=== PATIENT | male | born 1950 | race Caucasian/White ===

== ENCOUNTER 2021-08-20 08:09 | Outpatient (CLI) | payer MEDICARE, OTHER, SELFPAY ==
[2021-08-20 09:20] LABS: Hemoglobin A1C 5.3 % (<5.7)
== END 2021-08-20 08:10 | disposition home or self-care (01) ==
LOC: ANHSURGERY 08:12
PROVIDERS: PCP Family Medicine; Visit Provider Urology
DX: N48.6 Induration penis plastica (principal); Z01.818 Encounter for other preprocedural examination
CPT/HCPCS: 36415; 83036; 87086

== ENCOUNTER 2021-08-27 00:05 | Day surgery (SDC) | payer MEDICARE, OTHER, SELFPAY ==
[2021-08-13 12:39] VITALS: BMI 28.2
--- NOTE | 2021-08-13 13:05 | PC.NURSE ---
Addendum entered by Harriet Salazar RN 08/13/21 13:52: PT CALLED BACK WITH NAME OF NEW BP MED- AMLODIPINE 2.5 MG. DAILY. INSTR TO TAKE THIS MED ON MORNING OF SURGERY TOO. HE RELAYS UNDERSTANDING. Original Note: Report to the Outpatient Waiting Room, entrance under the green pavilion located off [facility], at time _10:00AM on date __08/27/21 . OR Time: __12:00PM . - You and your visitor will be asked a series of questions to screen for COVID 19 for your protection. - A mask is required within the hospital. Preoperative COVID Testing Requirements: No COVID Test needed if: (proof is required; if not received patient will have Rapid Test prior to entry) - Patient has received COVID Vaccine at least 14 days prior to procedure date or - Patient has positive COVID test result within last 90 days of surgery date. COVID Test needed if above criteria is not met If not COVID vaccinated a COVID test must be conducted within 72 hours of surgery and patient is asked to isolate self from time of testing until procedure. You will go to the [facility] for your COVID testing. The [facility] site is located at the corner of [address] [facility]. You will only be called if COVID results are positive and your surgeon may reschedule your elective surgery date. Patients may have clear liquids (water, carbonated beverages, clear teas, apple juice) until 3 hours prior to surgery with a maximum of 20 ounces. - No food from midnight until time of surgery - Infants may have breast milk until 4 hours before surgery, formula 6 hours prior to surgery. - Children will be allowed to drink immediately following surgery. If applicable, please bring a bottle or sippy cup to assist with drinking. Juice, water, soda, and popsicles are readily available. For infants on formula, please bring formula the day of surgery. Pacifiers are allowed. Take the following medications with a SIP of water the morning of surgery: ___PROPAFENONE, LORAZEPAM NEEDED Medications to discontinue per physician HOLD ELIQUIS 3 DAYS PRE-OP PER PT'S INSTRUCTIONS LAST DOSE-08/24/21; HOLD ALL VITAMINS/SUPPLEMENTS 7 DAYS PRE-OP PER PATIENT Please no make-up, nail kyrgyz, hairspray, perfume, deodorant, or body powder the day of surgery. No jewelry (including any body piercings) or valuables the day of surgery, leave them at home. Please take a shower or bath the night before, or the morning of, surgery with an antibacterial soap. Wear comfortable, loose fitting clothing. Children are encouraged to wear pajamas. - Jewelry must be removed prior to entering the operating room. Rings and piercings that are not removed may be cut off. - The hospital will not accept responsibility for valuables. - Please leave all valuables, including medications, at home the day of surgery. If you are going home after surgery, a licensed hyster driver must drive you home. - NO public transportation without another adult. - We recommend that an adult stay with you for 24 hours following discharge. - We also recommend that you do not drive, make important decision, drink alcoholic beverages, or take any drugs that were not prescribed by your health care provider for at least 24 hours after your discharge time. For Pediatric surgeries, we recommend two adults accompany the child home (only one inside the building at this time). One visitor will be allowed to accompany the patient into the hospital. Patients visitor will be instructed to remain with patient at all times or leave the building. We will allow the visitor to come back to the postoperative area when patient is ready. Follow any additional instructions given to you from your surgeon. Telephone instructions given to ____PATIENT and asked if any additional questions and then verbalized understanding. Patient advised to call surgeon office or pre surg
[2021-08-27 10:03] VITALS: BP 152/78; PULSE 68; RESP 16; TEMP 36.4; O2SAT 98
--- NOTE | 2021-08-27 10:43 | WPDANESEPPF ---
Anes - Initial Pre Proc Eval Procedure: Operation Date: 08/27/21 12:00 Proposed Procedures p Penile Plication Repair - Lisa Jaffe MD Date/Time: 08/27/21 10:43 Surgeon: Lisa Jaffe MD Pre Op Diagnosis: Pejoanienimina Patient Data Age: 71 Gender: M Height: 1.85 m Weight: 97.5 kg Last Vital Signs Temp 36.4 C L 08/27/21 10:03 Pulse 68 08/27/21 10:03 Resp 16 08/27/21 10:03 BP 152/78 H 08/27/21 10:03 Pulse Ox 98 08/27/21 10:03 Allergies Allergy/AdvReac Type Severity Reaction Status Date / Time No Known Allergies Allergy Verified 08/27/21 09:51 Home Medications Medication Instructions Recorded Confirmed Type atorvastatin 10 mg PO DAILY 04/05/19 08/27/21 History budesonide 3 mg PO DAILY PRN 04/05/19 08/13/21 History lorazepam 0.5 mg PO DAILY PRN 04/05/19 08/13/21 History pantoprazole [Protonix] 40 mg PO PRN PRN 04/05/19 08/13/21 History amlodipine 2.5 mg PO QAM 08/13/21 08/27/21 History apixaban [Eliquis] 5 mg PO BID 08/13/21 08/27/21 History cholecalciferol (vitamin D3) 125 mcg PO DAILY 08/13/21 08/27/21 History hydrocodone-acetaminophen 1 tablet PO Q6-8H PRN 08/13/21 08/13/21 History magnesium 200 mg PO DAILY 08/13/21 08/27/21 History multivitamin [Daily Multiple] 1 tablet PO DAILY 08/13/21 08/27/21 History propafenone 225 mg PO TID 08/13/21 08/27/21 History Patient hx anesthesia problems: other (hx of difficult intubation at [facility]- letter from Dr. Carey 2014) Family hx anesthesia problems: none Results Review: All pre-operative results and documents have been reviewed as part of the pre-operative evaluation. [facility] Past Medical History Medical History Ocampo esophagus Collapsed lung History of Crohn's disease HTN (hypertension) Hyperlipidemia Surgical History Surgical History History of appendectomy History of cardiac catheterization History of cholecystectomy Social History Social History Smoking packs per day: 1 Smoking cigarettes per day: 20.0 Years smoked: 27 Smoking pack-years: 27.00 Smoking status: Former smoker Tobacco type: cigarettes Smoking end date: 11/14/94 Alcohol intake: current Drinks per week: 21 Substance use: never Living arrangements: with family Additional living arrangements comments: SPOUSE Gender identity (if verbalized by the patient): Male Spiritual care concerns: No Anes - Eval Final PreProcedure Day of Procedure 08/27/21 10:43 Patient weight: overweight Heart: regular rate and rhythm Lungs: clear to auscultation Airway: Mallampati scale class II and special considerations retrognathia (short TMD, hx of difficult intubation at [facility] 2014) Neurological: alert and oriented Last oral intake: >/= 8 hours ASA classification: III Emergent: no Anesthetic plan: proceed Anesthesia type and monitoring: general LMA and standard monitoring Results Review: All pre-operative results and documents have been reviewed as part of the pre-operative evaluation. Informed Consent: The patient's anesthetic plan and its attendant risks and benefits were discussed with the patient/family/POA. Questions were solicited and answers provided to the satisfaction of the patient/family/POA.
[2021-08-27] MEDS: LACTATED RINGERS 1,000 ML 30 ML IV CONT ×2 (11:06→14:29)
--- NOTE | 2021-08-27 12:10 | PM.IMHP ---
H&P: HPI History of Present Illness Date/Time: 08/27/21 12:10 Penile curvature Chief Complaint: penile curvature [facility] Past Medical History Medical History (Updated 08/27/21 @ 12:12 by Lisa Jaffe MD) Ocampo esophagus Collapsed lung History of Crohn's disease HTN (hypertension) Hyperlipidemia Peyronie disease Surgical History Surgical History History of appendectomy History of cardiac catheterization History of cholecystectomy Social History Social History Smoking packs per day: 1 Smoking cigarettes per day: 20.0 Years smoked: 27 Smoking pack-years: 27.00 Smoking status: Former smoker Tobacco type: cigarettes Smoking end date: 11/14/94 Alcohol intake: current Drinks per week: 21 Substance use: never Living arrangements: with family Additional living arrangements comments: SPOUSE Gender identity (if verbalized by the patient): Male Spiritual care concerns: No Meds Home Medications and Allergies Home Medications Medication Instructions Recorded Confirmed Type atorvastatin 10 mg PO DAILY 04/05/19 08/27/21 History budesonide 3 mg PO DAILY PRN 04/05/19 08/13/21 History lorazepam 0.5 mg PO DAILY PRN 04/05/19 08/13/21 History pantoprazole [Protonix] 40 mg PO PRN PRN 04/05/19 08/13/21 History amlodipine 2.5 mg PO QAM 08/13/21 08/27/21 History apixaban [Eliquis] 5 mg PO BID 08/13/21 08/27/21 History cholecalciferol (vitamin D3) 125 mcg PO DAILY 08/13/21 08/27/21 History hydrocodone-acetaminophen 1 tablet PO Q6-8H PRN 08/13/21 08/13/21 History magnesium 200 mg PO DAILY 08/13/21 08/27/21 History multivitamin [Daily Multiple] 1 tablet PO DAILY 08/13/21 08/27/21 History propafenone 225 mg PO TID 08/13/21 08/27/21 History Allergies Allergy/AdvReac Type Severity Reaction Status Date / Time No Known Allergies Allergy Verified 08/27/21 09:51 Vital Signs Vital Signs - 24 hr 08/27/21 10:03 Temperature 36.4 C L Pulse Rate 68 Respiratory Rate 16 Blood Pressure 152/78 H Pulse Oximetry 98 Exam Narrative: awake, alert breathing unlabored abdomen soft penile dorsal palpable plaque Assessment and Plan Assessment and plan (1) Peyronie disease: Code(s): N48.6 - Induration penis plastica Status: Acute Assessment and Plan: Plan penile plication risks, benefits and alternatives discussed Pt and at beside and agree to proceed
--- NOTE | 2021-08-27 12:13 | WPDHPUPDATE1 ---
History and Physical Update Update Date/Time: 08/27/21 12:13 History and Physical has been reviewed, including an updated exam of the patient. There are NO changes in the patient's condition. Risks, benefits, and alternatives have been discussed and questions answered. Patient agrees to proceed with procedure.
[2021-08-27] MEDS: BUPIVACAINE HCL 0.5% PF 30 ML VIAL INFILTRATE (12:28)
[2021-08-27] MEDS: NEOMYCIN/POLYMYXIN/BACITRACIN OINTMENT 15 GM TUBE 1 APPLIC TOPICAL (14:14)
[2021-08-27 14:29] VITALS: BP 150/79; PULSE 69; RESP 19; O2SAT 99
--- NOTE | 2021-08-27 14:37 | P.OP_ITS ---
Procedure Note - Detailed Date of Procedure 08/27/21 Pre-op Diagnosis Peyronies Post-op Diagnosis Same Procedure Performed Penile plication, artificial erection with pharmacologic agent Surgeon Lisa Jaffe MD Description of Procedure Informed consent was obtained. Patient was taken the operating room. He was given preoperative IV antibiotics. Anesthesia was induced. The patient was shaved and prepped in the normal sterile fashion. An artificial erection was performed with dilute lidocaine. Erection revealed 65? dorsal and 35? of left curvature. A Fournier catheter was placed for urethral identification. As patient is uncircumcised, we elected to make a ventral 3cm incision over the area of maximal curvature to reduce postoperative swelling. Dissection was performed down to the corporal bodies at the area of maximal curvature on either side, taking great care not to injure the urethra. Mason's fascia was opened over the corpora. We then again performed an artificial erection and marked the area of maximal curvature. Using a modified Lue technique, 3-0 Ethibond sutures were placed on either side of the urethra. We initially placed 2 sutures on each side with significant reduction in curvature. An additional suture was placed on the left and 3 additional sutures on the right in order to achieve significan t straightening. An artificial erection was performed after each additional suture to assess for straightening. At the conclusion of the procedure an artificial erection was performed and there was no more than 10? of curvature in any direction. A total of 8 sutures were placed, 3 on the left and 5 on the right. We then irrigated copiously. Mason's fascia and deep dermal layers were closed with 3-0 Vicryl suture. Skin was reapproximated with 3-0 Monocryl horizontal mattress followed by glue. The Fournier catheter was removed after emptying the bladder. A compressive dressing was placed. The patient was then taken to the recovery room in stable condition Estimated Blood Loss 20 Urine Output -200.0 Drains No Packing No Pathology None sent Complications No immediate complications Condition Stable Disposition PACU
[2021-08-27 14:45] VITALS: BP 139/77; PULSE 62; RESP 19; O2SAT 97
[2021-08-27] MEDS: fentaNYL CITRATE INJ (*CRX) 100 MCG/2 ML VIAL 25 MCG IV PUSH (14:59)
[2021-08-27 15:00] VITALS: BP 130/89; PULSE 68; RESP 15; O2SAT 97
[2021-08-27 15:10] VITALS: BP 118/62; PULSE 71; RESP 16
[2021-08-27 15:40] VITALS: BP 136/62; PULSE 69; RESP 16
== END 2021-08-27 15:55 | disposition home or self-care (01) ==
PROVIDERS: PCP Family Medicine; Visit Provider Urology
PROC: (CPT 54360; principal; 2021-08-27 12:00)
DX: N48.6 Induration penis plastica (principal); I10 Essential (primary) hypertension; E78.5 Hyperlipidemia, unspecified; K50.90 Crohn's disease, unspecified, without complications; Z87.891 Personal history of nicotine dependence; Z79.01 Long term (current) use of anticoagulants
CPT/HCPCS: 54360; 54235; A9270; J0690; J1100; J2250; J2405; J2704; J3010; J7030; J7120

== ENCOUNTER 2022-07-22 15:39 | Emergency (ER) | payer MEDICARE, OTHER, SELFPAY ==
[2022-07-22 15:48] VITALS: BP 104/68; PULSE 68; RESP 18; TEMP 36.3; O2SAT 97
[2022-07-22 15:51] VITALS: BP 104/68; PULSE 68; RESP 18; TEMP 36.3; O2SAT 97
--- NOTE | 2022-07-22 16:05 | ED.GENADULT ---
HPI - General Adult General Chief complaint: Extremity Injury, Upper Stated complaint: Swollen Middle Finger Lt Hand Time Seen by Provider: 07/22/22 16:05 Source: patient, RN notes reviewed and old records reviewed Mode of arrival: ambulatory Limitations: no limitations History of Present Illness HPI narrative: 72-year-old male who presents to [facility] with complaints of pain and swelling to the left middle finger along the nail bed for the past 4 days. He reports that he did have some purulent drainage noted today along the outer aspect of the nail bed. The area along outer and upper nailbed is red and swollen and is painful to palpation. MD complaint: paronychia left mddle finger Onset (ago): day(s) (4) Location: left and upper extremity (middle finger nailbed) Severity scale (1-10): 10 Quality: stabbing Pain Consistency: constant Exacerbating factors: other (palpation) Treatments prior to arrival: none Related Data Home Medications Medication Instructions Recorded Confirmed atorvastatin 10 mg tablet 10 mg PO DAILY 04/05/19 07/22/22 budesonide 3 mg 3 mg PO DAILY PRN Diarrhea 04/05/19 07/22/22 capsule,delayed,extended release lorazepam 0.5 mg tablet 0.5 mg PO DAILY PRN Anxiety 04/05/19 07/22/22 pantoprazole 40 mg granules 40 mg PO PRN PRN Indigestion 04/05/19 07/22/22 delayed-release for susp in packet (Protonix) amlodipine 2.5 mg tablet 2.5 mg PO QAM 08/13/21 07/22/22 apixaban 5 mg tablet (Eliquis) 5 mg PO BID 08/13/21 07/22/22 cholecalciferol (vitamin D3) 125 125 mcg PO DAILY 08/13/21 07/22/22 mcg (5,000 unit) capsule magnesium 200 mg tablet 200 mg PO DAILY 08/13/21 07/22/22 multivitamin 1 tablet PO DAILY 08/13/21 07/22/22 propafenone 225 mg tablet 225 mg PO TID 08/13/21 07/22/22 Allergies Allergy/AdvReac Type Severity Reaction Status Date / Time No Known Allergies Allergy Verified 07/22/22 15:50 Review of Systems Review of Systems: CONSTITUTIONAL: Denies fever, chills, or sweats. EYES: Denies visual changes, redness, or discharge. ENT: Denies rhinorrhea, congestion, sore throat, or otalgia. CARDIOVASCULAR: Denies chest pain, palpitations, or edema. RESPIRATORY: Denies cough or dyspnea. GASTROINTESTINAL: Denies abdominal pain, nausea, vomiting, or diarrhea. GENITOURINARY: Denies dysuria or hematuria. SKIN: Denies rash or itching. redness with swelling and pain to outer and upper left middle finger nail bed with some purulent drainage. MUSCULOSKELETAL: Denies back pain, joint pain, or myalgia. NEUROLOGIC: Denies headache, numbness, or weakness. PSYCHIATRIC: Reports history of anxiety or depression. All systems reviewed & are unremarkable except as noted in HPI and below PMFSH Past Medical History Medical History Ocampo esophagus Collapsed lung History of Crohn's disease HTN (hypertension) Hyperlipidemia Peyronie disease Surgical History Surgical History History of appendectomy History of cardiac catheterization History of cholecystectomy Social History Social History Smoking packs per day: 1 Smoking cigarettes per day: 20.0 Years smoked: 27 Smoking pack-years: 27.00 Smoking status: Current every day smoker Tobacco type: cigarettes Smoking end date: 11/14/94 Alcohol intake: current Drinks per week: 21 Substance use: never Living arrangements: with family Additional living arrangements comments: SPOUSE Gender identity (if verbalized by the patient): Male Spiritual care concerns: No Comments At time of signature, agree with nursing past medical, surgical, social and family history. There is no relevant family history pertinent to the presenting complaint Exam Narrative: GENERAL: Well-appearing, well-nourished, and in no acute distress. HEAD: Normocephalic, atraumatic. EYES: PERRLA and EOMI.
== END 2022-07-22 16:27 | disposition home or self-care (01) ==
PROVIDERS: Emergency Provider Registered Nurse; PCP Family Medicine
DX: L03.012 Cellulitis of left finger (principal); I10 Essential (primary) hypertension; E78.5 Hyperlipidemia, unspecified; F17.210 Nicotine dependence, cigarettes, uncomplicated; Z79.01 Long term (current) use of anticoagulants
CPT/HCPCS: 10060; 99213; G0463

== ENCOUNTER 2023-03-03 09:45 | Outpatient (RCR) | payer MEDICARE, OTHER, SELFPAY | END 2023-03-08 10:02 | disposition home or self-care (01) | LOC: ANHCPREHAB 09:45 | PROVIDERS: PCP Family Medicine | DX: J44.9 Chronic obstructive pulmonary disease, unspecified (principal) | CPT/HCPCS: 94625 ==

== ENCOUNTER 2024-07-09 09:38 | Emergency (ER) | payer MEDICARE, SELFPAY ==
--- NOTE | ~2024-07-09 | XR_ITS ---
EXAMINATION: XR chest 2V DATE: 07/09/2024 10:47 INDICATION: Cough and shortness of breath. TECHNIQUE: Frontal and lateral views of the chest were obtained on 3 radiographs. COMPARISON: Chest single view 04/05/2019, CT abdomen 07/23/2007 FINDINGS: The lung volumes are normal. There is a diffuse interstitial pattern in the lungs. No pleur al effusion or pneumothorax. The heart size is normal. IMPRESSION: 1. Diffuse lung disease, worsened from 04/05/2019, likely chronic lung disease. Reviewed, dictated and finalized at location A. [employer]
--- OUTSIDE RECORDS SUMMARY | 2024-07-09 09:51 | XMS_ITS | Encounter Summary ---
Author Organization [facility] Address [address] [place] [address] Phone Care Team Providers Care Power Transformer Repair Supervisor Name Role Phone Ck Chacon MD Primary Care Provider Peter Muller MD Unavailable [phone] Nick Lamas MD Unavailable Shagufta Sal RN Unavailable [phone] Reason for Visit * Reason Onset Date Comments symptoms 07/06/2024 Encounter Details Date Type Department Care Team (Late st Contact Info) Description 07/06/2024 Telephone [facility] Cardiology [address] [facility] [address] [facility] [address]th [place] [address] [place] [address] Jude Le NP [address] [facility] [address] [place] [address] symptoms Social History Tobacco Use Types Packs/Day Years Used Date Smoking Tobacco: Former Cigarettes 1.5 19 1 0 - 1988 Passive Smoke Exposure: Past Smokeless Tobacco: Never Comments:Chews Nicorette gum Alcohol Use Standard Drinks/Week Comments Yes 18 (1 standard drink = 0.6 oz pu re alcohol) a week [facility] Utilities Answer Date Recorded In the past 12 months has th e electric, gas, oil, or water company threatened to shut off services in your home? No 06/06/2024 Social Connection and Isolation Panel [NHANES] A nswer Date Recorded In a typical week, how many times do you talk on the phone with family, friends, or neighbors? Three times a week 06/06/2024 How often do you get togethe r with friends or relatives? Three times a week 06/06/2024 How often do you attend chur ch or cheondoism services? Never 06/06/2024 Do you belong to any clubs o r organizations such as jain groups, unions, fraternal or athletic groups, or school groups? No 06/06/2024 How often do you attend meet ings of the clubs or organizations you belong to? Never 06/06/2024 Are you , , di vorced, , never , or living with a partner? 06/06/2024 AUDIT-C Answer Date Recorded Q1: How often do you have a drink containing alc ohol? 2-4 times a month 07/05/2024 Q2: How many drinks containi ng alcohol do you have on a typical day when you are drinking? 1 or 2 07/05/2024 Q3: How often do you have si x or more drinks on one occasion? Never 07/05/2024 Overall Financial Resource Strain (CARDIA) Answe r Date Recorded How hard is it for you to pa y for the very basics like food, housing, medical care, and heating? Not hard at all 06/06/2024 PHQ-2 Answer Date Recorded PHQ-2 Total Score (If total score is 3 or more points, staff should administer the PHQ-9) 0 07/05/2024 Hunger Vital Sign Answer Date Recorded Within the past 12 months, y ou worried that your food would run out before you got the money to buy more. Never true 06/06/19 25 Within the past 12 months, t he food you bought just didn't last and you didn't have money to get more. Never true 06/06/2024 PRAPARE - Transportation Answer Date Re corded In the past 12 months, has l ack of transportation kept you from medical appointments or from getting medications? No 05/18 In the past 12 months, has l ack of transportation kept you from meetings, work, or from getting things needed for daily living? No 06/06/2024 Housing Stability Vital Sign Answer Phuc e Recorded In the last 12 months, was t here a time when you were not able to pay the mortgage or rent on time? No 06/14/2023 In the last 12 months, how many places have you lived? 1 06/14/2023 In the last 12 months, was t here a time when you did not have a steady place to sleep or slept in a custodial (including now)? No 06/14/2023 Housing Stability Vital Sign Answer Phuc e Recorded In the last 12 months, was t here a time when you were not able to pay the mortgage or rent on time? No 06/06/2024 In the past 12 months, how m any times have you moved where you were living? 0 06/06/2024 At any time in the past 12 m [facility], were you homeless or living in a custodial (including now)? No 06/06/2024 Personal Safety Answer Date Recorded Have you ever been in or are you currently in a harmful physical or emotional relationship or is someone making you feel afraid or unsafe? Denies 07/06/2024 Sex and Gender Information Value Date Recorded Sex Assigned at Not on file Legal Sex Male 3:45 AM PLUNGER MACHINE OPERATOR Gender Identity Not on file Sexual Orientation Not on file documented as of this encounter Ordered Prescriptions Prescription Sig Dispense Quantity Refills Last Filled Start Date End Date empagliflozin (Jardiance) 10 mg tabletIndications:H eart Failure,HFpEF indication Take 1 tablet (10 mg total) by mouth daily 90 tablet 3 07/07/2024 documented in this encounter Miscellaneous Notes * Telephone Encounter - Rehan, Kavya Ring, HARSHAL - 07/07/2024 10:42 AM PLUNGER MACHINE OPERATOR Advised pt to go back to lasix 20 mg daily. 2/4 105/69 2/5 128/75 2/6 127/73 2/7 153/88 2/8 116/79 2/9 140/67 2/10 114/71 2/11 135/70 2/12 110/77 2/13 112/60 2/14 110/65 BPs are stable from Spironolactone. He will start jardiance and get lab work once he has been on it for a week. Pt is undergoing pulmonary rehab and will return when he is feeling better. He will reach out to his pulmonary doctor for further recs regarding his COPD exacerbation. GER MACHINE OPERATOR * Telephone Encounter - Kavya Van RN - 07/07/2024 10:29 AM PLUNGER MACHINE OPERATOR Images from the original note were not included. Jude Le NP You10 minutes ago (10:18 AM) Lets drop the Lasix dose back down to 20 mg daily please. Follow up on how his blood pressure is tolerating the Spironolactone. Then add Jardiance 10 mg daily for HFpEF indication. Repeat Labs in 7-14 days after Jardiance because we may be able to transition Lasix back to as needed after the Jardiance. Jude Reynolds NP2 hours ago (8:17 AM) ET Looks like ED note states it was a COPD exacerbation. BNP 37. Do you want him to stay on 40 mg lasix? GER MACHINE OPERATOR * Telephone Encounter - Kavya Van RN - 07/06/2024 2:09 PM PLUNGER MACHINE OPERATOR Called pt to advise what Jude had said. Pt has had an increase in urination, more than what he was doing before with being on 20 mg daily. Pt did state that he is at the ER in [facility]. Told him to keep us posted when he was discharged. GER MACHINE OPERATOR * Telephone Encounter - Kavya Van RN - 07/06/2024 2:08 PM PLUNGER MACHINE OPERATOR Images from the original note were not included. Jude Le NP You11 minutes ago (1:56 PM) Given weight gain could be diastolic heart failure driving this vs his COPD as he has had recent admissions for COPD exacerbations. Did he urinate any more yesterday or today with higher dose of Lasix? Can further increase dose if not. I reviewed his labs and his kidney function is stable. You Jude Le, NP28 minutes ago (1:39 PM) ET Recs? GER MACHINE OPERATOR * Telephone Encounter - Kavya Van RN - 07/06/2024 1:32 PM PLUNGER MACHINE OPERATOR Called pt and he is complaining of SOB x3 day. Pt already on oxygen at home (2 L). When sitting 92 no oxygen. With activity and o2 on 85-86 %. With any exertion he is getting lightheaded. He is also spitting up yellow tinged sputum. Pt saw his PCP yesterday. (She said it could be heart or lungs) Pt currently takes 40 mg of lasix as of yesterday. No improvement in breathing yet. Pt states that he gained 5 lbs in a week this week and his legs are a little swollen. He says it pits for about 10 seconds. No fever. He says he feels like he did the last time he was in the hospital. GER MACHINE OPERATOR * Telephone Encounter - Belle Garcia - 07/06/2024 12:50 PM CST Rey Pt stating he has not feeling well. Pt having breathing issues and spitting up a lot of yellow mucus. No fever. Pt is feeling the same way he did while in the hospital. Pt ws seen in the office on DOS 06/19/24 Pt did see his PCP. Pls return call to discuss. GER MACHINE OPERATOR documented in this encounter Plan of Treatment Scheduled Orders Name Type Priority Associated Diagnoses Orde r Schedule Basic metabolic panel Lab Routine Chronic diastolic heart failure (HCC) New medication added Expected: 07/14/2024, Expires: 07/07/2025 documented as of this encounter Goals Goal Patient Goal Type Associated Problems Recent Progress Patient-Stated? Author LANA General Goal - Patient schedules and keeps appointments with all recommended providers ACO Care Management No Shagufta Sal RN Note: Problem: Potential for medical complications and readmission if follow-up appointments are not scheduled Interventions: - Ensure all follow-up appointments are scheduled, all prescribed medications have been received. - Address any barriers for keeping scheduled appointment. - Coordinate with patient/caregiver(s) to ensure patient is able to keep scheduled appointment. - Emphasize importance of keeping scheduled appointments. - Identify and discuss questions for next provider visit. - Follow up with patient after scheduled appointment(s) to review any new orders or changes made to medication regimen. HF Goal - Patient's CP status will be stable with increased knowledge of self-care management ACO Care Management No Shagufta Sal RN Note: Problem: Heart Failure Interventions: - Assess for HF exacerbation: dyspnea at rest, reports of increased dyspnea with exertion, sudden weight gain of 3+lbs in 1 day or 5+lbs in 1 week, increased edema in legs/ankles, frequent dry hacking cough, loss of appetite, increased fatigue. - Provide education surrounding fluid restrictions, daily weights, energy conservation techniques, sodium restricted diet, edema control. - Send heart failure educational materials. documented as of this encounter Visit Diagnoses Diagnosis Chronic diastolic heart failure (HCC)- Primary Chronic diastolic heart failure New medication added documented in this encounter Additional Health Concerns Infection Onset Date Last Indicated Resolved Time COVID: Suspected 07/06/2024 07/06/2024 07/06/2024 3:10 PM PLUNGER MACHINE OPERATOR documented as of this encounter Care Teams Power Transformer Repair Supervisor Relationship Specialty Start Date End Date Ck Chacon MD PCP - General 07/04/18 Peter Muller MD Referring Physician Cardiology 03/20/20 Nick Lamas MD [address] [address] Consulting Physician Cardiology 02/28/24 Shagufta Sal RN [address] [place] [address] [address] [place] [address] Email Marketing Assistant 05/22/24 documented as of this encounter
--- OUTSIDE RECORDS SUMMARY | 2024-07-09 09:52 | XMS_ITS | Referral Summary ---
Author Organization [facility] Address [address] [place] [address] Care Team Providers Care Director Of Food And Beverage Services Name Role Phone Ck Chacon MD Primary Care Provider [phone] Peter Muller MD Unavailable Nick Lamas MD Unavailable Shagufta Sal RN Unavailable Encounters Date Type Department Care Team Description 07/07/2024 Telephone [facility] Medical [facility] Family Medicine at [address] [place] [address] Ck Chacon MD Appointment Request (ER follow up) 07/07/2024 Orders Only [facility] Pulmonary [address] [facility] Advanced Medicine 8th [place] [address] [place] [phone] Palmira Moncada MD 07/07/2024 Telephone [facility] Cardiology [address] [facility] Medical Office Building [address] [place] [address] Jude Le NP Jardiance PA request 07/07/2024 Telephone [facility] Medical [facility] Family Medicine at [address] [place] [address] Ck Chacon MD Case Management- Primary Care 07/06/2024 Results Follow-Up [facility] Cardiology [facility] 8th [place] [address] [place] [address] Jude Le, PINKY 07/06/2024 2:28 PM TAG WRITER - 07/06/2024 5:[address] [facility] Emergency Department [address] [place] [id number] Peter Montes DO COPD exacerbation (HCC) (Primary Dx) Discharge Disposition: Discharge to home or self care 07/06/2024 Telephone [facility] Cardiology [address] [place] [address] 8th [place] [address] [place] [address] Jude Le, SURVEYING OR SPATIAL SCIENCE TECHNICIAN symptoms 07/06/2024 Telephone [facility] Medical [facility] Family Medicine at [address] [place] [address] Ck Chacon MD Medical Question/Miscellaneou s 07/05/2024 10:45 AM TAG WRITER Office Visit [facility] Family Medicine at [address] [place] [phone] Merary Oneal PA Acute cough (Primary Dx); SOB (shortness of breath) 07/05/2024 Nurse Triage [facility] Family [facility] at [address] [place] [address] Ck Chacon MD 06/21/2024 Orders Only [facility] Pulmonary [facility] 8th [place] [address] [place] [address] Palmira Moncada MD 06/20/2024 7:08 AM TAG WRITER - 06/20/2024 11:59 PM TAG WRITER Hospital Encounter [facility] Pulmonary [address] [facility] [address] [place] [address] Pulmonary fibrosis (CMS/HCC) (HCC) Discharge Disposition: Discharge to home or self care 06/20/2024 8:00 AM TAG WRITER Office Visit [facility] Pulmonary [address] [place] [address] [place] [address] [place] [address] Palmira Moncada MD Pulmonary fibrosis (CMS/HCC) (HCC) (Primary Dx); Hypoxemia; Pulmonary emphysema, unspecified emphysema type (HCC) 06/19/2024 8:00 AM TAG WRITER Office Visit [facility] Cardiology [address] [place] [address] [place] [address] Jude Le NP Chronic diastolic heart failure (HCC) (Primary Dx); Chronic diastolic congestive heart failure (CMS/HCC) (HCC); Essential hypertension; Mixed hyperlipidemia; Paroxysmal atrial fibrillation (CMS/HCC) (HCC); PFO (patent foramen ovale) 06/15/2024 2:44 PM TAG WRITER - 06/15/2024 11:59 PM TAG WRITER Hospital Encounter [address] [address] SOB (shortness of breath) Discharge Disposition: Discharge to home or self care 06/15/2024 1:35 PM TAG WRITER Ancillary Procedure [facility] Cardiology [address] [place] [address] [place] [address] SOB (shortness of breath) 06/15/2024 1:30 PM TAG WRITER Lab [facility] Endocrinology Metabolism and Lipid [address] [place] [address] [place] [address] Painful urging to urinate (Primary Dx) 06/15/2024 12:45 PM TAG WRITER Office Visit [facility] Cardiology [address] [place] [address] [place] [address] Shagufta Vasquez NP SOB (shortness of breath) (Primary Dx) 06/14/2024 Telephone [facility] Cardiology [address] [place] [address] [place] [address] Nick Lamas MD 06/13/2024 8:30 AM TAG WRITER Office Visit [facility] Medical Group Family Medicine at [address] [place] [address] Briana Giles NP Acute on chronic diastolic congestive heart failure (CMS/HCC) (HCC) (Primary Dx); Acute on chronic respiratory failure with hypoxia (CMS/HCC) (HCC) 06/09/2024 Telephone [facility] Pulmonary [place] [address] [facility] [address] [place] [phone] Bernardino Dillard MD Prior Auth (OFEV) 06/05/2024 7:27 PM TAG WRITER - 06/09/2024 3:51 PM TAG WRITER Hospital Encounter [facility] 4 Med Surg [address] [place] [address] Jimbo Jack MD [place], MD Nidia Arreola Ibrahim, MD Acute on chronic respiratory failure with hypoxia (CMS/HCC) (HCC) (Primary Dx); Interstitial lung disease (CMS/HCC) (HCC); COPD exacerbation (HCC); SOB (shortness of breath); ALANIZ (dyspnea on exertion); Acute on chronic diastolic congestive heart failure (CMS/HCC) (HCC) [I50.33]; MIKE on CPAP [G47.33]; Pulmonary hypertension (HCC) [I27.20]; Pulmonary fibrosis (CMS/HCC) (HCC) [J84.10]; Pulmonary fibrosis (CMS/HCC) (HCC) Discharge Disposition: Discharge to home or self care 06/05/2024 Telephone [facility] Family Medicine at [address] [address] Ck Chacon MD Case Management- Primary Care 05/31/2024 Telephone [facility] Cardiology [address] [facility] 8th [place] [address] [place] [address] Peter Muller MD Med Management 05/30/2024 Telephone [facility] [address] [facility] [address] [place] [phone] Bernardino Dillard MD 05/29/2024 11:00 AM TAG WRITER Office Visit [facility] Family Medicine at [address] [place] [phone] Briana Giles NP Acute on chronic hypoxic respiratory failure (HCC) (Primary Dx); Acute on chronic heart failure, unspecified heart failure type (HCC); Intractable migraine without aura and without status migrainosus; Essential hypertension 05/24/[address] [phone] Bernardino Dillard MD 05/24/2024 9:00 AM TAG WRITER Office Visit [facility] [address] [place] [phone] Bernardino Dillard MD Pulmonary fibrosis (CMS/HCC) (HCC) (Primary Dx); Simple chronic bronchitis (HCC); MIKE on CPAP; Multiple pulmonary nodules; Cigarette nicotine dependence in remission; Pulmonary hypertension (HCC); Paroxysmal atrial fibrillation (CMS/HCC) (HCC); NSIP (nonspecific interstitial pneumonia) (CMS/HCC) (HCC); Exercise hypoxemia; Bronchiectasis without acute exacerbation (HCC); Muscular deconditioning 05/11/2024 3:35 AM TAG WRITER - 05/20/2024 11:49 AM TAG WRITER Hospital Encounter [facility] 4 Med Surg [address] [place] [address] Amy Wei MD Sada, Kahmalia-Kalee Conceptia, MD [place], MD Dalton Alejo, MD Gume Chou, Rodney Doe MD Acute on chronic hypoxic respiratory failure (HCC) (Primary Dx); Fever in adult; NSIP (nonspecific interstitial pneumonia) (CMS/HCC) (HCC) [J84.89]; Pulmonary fibrosis (CMS/HCC) (HCC) [J84.10]; Simple chronic bronchitis (HCC) [J41.0]; CAP (community acquired pneumonia) [J18.9]; MIKE on CPAP; Multiple pulmonary nodules Discharge Disposition: Discharge to home or self care 05/05/2024 Orders Only [facility] Pulmonary [address] [facility] 8th [place] [address] [place] [address] Palmira Moncada MD 05/04/2024 Telephone [facility] at [address] [address] Ck Chacon MD Medical Question/Miscellaneou s 05/03/2024 9:00 AM TAG WRITER Telemedicine [facility] at [address] [address] Ck Chacon MD RSV bronchitis (Primary Dx) 05/02/2024 Telephone [facility] at [address] [address] Ck Chacon MD appoinment 05/01/2024 11:08 PM TAG WRITER - 05/01/2024 11:50 PM [facility] Emergency [facility] Emergency Department [address] [place] [phone] RSV (acute bronchiolitis due to respiratory syncytial virus) (Primary Dx) Discharge Disposition: Discharge to home or self care 05/01/2024 Nurse Triage [facility] at [address] [address] Ck Chacon MD 05/01/2024 Telephone [facility] at [address] [address] Ck Chacon MD Symptom Based Call 04/28/2024 11:00 AM TAG WRITER Office Visit [facility] at [address] [address] Merary Oneal PA Acute cough (Primary Dx) 04/28/2024 Nurse Triage [facility] at [address] [address] Ck Chacon MD from Last 3 Months Allergies No known active allergies Medications calcium carbonate (Calcium 600) 1,500 mg (600 mg elemental) tablet Take 1 tablet (1,500 mg total) by mouth daily 30 tablet 3 04/24/20 21 Active magnesium gluconate 200 mg tablet Take 1.25 tablets (250 mg total) by mouth early head start director before breakfast Active multivitamin capsule Take 1 capsule by mouth every morning MEN'S 50+ Active ascorbic acid (VITAMIN C ORAL) Take 1 tablet by mouth early head start director before breakfast Active oxygen Administer 2-3 L/min into each nostril as directed Sleeping and walkin Liters *Sleeping - 2L O2 goes through CPAP machine Exercisin Liters Sitting - NO oxygen Active atorvastatin (LIPITOR) 20 mg tablet TAKE 1 TABLET EVERY MORNING 90 tablet 3 04/17/[address] (PROTONIX) 40 mg EC tablet Take 1 tablet (40 mg total) by mouth daily Active metoprolol XL (TOPROL-XL) 50 mg extended release tablet TAKE 1 TABLET EVERY DAY 90 tablet 3 05/11/20 24 Active nintedanib (Ofev) 150 mg capsule Take 1 capsule (150 mg total) by mouth 2 (two) times a day with meals 180 capsule 05/19/19 25 Active LORazepam (ATIVAN) 1 mg tablet Take 1 tablet (1 mg total) by mouth every 6 (six) hours as needed for anxiety 15 tablet 05/20/19 25 Active fluticasone-um eclidin-vilant er (Trelegy Ellipta) 100-62.5-25 mcg inhaler Inhale 1 puff daily Rinse mouth with water after use, do not swallow 180 each 05/23/19 25 Active rimegepant (Nurtec ODT) tablet,disinte grating Take 1 tablet (75 mg total) by mouth daily as needed (migraine treatment) 8 tablet 1 05/25/19 25 Active apixaban (ELIQUIS) 5 mg tablet Take 1 tablet (5 mg total) by mouth 2 (two) times a day 180 tablet 3 05/25/19 25 Active NIFEdipine (PROCARDIA XL/ADALAT CC) 30 mg 24 hr tablet Take 1 tablet (30 mg total) by mouth daily 90 tablet 3 05/26/19 25 2025 Active ondansetron (ZOFRAN) 4 mg tabletIndicati ons:Acute on chronic heart failure, unspecified heart failure type (HCC) Take 1 tablet (4 mg total) by mouth every 8 (eight) hours as needed for nausea or vomiting 30 tablet 1 05/29/19 Active furosemide (LASIX) 20 mg tablet Take 1 tablet (20 mg total) by mouth daily 30 tablet 06/09/19 Active Additional Information Patient taking differently: 40 mgoral Daily, Reported on 07/06/2024 spironolactone (ALDACTONE) 25 mg tablet Take 1 tablet (25 mg total) by mouth daily 90 tablet 3 06/19/19 25 2025 Active albuterol 2.5 mg /3 mL (0.083 %) nebulizer solution Take 3 mL (2.5 mg total) by nebulization every 6 (six) hours as needed for wheezing 75 mL 11 06/21/19 25 2025 Active empagliflozin (Jardiance) 10 mg tabletIndicati ons:Heart Failure,HFpEF indication Take 1 tablet (10 mg total) by mouth daily 90 tablet 3 07/07/19 Active albuterol HFA (ProAir HFA) 90 mcg/actuation inhaler Inhale 2 puffs every 6 (six) hours as needed for wheezing or shortness of breath 25.5 g 3 07/07/19 Active ipratropium-al buteroL (DUO-NEB) 0.5-2.5 mg/3 mL nebulizer solution Take 3 mL by nebulization every 6 (six) hours as needed for wheezing or shortness of breath 2024 Discontinued doxycycline (VIBRAMYCIN) 100 mg capsule Take 1 tablet/capsule (100 mg total) by mouth 2 (two) times a day for 10 days 20 tablet/caps ule 06/09/19 25 2024 Discontinued predniSONE (DELTASONE) 10 mg tablet Take 4 tabs (40mg) daily for 3 days, then 3 tabs (30mg) daily for 3 days, 2 tabs (20mg) daily for 3 days, 1 tab (10 mg) daily for 3 days. 30 tablet 06/09/19 25 2024 Discontinued albuterol HFA (ProAir HFA) 90 mcg/actuation inhaler Inhale 2 puffs every 6 (six) hours as needed for wheezing or shortness of breath 25.5 g 3 07/07/19 25 2024 Discontinued(R eorder) Active Problems Problem Noted Date Diagnosed Date PFO (patent foramen ovale) 06/19/2024 Assessment & Plan (06/19/2024 9:01 AM TAG WRITER): PFO noted on echocardiogram. Not of any clinical significance at this time. We will continue to monitor. Acute on chronic respiratory failure with hypoxi a ([facility]) 06/05/2024 Assessment & Plan (06/13/2024 9:14 AM TAG WRITER): - Improving, currently still you using supplemental oxygen 2-3 L with activity - Continue prednisone taper - Continue DuoNeb 3 mL every 6 hours as needed, Trelegy 100-62.5-25 mcg inhaler 1 puff daily, Lasix 20 mg daily - Schedule follow-up with Dr. Dillard, recommendation was to follow-up in 2 weeks following hospital discharge - Report back to office with any worsening symptoms and follow-up in 4 weeks Chronic diastolic heart failure 06/05/2024 Assessment & Plan (06/19/2024 9:08 AM TAG WRITER): Two admissions for diastolic heart failure and COPD exacerbation in April of 2024 and May of 2024. Echocardiogram during hospitalization noted a preserved ejection fraction with grade 2 diastolic dysfunction. States a good baseline weight for him was around 110 lb prior to his hospitalizations and now running around 220 lbs. Recent NT proBNP on 06/15/2024 was in normal range of 117. Has some mild bilateral lower extremity edema but otherwise no overt volume overload appreciated upon examination. Will start spironolactone 25 mg daily for blood pressure optimization and HFpEF indication. Repeat labs in 7-10 days and plan to start Jardiance at that time. He can hold Lasix and take on as needed basis for weight gain of 2 lb in 24 hours or 5 lb in a week. Provided education regarding heart failure management and when to reach out to our team. Assessment & Plan (06/13/2024 9:15 AM TAG WRITER): - Symptoms improving, euvolemic on exam today - Continue Lasix 20 mg daily, nifedipine extended release 30 mg daily, metoprolol extended release 50 mg daily - Follow-up with cardiology as scheduled, next appointment currently for [facility] - Reports no refills needed at this time Exercise hypoxemia 02/10/2023 Pulmonary fibrosis (CMS/HCC) 02/10/2023 GUERA (generalized anxiety disorder) 06/19/2022 Assessment & Plan (06/19/2022 7:01 PM TAG WRITER): Managed by PCP, takes lorazepam 2mg, BID - symptoms currently well controlled Cigarette nicotine dependence in remission 04/29 Multiple pulmonary nodules 01/28/2022 AAA (abdominal aortic aneurysm) 04/29/2021 Assessment & Plan (06/19/2022 6:58 PM TAG WRITER): 3cm, monitored by PCP, next in 02/06 MIKE on CPAP 04/29/2021 Assessment & Plan (04/01/2023 7:09 PM TAG WRITER): Uses 2l oxygen at night with cpap , doesn't have cpap here. Primary osteoarthritis of right knee 03/18/2021 Overview (03/18/2021): Added automatically from request for surgery [id number] Pancreatic cyst 12/25/2020 Chronic diarrhea 11/20/2019 Collagenous colitis 11/20/2019 Assessment & Plan (06/19/2022 6:57 PM TAG WRITER): Symptoms controlled, cont home oral budesonide Benign prostatic hyperplasia with urinary freque ncy 11/20/2019 Assessment & Plan (05/23/2020 9:41 AM TAG WRITER): - Continue tamsulosin. 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 He underwent a PVI in 06/2022 and 03/2023. Noted to be in a regular rate and rhythm today. Has noted higher heart rates with exertional activities. Just finished wearing a 3 day monitor with EP to assess AFib burden. Continue metoprolol XL 50 mg daily. Continue Eliquis 5 mg b.i.d.. He denies any bleeding issues. Continue close follow-up with EP. Assessment & Plan (04/01/2023 7:07 PM TAG WRITER): S/p Pulm vein isolation and afib ablation Per EP note - resume eliquis tonight, start ppi daily for 30 days , resume toprol xl 50 . Distal neurovasc intact and access sites without bleeding. Monitor on tele Assessment & Plan (06/20/2022 9:12 AM TAG WRITER): Patient admitted for obs following ablation. Tolerated procedure well, no complaints other than slight headache. Orders placed as per EP instructions as below: - no acute events overnight - cont home meds including Eliquis and propafenone - started on metoprolol XL 12.5 mg daily per EP recs - PPI x30d, pt takes chronically at home - cleared for dc by EP, f/u scheduled 07/22/22 Mixed hyperlipidemia 04/11/2019 Assessment & Plan (06/19/2024 9:03 AM TAG WRITER): Continue atorvastatin 20 mg daily. Assessment & Plan (05/23/2020 9:41 AM TAG WRITER): - Continue atorvastatin. Essential hypertension 04/11/2019 Assessment & Plan (06/19/2024 9:04 AM TAG WRITER): Above goal today and reports it runs in the 140s over 80 to 90s at home. Continue metoprolol XL 50 mg daily and nifedipine 30 mg daily. Will start spironolactone 25 mg daily for both blood pressure management and HFpEF indication. Assessment & Plan (05/29/2024 12:15 PM TAG WRITER): - Chronic, slightly increased at today's visit to 140/72. Possibly from current prednisone taper. - Continue nifedipine extended release 30 mg daily, metoprolol extended release 50 mg daily - Pt has h/o HTN and will need to keep their BP at goal for their specific risk category, typically the BP should be below 140/90. HTN increases risks for heart attack and stroke as well as renal impairment. Uncontrolled HTN may cause vision changes and headache. They will need to work on daily exercise Minimum of 150 minutes per week over at least 3 days and dieting to lose weight if above a BMI of 25. Diet should be rich in vegetables, fruits and whole grains. Recommend DASH or Mediterranean diet low fat dairy, poultry, fish, legumes, nuts and non-tropical vegetable oils, limit sugar sweetened beverages and red meat. They will also need to reduce salt, increase dietary potassium and take any prescribed medications as ordered Assessment & Plan (04/01/2023 7:08 PM TAG WRITER): Continue home metop at lower dose per EP Assessment & Plan (05/23/2020 9:41 AM TAG WRITER): - Normotensive without anti-hypertensive agents. Starting low dose metoprolol for improved rate control as above. Pulmonary hypertension 08/23/2018 IBS (irritable bowel syndrome) 07/13/2018 COPD exacerbation 03/15/2018 Assessment & Plan (04/01/2023 7:08 PM TAG WRITER): Continue home inhalors Assessment & Plan (06/19/2022 6:57 PM TAG WRITER): Cont home inhalers, mostly uses albeterol PRN or duoneb if has his nebulizer History of nicotine dependence 03/15/2018 Anxiety 09/15/2016 Assessment & Plan (04/01/2023 7:08 PM TAG WRITER): Continue prn ativan Assessment & Plan (05/23/2020 9:41 AM TAG WRITER): - Continue ativan PRN. Resolved Problems Problem Noted Date Diagnosed Date Resolved Date Acute on chronic heart failure ([facility]) 05/29/2024 06/05/2024 Assessment & Plan (05/29/2024 12:12 PM TAG WRITER): - Acute on chronic exacerbation improving though does have slight increase in bilateral ankle edema today. Left greater than right. Currently on 20 mg Lasix daily x2 weeks. - Increase Lasix to 40 mg x 3 days then finish 20 mg 2 week dosing - Continue metoprolol extended release 50 mg daily and nifedipine extended release 30 mg daily - Patient instructed to report to emergency room with chest pain, increased shortness of breath, significant swelling, or weight gain of 3 lb or more in 1 day - Reports numerous medications can cause intermittent nausea, refill of Zofran 4 mg every 8 hours as needed sent to patient pharmacy - Follow-up in 1 month Intractable migraine without aura and without status migrainosus 05/29/2024 06/05/2024 Assessment & Plan (05/29/2024 12:13 PM TAG WRITER): - Chronic, improving with use of Nurtec - Additional sample packs provided to patient in office today - Encouraged avoidance of migraine triggers - Follow-up in 1 month Muscular deconditioning 05/24/202405/18 CAP (community acquired pneumonia) 05/18/2024 06/05/2024 Acute on chronic hypoxic respiratory failure 06/05/2024 Assessment & Plan (05/29/2024 12:10 PM TAG WRITER): - Acute on chronic exacerbation improving - Continue prednisone taper - Continue use of supplemental oxygen. 3-4 L with activity and 2 L with rest. - Continue Trelegy 100-62.5-25 mcg inhaler 1 puff daily. Sample inhaler provided to patient in office today. - Continue follow-up with pulmonology as scheduled - Using duo neb 3 mL about twice daily at this time - Patient instructed to report back to the emergency room with increased shortness of breath, fever, for more than 3 lb weight gain in 1 day Right shoulder pain 03/17/2024 06/05/19 25 Kidney stone 02/17/2024 06/05/2024 Right shoulder pain 12/14/2023 02/03/20 24 NSIP (nonspecific interstiti al pneumonia) ([facility]) 11/17/2023 06/05/2024 Simple chronic bronchitis 11/17/2023 Bronchiectasis without acute exacerbation 11/17/2023 06/05/2024 Syncope and collapse 06/11/2023 024 Atrial fibrillation with RVR (CMS/HCC) 04/07/2023 06/23/2023 Acute cystitis without hematuria 04/07/2023 06/23/2023 Elevated troponin 04/07/2023 06/23/2023 Right foot pain 03/01/2023 04/07/2023 Paroxysmal atrial fibrillation (CMS/HCC) 06/19/2022 04/07/2023 Acute gout involving toe 05/28/2022 BMI 30.0-30.9,adult 04/29/2022 09/08/19 Acute cough 03/16/2022 09/07/2022 Atrial fibrillation with rap id ventricular response (CMS/HCC) 02/13/2022 10/21/2022 Centrilobular emphysema 01/28/2022 06/11/2022 Abdominal pain, epigastric 11/26/2021 0 09/07/2022 Diastasis recti 11/26/2021 10/27/2023 Nail fungus 12/25/2020 09/07/2022 Paroxysmal SVT (supraventricular tachycardia) 05/28/19 21 05/28/2020 Atrial flutter with rapid ve ntricular response 05/22/2020 05/28/2020 Assessment & Plan (05/23/2020 9:40 AM TAG WRITER): - He presents with pre-syncopal symptoms found to have Atrial flutter with RVR. Given Propafenone in the ED (home med). Returned to normal rate and rhythm with improved symptoms before arrival to the floor. Unclear of potential trigger, he describes good compliance with meds and few missed doses. No other cause identified. - BMP is normal. Tele normal overnight. - Resumed propafenone 225mg TID. Given concern for recurrence in spite of this rate control agent, will start low dose metoprolol XL 25mg. - Message sent for Dr. Steiner's clinic to move up follow up if possible. - Continue apixaban BID. - Echo ordered but not required before discharge. Discharge today. Closed fracture of sacrum (CMS/HCC) 04/01/2020 09/07/2022 Fall injury while running 04/01/2020 Dehydration 11/20/2019 07/02/2021 Liver mass 11/20/2019 2024 Acute posthemorrhagic anemia 09/20/2019 09/20/2019 Chest pain with high risk fo r cardiac etiology 09/20/2019 09/20/2019 Confusion 09/20/2019 09/20/2019 Exercise-induced tachycardia 09/20/2019 06/23/2023 Hematochezia in 09/20/2019 05/0 10/2019 Intermittent lightheadedness 09/20/2019 04/07/2023 Sciatica of left side 09/20/20192022 Medicare annual wellness visit, subsequent 09/20/2019 04/07/2023 Palpitations 08/08/2019 09/20/2019 Dyslipidemia 06/02/2019 10/21/2022 Hypotension due to drugs 06/02/2019 Solitary pulmonary nodule 08/18/2018 SOB (shortness of breath) 03/15/2018 Pulmonary air trapping 03/15/201807/12 Immunizations Immunization Administration Dates Next Due Influenza, Quad, Adjuvantate d, Intramuscular 02/15/2023,04/01/2021 Influenza, Quadrivalent, Hig h Dose, Preservative Free, Intrr 02/15/2023,02/10/2022,03/16/2020 Influenza, Trivalent, Adjuva nted, Intramuscular 02/01/2018 Influenza, Trivalent, High D ose, Split, Preservative Free, Intramuscular 02/16/2024,02/26/2019,03/31/2017 Influenza, Unspecified 02/15/2023,03/18/2021 Pfizer SARS-CoV-2 Monovalent Vaccination (12+ Yrs) PURPLE 07/13/2020,06/21/2020 Pneumococcal Conjugate PCV 13 07/13/2018 Pneumococcal Conjugate Pcv20 04/21/2023 RSV Vaccine, Pref, Recombina nt, Subunit, Adjuvanted, PF, IM (Arexvy) 04/14/2023 ZOSTER Recombinant 07/06/2022,03/06/2022 Social History Tobacco Use Types Packs/Day Years Used Date Smoking Tobacco: Former Cigarettes 1.5 19 1 970 - 1988 Passive Smoke Exposure: Past Smokeless Tobacco: Never Tobacco Cessation:Counseling Given: Not Answered Comments:Chews Nicorette gum Alcohol Use Standard Drinks/Week Comments Yes 18 (1 standard drink = 0.6 oz pu re alcohol) a week [facility] Utilities Answer Date Recorded In the past 12 months has e electric, gas, oil, or water [employer] threatened to shut off services in your [...] often do you attend chur ch or evangelical services? Never 06/06/2024 Do you belong to any clubs o r organizations such as faith groups, unions, fraternal or athletic groups, or [...] place to sleep or slept in a prison (including now)? No 06/14/2023 Housing Stability Vital Sign Answer Phuc e Recorded In the last 12 months, was t here a time when you were not able to pay the mortgage or rent on time? No 06/06/2024 In the past 12 months, how m any times have you moved where you were living? 0 06/06/2024 At any time in the past 12 m [facility], were you homeless or living in a prison (including now)? No 06/06/2024 Personal Safety Answer Date Recorded Have you ever been in or are you currently in a harmful physical or emotional relationship or is someone making you feel afraid or unsafe? Denies 07/06/2024 Sex and Gender Information Value Date Recorded Sex Assigned at Not on file Legal Sex Male 3:45 AM TAG WRITER Gender Identity Not on file Sexual Orientation Not on file Last Filed Vital Signs Vital Sign Reading Time Taken Comments Blood Pressure 110/70 07/06/2024 4:30 PM TAG WRITER Pulse 83 07/06/2024 4:30 PM TAG WRITER Temperature 36.6 C (97.8 F) 07/06/2024 2:13 PM TAG WRITER Respiratory Rate 20 07/06/2024 4:30 PM TAG WRITER Oxygen Saturation 97% 07/06/2024 4:30 PM TAG WRITER Inhaled Oxygen Concentration - - Weight 99.7 kg (219 lb 12.8 oz) 07/06/2024 2:13 PM TAG WRITER Height 185.4 cm (6' 1 ) 07/06/2024 2:13 PM TAG WRITER Body Mass Index 29 07/06/2024 2:13 PM TAG WRITER Plan of Treatment Not on file Goals Goal Patient Goal Type Associated Problems Recent Progress Patient-Stated? Author LANA General Goal - Patient schedules and keeps appointments with all recommended providers [facility] Shagufta Thomas RN Note: Problem: Potential for medical complications [...] knowledge of self-care management [facility] Shagufta Thomas RN Note: Problem: Heart Failure Interventions: - [...] control. - Send heart failure educational materials. Medical Devices Implanted Type Area Consulting Analyst Device Identifier Shelf Expiration Date Model / Serial / Lot [employer] 5517-F-702 Triathlon Cruciate Retain Bead Knee Right 7 Component Femoral Pa - Sna - [id number] Implanted:Qty: 1 on 05/05/2021 by Jaret Patel MD at [facility] Other - see comments Right: Knee [employer] [id number] 12/30/2025 5517-F-7 02 / NA / [facility] Description:Implant pause pe rformed [employer] 5536-B-700 Triathlon Tritanium Knee 7 Baseplate Tibial - Sna - [id number] Implanted:Qty: 1 on 05/05/2021 by Jaret Patel MD at [facility] Other - see comments Right: Knee [employer] [id number] 12/31/2025 5536-B-7 00 / NA / [id number] Description:Implant pause pe rformed [employer] 4959-N-118-E Insert Tibial Triathlon 7 H9mm Knee Bearing Condylar Stabilize Sterile - Sna - [id number] Implanted:Qty: 1 on 05/05/2021 by Jaret Patel MD at [facility] Other - see comments Right: Knee [employer] [id number] 12/18/2025 5531-G-7 09-E / NA / [id number] Description:Implant pause pe rformed [employer] Vascade Mvp 6-12fr Venous Closure [id number] - [id number] Implanted:Qty: 1 on 06/19/2022 by Frandy Jackson MD at [facility] Other - see comments [employer] 03/23/2024 800-612C -10U / / [id number] Description:Vascade closure device [employer] Vascade Mvp 6-12fr Venous Closure [id number] - [id number] Implanted:Qty: 1 on 06/19/2022 by Frandy Jackson MD at [facility] Other - see comments [employer] 03/23/2024 800-612C -10U / / [id number] Description:Vascade closure device [employer] Vascade Mvp 6-12fr Venous Closure [id number] - [id number] Implanted:Qty: 1 on 06/19/2022 by Frandy Jackson MD at [facility] Other - see comments [employer] 01/16/2024 800-612C -10U / / [id number] Description:Vascade closure device [employer] Vascade Mvp 6-12fr Venous Closure [id number] - [id number] Implanted:Qty: 1 on 04/01/2023 by Nick Lamas MD at [facility] Other - see comments [employer] 12/16/2024 800-612C -10U / / [id number] Description:Vascade closure devce [employer] Vascade Mvp 6-12fr Venous Closure [id number] - [id number] Implanted:Qty: 1 on 04/01/2023 by Nick Lamas MD at [facility] Other - see comments [employer] 12/16/2024 800-612C -10U / / [id number] Description:Vascade closure device [employer] Vascade Mvp 6-12fr Venous Closure [id number] - [id number] Implanted:Qty: 1 on 04/01/2023 by Nick Lamas MD at [facility] Other - see comments [employer] 12/16/2024 800-612C -10U / / [id number] Description:Vascade closure device Procedures Procedure Name Priority Date/Time Associated Diagnosis Comments TROPONIN T HIGH-SENSITIVITY 2-HOUR Timed 07/06/2024 4:12 PM TAG WRITER XR CHEST 1 VIEW ED 07/06/2024 2:29 PM TAG WRITER EGFR STAT 07/06/2024 2:22 PM TAG WRITER DIFFERENTIAL AUTO STAT 07/06/2024 2:2 2 PM TAG WRITER PRO B-TYPE NATRIURETIC PEPTIDE STAT 07/06/2024 2:22 PM TAG WRITER TROPONIN T HIGH-SENSITIVITY SERIES (BASELINE, 2HR, 4HR, 6HR) STAT 07/06/2024 2:22 PM TAG WRITER CBC WITH AUTO DIFFERENTIAL STAT 07/06/2024 2:22 PM TAG WRITER COMPREHENSIVE METABOLIC PANEL STAT 07/06/2024 2:22 PM TAG WRITER INFLUENZA A/B, RSV, AND COVID-19 PCR STAT 07/06/2024 2:22 PM TAG WRITER ECG 12-LEAD STAT 07/06/2024 2:18 PM TAG WRITER POC INFLUENZA A/B, COVID-19 ANTIGEN Routine 07/05/2024 11:20 AM TAG WRITER Acute cough SOB (shortness of breath) PRO B-TYPE NATRIURETIC PEPTIDE Routine 07/05/2024 9:07 AM TAG WRITER BASIC METABOLIC PANEL Routine 07/05/2024 9:06 AM TAG WRITER Chronic diastolic heart failure (HCC) PULMONARY FUNCTION TEST (PFT) Routine 06/20/2024 7:47 AM TAG WRITER Pulmonary fibrosis (CMS/HCC) (HCC) EXTENDED/FPC HOLTER PATCH (>48 HOURS UP TO 7 DAYS) Routine 06/15/2024 2:25 PM TAG WRITER SOB (shortness of breath) PRO B-TYPE NATRIURETIC PEPTIDE Routine 06/15/2024 1:34 PM TAG WRITER SOB (shortness of breath) HOME O2 EVAL (DESATURATION SCREEN) Routine 06/09/2024 12:45 PM TAG WRITER XR CHEST 1 VIEW IP Routine 06/09/2024 8:31 AM TAG WRITER EGFR Routine 06/09/2024 3:29 AM TAG WRITER DIFFERENTIAL AUTO Routine 06/09/2024 3:2 9 AM TAG WRITER CBC WITH AUTO DIFFERENTIAL Routine 06/09/2024 3:29 AM TAG WRITER COMPREHENSIVE METABOLIC PANEL Routine 06/09/2024 3:29 AM TAG WRITER EGFR Routine 06/08/2024 4:18 AM TAG WRITER DIFFERENTIAL AUTO Routine 06/08/2024 4:1 8 AM TAG WRITER COMPREHENSIVE METABOLIC PANEL Routine 06/08/2024 4:18 AM TAG WRITER CBC WITH AUTO DIFFERENTIAL Routine 06/08/2024 4:18 AM TAG WRITER TRANSTHORACIC ECHO (TTE) COMPLETE W DOPPLER/CF W CONTRAST Routine 06/07/2024 11:10 AM TAG WRITER ERYTHROCYTE SEDIMENTATION RATE Routine 06/07/2024 4:44 AM TAG WRITER CRP (ACUTE PHASE) Routine 06/07/2024 4:4 4 AM TAG WRITER PRO B-TYPE NATRIURETIC PEPTIDE Routine 06/07/2024 4:44 AM TAG WRITER ECG 12-LEAD Routine 06/06/2024 8:21 AM TAG WRITER EGFR Routine 06/06/2024 3:47 AM TAG WRITER CBC WITHOUT DIFFERENTIAL Routine 06/06/2024 3:47 AM TAG WRITER BASIC METABOLIC PANEL Routine 06/06/2024 3:47 AM TAG WRITER MAGNESIUM Routine 06/06/2024 3:47 AM TAG WRITER INFLUENZA A/B, RSV, AND COVID-19 PCR Routine 06/05/2024 8:[address] CHEST PE W CONTRAST ED 06/05/2024 8:18 PM TAG WRITER TROPONIN T HIGH-SENSITIVITY 2-HOUR Timed 06/05/2024 7:11 PM TAG WRITER XR CHEST 1 VIEW ED 06/05/2024 5:39 PM TAG WRITER ECG 12-LEAD STAT 06/05/2024 5:36 PM TAG WRITER EGFR STAT 06/05/2024 5:29 PM TAG WRITER DIFFERENTIAL AUTO STAT 06/05/2024 5:2 9 PM TAG WRITER SEPSIS LACTATE WITH REFLEX STAT 06/05/2024 5:29 PM TAG WRITER APTT STAT 06/05/2024 5:29 PM TAG WRITER PROTIME-INR STAT 06/05/2024 5:29 PM TAG WRITER PRO B-TYPE NATRIURETIC PEPTIDE STAT 06/05/2024 5:29 PM TAG WRITER TROPONIN T HIGH-SENSITIVITY SERIES (BASELINE, 2HR, 4HR, 6HR) STAT 06/05/2024 5:29 PM TAG WRITER CBC WITH AUTO DIFFERENTIAL STAT 06/05/2024 5:29 PM TAG WRITER COMPREHENSIVE METABOLIC PANEL STAT 06/05/2024 5:29 PM TAG WRITER HOME O2 EVAL (DESATURATION SCREEN) Routine 05/19/2024 12:57 PM TAG WRITER XR CHEST 1 VIEW IP Routine 05/19/2024 8:20 AM TAG WRITER EGFR Routine 05/19/2024 5:34 AM TAG WRITER DIFFERENTIAL AUTO Routine 05/19/2024 5:3 4 AM TAG WRITER COMPREHENSIVE METABOLIC PANEL Routine 05/19/2024 5:34 AM TAG WRITER PRO B-TYPE NATRIURETIC PEPTIDE Routine 05/19/2024 5:34 AM TAG WRITER CBC WITH AUTO DIFFERENTIAL Routine 05/19/2024 5:34 AM TAG WRITER EGFR Routine 05/18/2024 5:14 AM TAG WRITER DIFFERENTIAL AUTO Routine 05/18/2024 5:1 4 AM TAG WRITER BASIC METABOLIC PANEL Routine 05/18/2024 5:14 AM TAG WRITER CBC WITH AUTO DIFFERENTIAL Routine 05/18/2024 5:14 AM TAG WRITER XR CHEST PA LATERAL 2 VIEWS IP Routine 05/17/2024 11:32 AM TAG WRITER EGFR Routine 05/17/2024 12:36 AM TAG WRITER DIFFERENTIAL AUTO Routine 05/17/2024 12: 36 AM TAG WRITER BASIC METABOLIC PANEL Routine 05/17/2024 12:36 AM TAG WRITER CBC WITH AUTO DIFFERENTIAL Routine 05/17/2024 12:36 AM TAG WRITER EGFR Routine 05/16/2024 5:11 AM TAG WRITER DIFFERENTIAL AUTO Routine 05/16/2024 5:1 1 AM TAG WRITER BASIC METABOLIC PANEL Routine 05/16/2024 5:11 AM TAG WRITER CBC WITH AUTO DIFFERENTIAL Routine 05/16/2024 5:11 AM TAG WRITER AEROBIC CULTURE AND GRAM STAIN Routine 05/15/2024 2:20 PM TAG WRITER EGFR Routine 05/15/2024 8:36 AM TAG WRITER DIFFERENTIAL AUTO Routine 05/15/2024 8:3 6 AM TAG WRITER BASIC METABOLIC PANEL Routine 05/15/2024 8:36 AM TAG WRITER CBC WITH AUTO DIFFERENTIAL Routine 05/15/2024 8:36 AM TAG WRITER EGFR Routine 05/14/2024 6:37 AM TAG WRITER DIFFERENTIAL AUTO Routine 05/14/2024 6:3 7 AM TAG WRITER BASIC METABOLIC PANEL Routine 05/14/2024 6:37 AM TAG WRITER CBC WITH AUTO DIFFERENTIAL Routine 05/14/2024 6:37 AM TAG WRITER EGFR Routine 05/13/2024 7:42 AM TAG WRITER DIFFERENTIAL AUTO Routine 05/13/2024 7:4 2 AM TAG WRITER BASIC METABOLIC PANEL Routine 05/13/2024 7:42 AM TAG WRITER CBC WITH AUTO DIFFERENTIAL Routine 05/13/2024 7:42 AM TAG WRITER AEROBIC CULTURE AND GRAM STAIN Routine 05/12/2024 5:36 AM TAG WRITER EGFR Routine 05/12/2024 3:30 AM TAG WRITER DIFFERENTIAL AUTO Routine 05/12/2024 3:3 0 AM TAG WRITER BASIC METABOLIC PANEL Routine 05/12/2024 3:30 AM TAG WRITER CBC WITH AUTO DIFFERENTIAL Routine 05/12/2024 3:30 AM TAG WRITER LEGIONELLA ANTIGEN, URINE Routine 05/11/2024 5:49 PM TAG WRITER STREP PNEUMONIAE AG, URINE Routine 05/11/2024 5:49 PM TAG WRITER MRSA ONLY (STAPHYLOCOCCUS AUREUS) PCR Routine 05/11/2024 4:10 PM TAG WRITER US VEIN DUPLEX LOWER EXTREMITY BILATERAL COMPLETE IP Routine 05/11/2024 3:58 PM TAG WRITER TROPONIN T HIGH-SENSITIVITY 6-HOUR Timed 05/11/2024 9:[address] CHEST PE W CONTRAST IP Routine 05/11/2024 8:30 AM TAG WRITER TROPONIN T HIGH-SENSITIVITY 4-HR Timed 05/11/2024 7:20 AM TAG WRITER URINALYSIS, MICROSCOPIC ONLY STAT 05/11/2024 5:30 AM TAG WRITER TROPONIN T HIGH-SENSITIVITY 2-HOUR Timed 05/11/2024 5:30 AM TAG WRITER URINALYSIS AND REFLEX TO MICROSCOPIC AND CULTURE STAT 05/11/2024 5:30 AM TAG WRITER BLOOD CULTURE STAT 05/11/2024 3:49 AM TAG WRITER INFLUENZA A/B, RSV, AND COVID-19 PCR Routine 05/11/2024 3:48 AM TAG WRITER POC BLOOD GAS AND CHEMISTRIES, VENOUS Routine 05/11/2024 3:47 AM TAG WRITER BLOOD CULTURE STAT 05/11/2024 3:45 AM TAG WRITER POC BLOOD GAS AND CHEMISTRIES, VENOUS Routine 05/11/2024 3:42 AM TAG WRITER XR CHEST 1 VIEW ED 05/11/2024 3:42 AM TAG WRITER EGFR STAT 05/11/2024 3:36 AM TAG WRITER DIFFERENTIAL AUTO STAT 05/11/2024 3:3 6 AM TAG WRITER APTT STAT 05/11/2024 3:36 AM TAG WRITER PROTIME-INR STAT 05/11/2024 3:36 AM TAG WRITER D-DIMER, QUANTITATIVE STAT 05/11/2024 3:36 AM TAG WRITER TROPONIN T HIGH-SENSITIVITY SERIES (BASELINE, 2HR, 4HR, 6HR) STAT 05/11/2024 3:36 AM TAG WRITER COMPREHENSIVE METABOLIC PANEL STAT 05/11/2024 3:36 AM TAG WRITER CBC WITH AUTO DIFFERENTIAL STAT 05/11/2024 3:36 AM TAG WRITER PRO B-TYPE NATRIURETIC PEPTIDE STAT 05/11/2024 3:36 AM TAG WRITER ECG 12-LEAD STAT 05/11/2024 3:[address] CRITICAL CARE ILL/INJURED PATIENT INIT 30-74 MIN Routine 05/11/2024 3:26 AM TAG WRITER TROPONIN T HIGH-SENSITIVITY 6-HOUR Timed 05/01/2024 8:[address] CHEST PE W CONTRAST ED 05/01/2024 6:40 PM TAG WRITER TROPONIN T HIGH-SENSITIVITY 4-HR Timed 05/01/2024 5:26 PM TAG WRITER XR CHEST 1 VIEW ED 05/01/2024 1:06 PM TAG WRITER EGFR STAT 05/01/2024 1:01 PM TAG WRITER DIFFERENTIAL AUTO STAT 05/01/2024 1:0 1 PM TAG WRITER TROPONIN T HIGH-SENSITIVITY SERIES (BASELINE, 2HR, 4HR, 6HR) STAT 05/01/2024 1:01 PM TAG WRITER CBC WITH AUTO DIFFERENTIAL STAT 05/01/2024 1:01 PM TAG WRITER COMPREHENSIVE METABOLIC PANEL STAT 05/01/2024 1:01 PM TAG WRITER INFLUENZA A/B, RSV, AND COVID-19 PCR Routine 05/01/2024 1:01 PM TAG WRITER ECG 12-LEAD STAT 05/01/2024 1:00 PM TAG WRITER POC INFLUENZA A/B, COVID-19 ANTIGEN Routine 04/28/2024 11:27 AM TAG WRITER Acute cough PSA SCREEN Routine 04/24/2024 9:32 AM TAG WRITER Prostate cancer screening LIPID PANEL Routine 04/24/2024 9:32 AM TAG WRITER Essential hypertension COMPREHENSIVE METABOLIC PANEL Routine 04/24/2024 9:32 AM TAG WRITER Essential hypertension CBC WITH AUTO DIFFERENTIAL Routine 04/24/2024 9:32 AM TAG WRITER Essential hypertension CT ABDOMEN PELVIS WO CONTRAST ED 02/02/2024 11:05 AM CDT COLONOSCOPY 09/14/2022 8:49 AM CDT from Last 3 Months or Most Recently Relevant to Health Maintenance Results * Troponin T high-sensitivity 2-hour (07/06/2024 4:12 PM TAG WRITER) Trop T hs 8 <=22 ng/L Comment: Interpretive Data For further hscTnT resources including the diagnostic algorithm and an aid in interpretation, copy and paste this link: [email or web address].testcatalog.org/show/[email or web address] Current Interpretive Data last revised 2020. Testing performed by: [facility], [address] [place] [address]., [id number] Trop T hs delta 1 ng/L ZION Comment:Testing performed by : [facility], [address] [place] [address]., [address] Trop T hs interp Insignificant ZION Comment:Testing performed by : [address] [address] Blood 07/06/2024 4:12 PM TAG WRITER 07/06/2024 4:20 PM TAG WRITER Peter Montes DO LAB BLOOD ORDERABLES Final Result [facility] [address] [facility] [facility] Department of Laboratories [place], [place] [id number] * XR Chest 1 Vw Portable (if patient condition/safety warrant portable) (07/06/2024 2:29 PM TAG WRITER) Anatomical Region Laterality Modality Body, Chest N/A Computed Radiogr aphy 07/06/2024 3:17 PM TAG WRITER Narrative 07/06/2024 3:17 PM TAG WRITER EXAM DESCRIPTION: XR CHEST 1 VIEW REASON FOR STUDY: Shortness of breath Sob for a few weeks. TECHNIQUE: Single radiographic view(s) of the chest. COMPARISON: Chest radiograph 06/09/2024 FINDINGS: The heart appears normal in size. There are chronic changes in the lungs. No new airspace consolidation or pleural effusion is seen. IMPRESSION: No acute findings. Chronic changes. THIS IS AN ELECTRONICALLY VERIFIED FINAL REPORT 07/06/2024 3:17 PM - Electronically signed by Sid Rollins M.D. JR: Report ID: [id number] Reading Location: [id number] Procedure Note Sid Rollins MD - 07/06/2024 EXAM DESCRIPTION: XR CHEST 1 VIEW REASON FOR STUDY: Shortness of breath Sob for a few weeks. TECHNIQUE: Single radiographic view(s) of the chest. COMPARISON: Chest radiograph 06/09/2024 FINDINGS: The heart appears normal in size. There are chronic changes inthe lungs. No new airspace consolidation or pleural effusion is seen. IMPRESSION: No acute findings. Chronic changes. THIS IS AN ELECTRONICALLY VERIFIED FINAL REPORT 07/06/2024 3:17 PM - Electronically signed by Sid Rollins M.D. JR: Report ID: [id number] Reading Location: [id number] Peter Montes DO IMG XR PROCEDURES Final Res ult * Troponin T high-sensitivity series (baseline, 2hr, 4hr, 6hr) (07/06/2024 2:22 PM TAG WRITER) Trop T hs 7 <=22 ng/L Comment: Interpretive Data For further hscTnT resources including the diagnostic algorithm and an aid in interpretation, copy and paste this link: [email or web address].testcatalog.org/show/[email or web address] Current Interpretive Data last revised 2020. Testing performed by: [facility], [address] [place] [address], [place]., [address] Blood 07/06/2024 2:22 PM TAG WRITER 07/06/2024 2:28 PM TAG WRITER Peter Montes DO LAB BLOOD ORDERABLES Final Result Performing Organization Address City/[facility] Co de Phone Number ZION [address] [place] [address] * Influenza A/B, RSV, and COVID-19 PCR Nasopharyngeal (07/06/2024 2:22 PM TAG WRITER) COVID-19 RNA Negative Negative Comment:Testing performed by : [address] [address] Influenza A RNA Negative Negative [facility] Comment:Testing performed by : [address] [address] Influenza B RNA Negative Negative [facility] Comment:Testing performed by : [address] [address] RSV RNA Negative Negative [facility] Comment: Interpretive data: Testing performed by [facility]. This test is performed using the [employer] Xpert Xpress CoV-2/Flu/RSV plus assay. This is a multiplex, real-time reverse transcriptase PCR assay intended for the qualitative detection of nucleic acid from SARS-CoV-2, influenza A, influenza B, and respiratory syncytial virus. This assay has been cleared by the [place] Food and Drug administration. The performance characteristics have been verified by the [facility]. Results must be considered in the clinical context, and a negative result does not rule out infection. Interpretive Data last revised 2023 Testing performed by: [address] [address] Nasopharyngeal 07/06/2024 2: 22 PM TAG WRITER 07/06/2024 2:29 PM TAG WRITER Narrative ZION - 07/06/2024 3:09 PM TAG WRITER Is the Patient experiencing symptoms consistent with COVID?->Yes Peter Montes DO LAB MICROBIOLOGY - GENERAL ORDERABLES Final Result Performing Organization Address [facility] Co de Phone Number ZION [address] [facility] [place] [address] * eGFR (07/06/2024 2:22 PM TAG WRITER) Pathologist [facility] eGFR >90 >=60 mL/min/1. 73 m2 Comment: Interpretive Data Reference Interval Normal >/= 90 mL/min/1.73m2 Mildly decreased* 60 - 89 mL/min/1.73m2 Mildly to moderately decreased 45 - 59 mL/min/1.73m2 Moderately to severely decreased 30 - 44 mL/min/1.73m2 Severely decreased 15 - 29 mL/min/1.73m2 Kidney Failure < 15 mL/min/1.73m2 *Relative to young adult level Estimated glomerular filtration rate is determined by the 2020 CKD-EPI equation recommended by the National Kidney Foundation (A Unifying Approach to GFR Estimation: Recommendations of the NKF-ASK Task Force on Reassessing the Inclusion of Race in Diagnosing Kidney Disease, JASN 2020). The CKD-EPI equation should not be used for patients with unstable renal function and has not been validated in children and those over 70. Current interpretive data was last reviewed 2021. Testing performed by: [address] [address] Blood 07/06/2024 2:22 PM TAG WRITER 07/06/2024 2:28 PM TAG WRITER us Peter Montes DO LAB BLOOD ORDERABLES Final Result [facility] [address] Department [place] [address] * (ABNORMAL) Differential, auto (07/06/2024 2:22 PM TAG WRITER) Pathologist [facility] Neutrophil abs 6.7(H) 1.5 - 6.5 K/cumm Comment:Testing performed by : [address] [address] Imm gran abs 0.0 0.0 - 0.1 K/cumm [facility] Comment:Testing performed by : [address] [address] Lymphocyte abs 1.2 0.8 - 3.3 K/cumm [facility] Comment:Testing performed by : [address] [address] Monocyte abs 0.7 0.2 - 0.8 K/cumm [facility] Comment:Testing performed by : [address], [place]., [address] Eosinophil abs 0.1 0.0 - 0.5 K/cumm [facility] Comment:Testing performed by : [address] [address] Basophil abs 0.0 0.0 - 0.1 K/cumm [facility] Comment:Testing performed by : [address] [address] Neutrophil pct 75.9 % [facility] Comment: Interpretive Data Percent cell count reference ranges are not reported, since discordance with absolute values may lead to misinterpretation of CBC data. Current Interpretive Data was last revised on 2017. Testing performed by: [address] [address] Imm gran pct 0.3 % [facility] Comment: Interpretive Data Percent cell count reference ranges are not reported, since discordance with absolute values may lead to misinterpretation of CBC data. Current Interpretive Data was last revised on 2017. Testing performed by: [address] [address] Lymphocyte pct 13.5 % [facility] Comment: Interpretive Data Percent cell count reference ranges are not reported, since discordance with absolute values may lead to misinterpretation of CBC data. Current Interpretive Data was last revised on 2017. Testing performed by: [address] [address] Monocyte pct 8.3 % [facility] Comment: Interpretive Data Percent cell count reference ranges are not reported, since discordance with absolute values may lead to misinterpretation of CBC data. Current Interpretive Data was last revised on 2017. Testing performed by: [address] [address] Eosinophil pct 1.6 % [facility] Comment: Interpretive Data Percent cell count reference ranges are not reported, since discordance with absolute values may lead to misinterpretation of CBC data. Current Interpretive Data was last revised on 2017. Testing performed by: [facility], [address] [place] [address]., [address] Basophil pct 0.4 % [facility] Comment: Interpretive Data Percent cell count reference ranges are not reported, since discordance with absolute values may lead to misinterpretation of CBC data. Current Interpretive Data was last revised on 2017. Testing performed by: [facility], [address] [place] [address]., [address] Blood 07/06/2024 2:22 PM TAG WRITER 07/06/2024 2:28 PM TAG WRITER us Peter Montes DO LAB BLOOD ORDERABLES Final Result [facility] [address] [facility] [facility] Department [place] [address] * Pro B-type natriuretic peptide (07/06/2024 2:22 PM TAG WRITER) NT-proBNP 37 <=300 pg/mL Comment: Interpretive Comments: A. Dyspnea in Acute Care Setting All Ages: < 300 pg/ml, acute heart failure unlikely. < 50 yrs: 300 - 450 pg/ml, further investigation warranted. > 450 pg/ml, acute heart failure likely. 50 - 74 yrs: 300 - 900 pg/ml, further investigation warranted. > 900 pg/ml, acute heart failure likely . > or = 75 yrs: 450 - 1800 pg/ml, further investigation warranted. > 1800 pg/ml, acute heart failure likely. B. Non-acute Setting < 75 yrs < 125 pg/ml, rules out heart failure. > or = 125 pg/ml, further investigation warranted. > or = 75 yrs < 450 pg/ml, rules out heart failure. > or = 450 pg/ml, further investigation warranted. - Knowledge of each individual patient's NT-proBNP range may be more useful than using similar cut-points for every patient. Please note that marked elevations in NT-proBNP levels may be observed in state other than Left Ventricular Congestive Failure, including: acute coronary syndromes, right heart strain/failure (including pulmonary embolism and cor pulmonale), critical illness, renal failure, as well as advanced age. - References: 1. Martha JACOBO et.al. Eur Heart J. 2006:27:330-337. 2. Freddy RW, Ami DE LEON. J. AM Billy Cardiol: Cardiovasc Imag. 2009;2: 216- 225. Interpretive Data Last Revised Date: 2018. Testing performed by: [address] [address] Blood 07/06/2024 2:22 PM TAG WRITER 07/06/2024 2:28 PM TAG WRITER us Peter Montes DO LAB BLOOD ORDERABLES Final Result [facility] [address] [facility] Department [place] [address] * (ABNORMAL) CBC with auto differential (07/06/2024 2:22 PM TAG WRITER) WBC 8.9 3.8 - 9.9 K/cumm Comment:Testing performed by : [address] [address] Hgb 14.0 13.0 - 17.5 g/dL [facility] Comment:Testing performed by : [address] [address] Hct 41.3 38.9 - 50.3 % [facility] Comment:Testing performed by : [address] [address] Plt 289 150 - 400 K/cumm [facility] Comment:Testing performed by : [address] [address] MPV 9.2 9.1 - 12.3 fL [facility] Comment:Testing performed by : [address] [address] RBC 4.24(L) 4.30 - 5.80 M/cumm [facility] Comment:Testing performed by : [address] [address] MCV 97.4(H) 81.3 - 96.4 fL [facility] Comment:Testing performed by : [address] [place] [address] MCH 33.0 27.1 - 33.3 pg [facility] Comment:Testing performed by : [address] [address] MCHC 33.9 32.3 - 35.7 g/dL [facility] Comment:Testing performed by : [address] [address] RDW CV 13.5 11.1 - 14.9 % [facility] Comment:Testing performed by : [address] [address] RDW SD 48.4(H) 35.7 - 48.1 fL [facility] Comment:Testing performed by : [address] [address] NRBC abs 0.00 0.00 - 0.01 K/cumm [facility] Comment:Testing performed by : [address] [address] Blood 07/06/2024 2:22 PM TAG WRITER 07/06/2024 2:28 PM TAG WRITER us Peter Montes DO LAB BLOOD ORDERABLES Final Result [facility] Department [place] [address] * (ABNORMAL) Comprehensive metabolic panel (07/06/2024 2:22 PM TAG WRITER) Sodium 134(L) 135 - 145 mmol/L Comment:Testing performed by : [address] [address] Potassium, pl 4.1 3.3 - 4.9 mmol/L [facility] Comment:Testing performed by : [address] [address] Chloride 95(L) 97 - 110 mmol/L [facility] Comment:Testing performed by : [address] [address] CO2 26 22 - 32 mmol/L [facility] Comment:Testing performed by : [address] [address] Anion gap 13 2 - 15 mmol/L [facility] Comment:Testing performed by : [address] [address] BUN 6 6 - 25 mg/dL [facility] Comment:Testing performed by : [address], [place]., [address] Creatinine 0.72(L) 0.80 - 1.30 mg/dL [facility] Comment:Testing performed by : [address] [address] Glucose 109 70 - 199 mg/dL [facility] Comment: Interpretive Data Fasting glucose >/= 126 mg/dl is diagnostic for diabetes. Fasting is defined as no caloric intake for at least 8 hours. Fasting glucose between 100 mg/dl to 125 mg/dl is diagnostic of prediabetes. In a patient with classic symptoms of hyperglycemia or hyperglycemic crisis, a random glucose >/= 200 mg/dl is diagnostic for diabetes. In the absence of unequivocal hyperglycemia, results should be confirmed by repeat testing. The classification and Diagnosis of Diabetes Diabetes Care 202; 46: S19-S40. Current interpretive data was last revised 2022. Testing performed by: [address] [address] Calcium 9.7 8.5 - 10.3 mg/dL [facility] Comment:Testing performed by : [address] [address] Bilirubin, total 1.0 0.1 - 1.2 mg/dL [facility] Comment:Testing performed by : [address] [address] Protein, pl 7.9 6.5 - 8.5 g/dL [facility] Comment:Testing performed by : [address] [address] Albumin 4.5 3.5 - 5.0 g/dL [facility] Comment:Testing performed by : [address] [address] Alk phos 97 40 - 130 Units/L [facility] Comment:Testing performed by : [address] [address] ALT 35 7 - 55 Units/L [facility] Comment:Testing performed by : [facility], [address] [place] [address]., [address] AST 29 10 - 50 Units/L [facility] Comment:Testing performed by : [facility], [address] [place] [address]., [address] Blood 07/06/2024 2:22 PM TAG WRITER 07/06/2024 2:28 PM TAG WRITER Peter Montes DO LAB BLOOD ORDERABLES Final Result [facility] [address] [facility] Department [place] [address] * ECG 12 lead (07/06/2024 2:18 PM TAG WRITER) Pathologist [facility] Ventricular Rate EKG/Min 72 BPM [facility] Atrial Rate 72 BPM [facility] CT-Interval (MSEC) 176 ms [facility] QRS-Interval (MSEC) 88 ms [facility] QT-Interval (MSEC) 406 ms [facility] QTc 444 ms [facility] P Clyde 31 degrees [facility] R Clyde 1 degrees [facility] T Clyde -8 degrees [facility] Diagnosis Normal sinus rhythm Normal ECG When compared with ECG of 06-JUN-2024 08:21, No significant change was found Confirmed by LELA SCHULER M.D. ([id number]) on 07/06/2024 2:35:28 PM [facility] 07/06/2024 2:18 PM TAG WRITER 07/06/2024 2:35 PM TAG WRITER Peter Montes DO ECG ORDERABLES Final Resul t [facility] * POC Influenza A/B, COVID-19 antigen (07/05/2024 11:20 AM TAG WRITER) Influenza A Ag, POC Negative Negative [facility] Influenza B Ag, POC Negative Negative [facility] COVID-19 Ag POC Presumptive Negative Presumptive Negative, Invalid [facility] Nasal 07/05/2024 11:2 0 AM TAG WRITER us Merary Zuleta POINT OF CARE TEST ORDER MICHEL Final Result [facility] [address] [facility] [address] [place] [address], [facility] * Pro B-type natriuretic peptide (07/05/2024 9:07 AM TAG WRITER) NT PROBNP 69 <125 pg/mL [facility] 07/05/2024 9:07 AM TAG WRITER 07/05/2024 9:08 AM TAG WRITER us Shagufta Vasquez NP LAB BLOOD ORDERABLES Fin al Result [facility] [address] [place] [address] * (ABNORMAL) Basic metabolic panel (07/05/2024 9:06 AM TAG WRITER) Glucose 113(H) 65 - 99 mg/dL [facility] Comment: Fasting reference interval For someone without known diabetes, a glucose value between 100 and 125 mg/dL is consistent with prediabetes and should be confirmed with a follow-up test. BUN 10 7 - 25 mg/dL [facility] Creatinine 0.80 0.70 - 1.28 mg/dL [facility] eGFR 93 > OR = 60 mL/min/1.7 3m2 [facility] BUN/creat ratio SEE NOTE: 6 - 22 (calc) [facility] Comment: Not Reported: BUN and Creatinine are within reference range. Sodium 138 135 - 146 mmol/L [facility] Potassium, pl 4.1 3.5 - 5.3 mmol/L [facility] Chloride 100 98 - 110 mmol/L [facility] CO2 29 20 - 32 mmol/L [facility] Calcium 9.7 8.6 - 10.3 mg/dL [facility] Blood 07/05/2024 9:06 AM TAG WRITER 07/05/2024 9:07 AM TAG WRITER Jude Le SURVEYING OR SPATIAL SCIENCE TECHNICIAN LAB BLOOD ORDERABLES Fin al Result [facility] [address] [address] * Pulmonary Function Test - (06/20/2024 7:47 AM TAG WRITER) FVC PRE 3.40 L [facility] FVC %PRE PRED 76 % [facility] FEV1 PRE 2.68 L [facility] FEV1 %PRE PRED 82 % [facility] FEV1/FVC PRE 79.0 % [facility] Anatomical Region Laterality Modality PFT 06/20/2024 7:19 AM TAG WRITER Narrative 06/20/2024 7:20 PM TAG WRITER Table formatting from the original result was not included. [facility] Division of Pulmonary & Critical Care Medicine [address] [place] [address]; [place] [facility]; [place] [address]; [phone] Pulmonary Function Laboratory Pulmonary Stress Test Simple/Oxygen Assessment Patient: Ashley Oliver Date: 06/20/2024 : 1950 Ht: 73 IN Wt: 219 LBS Time (min) Distance (ft)/ Hinojosa O2 L/M SpO2 HR Gregorio* BP FEV1 % Pred Rest: RA 93 79 0 113/66 2.68 82 % Walk/Bike: 1 RA/2/2 87/90/88 86/89/87 1 2 3 92 88 1 3 3/3/4 89/88/91 98/89/89 1 4 4 90 90 1 5 4 90 89 1 6 min 0 sec 4 89 89 1 Recovery: 1 3 90 87 1 104/60 2.65 81% 3 3 94 84 1 *Gregorio rate of perceived exertion (1-10 dyspnea scale) Sony, CHEST 2003; 123:1408 Walk Test Summary: Six Minute Walk Distance: 750 ft Six-minute Walk Work [distance (m) x body wt (kg)]: 34118 kg.m (normal >60,000kg.m) Oxygen required to maintain SpO2 greater than 90% during six minutes of walkin L/M Comments: O2A Interpretation: Breathing room air, SpO2 is adequate at rest and during exercise sufficient to increase pulse, SpO2 falls to hypoxemic levels. On this basis, SpO2 is adequate at rest breathing room air and while walking breathing supplemental O2 at 4 L/min. This level of exercise is associated with no significant change of FEV1. By signing this report, the attending pulmonary physician certifies that he/she has personally reviewed and interpreted the graphic and numerical data associated with this pulmonary function study and has reviewed and /or edited a preliminary draft report and agrees with the written final report. PFT performed at:->[facility] Adult PFT Lab- [facility] Procedure:->Oxygen Assessment Titration Procedure:->Spirometry Pulmonary Function Test Interpretation SPIROMETRY: The FEV1 and FVC are reduced in a pattern suggestive of a restrictive abnormality. The inspiratory loop is appropriate for the expiratory flow abnormality. PULSE OXIMETRY: See Oxygen Assessment/Cardiopulmonary Exercise Study-Simple Impression: There is no significant ventilatory defect. Compared with most recent study, there has been no significant interval change. The attending pulmonary physician certifies a physician presence in the [facility] during the administration of aerosolized bronchodilator. The attending pulmonary physician certifies that he/she has reviewed and interpreted the graphic and numerical data of this pulmonary function study and agrees with the written final report. The lower limit of normal for PaO2 and %HbO2 is age dependent. However, the [facility] Pulmonary Function Laboratory defines hypoxemia as a PaO2 <56 mm Hg or a %HbO2 <89%. Starting on May of 2024 the [facility] Pulmonary Function Laboratory utilizes race neutral GLI Global normative equations. us Palmira Moncada MD PFT ORDERABLES Final Res ult * Extended/Half-Way Holter Patch (>48 hours up to 7 days) (06/15/2024 2:25 PM TAG WRITER) Anatomical Region Laterality Modality Electrocardiogra phy 06/15/2024 1:58 PM TAG WRITER Narrative 06/29/2024 3:48 PM TAG WRITER [facility] [place] [address] HOLTER MONITOR Patient Name: ASHLEY OLIVER L : 1950 (74y 4m) Gender: M Study Date: 06/15/2024 01:58:12 PM Ht(Inch): Wt(Lb): BSA: Tech: Location: [facility] Order Provider: SHAGUFTA VASQUEZ BMI: Ref Provider: SHAGUFTA VASQUEZ PROCEDURES: Holter Report: EXTENDED/FPC HOLTER PATCH (>48 HOURS UP TO 7 DAYS) [CAR79]. Enrollment Period: 06/15/2024-06/18/2024. Monitor Number: [id number]. Location: [facility]. INDICATIONS: R06.02 Shortness of breath. FINDINGS: Holter Data: Min Rate: 57 BPM Min Rate Timestamp: 2024-06-17 16:45:16 Max Rate: 179 BPM Max Rate Timestamp: 2024-06-18 06:33:44 Mean Rate: 76 BPM Singlets (PACs): 395 events Couplets (PACs): 25 events Total (SVE): 507 events Singlets (PVCs): 350 events Couplets (PVCs): 2 events Total (VE): 354 events Total beats: 848785 Protocol: Recording Duration (Actual): 677384.22 Total QRS: 585170 SUMMARY: *The predominant rhythm was Sinus. *The Maximum Heart Rate recorded was 179 bpm, 06/18 06:33:44, the Minimum Heart Rate recorded was 57 bpm, 06/17 16:45:16, and the Average Heart Rate was 76 bpm. *There were 354 VE beats with a burden of <1 %. *There were 507 SVE beats with a burden of <1 %. There were 11 occurrences of Supraventricular Tachycardia with the Fastest episode 179 bpm, 06/18 06:33:42, and the Longest episode 13 beats, 06/16 17:30:39. *There was 1 Patient Trigger.unassociated with arrhythmias. - CONCLUSIONS: 1. *The predominant rhythm was Sinus. *The Maximum Heart Rate recorded was 179 bpm, 06/18 06:33:44, the Minimum Heart Rate recorded was 57 bpm, 06/17 16:45:16, and the Average Heart Rate was 76 bpm. *There were 354 VE beats with a burden of <1 %. *There were 507 SVE beats with a burden of <1 %. There were 11 occurrences of Supraventricular Tachycardia with the Fastest episode 179 bpm, 06/18 06:33:42, and the Longest episode 13 beats, 06/16 17:30:39. *There was 1 Patient Trigger.unassociated with arrhythmias. 2. Agree with findings from [employer] document. 3. The PDF report can be found in the [facility] patient chart. Electronically Signed By: Jerry To Jr., M.D. 06/29/2024 3:19:13 PM TAG WRITER Electronically Signed By: Jerry To Jr., M.D. 06/29/2024 3:19:13 PM TAG WRITER Procedure Note Jerry To MD PhD - 06/29/2024 [facility] [place] [address] HOLTER MONITOR Patient Name: ASHLEY OLIVER L : 1950 (74y 4m) Gender: M Study Date: 06/15/2024 01:58:12 PM Ht(Inch): Wt(Lb): BSA: Tech: Location: [facility] Order Provider: SHAGUFTA VASQUEZ BMI: Ref Provider: SHAGUFTA VASQUEZ PROCEDURES: Holter Report: EXTENDED/FPC HOLTER PATCH (>48 HOURS UP TO 7 DAYS)[CAR79]. Enrollment Period: 06/15/2024-06/18/2024. Monitor Number: [id number]. Location: [facility]. INDICATIONS: R06.02 Shortness of breath. FINDINGS: Holter Data: Min Rate: 57 BPM Min Rate Timestamp: 2024-06-17 16:45:16 Max Rate: 179 BPM Max Rate Timestamp: 2024-06-18 06:33:44 Mean Rate: 76 BPM Singlets (PACs): 395 events Couplets (PACs): 25 events Total (SVE): 507 events Singlets (PVCs): 350 events Couplets (PVCs): 2 events Total (VE): 354 events Total beats: 689048 Protocol: Recording Duration (Actual): 629401.22 Total QRS: 538787 SUMMARY: *The predominant rhythm was Sinus. *The Maximum Heart Rate recorded was 179 bpm, 06/18 06:33:44, the MinimumHeart Rate recorded was 57 bpm, 06/17 16:45:16, and the Average Heart Rate was 76 bpm. *There were 354 VE beats with a burden of <1 %. *There were 507 SVE beats with a burden of <1 %. There were 11 occurrencesof Supraventricular Tachycardia with the Fastest episode 179 bpm, 06/18 06:33:42, and theLongest episode 13 beats, 06/16 17:30:39. *There was 1 Patient Trigger.unassociated with arrhythmias. - CONCLUSIONS: 1. *The predominant rhythm was Sinus. *The Maximum Heart Rate recorded was 179 bpm, 06/18 06:33:44, the MinimumHeart Rate recorded was 57 bpm, 06/17 16:45:16, and the Average Heart Rate was 76 bpm. *There were 354 VE beats with a burden of <1 %. *There were 507 SVE beats with a burden of <1 %. There were 11 occurrencesof Supraventricular Tachycardia with the Fastest episode 179 bpm, 06/18 06:33:42, and theLongest episode 13 beats, 06/16 17:30:39. *There was 1 Patient Trigger.unassociated with arrhythmias. 2. Agree with findings from [employer] document. 3. The PDF report can be found in the [facility] patient chart. Electronically Signed By: Jerry To Jr., M.D. 06/29/2024 3:19:13 PM TAG WRITER Electronically Signed By: Jerry To Jr., M.D. 06/29/2024 3:19:13 PM TAG WRITER hSagufta Vasquez NP CV CARDIAC SERVICES PROC EDURES Final Result * Pro B-type natriuretic peptide (06/15/2024 1:34 PM TAG WRITER) NT-proBNP 117 <=300 pg/mL Comment: Interpretive Comments: A. Dyspnea in Acute Care Setting All Ages: < 300 pg/ml, acute heart failure unlikely. < 50 yrs: 300 - 450 pg/ml, further investigation warranted. > 450 pg/ml, acute heart failure likely. 50 - 74 yrs: 300 - 900 pg/ml, further investigation warranted. > 900 pg/ml, acute heart failure likely . > or = 75 yrs: 450 - 1800 pg/ml, further investigation warranted. > 1800 pg/ml, acute heart failure likely. B. Non-acute Setting < 75 yrs < 125 pg/ml, rules out heart failure. > or = 125 pg/ml, further investigation warranted. > or = 75 yrs < 450 pg/ml, rules out heart failure. > or = 450 pg/ml, further investigation warranted. - Knowledge of each individual patient's NT-proBNP range may be more useful than using similar cut-points for every patient. Please note that marked elevations in NT-proBNP levels may be observed in state other than Left Ventricular Congestive Failure, including: acute coronary syndromes, right heart strain/failure (including pulmonary embolism and cor pulmonale), critical illness, renal failure, as well as advanced age. - References: 1. Martha JACOBO et.al. Eur Heart J. 2006:27:330-337. 2. Freddy STORY, Ami DE LEON. J. AM Billy Cardiol: Cardiovasc Imag. 2009;2: 216- 225. Interpretive Data Last Revised Date: 2018. Blood 06/15/2024 1:34 PM TAG WRITER 06/15/2024 2:54 PM TAG WRITER us Shagufta Hannah Christina SURVEYING OR SPATIAL SCIENCE TECHNICIAN LAB BLOOD ORDERABLES Fin al Result [facility] Department [place] [address] * XR Chest 1 View (06/09/2024 8:31 AM TAG WRITER) Anatomical Region Laterality Modality Body, Chest N/A Computed Radiogr aphy 06/09/2024 8:39 AM TAG WRITER Narrative 06/09/2024 8:41 AM TAG WRITER EXAM DESCRIPTION: XR CHEST 1 VIEW REASON FOR STUDY: dyspnea Chronic sob. Hx of pulmonary fibrosis and COPD TECHNIQUE: Single frontal radiographic view(s) of the chest. COMPARISON: 06/05/2024 FINDINGS: There is cardiomegaly. There is mild prominence of the pulmonary vasculature. There is mild chronic coarsening of the interstitial lung markings. There are grossly stable mild patchy bilateral perihilar and bibasilar airspace opacities. There is no definite evidence of a pneumothorax. There is no definite evidence of pleural effusion. The osseous structures are acutely grossly stable. IMPRESSION: Grossly stable mild patchy bilateral airspace opacities. Cardiomegaly with mild prominence of pulmonary vasculature. THIS IS AN ELECTRONICALLY VERIFIED FINAL REPORT 06/09/2024 8:41 AM - Electronically signed by Pratik Maldonado D.O. PS: PS Report ID: [id number] Reading Location: [id number] Procedure Note Pratik Maldonado, DO - 06/09/2024 EXAM DESCRIPTION: XR CHEST 1 VIEW REASON FOR STUDY: dyspnea Chronic sob. Hx of pulmonary fibrosis and COPD TECHNIQUE: Single frontal radiographic view(s) of the chest. COMPARISON: 06/05/2024 FINDINGS: There is cardiomegaly. There is mild prominence of thepulmonary vasculature. There is mild chronic coarsening of the interstitial lung markings. There are grossly stable mild patchy bilateral perihilar and bibasilar airspace opacities. There is no definite evidence of a pneumothorax. There is no definite evidence of pleural effusion. The osseous structures are acutely grossly stable. IMPRESSION: Grossly stable mild patchy bilateral airspace opacities. Cardiomegaly with mild prominence of pulmonary vasculature. THIS IS AN ELECTRONICALLY VERIFIED FINAL REPORT 06/09/2024 8:41 AM - Electronically signed by Pratik Maldonado D.O. PS: PS Report ID: [id number] Reading Location: [place] [address] Elidia Resendez MD IMG XR PROCEDURES Neema l Result * eGFR (06/09/2024 3:29 AM TAG WRITER) eGFR >90 >=60 mL/min/1. 73 m2 Comment: Interpretive Data Reference Interval Normal >/= 90 mL/min/1.73m2 Mildly decreased* 60 - 89 mL/min/1.73m2 Mildly to moderately decreased 45 - 59 mL/min/1.73m2 Moderately to severely decreased 30 - 44 mL/min/1.73m2 Severely decreased 15 - 29 mL/min/1.73m2 Kidney Failure < 15 mL/min/1.73m2 *Relative to young adult level Estimated glomerular filtration rate is determined by the 2020 CKD-EPI equation recommended by the National Kidney [employer] (A Unifying Approach to GFR Estimation: Recommendations of the NKF-ASK Task Force on Reassessing the Inclusion of Race in Diagnosing Kidney Disease, JASN 2020). The CKD-EPI equation should not be used for patients with unstable renal function and has not been validated in children and those over 70. Current interpretive data was last reviewed 2021. Testing performed by: [facility], [address] [place] [address]., [address] Blood 06/09/2024 3:29 AM TAG WRITER 06/09/2024 3:51 AM TAG WRITER Elidia Resendez MD LAB BLOOD ORDERABLES F inal Result [facility] [address] [facility] Department [place] [address] [phone] * (ABNORMAL) Differential, auto (06/09/2024 3:29 AM TAG WRITER) Neutrophil abs 9.6(H) 1.5 - 6.5 K/cumm Comment:Testing performed by : [address] [address] Imm gran abs 0.1 0.0 - 0.1 K/cumm [facility] Comment:Testing performed by : [address] [address] Lymphocyte abs 0.8 0.8 - 3.3 K/cumm [facility] Comment:Testing performed by : [address] [address] Monocyte abs 0.5 0.2 - 0.8 K/cumm [facility] Comment:Testing performed by : [address] [address] Eosinophil abs 0.0 0.0 - 0.5 K/cumm [facility] Comment:Testing performed by : [address] [address] Basophil abs 0.0 0.0 - 0.1 K/cumm [facility] Comment:Testing performed by : [address] [address] Neutrophil pct 86.9 % [facility] Comment: Interpretive Data Percent cell count reference ranges are not reported, since discordance with absolute values may lead to misinterpretation of CBC data. Current Interpretive Data was last revised on 2017. Testing performed by: [address] [address] Imm gran pct 1.0 % [facility] Comment: Interpretive Data Percent cell count reference ranges are not reported, since discordance with absolute values may lead to misinterpretation of CBC data. Current Interpretive Data was last revised on 2017. Testing performed by: [address] [address] Lymphocyte pct 7.6 % [facility] Comment: Interpretive Data Percent cell count reference ranges are not reported, since discordance with absolute values may lead to misinterpretation of CBC data. Current Interpretive Data was last revised on 2017. Testing performed by: [address] [address] Monocyte pct 4.3 % [facility] Comment: Interpretive Data Percent cell count reference ranges are not reported, since discordance with absolute values may lead to misinterpretation of CBC data. Current Interpretive Data was last revised on 2017. Testing performed by: [address] [address] Eosinophil pct 0.0 % [facility] Comment: Interpretive Data Percent cell count reference ranges are not reported, since discordance with absolute values may lead to misinterpretation of CBC data. Current Interpretive Data was last revised on 2017. Testing performed by: [address] [address] Basophil pct 0.2 % [facility] Comment: Interpretive Data Percent cell count reference ranges are not reported, since discordance with absolute values may lead to misinterpretation of CBC data. Current Interpretive Data was last revised on 2017. Testing performed by: [address] [address] Blood 06/09/2024 3:29 AM TAG WRITER 06/09/2024 3:51 AM TAG WRITER Elidia Resendez MD LAB BLOOD ORDERABLES F inal Result [facility] [address] [facility] Department [place] [address] * (ABNORMAL) CBC with auto differential (06/09/2024 3:29 AM TAG WRITER) WBC 11.0(H) 3.8 - 9.9 K/cumm Comment:Testing performed by : [address] [address] Hgb 12.9(L) 13.0 - 17.5 g/dL ZION Comment:Testing performed by : [address] [address] Hct 37.9(L) 38.9 - 50.3 % ZION Comment:Testing performed by : [address] [address] Plt 267 150 - 400 K/cumm ZION Comment:Testing performed by : [address] [address] MPV 8.9(L) 9.1 - 12.3 fL ZION Comment:Testing performed by : [address] [address] RBC 3.94(L) 4.30 - 5.80 M/cumm ZION Comment:Testing performed by : [address] [address] MCV 96.2 81.3 - 96.4 fL ZION Comment:Testing performed by : [address] [address] MCH 32.7 27.1 - 33.3 pg ZION Comment:Testing performed by : [address] [address] MCHC 34.0 32.3 - 35.7 g/dL ZION Comment:Testing performed by : [address], [address] RDW CV 14.2 11.1 - 14.9 % ZION Comment:Testing performed by : [address] [address] RDW SD 49.9(H) 35.7 - 48.1 fL ZION Comment:Testing performed by : [address] [address] NRBC abs 0.00 0.00 - 0.01 K/cumm ZION Comment:Testing performed by : [address] [address] Blood 06/09/2024 3:29 AM TAG WRITER 06/09/2024 3:51 AM TAG WRITER us Elidia Resendez MD LAB BLOOD ORDERABLES F inal Result [facility] [address] [facility] [place] [address]46 * (ABNORMAL) Comprehensive metabolic panel (06/09/2024 3:29 AM TAG WRITER) [facility] Signature Sodium 136 135 - 145 mmol/L Comment:Testing performed by : [address] [address] Potassium, pl 3.9 3.3 - 4.9 mmol/L ZION Comment:Testing performed by : [address] [address] Chloride 100 97 - 110 mmol/L ZION Comment:Testing performed by : [address] [address] CO2 25 22 - 32 mmol/L ZION Comment:Testing performed by : [address] [address] Anion gap 11 2 - 15 mmol/L ZION Comment:Testing performed by : [address] [address] BUN 16 6 - 25 mg/dL ZION Comment:Testing performed by : [address] [address] Creatinine 0.63(L) 0.80 - 1.30 mg/dL ZION Comment:Testing performed by : [address] [address] Glucose 144 70 - 199 mg/dL ZION Comment: Interpretive Data Fasting glucose >/= 126 mg/dl is diagnostic for diabetes. Fasting is defined as no caloric intake for at least 8 hours. Fasting glucose between 100 mg/dl to 125 mg/dl is diagnostic of prediabetes. In a patient with classic symptoms of hyperglycemia or hyperglycemic crisis, a random glucose >/= 200 mg/dl is diagnostic for diabetes. In the absence of unequivocal hyperglycemia, results should be confirmed by repeat testing. The classification and Diagnosis of Diabetes Diabetes Care 202; 46: S19-S40. Current interpretive data was last revised 2022. Testing performed by: [address] [address] Calcium 9.9 8.5 - 10.3 mg/dL ZION Comment:Testing performed by : [address] [place]., [address] Bilirubin, total 0.5 0.1 - 1.2 mg/dL ZION Comment:Testing performed by : [address] [address] Protein, pl 6.7 6.5 - 8.5 g/dL ZION Comment:Testing performed by : [address], [address] Albumin 3.7 3.5 - 5.0 g/dL ZION Comment:Testing performed by : [address], [address] Alk phos 75 40 - 130 Units/L ZION Comment:Testing performed by : [address], [address] ALT 23 7 - 55 Units/L ZION Comment:Testing performed by : [address], [address] AST 17 10 - 50 Units/L ZION Comment:Testing performed by : [address] [address] Blood 06/09/2024 3:29 AM TAG WRITER 06/09/2024 3:51 AM TAG WRITER Elidia Resendez MD LAB BLOOD ORDERABLES F inal Result [facility] [address] [facility] Department [place] [address] * eGFR (06/08/2024 4:18 AM TAG WRITER) eGFR >90 >=60 mL/min/1. 73 m2 Comment: Interpretive Data Reference Interval Normal >/= 90 mL/min/1.73m2 Mildly decreased* 60 - 89 mL/min/1.73m2 Mildly to moderately decreased 45 - 59 mL/min/1.73m2 Moderately to severely decreased 30 - 44 mL/min/1.73m2 Severely decreased 15 - 29 mL/min/1.73m2 Kidney Failure < 15 mL/min/1.73m2 *Relative to young adult level Estimated glomerular filtration rate is determined by the 2020 CKD-EPI equation recommended by the National Kidney Foundation (A Unifying Approach to GFR Estimation: Recommendations of the NKF-ASK Task Force on Reassessing the Inclusion of Race in Diagnosing Kidney Disease, JASN 202). The CKD-EPI equation should not be used for patients with unstable renal function and has not been validated in children and those over 70. Current interpretive data was last reviewed 2021. Testing performed by: [address] [address] Blood 06/08/2024 4:18 AM TAG WRITER 06/08/2024 5:10 AM TAG WRITER us Elidia Resendez MD LAB BLOOD ORDERABLES F inal Result [facility] Department [place] [address] * (ABNORMAL) Differential, auto (06/08/2024 4:18 AM TAG WRITER) Neutrophil abs 10.7(H) 1.5 - 6.5 K/cumm Comment:Testing performed by : [address] [address] Imm gran abs 0.1 0.0 - 0.1 K/cumm ZION Comment:Testing performed by : [address] [address] Lymphocyte abs 0.6(L) 0.8 - 3.3 K/cumm ZION Comment:Testing performed by : [address] [address] Monocyte abs 0.4 0.2 - 0.8 K/cumm ZION Comment:Testing performed by : [address] [address] Eosinophil abs 0.0 0.0 - 0.5 K/cumm ZION Comment:Testing performed by : [address] [address] Basophil abs 0.0 0.0 - 0.1 K/cumm ZION Comment:Testing performed by : [address] [address] Neutrophil pct 90.3 % [facility] Comment: Interpretive Data Percent cell count reference ranges are not reported, since discordance with absolute values may lead to misinterpretation of CBC data. Current Interpretive Data was last revised on 2017. Testing performed by: [address] [address] Imm gran pct 0.9 % [facility] Comment: Interpretive Data Percent cell count reference ranges are not reported, since discordance with absolute values may lead to misinterpretation of CBC data. Current Interpretive Data was last revised on 2017. Testing performed by: [address] [address] Lymphocyte pct 5.2 % [facility] Comment: Interpretive Data Percent cell count reference ranges are not reported, since discordance with absolute values may lead to misinterpretation of CBC data. Current Interpretive Data was last revised on 2017. Testing performed by: [address] [address] Monocyte pct 3.5 % [facility] Comment: Interpretive Data Percent cell count reference ranges are not reported, since discordance with absolute values may lead to misinterpretation of CBC data. Current Interpretive Data was last revised on 2017. Testing performed by: [address] [address] Eosinophil pct 0.0 % [facility] Comment: Interpretive Data Percent cell count reference ranges are not reported, since discordance with absolute values may lead to misinterpretation of CBC data. Current Interpretive Data was last revised on 2017. Testing performed by: [address] [address] Basophil pct 0.1 % [facility] Comment: Interpretive Data Percent cell count reference ranges are not reported, since discordance with absolute values may lead to misinterpretation of CBC data. Current Interpretive Data was last revised on 2017. Testing performed by: [address] [address] Blood 06/08/2024 4:18 AM TAG WRITER 06/08/2024 5:11 AM TAG WRITER us Elidia Resendez MD LAB BLOOD ORDERABLES F inal Result [facility] [address] [facility] Department [place] [address] * (ABNORMAL) CBC with auto differential (06/08/2024 4:18 AM TAG WRITER) WBC 11.9(H) 3.8 - 9.9 K/cumm Comment:Testing performed by : [address] [address] Hgb 12.6(L) 13.0 - 17.5 g/dL ZION Comment:Testing performed by : [address] [address] Hct 36.8(L) 38.9 - 50.3 % ZION Comment:Testing performed by : [address] [address] Plt 266 150 - 400 K/cumm ZION Comment:Testing performed by : [address] [address] MPV 9.2 9.1 - 12.3 fL ZION Comment:Testing performed by : [address] [address] RBC 3.87(L) 4.30 - 5.80 M/cumm ZION Comment:Testing performed by : [address] [address] MCV 95.1 81.3 - 96.4 fL ZION Comment:Testing performed by : [address] [address] MCH 32.6 27.1 - 33.3 pg ZION Comment:Testing performed by : [address] [address] MCHC 34.2 32.3 - 35.7 g/dL ZION Comment:Testing performed by : [address], [address] RDW CV 14.5 11.1 - 14.9 % [facility] [place] Comment:Testing performed by : [address] [address] RDW SD 49.1(H) 35.7 - 48.1 fL [facility] [place] Comment:Testing performed by : [address] [address] NRBC abs 0.00 0.00 - 0.01 K/cumm [facility] [place] Comment:Testing performed by : [address] [address] Blood 06/08/2024 4:18 AM TAG WRITER 06/08/2024 5:11 AM TAG WRITER Elidia Resendez MD LAB BLOOD ORDERABLES F inal Result [facility]ION [facility] [facility] Department [place] [address] * (ABNORMAL) Comprehensive metabolic panel (06/08/2024 4:18 AM TAG WRITER) Sodium 138 135 - 145 mmol/L Comment:Testing performed by : [address] [address] Potassium, pl 3.9 3.3 - 4.9 mmol/L [facility] [place] Comment:Testing performed by : [address] [address] Chloride 100 97 - 110 mmol/L [facility] [place] Comment:Testing performed by : [address] [address] CO2 26 22 - 32 mmol/L [facility] [place] Comment:Testing performed by : [address] [address] Anion gap 12 2 - 15 mmol/L [facility] [place] Comment:Testing performed by : [address] [address] BUN 15 6 - 25 mg/dL [facility] [place] Comment:Testing performed by : [address] [address] Creatinine 0.63(L) 0.80 - 1.30 mg/dL [facility] [place] Comment:Testing performed by : [address] [address] Glucose 143 70 - 199 mg/dL ZION Comment: Interpretive Data Fasting glucose >/= 126 mg/dl is diagnostic for diabetes. Fasting is defined as no caloric intake for at least 8 hours. Fasting glucose between 100 mg/dl to 125 mg/dl is diagnostic of prediabetes. In a patient with classic symptoms of hyperglycemia or hyperglycemic crisis, a random glucose >/= 200 mg/dl is diagnostic for diabetes. In the absence of unequivocal hyperglycemia, results should be confirmed by repeat testing. The classification and Diagnosis of Diabetes Diabetes Care 2021; 46: S19-S40. Current interpretive data was last revised 2022. Testing performed by: [address] [address] Calcium 10.0 8.5 - 10.3 mg/dL ZION Comment:Testing performed by : [address] [address] Bilirubin, total 0.5 0.1 - 1.2 mg/dL ZION Comment:Testing performed by : [address] [address] Protein, pl 7.0 6.5 - 8.5 g/dL ZION Comment:Testing performed by : [address] [address] Albumin 4.0 3.5 - 5.0 g/dL ZION Comment:Testing performed by : [address] [address] Alk phos 76 40 - 130 Units/L ZION Comment:Testing performed by : [address] [address] ALT 27 7 - 55 Units/L [facility] Comment:Testing performed by : [address] [address] AST 19 10 - 50 Units/L ZION Comment:Testing performed by : [address] [address] Blood 06/08/2024 4:18 AM TAG WRITER 06/08/2024 5:10 AM TAG WRITER Elidia Resendez MD LAB BLOOD ORDERABLES F inal Result [facility]ION [address] [facility] Department [place] [address] * TRANSTHORACIC ECHO (TTE) COMPLETE W DOPPLER/CF W CONTRAST (06/07/2024 11:10 AM TAG WRITER) Anatomical Region Laterality Modality Ultrasound 06/07/2024 10:1 5 AM TAG WRITER Narrative 06/07/2024 1:36 PM TAG WRITER Adult Echocardiogram + ----- + :Name: ASHLEY OLIVER Study Date: 06/07/2024 Status: E : : Patient Location: [address]^[id number]^MHeight: 73 in : : Weight: 219 lbBP: 137/76 mmHg: :: 1950 Gender: Male BSA: 2.2 m2 : :Reason For Study: Dyspnea : :Ordering Physician: : :DISHA^ELIDIA^DAVID : : : :Performed By: Shahla : :DANDRE Fregoso : + ----- + Procedure A two-dimensional transthoracic echocardiogram with color flow and Doppler was performed. A contrast injection of Definity was performed to improve assessment of LV function. Definity lot # is ' [id number] '. Left Ventricle The left ventricle is normal in size. There is mild concentric left ventricular hypertrophy. Left ventricular systolic function is normal. Ejection Fraction = 65-70%. No regional wall motion abnormalities noted. Right Ventricle The right ventricle is normal in size and function. Mitral Valve There is no mitral valve stenosis. There is trace mitral regurgitation. Tricuspid Valve Cannot assess RVSP due to lack of sufficient TR jet. Aortic Valve The aortic valve is trileaflet. The aortic valve opens well. No aortic stenosis . No aortic regurgitation is present. Great Vessels Aortic root size =' 4 'cm. The aortic root is normal size. IVC appears 'dilated' in size. IVC has blunted respirophasic collapse. Elevated right heart pressures. Pericardium Trace pericardial effusion. Diastology Diastolic dysfunction, Grade II, consistent with elevated left atrial pressure. Interpretation Summary The left ventricle is normal in size. There is mild concentric left ventricular hypertrophy. Left ventricular systolic function is normal. Ejection Fraction = 65-70%. No regional wall motion abnormalities noted. Diastolic dysfunction, Grade II, consistent with elevated left atrial pressure. IVC appears 'dilated' in size. IVC has blunted respirophasic collapse. Elevated right heart pressures. + + :Measurements with Normals : : (0.6-1.2 LVIDd: (3.5-5.7 Ao root diam: (2.0-3.7 : :IVSd: 1.1 cmcm) 5.2 cm cm) 4.0 cm cm) : :LVPWd: (0.6-1.1 LVIDs: (3.1-4.6 LA dimension: (1.9-4.0 : :1.2 cm cm) 3.2 cm cm) 4.6 cm cm) : + + MMode/2D Measurements & Calculations RVDd: 3.2 cm FS: 38.6 % LVOT diam: 2.4 cm EDV(Teich): 130.1 ml Ao root area: 12.6 cm2 ESV(Teich): 41.0 ml LVOT area: 4.5 cm2 Doppler Measurements & Calculations MV E max tiny: MV dec time: Ao V2 max: LV V1 max P.8 cm/sec 0.17 sec 145.0 cm/sec 4.2 mmHg MV A max tiny: Ao max P.4 mmHg LV V1 mean P.6 cm/sec Ao V2 mean: 2.0 mmHg MV E/A: 1.1 101.0 cm/sec LV V1 max: Ao mean P.0 cm/sec 5.0 mmHg LV V1 mean: Ao V2 VTI: 29.0 cm 62.6 cm/sec LV V1 VTI: 17.3 cm RAKAN(I,D): 2.7 cm2 RAKAN(V,D): 3.2 cm2 SV(LVOT): 78.3 ml PA V2 max: RV V1 max: 126.0 cm/sec 113.0 cm/sec PA max P.4 mmHg Electronically signed by: Buck Eisenberg MD 06/07/2024 01:36 PM Procedure Note Buck Eisenberg MD - 06/07/2024 Adult Echocardiogram + ----- + :Name: ASHLEY OLIVER Study Date: 06/07/2024Status: [facility] : : Patient Location: [address]^[id number]^MHeight: 73 in : : : 219 lbBP: 137/76 mmHg: :: 1950 Gender: MaleBSA: 2.2 m2 : :Reason For Study: Dyspnea: :Ordering Physician:: :ERIK^DAVID: :: :Performed By: Shahla: :DANDRE Fregoso: + ----- + Procedure A two-dimensional transthoracic echocardiogram with color flow and Dopplerwas performed. A contrast injection of Definity was performed to improve assessment of LV function. Definity lot # is ' [id number] '. Left Ventricle The left ventricle is normal in size. There is mild concentric left ventricular hypertrophy. Left ventricular systolic function is normal. Ejection Fraction = 65-70%. No regional wall motion abnormalities noted. Right Ventricle The right ventricle is normal in size and function. Mitral Valve There is no mitral valve stenosis. There is trace mitral regurgitation. Tricuspid Valve Cannot assess RVSP due to lack of sufficient TR jet. Aortic Valve The aortic valve is trileaflet. The aortic valve opens well. No aortic stenosis . No aortic regurgitation is present. Great Vessels Aortic root size =' 4 'cm. The aortic root is normal size. IVC appears 'dilated' in size. IVC has blunted respirophasic collapse. Elevatedright heart pressures. Pericardium Trace pericardial effusion. Diastology Diastolic dysfunction, Grade II, consistent with elevated left atrial pressure. Interpretation Summary The left ventricle is normal in size. There is mild concentric left ventricular hypertrophy. Left ventricular systolic function is normal. Ejection Fraction = 65-70%. No regional wall motion abnormalities noted. Diastolic dysfunction, Grade II, consistent with elevated left atrial pressure. IVC appears 'dilated' in size. IVC has blunted respirophasic collapse. Elevated right heart pressures. + + :Measurements with Normals: : (0.6-1.2 LVIDd: (3.5-5.7 Ao root diam:(2.0-3.7 : :IVSd: 1.1 cmcm) 5.2 cm cm) 4.0 cm cm): :LVPWd: (0.6-1.1 LVIDs: (3.1-4.6 LA dimension:(1.9-4.0 : :1.2 cm cm) 3.2 cm cm) 4.6 cm cm): + + MMode/2D Measurements & Calculations RVDd: 3.2 cm FS: 38.6 % LVOT diam: 2.4cm EDV(Teich): 130.1 ml Ao root area: 12.6 cm2 ESV(Teich): 41.0 ml LVOT area: 4.5cm2 Doppler Measurements & Calculations MV E max tiny: MV dec time: Ao V2 max: LV V1 max P.8 cm/sec 0.17 sec 145.0 cm/sec 4.2 mmHg MV A max tiny: Ao max P.4 mmHg LV V1 meanP.6 cm/sec Ao V2 mean: 2.0 mmHg MV E/A: 1.1 101.0 cm/sec LV V1 max: Ao mean P.0 cm/sec 5.0 mmHg LV V1 mean: Ao V2 VTI: 29.0 cm 62.6 cm/sec LV V1 VTI: 17.3cm RAKAN(I,D): 2.7 cm2 RAKAN(V,D): 3.2 cm2 SV(LVOT): 78.3 ml PA V2 max: RV V1 max: 126.0 cm/sec 113.0 cm/sec PA max P.4 mmHg Electronically signed by: Buck Eisenberg MD 06/07/2024 01:36 PM Elidia Resendez MD CV ECHO PROCEDURES Fin al Result * Pro B-type natriuretic peptide (06/07/2024 4:44 AM TAG WRITER) NT-proBNP 294 <=300 pg/mL Comment: Interpretive Comments: A. Dyspnea in Acute Care Setting All Ages: < 300 pg/ml, acute heart failure unlikely. < 50 yrs: 300 - 450 pg/ml, further investigation warranted. > 450 pg/ml, acute heart failure likely. 50 - 74 yrs: 300 - 900 pg/ml, further investigation warranted. > 900 pg/ml, acute heart failure likely . > or = 75 yrs: 450 - 1800 pg/ml, further investigation warranted. > 1800 pg/ml, acute heart failure likely. B. Non-acute Setting < 75 yrs < 125 pg/ml, rules out heart failure. > or = 125 pg/ml, further investigation warranted. > or = 75 yrs < 450 pg/ml, rules out heart failure. > or = 450 pg/ml, further investigation warranted. - Knowledge of each individual patient's NT-proBNP range may be more useful than using similar cut-points for every patient. Please note that marked elevations in NT-proBNP levels may be observed in state other than Left Ventricular Congestive Failure, including: acute coronary syndromes, right heart strain/failure (including pulmonary embolism and cor pulmonale), critical illness, renal failure, as well as advanced age. - References: 1. Martha JACOBO et.al. Eur Heart J. 2006:27:330-337. 2. Freddy STORY, Ami DE LEON. J. AM Billy Cardiol: Cardiovasc Imag. 2009;2: 216- 225. Interpretive Data Last Revised Date: 2018. Testing performed by: [facility], [address] [place] [address]., [address] Blood 06/07/2024 4:44 AM TAG WRITER 06/07/2024 5:24 AM TAG WRITER Elidia Resendez MD LAB BLOOD ORDERABLES F inal Result Performing Organization Address [facility] Co dc Phone Number [facility] [address] [facility] Department of Laboratories [place], [place] [id number] * (ABNORMAL) Erythrocyte sedimentation rate (06/07/2024 4:44 AM TAG WRITER) Pathologist [facility] Erythrocyte sedimentation rate 30(H) 1 - 20 mm/hr Comment:Testing performed by : [address] [address] Blood 06/07/2024 4:44 AM TAG WRITER 06/07/2024 5:25 AM TAG WRITER Elidia Resendez MD LAB BLOOD ORDERABLES F inal Result Performing Organization Address City/[facility] Co de Phone Number [facility] [address] [facility] [place] [address] * (ABNORMAL) CRP (acute phase) (06/07/2024 4:44 AM TAG WRITER) [facility] CRP 12.6(H) <=10.0 mg/L Comment:Testing performed by : [facility], [address] [place] [address], [address] Blood 06/07/2024 4:44 AM TAG WRITER 06/07/2024 5:24 AM TAG WRITER us Elidia Resendez MD LAB BLOOD ORDERABLES F inal Result Performing Organization Address [facility] de Phone Number [facility] [address] [facility] [place] [address] * ECG 12 lead (06/06/2024 8:21 AM TAG WRITER) [facility] Ventricular Rate EKG/Min 88 BPM [facility] Atrial Rate 88 BPM [facility] CT-Interval (MSEC) 196 ms [facility] QRS-Interval (MSEC) 88 ms [facility] QT-Interval (MSEC) 382 ms [facility] QTc 462 ms [facility] P Clyde 57 degrees [facility] R Clyde 8 degrees [facility] T Clyde -14 degrees [facility] Diagnosis Normal sinus rhythm Normal ECG When compared with ECG of 05-JUN-2024 17:36, ST no longer depressed in Inferior leads Confirmed by YARELY COLINDRES M.D. ([id number]) on 06/07/2024 9:08:14 PM [facility] 06/06/2024 8:21 AM TAG WRITER 06/07/2024 9:08 PM TAG WRITER us Marco Pro MD ECG ORDERABLES Final Result Performing Organization Address [facility] Co de Phone Number [facility] * eGFR (06/06/2024 3:47 AM TAG WRITER) [facility] eGFR >90 >=60 mL/min/1. 73 m2 Comment: Interpretive Data Reference Interval Normal >/= 90 mL/min/1.73m2 Mildly decreased* 60 - 89 mL/min/1.73m2 Mildly to moderately decreased 45 - 59 mL/min/1.73m2 Moderately to severely decreased 30 - 44 mL/min/1.73m2 Severely decreased 15 - 29 mL/min/1.73m2 Kidney Failure < 15 mL/min/1.73m2 *Relative to young adult level Estimated glomerular filtration rate is determined by the 2020 CKD-EPI equation recommended by the National Kidney Foundation (A Unifying Approach to GFR Estimation: Recommendations of the NKF-ASK Task Force on Reassessing the Inclusion of Race in Diagnosing Kidney Disease, JASN 2020). The CKD-EPI equation should not be used for patients with unstable renal function and has not been validated in children and those over 70. Current interpretive data was last reviewed 2021. Testing performed by: [address] [address] Blood 06/06/2024 3:47 AM TAG WRITER 06/06/2024 3:58 AM TAG WRITER us Marco Pro MD LAB BLOOD ORDERABLES Final Result [facility] [address] [facility] Department [place] [address] * (ABNORMAL) CBC without differential (06/06/2024 3:47 AM TAG WRITER) WBC 7.0 3.8 - 9.9 K/cumm Comment:Testing performed by : [address] [address] Hgb 12.2(L) 13.0 - 17.5 g/dL [facility] [place] Comment:Testing performed by : [address] [address] Hct 36.6(L) 38.9 - 50.3 % [facility] [place] Comment:Testing performed by : [address] [address] Plt 209 150 - 400 K/cumm [facility] [place] Comment:Testing performed by : [address] [address] MPV 9.2 9.1 - 12.3 fL [facility] Comment:Testing performed by : [address] [address] RBC 3.86(L) 4.30 - 5.80 M/cumm [facility] [place] Comment:Testing performed by : [address] [address] MCV 94.8 81.3 - 96.4 fL [facility] Comment:Testing performed by : [address] [address] MCH 31.6 27.1 - 33.3 pg [facility] Comment:Testing performed by : [address] [address] MCHC 33.3 32.3 - 35.7 g/dL [facility] Comment:Testing performed by : [address], [address] RDW CV 14.0 11.1 - 14.9 % [facility] Comment:Testing performed by : [address], [address] RDW SD 47.7 35.7 - 48.1 fL [facility] Comment:Testing performed by : [address], [address] NRBC abs 0.00 0.00 - 0.01 K/cumm [facility]ION Comment:Testing performed by : [address], [address] Blood 06/06/2024 3:47 AM TAG WRITER 06/06/2024 3:58 AM TAG WRITER us Marco Pro MD LAB BLOOD ORDERABLES Final Result [facility] [address] [facility] Department [place] [address] * Magnesium (06/06/2024 3:47 AM TAG WRITER) [facility] Magnesium 2.3 1.4 - 2.5 mg/dL Comment:Testing performed by : [address] [address] Blood 06/06/2024 3:47 AM TAG WRITER 06/06/2024 3:58 AM TAG WRITER us Marco Pro MD LAB BLOOD ORDERABLES Final Result [facility] [address] [facility] Department [place] [address] * (ABNORMAL) Basic metabolic panel (06/06/2024 3:47 AM TAG WRITER) Sodium 136 135 - 145 mmol/L Comment:Testing performed by : [address] [address] Potassium, pl 3.8 3.3 - 4.9 mmol/L [facility] Comment:Testing performed by : [address] [address] Chloride 99 97 - 110 mmol/L [facility] Comment:Testing performed by : [address] [address] CO2 19(L) 22 - 32 mmol/L [facility] Comment:Testing performed by : [address] [id number] Anion gap 18(H) 2 - 15 mmol/L ZION Comment:Testing performed by : [address] [address] BUN 10 6 - 25 mg/dL ZION Comment:Testing performed by : [address] [address] Creatinine 0.60(L) 0.80 - 1.30 mg/dL ZION Comment:Testing performed by : [address] [address] Glucose 225(H) 70 - 199 mg/dL ZION Comment: Delta - Results Reviewed Interpretive Data Fasting glucose >/= 126 mg/dl is diagnostic for diabetes. Fasting is defined as no caloric intake for at least 8 hours. Fasting glucose between 100 mg/dl to 125 mg/dl is diagnostic of prediabetes. In a patient with classic symptoms of hyperglycemia or hyperglycemic crisis, a random glucose >/= 200 mg/dl is diagnostic for diabetes. In the absence of unequivocal hyperglycemia, results should be confirmed by repeat testing. The classification and Diagnosis of Diabetes Diabetes Care 202; 46: S19-S40. Current interpretive data was last revised 2022. Testing performed by: [address] [address] Calcium 9.3 8.5 - 10.3 mg/dL ZION Comment:Testing performed by : [address] [address] Blood 06/06/2024 3:47 AM TAG WRITER 06/06/2024 3:58 AM TAG WRITER us Marco Pro MD LAB BLOOD ORDERABLES Final Result [facility] [address] [facility] Department [place] [address] * Influenza A/B, RSV, and COVID-19 PCR Nasopharyngeal (06/05/2024 8:52 PM TAG WRITER) COVID-19 RNA Negative Negative Comment:Testing performed by : [address] [address] Influenza A RNA Negative Negative ZION Comment:Testing performed by : [address] [address] Influenza B RNA Negative Negative ZION Comment:Testing performed by : [address] [address] RSV RNA Negative Negative ZION Comment: Interpretive data: Testing performed by [facility]. This test is performed using the [employer] Xpert Xpress CoV-2/Flu/RSV plus assay. This is a multiplex, real-time reverse transcriptase PCR assay intended for the qualitative detection of nucleic acid from SARS-CoV-2, influenza A, influenza B, and respiratory syncytial virus. This assay has been cleared by the [place] Food and Drug administration. The performance characteristics have been verified by the [facility]. Results must be considered in the clinical context, and a negative result does not rule out infection. Interpretive Data last revised 2023 Testing performed by: [facility], [address] [place] [address], [place]., [address] Nasopharyngeal 06/05/2024 8: 52 PM TAG WRITER 06/05/2024 8:55 PM TAG WRITER Narrative ZION - 06/05/2024 9:43 PM TAG WRITER Is the Patient experiencing symptoms consistent with COVID?->Yes us Jimbo Jack MD LAB MICROBIOLOGY - GENE RAL ORDERABLES Final Result ZION [address] [facility] Department [place] [address] * CT Chest PE (CTA) W Contrast (06/05/2024 8:18 PM TAG WRITER) Anatomical Region Laterality Modality Body N/A Computed Tomogra phy 06/05/2024 9:35 PM TAG WRITER Narrative 06/05/2024 9:47 PM TAG WRITER EXAM DESCRIPTION: CT CHEST PE (CTA) W CONTRAST REASON FOR STUDY: Chest pain, PE suspected, high prob, hx of ild, worsening hypoxia, pe vs pna vs ild exac reports recent discharge from hospital d/t pneumonia and RSV infection. Pt reports increasing SOB x approx 2 days. Pt also reports gained approx 5lbs overnight, pitting edema to bilateral lower extremities. TECHNIQUE: CT angiogram of the chest performed with intravenous contrast using helical scanning technique with dynamic intravenous contrast injection. Reconstructed coronal and sagittal MPR images reviewed. All images stored on PACS. 3D MIP images rendered on scanning unit and reviewed at time of interpretation. Automated exposure control was used as a dose optimization technique for this examination. CONTRAST TYPE/DOSE: 100mL of IOVERSOL 350 MG IODINE/ML INTRAVENOUS SYRINGE injected via intravenous COMPARISON: 05/11/2024 FINDINGS: VASCULATURE: No identified pulmonary emboli. LUNGS: There is severe pulmonary emphysema with areas of pulmonary fibrosis. No focal infiltrates. PLEURA: No effusion. No pneumothorax. MEDIASTINUM/JOSE MANUEL: Prominent subcarinal and hilar lymph nodes are stable, likely reactive. HEART: Heart size is normal with no pericardial effusion. Coronary calcifications are present. AXILLA: No adenopathy. CHEST WALL: No masses. No subcutaneous air. There is mild bilateral gynecomastia. HARDWARE/LINES/TUBES: None. UPPER ABDOMEN: There is a stable 2.5 cm right renal cyst. There is also a stable 1 cm cyst in the left hepatic lobe. The gallbladder is absent. MUSCULOSKELETAL: No significant abnormality. OTHER: No significant abnormality. IMPRESSION: No CT evidence of pulmonary embolus. Severe pulmonary emphysema with areas of pulmonary fibrosis. Additional findings as above. THIS IS AN ELECTRONICALLY VERIFIED FINAL REPORT 06/05/2024 9:47 PM - Electronically signed by Noah Kumari M.D. LL: LL Report ID: [id number] Reading Location: [id number] Procedure Note Noah Kumari MD - 06/05/2024 EXAM DESCRIPTION: CT CHEST PE (CTA) W CONTRAST REASON FOR STUDY: Chest pain, PE suspected, high prob, hx of ild,worsening hypoxia, pe vs pna vs ild exac reports recent discharge from hospital d/t pneumonia and RSV infection. Pt reports increasing SOB x approx 2 days. Pt also reports gained approx 5lbs overnight, pitting edema to bilateral lower extremities. TECHNIQUE: CT angiogram of the chest performed with intravenous contrastusing helical scanning technique with dynamic intravenous contrast injection. Reconstructed coronal and sagittal MPR images reviewed. All images storedon PACS. 3D MIP images rendered on scanning unit and reviewed at time of interpretation. Automated exposure control was used as a doseoptimization technique for this examination. CONTRAST TYPE/DOSE: 100mL of IOVERSOL 350 MG IODINE/ML INTRAVENOUSSYRINGE injected via intravenous COMPARISON: 05/11/2024 FINDINGS: VASCULATURE: No identified pulmonary emboli. LUNGS: There is severe pulmonary emphysema with areas of pulmonaryfibrosis. No focal infiltrates. PLEURA: No effusion. No pneumothorax. MEDIASTINUM/JOSE MANUEL: Prominent subcarinal and hilar lymph nodes are stable, likely reactive. HEART: Heart size is normal with no pericardial effusion. Coronary calcifications are present. AXILLA: No adenopathy. CHEST WALL: No masses. No subcutaneous air. There is mild bilateral gynecomastia. HARDWARE/LINES/TUBES: None. UPPER ABDOMEN: There is a stable 2.5 cm right renal cyst. There is alsoa stable 1 cm cyst in the left hepatic lobe. The gallbladder is absent. MUSCULOSKELETAL: No significant abnormality. OTHER: No significant abnormality. IMPRESSION: No CT evidence of pulmonary embolus. Severe pulmonary emphysema with areas of pulmonary fibrosis. Additional findings as above. THIS IS AN ELECTRONICALLY VERIFIED FINAL REPORT 06/05/2024 9:47 PM - Electronically signed by Noah Kumari M.D. LL: LL Report ID: [id number] Reading Location: [id number] us Jimbo Jack MD IMG CT PROCEDURES Final Result * Troponin T high-sensitivity 2-hour (06/05/2024 7:11 PM TAG WRITER) Trop T hs 7 <=22 ng/L Comment: Interpretive Data For further hscTnT resources including the diagnostic algorithm and an aid in interpretation, copy and paste this link: https://nrl.testcatalog.org/show/hsTrop Current Interpretive Data last revised 2020. Testing performed by: [address] [address] Trop T hs delta 0 ng/L ZION HENDERSON Comment:Testing performed by : [address] [address] Trop T hs interp Insignificant ZION HENDERSON Comment:Testing performed by : [address] [address] Blood 06/05/2024 7:11 PM TAG WRITER 06/05/2024 7:14 PM TAG WRITER us Giovanny Fletcher NP LAB BLOOD ORDERABLES Final Resul t ZION HENDERSON [address] [facility] Department [place] [address] * XR Chest 1 Vw Portable (if patient condition/safety warrant portable) (06/05/2024 5:39 PM TAG WRITER) Anatomical Region Laterality Modality Body, Chest N/A Computed Radiogr aphy 06/05/2024 6:56 PM TAG WRITER Narrative 06/05/2024 6:57 PM TAG WRITER EXAM DESCRIPTION: XR CHEST 1 VIEW REASON FOR STUDY: Shortness of breath Pt reports recent discharge from hospital d/t pneumonia and RSV infection. Pt reports increasing SOB x approx 2 days. Pt also reports gained approx 5lbs overnight, pitting edema to bilateral lower extremities TECHNIQUE: Frontal radiographic view(s) of the chest. COMPARISON: Chest radiographs, most recent dated 05/19/2024. FINDINGS: LUNGS: Bilateral diffuse airspace and interstitial opacities compatible with chronic interstitial lung changes. No new focal airspace consolidation. No pleural effusion or pneumothorax identified. HEART/MEDIASTINUM: Stable mild cardiomegaly prominence of the central pulmonary vasculature. Atherosclerotic vascular calcifications of the thoracic aorta are noted. Mediastinal and hilar contours appear normal. LINES/TUBES: None. BONES: No acute osseous abnormality. IMPRESSION: Stable chest with chronic interstitial lung changes. Superimposed infection is not excluded. No focal airspace consolidation.. THIS IS AN ELECTRONICALLY VERIFIED FINAL REPORT 06/05/2024 6:57 PM - Electronically signed by Mack Mills M.D. MF: TADEO Report ID: [id number] Reading Location: [place] [address] Procedure Note Mack Mills, DO - 06/05/2024 EXAM DESCRIPTION: XR CHEST 1 VIEW REASON FOR STUDY: Shortness of breath Pt reports recent discharge from hospital d/t pneumonia and RSV infection.Pt reports increasing SOB x approx 2 days. Pt also reports gained approx 5lbs overnight, pitting edema to bilateral lower extremities TECHNIQUE: Frontal radiographic view(s) of the chest. COMPARISON: Chest radiographs, most recent dated 05/19/2024. FINDINGS: LUNGS: Bilateral diffuse airspace and interstitial opacities compatible with chronic interstitial lung changes. No new focal airspace consolidation. No pleural effusion or pneumothorax identified. HEART/MEDIASTINUM: Stable mild cardiomegaly prominence of the central pulmonary vasculature. Atherosclerotic vascular calcifications of the thoracic aorta are noted. Mediastinal and hilar contours appear normal. LINES/TUBES: None. BONES: No acute osseous abnormality. IMPRESSION: Stable chest with chronic interstitial lung changes.Superimposed infection is not excluded. No focal airspace consolidation.. THIS IS AN ELECTRONICALLY VERIFIED FINAL REPORT 06/05/2024 6:57 PM - Electronically signed by Mack Mills M.D. MF: TADEO Report ID: [id number] Reading Location: [place] [address] Giovanny Fletcher NP IMG XR PROCEDURES Final Result * ECG 12 lead (06/05/2024 5:36 PM TAG WRITER) Ventricular Rate EKG/Min 77 BPM [facility] Atrial Rate 77 BPM [facility] CT-Interval (MSEC) 184 ms [facility] QRS-Interval (MSEC) 86 ms [facility] QT-Interval (MSEC) 402 ms [facility] QTc 454 ms [facility] P Clyde 62 degrees [facility] R Clyde 0 degrees [facility] T Clyde -29 degrees [facility] Diagnosis Normal sinus rhythm Nonspecific ST abnormality Abnormal ECG When compared with ECG of 11-MAY-2024 03:34, No significant change Confirmed by YARELY COLINDRES M.D. ([id number]) on 06/06/2024 12:16:47 PM [facility] 06/05/2024 5:36 PM TAG WRITER 06/06/2024 12:16 PM TAG WRITER Giovanny Fletcher NP ECG ORDERABLES Final Result [facility] * Troponin T high-sensitivity series (baseline, 2hr, 4hr, 6hr) (06/05/2024 5:29 PM TAG WRITER) Trop T hs 7 <=22 ng/L Comment: Interpretive Data For further hscTnT resources including the diagnostic algorithm and an aid in interpretation, copy and paste this link: https://nrl.testcatalog.org/show/hsTrop Current Interpretive Data last revised 2020. Testing performed by: [address] [address] Blood 06/05/2024 5:29 PM TAG WRITER 06/05/2024 5:41 PM TAG WRITER Giovanny Fletcher SURVEYING OR SPATIAL SCIENCE TECHNICIAN LAB BLOOD ORDERABLES Final Resul t Performing Organization Address City/[facility] Co de Phone Number SALO[address] [place] [address] * Sepsis Lactate w/ Reflex (06/05/2024 5:29 PM TAG WRITER) Sepsis Lactate 1.5 0.7 - 2.0 mmol/L Comment:Testing performed by : [facility], [address] [place] [address]., [address] Blood 06/05/2024 5:29 PM TAG WRITER 06/05/2024 5:41 PM TAG WRITER Giovanny Fletcher LAB BLOOD ORDERABLES Final Resul t Performing Organization Address [facility] de Phone Number SALO[address] [address] * eGFR (06/05/2024 5:29 PM TAG WRITER) eGFR >90 >=60 mL/min/1. 73 m2 Comment: Interpretive Data Reference Interval Normal >/= 90 mL/min/1.73m2 Mildly decreased* 60 - 89 mL/min/1.73m2 Mildly to moderately decreased 45 - 59 mL/min/1.73m2 Moderately to severely decreased 30 - 44 mL/min/1.73m2 Severely decreased 15 - 29 mL/min/1.73m2 Kidney Failure < 15 mL/min/1.73m2 *Relative to young adult level Estimated glomerular filtration rate is determined by the 2020 CKD-EPI equation recommended by the National Kid[employer] (A Unifying Approach to GFR Estimation: Recommendations of the NKF-ASK Task Force on Reassessing the Inclusion of Race in Diagnosing Kidney Disease, JASN 2020). The CKD-EPI equation should not be used for patients with unstable renal function and has not been validated in children and those over 70. Current interpretive data was last reviewed 2021. Testing performed by: [address] [address] Blood 06/05/2024 5:29 PM TAG WRITER 06/05/2024 5:41 PM TAG WRITER us Giovanny Fletcher NP LAB BLOOD ORDERABLES Final Resul t [facility] [address] [facility] Department [place] [address] * Differential, auto (06/05/2024 5:29 PM TAG WRITER) Neutrophil abs 5.2 1.5 - 6.5 K/cumm Comment:Testing performed by : [address] [address] Imm gran abs 0.0 0.0 - 0.1 K/cumm ZION Comment:Testing performed by : [address] [address] Lymphocyte abs 1.1 0.8 - 3.3 K/cumm ZION Comment:Testing performed by : [address] [address] Monocyte abs 0.5 0.2 - 0.8 K/cumm ZION Comment:Testing performed by : [address] [address] Eosinophil abs 0.2 0.0 - 0.5 K/cumm ZION Comment:Testing performed by : [address] [address] Basophil abs 0.0 0.0 - 0.1 K/cumm ZION Comment:Testing performed by : [address] [address] Neutrophil pct 73.7 % ZION Comment: Interpretive Data Percent cell count reference ranges are not reported, since discordance with absolute values may lead to misinterpretation of CBC data. Current Interpretive Data was last revised on 2017. Testing performed by: [address] [address] Imm gran pct 0.4 % [facility] Comment: Interpretive Data Percent cell count reference ranges are not reported, since discordance with absolute values may lead to misinterpretation of CBC data. Current Interpretive Data was last revised on 2017. Testing performed by: [address] [address] Lymphocyte pct 15.2 % [facility] Comment: Interpretive Data Percent cell count reference ranges are not reported, since discordance with absolute values may lead to misinterpretation of CBC data. Current Interpretive Data was last revised on 2017. Testing performed by: [address] [address] Monocyte pct 7.6 % [facility] Comment: Interpretive Data Percent cell count reference ranges are not reported, since discordance with absolute values may lead to misinterpretation of CBC data. Current Interpretive Data was last revised on 2017. Testing performed by: [address] [address] Eosinophil pct 2.5 % [facility] Comment: Interpretive Data Percent cell count reference ranges are not reported, since discordance with absolute values may lead to misinterpretation of CBC data. Current Interpretive Data was last revised on 2017. Testing performed by: [address] [address] Basophil pct 0.6 % [facility] Comment: Interpretive Data Percent cell count reference ranges are not reported, since discordance with absolute values may lead to misinterpretation of CBC data. Current Interpretive Data was last revised on 2017. Testing performed by: [address] [address] Blood 06/05/2024 5:29 PM TAG WRITER 06/05/2024 5:41 PM TAG WRITER us Giovanny Fletcher NP LAB BLOOD ORDERABLES Final Resul t [facility]ION [address] [facility] [place] [address] * Pro B-type natriuretic peptide (06/05/2024 5:29 PM TAG WRITER) NT-proBNP 167 <=300 pg/mL Comment: Interpretive Comments: A. Dyspnea in Acute Care Setting All Ages: < 300 pg/ml, acute heart failure unlikely. < 50 yrs: 300 - 450 pg/ml, further investigation warranted. > 450 pg/ml, acute heart failure likely. 50 - 74 yrs: 300 - 900 pg/ml, further investigation warranted. > 900 pg/ml, acute heart failure likely . > or = 75 yrs: 450 - 1800 pg/ml, further investigation warranted. > 1800 pg/ml, acute heart failure likely. B. Non-acute Setting < 75 yrs < 125 pg/ml, rules out heart failure. > or = 125 pg/ml, further investigation warranted. > or = 75 yrs < 450 pg/ml, rules out heart failure. > or = 450 pg/ml, further investigation warranted. - Knowledge of each individual patient's NT-proBNP range may be more useful than using similar cut-points for every patient. Please note that marked elevations in NT-proBNP levels may be observed in state other than Left Ventricular Congestive Failure, including: acute coronary syndromes, right heart strain/failure (including pulmonary embolism and cor pulmonale), critical illness, renal failure, as well as advanced age. - References: 1. Martha JACOBO et.al. Eur Heart J. 2006:27:330-337. 2. Freddy RW, Ami DE LEON. J. AM Billy Cardiol: Cardiovasc Imag. 2009;2: 216- 225. Interpretive Data Last Revised Date: 2018. Testing performed by: [facility], [address] [place] [address]., [address] Blood 06/05/2024 5:29 PM TAG WRITER 06/05/2024 5:41 PM TAG WRITER us Giovanny Fletcher NP LAB BLOOD ORDERABLES Final Resul t [facility] [address] [facility] [place] [address] * (ABNORMAL) CBC with auto differential (06/05/2024 5:29 PM TAG WRITER) WBC 7.1 3.8 - 9.9 K/cumm Comment:Testing performed by : [address] [address] Hgb 13.6 13.0 - 17.5 g/dL ZION Comment:Testing performed by : [address] [address] Hct 40.1 38.9 - 50.3 % ZION Comment:Testing performed by : [address] [address] Plt 221 150 - 400 K/cumm ZION Comment:Testing performed by : [address] [address] MPV 8.8(L) 9.1 - 12.3 fL ZION Comment:Testing performed by : [address] [address] RBC 4.23(L) 4.30 - 5.80 M/cumm ZION Comment:Testing performed by : [address] [address] MCV 94.8 81.3 - 96.4 fL ZION Comment:Testing performed by : [address] [address] MCH 32.2 27.1 - 33.3 pg ZION Comment:Testing performed by : [address] [address] MCHC 33.9 32.3 - 35.7 g/dL ZION Comment:Testing performed by : [address], [address] RDW CV 13.9 11.1 - 14.9 % ZION Comment:Testing performed by : [address] [address] RDW SD 47.5 35.7 - 48.1 fL ZION Comment:Testing performed by : [address] [address] NRBC abs 0.00 0.00 - 0.01 K/cumm ZION Comment:Testing performed by : [address] [address] Blood 06/05/2024 5:29 PM TAG WRITER 06/05/2024 5:41 PM TAG WRITER Giovanny Fletcher LAB BLOOD ORDERABLES Final Resul t Performing Organization Address [facility] de Phone Number [place] [address] [place] [address] * aPTT (06/05/2024 5:29 PM TAG WRITER) aPTT 33 22 - 37 sec Comment: Interpretive data aPTT test has not been evaluated for monitoring heparin therapy. The anti-Xa is the preferred test. Current interpretive data was last revised on 2019. Testing performed by: [address] [address] Blood 06/05/2024 5:29 PM TAG WRITER 06/05/2024 5:41 PM TAG WRITER Giovanny Fletcher LAB BLOOD ORDERABLES Final Resul t Performing Organization Address [facility] de Phone Number [address] [address] * Protime-INR (06/05/2024 5:29 PM TAG WRITER) PT 13.7 12.0 - 14.6 sec Comment:Testing performed by : [address] [address] INR 1.1 0.9 - 1.2 ZION Comment: Ref Range High Interpretive data Oral anticoagulant therapeutic ranges: Venous thromboembolism prophylaxis or treatment: 2.0-3.0 CARDIOLOGY Standard range: 2.0-3.0 High-intensity range: 2.5-3.5 Refer to indication-specific guidelines for appropriate target ranges for prosthetic heart valve replacement. Current interpretive data was last revised on 2019. Testing performed by: [address] [address] Blood 06/05/2024 5:29 PM TAG WRITER 06/05/2024 5:41 PM TAG WRITER us Giovanny Fletcher NP LAB BLOOD ORDERABLES Final Resul t [facility] [address] [facility] [place] [address] * (ABNORMAL) Comprehensive metabolic panel (06/05/2024 5:29 PM TAG WRITER) Sodium 135 135 - 145 mmol/L Comment:Testing performed by : [address] [address] Potassium, pl 4.0 3.3 - 4.9 mmol/L ZION Comment:Testing performed by : [address] [address] Chloride 97 97 - 110 mmol/L ZION Comment:Testing performed by : [address] [address] CO2 26 22 - 32 mmol/L ZION Comment:Testing performed by : [address] [address] Anion gap 12 2 - 15 mmol/L ZION Comment:Testing performed by : [address] [address] BUN 7 6 - 25 mg/dL ZION Comment:Testing performed by : [address] [address] Creatinine 0.50(L) 0.80 - 1.30 mg/dL ZION Comment:Testing performed by : [address] [address] Glucose 98 70 - 199 mg/dL ZION Comment: Interpretive Data Fasting glucose >/= 126 mg/dl is diagnostic for diabetes. Fasting is defined as no caloric intake for at least 8 hours. Fasting glucose between 100 mg/dl to 125 mg/dl is diagnostic of prediabetes. In a patient with classic symptoms of hyperglycemia or hyperglycemic crisis, a random glucose >/= 200 mg/dl is diagnostic for diabetes. In the absence of unequivocal hyperglycemia, results should be confirmed by repeat testing. The classification and Diagnosis of Diabetes Diabetes Care 202; 46: S19-S40. Current interpretive data was last revised 2022. Testing performed by: [facility], [address] [place] [address]., [address] Calcium 9.4 8.5 - 10.3 mg/dL ZION Comment:Testing performed by : [address] [address] Bilirubin, total 1.2 0.1 - 1.2 mg/dL ZION Comment:Testing performed by : [address] [address] Protein, pl 7.9 6.5 - 8.5 g/dL ZION Comment:Testing performed by : [address] [address] Albumin 4.3 3.5 - 5.0 g/dL ZION Comment:Testing performed by : [address] [address] Alk phos 91 40 - 130 Units/L ZION Comment:Testing performed by : [address] [address] ALT 28 7 - 55 Units/L ZION Comment:Testing performed by : [address] [address] AST 23 10 - 50 Units/L ZION Comment:Testing performed by : [address] [address] Blood 06/05/2024 5:29 PM TAG WRITER 06/05/2024 5:41 PM TAG WRITER Giovanny Fletcher SURVEYING OR SPATIAL SCIENCE TECHNICIAN LAB BLOOD ORDERABLES Final Resul t [facility] [address] [facility] of [facility] [place], [place] [id number] * XR Chest 1 View (05/19/2024 8:20 AM TAG WRITER) Anatomical Region Laterality Modality Body, Chest N/A Computed Radiogr aphy 05/19/2024 10:3 1 AM TAG WRITER Narrative 05/19/2024 10:32 AM TAG WRITER EXAM DESCRIPTION: XR CHEST 1 VIEW REASON FOR STUDY: dyspnea Admitted 05/11 with sob follow up cxr. Positive RSV TECHNIQUE: Single frontal radiographic view(s) of the chest. COMPARISON: 05/17/2024 FINDINGS: There is mild cardiomegaly. There is mild prominence of the pulmonary vasculature. There is no definite evidence of a pneumothorax. There is redemonstration of patchy bilateral airspace opacities, which have mildly increased in the lung bases. There is no definite evidence of pleural effusion. The osseous structures are acutely grossly stable. IMPRESSION: Redemonstration of patchy bilateral airspace opacities, which have mildly increased in the lung bases. Mild cardiomegaly with mild prominence of pulmonary vasculature. THIS IS AN ELECTRONICALLY VERIFIED FINAL REPORT 05/19/2024 10:32 AM - Electronically signed by Pratik Maldonado D.O. PS: PS Report ID: [id number] Reading Location: [id number] Procedure Note Pratik Maldonado, - 05/19/2024 EXAM DESCRIPTION: XR CHEST 1 VIEW REASON FOR STUDY: dyspnea Admitted 05/11 with sob follow up cxr. Positive RSV TECHNIQUE: Single frontal radiographic view(s) of the chest. COMPARISON: 05/17/2024 FINDINGS: There is mild cardiomegaly. There is mild prominence of the pulmonary vasculature. There is no definite evidence of a pneumothorax. There is redemonstration of patchy bilateral airspace opacities, whichhave mildly increased in the lung bases. There is no definite evidence ofpleural effusion. The osseous structures are acutely grossly stable. IMPRESSION: Redemonstration of patchy bilateral airspace opacities, which have mildly increased in the lung bases. Mild cardiomegaly with mild prominence of pulmonary vasculature. THIS IS AN ELECTRONICALLY VERIFIED FINAL REPORT 05/19/2024 10:32 AM - Electronically signed by Pratik Maldonado D.O. PS: PS Report ID: [id number] Reading Location: [id number] Elidia Resendez MD IMG XR PROCEDURES Neema l Result * eGFR (05/19/2024 5:34 AM TAG WRITER) eGFR >90 >=60 mL/min/1. 73 m2 Comment: Interpretive Data Reference Interval Normal >/= 90 mL/min/1.73m2 Mildly decreased* 60 - 89 mL/min/1.73m2 Mildly to moderately decreased 45 - 59 mL/min/1.73m2 Moderately to severely decreased 30 - 44 mL/min/1.73m2 Severely decreased 15 - 29 mL/min/1.73m2 Kidney Failure < 15 mL/min/1.73m2 *Relative to young adult level Estimated glomerular filtration rate is determined by the 2020 CKD-EPI equation recommended by the National Kidney Foundation (A Unifying Approach to GFR Estimation: Recommendations of the NKF-ASK Task Force on Reassessing the Inclusion of Race in Diagnosing Kidney Disease, JASN 2020). The CKD-EPI equation should not be used for patients with unstable renal function and has not been validated in children and those over 70. Current interpretive data was last reviewed 2021. Testing performed by: [address] [address] Blood 05/19/2024 5:34 AM TAG WRITER 05/19/2024 6:04 AM TAG WRITER Elidia Resendez MD LAB BLOOD ORDERABLES F inal Result [facility] [address] [facility] Department [place] [address] * (ABNORMAL) Differential, auto (05/19/2024 5:34 AM TAG WRITER) Pathologist [facility] Neutrophil abs 8.4(H) 1.5 - 6.5 K/cumm Comment:Testing performed by : [address] [address] Imm gran abs 0.1 0.0 - 0.1 K/cumm [facility] Comment:Testing performed by : [address] [address] Lymphocyte abs 1.4 0.8 - 3.3 K/cumm [facility] Comment:Testing performed by : [address] [address] Monocyte abs 0.5 0.2 - 0.8 K/cumm [facility] Comment:Testing performed by : [address], [place]., [address] Eosinophil abs 0.0 0.0 - 0.5 K/cumm [facility] Comment:Testing performed by : [address], [place]., [address] Basophil abs 0.0 0.0 - 0.1 K/cumm [facility] Comment:Testing performed by : [address] [address] Neutrophil pct 80.1 % [facility] Comment: Interpretive Data Percent cell count reference ranges are not reported, since discordance with absolute values may lead to misinterpretation of CBC data. Current Interpretive Data was last revised on 2017. Testing performed by: [address] [address] Imm gran pct 1.2 % [facility] Comment: Interpretive Data Percent cell count reference ranges are not reported, since discordance with absolute values may lead to misinterpretation of CBC data. Current Interpretive Data was last revised on 2017. Testing performed by: [address] [address] Lymphocyte pct 13.2 % [facility] Comment: Interpretive Data Percent cell count reference ranges are not reported, since discordance with absolute values may lead to misinterpretation of CBC data. Current Interpretive Data was last revised on 2017. Testing performed by: [address] [address] Monocyte pct 5.0 % [facility] Comment: Interpretive Data Percent cell count reference ranges are not reported, since discordance with absolute values may lead to misinterpretation of CBC data. Current Interpretive Data was last revised on 2017. Testing performed by: [address] [address] Eosinophil pct 0.4 % [facility] Comment: Interpretive Data Percent cell count reference ranges are not reported, since discordance with absolute values may lead to misinterpretation of CBC data. Current Interpretive Data was last revised on 2017. Testing performed by: [facility], [address] [place] [address]., [address] Basophil pct 0.1 % [facility] Comment: Interpretive Data Percent cell count reference ranges are not reported, since discordance with absolute values may lead to misinterpretation of CBC data. Current Interpretive Data was last revised on 2017. Testing performed by: [facility], [address] [place] [address]., [address] Blood 05/19/2024 5:34 AM TAG WRITER 05/19/2024 6:04 AM TAG WRITER us Debbi Ramirez NP LAB BLOOD ORDERABLES Final Result [facility] [address] [facility] Department [place] [address] * Pro B-type natriuretic peptide (05/19/2024 5:34 AM TAG WRITER) NT-proBNP 77 <=300 pg/mL Comment: Interpretive Comments: A. Dyspnea in Acute Care Setting All Ages: < 300 pg/ml, acute heart failure unlikely. < 50 yrs: 300 - 450 pg/ml, further investigation warranted. > 450 pg/ml, acute heart failure likely. 50 - 74 yrs: 300 - 900 pg/ml, further investigation warranted. > 900 pg/ml, acute heart failure likely . > or = 75 yrs: 450 - 1800 pg/ml, further investigation warranted. > 1800 pg/ml, acute heart failure likely. B. Non-acute Setting < 75 yrs < 125 pg/ml, rules out heart failure. > or = 125 pg/ml, further investigation warranted. > or = 75 yrs < 450 pg/ml, rules out heart failure. > or = 450 pg/ml, further investigation warranted. - Knowledge of each individual patient's NT-proBNP range may be more useful than using similar cut-points for every patient. Please note that marked elevations in NT-proBNP levels may be observed in state other than Left Ventricular Congestive Failure, including: acute coronary syndromes, right heart strain/failure (including pulmonary embolism and cor pulmonale), critical illness, renal failure, as well as advanced age. - References: 1. Martha JACOBO et.al. Eur Heart J. 2006:27:330-337. 2. Fredyd RW, Ami DE LEON. J. AM Billy Cardiol: Cardiovasc Imag. 2009;2: 216- 225. Interpretive Data Last Revised Date: 2018. Testing performed by: [address] [address] Blood 05/19/2024 5:34 AM TAG WRITER 05/19/2024 6:04 AM TAG WRITER us Elidia Resendez MD LAB BLOOD ORDERABLES F inal Result [facility] [address] [facility] [facility] Department [place] [address] * (ABNORMAL) CBC with auto differential (05/19/2024 5:34 AM TAG WRITER) WBC 10.5(H) 3.8 - 9.9 K/cumm Comment:Testing performed by : [address] [address] Hgb 12.9(L) 13.0 - 17.5 g/dL [facility] Comment:Testing performed by : [address] [address] Hct 38.3(L) 38.9 - 50.3 % [facility] Comment:Testing performed by : [address] [address] Plt 311 150 - 400 K/cumm [facility] Comment:Testing performed by : [address] [address] MPV 9.2 9.1 - 12.3 fL [facility] Comment:Testing performed by : [address] [address] RBC 4.04(L) 4.30 - 5.80 M/cumm [facility] Comment:Testing performed by : [address] [address] MCV 94.8 81.3 - 96.4 fL [facility] Comment:Testing performed by : [address] [address] MCH 31.9 27.1 - 33.3 pg [facility] Comment:Testing performed by : [address] [address] MCHC 33.7 32.3 - 35.7 g/dL [facility] Comment:Testing performed by : [address] [address] RDW CV 13.1 11.1 - 14.9 % [facility] Comment:Testing performed by : [address] [address] RDW SD 45.3 35.7 - 48.1 fL [facility] Comment:Testing performed by : [address] [address] NRBC abs 0.00 0.00 - 0.01 K/cumm [facility] Comment:Testing performed by : [address] [address] Blood 05/19/2024 5:34 AM TAG WRITER 05/19/2024 6:04 AM TAG WRITER us Debbi Ramirez SURVEYING OR SPATIAL SCIENCE TECHNICIAN LAB BLOOD ORDERABLES Final Result [facility] [address] [facility] [facility] Department [place] [address] * (ABNORMAL) Comprehensive metabolic panel (05/19/2024 5:34 AM TAG WRITER) Sodium 137 135 - 145 mmol/L Comment:Testing performed by : [address] [address] Potassium, pl 3.8 3.3 - 4.9 mmol/L [facility] Comment:Testing performed by : [address] [address] Chloride 99 97 - 110 mmol/L [facility] Comment:Testing performed by : [address] [address] CO2 30 22 - 32 mmol/L [facility] Comment:Testing performed by : [address] [address] Anion gap 8 2 - 15 mmol/L [facility] Comment:Testing performed by : [address] [address] BUN 11 6 - 25 mg/dL [facility] Comment:Testing performed by : [address] [address] Creatinine 0.50(L) 0.80 - 1.30 mg/dL [facility] Comment:Testing performed by : [address] [address] Glucose 109 70 - 199 mg/dL [facility] Comment: Interpretive Data Fasting glucose >/= 126 mg/dl is diagnostic for diabetes. Fasting is defined as no caloric intake for at least 8 hours. Fasting glucose between 100 mg/dl to 125 mg/dl is diagnostic of prediabetes. In a patient with classic symptoms of hyperglycemia or hyperglycemic crisis, a random glucose >/= 200 mg/dl is diagnostic for diabetes. In the absence of unequivocal hyperglycemia, results should be confirmed by repeat testing. The classification and Diagnosis of Diabetes Diabetes Care 202; 46: S19-S40. Current interpretive data was last revised 2022. Testing performed by: [address] [address] Calcium 9.2 8.5 - 10.3 mg/dL [facility] Comment:Testing performed by : [address] [address] Bilirubin, total 0.8 0.1 - 1.2 mg/dL [facility] Comment:Testing performed by : [address] [address] Protein, pl 6.8 6.5 - 8.5 g/dL [facility] Comment:Testing performed by : [address] [address] Albumin 3.5 3.5 - 5.0 g/dL [facility] Comment:Testing performed by : [address] [address] Alk phos 68 40 - 130 Units/L [facility] Comment:Testing performed by : [address] [place] [address] ALT 33 7 - 55 Units/L [facility] Comment:Testing performed by : [facility], [address] [place] [address]., [address] AST 14 10 - 50 Units/L [facility] Comment:Testing performed by : [address] [address] Blood 05/19/2024 5:34 AM TAG WRITER 05/19/2024 6:04 AM TAG WRITER us Elidia Resendez MD LAB BLOOD ORDERABLES F inal Result [facility] [address] [facility] Department [place] [address] * eGFR (05/18/2024 5:14 AM TAG WRITER) eGFR >90 >=60 mL/min/1. 73 m2 Comment: Interpretive Data Reference Interval Normal >/= 90 mL/min/1.73m2 Mildly decreased* 60 - 89 mL/min/1.73m2 Mildly to moderately decreased 45 - 59 mL/min/1.73m2 Moderately to severely decreased 30 - 44 mL/min/1.73m2 Severely decreased 15 - 29 mL/min/1.73m2 Kidney Failure < 15 mL/min/1.73m2 *Relative to young adult level Estimated glomerular filtration rate is determined by the 2020 CKD-EPI equation recommended by the National Kidney Foundation (A Unifying Approach to GFR Estimation: Recommendations of the NKF-ASK Task Force on Reassessing the Inclusion of Race in Diagnosing Kidney Disease, JASN 2020). The CKD-EPI equation should not be used for patients with unstable renal function and has not been validated in children and those over 70. Current interpretive data was last reviewed 2021. Testing performed by: [address] [address] Blood 05/18/2024 5:14 AM TAG WRITER 05/18/2024 5:26 AM TAG WRITER us Debbi Ramirez NP LAB BLOOD ORDERABLES Final Result [facility] [address] [facility] Department [place] [address] * (ABNORMAL) Differential, auto (05/18/2024 5:14 AM TAG WRITER) Neutrophil abs 9.3(H) 1.5 - 6.5 K/cumm Comment:Testing performed by : [address] [address] Imm gran abs 0.2(H) 0.0 - 0.1 K/cumm [facility] Comment:Testing performed by : [address] [address] Lymphocyte abs 1.7 0.8 - 3.3 K/cumm [facility] Comment:Testing performed by : [address] [address] Monocyte abs 0.5 0.2 - 0.8 K/cumm [facility] Comment:Testing performed by : [address] [address] Eosinophil abs 0.1 0.0 - 0.5 K/cumm [facility] Comment:Testing performed by : [address] [address] Basophil abs 0.0 0.0 - 0.1 K/cumm [facility] Comment:Testing performed by : [address] [address] Neutrophil pct 78.5 % [facility] Comment: Interpretive Data Percent cell count reference ranges are not reported, since discordance with absolute values may lead to misinterpretation of CBC data. Current Interpretive Data was last revised on 2017. Testing performed by: [address] [address] Imm gran pct 1.4 % [facility] Comment: Interpretive Data Percent cell count reference ranges are not reported, since discordance with absolute values may lead to misinterpretation of CBC data. Current Interpretive Data was last revised on 2017. Testing performed by: [address] [address] Lymphocyte pct 14.7 % [facility] Comment: Interpretive Data Percent cell count reference ranges are not reported, since discordance with absolute values may lead to misinterpretation of CBC data. Current Interpretive Data was last revised on 2017. Testing performed by: [address] [address] Monocyte pct 4.6 % [facility] Comment: Interpretive Data Percent cell count reference ranges are not reported, since discordance with absolute values may lead to misinterpretation of CBC data. Current Interpretive Data was last revised on 2017. Testing performed by: [address] [address] Eosinophil pct 0.7 % [facility] Comment: Interpretive Data Percent cell count reference ranges are not reported, since discordance with absolute values may lead to misinterpretation of CBC data. Current Interpretive Data was last revised on 2017. Testing performed by: [address] [address] Basophil pct 0.1 % [facility] Comment: Interpretive Data Percent cell count reference ranges are not reported, since discordance with absolute values may lead to misinterpretation of CBC data. Current Interpretive Data was last revised on 2017. Testing performed by: [address] [address] Blood 05/18/2024 5:14 AM TAG WRITER 05/18/2024 5:26 AM TAG WRITER us Debbi Ramirez NP LAB BLOOD ORDERABLES Final Result [facility] [address] [facility] Department [place] [address] * (ABNORMAL) CBC with auto differential (05/18/2024 5:14 AM TAG WRITER) WBC 11.8(H) 3.8 - 9.9 K/cumm Comment:Testing performed by : [address] [address] Hgb 12.7(L) 13.0 - 17.5 g/dL [facility] Comment:Testing performed by : [address] [address] Hct 38.0(L) 38.9 - 50.3 % [facility] Comment:Testing performed by : [address], [address] Plt 298 150 - 400 K/cumm [facility] Comment:Testing performed by : [address] [address] MPV 8.9(L) 9.1 - 12.3 fL [facility] Comment:Testing performed by : [address], [address] RBC 4.01(L) 4.30 - 5.80 M/cumm [facility] Comment:Testing performed by : [address], [address] MCV 94.8 81.3 - 96.4 fL [facility] Comment:Testing performed by : [address], [address] MCH 31.7 27.1 - 33.3 pg [facility] Comment:Testing performed by : [address], [address] MCHC 33.4 32.3 - 35.7 g/dL [facility] Comment:Testing performed by : [address], [address] RDW CV 12.9 11.1 - 14.9 % [facility] Comment:Testing performed by : [address], [address] RDW SD 44.5 35.7 - 48.1 fL [facility] Comment:Testing performed by : [address], [address] NRBC abs 0.00 0.00 - 0.01 K/cumm [facility] Comment:Testing performed by : [address], [address] Blood 05/18/2024 5:14 AM TAG WRITER 05/18/2024 5:26 AM TAG WRITER us Debbi Ramirez SURVEYING OR SPATIAL SCIENCE TECHNICIAN LAB BLOOD ORDERABLES Final Result [facility] [address] [facility] Department [place] [address] * (ABNORMAL) Basic metabolic panel (05/18/2024 5:14 AM TAG WRITER) Sodium 136 135 - 145 mmol/L Comment:Testing performed by : [address] [address] Potassium, pl 4.2 3.3 - 4.9 mmol/L [facility] Comment:Testing performed by : [address], [place]., [address] Chloride 100 97 - 110 mmol/L [facility] Comment:Testing performed by : [address], [place]., [address] CO2 28 22 - 32 mmol/L [facility] Comment:Testing performed by : [address], [place]., [address] Anion gap 8 2 - 15 mmol/L [facility] Comment:Testing performed by : [address] [address] BUN 12 6 - 25 mg/dL [facility] Comment:Testing performed by : [address], [place]., [address] Creatinine 0.50(L) 0.80 - 1.30 mg/dL [facility] Comment:Testing performed by : [address] [address] Glucose 96 70 - 199 mg/dL [facility] Comment: Interpretive Data Fasting glucose >/= 126 mg/dl is diagnostic for diabetes. Fasting is defined as no caloric intake for at least 8 hours. Fasting glucose between 100 mg/dl to 125 mg/dl is diagnostic of prediabetes. In a patient with classic symptoms of hyperglycemia or hyperglycemic crisis, a random glucose >/= 200 mg/dl is diagnostic for diabetes. In the absence of unequivocal hyperglycemia, results should be confirmed by repeat testing. The classification and Diagnosis of Diabetes Diabetes Care 202; 46: S19-S40. Current interpretive data was last revised 2022. Testing performed by: [address], [place]., [address] Calcium 8.9 8.5 - 10.3 mg/dL [facility] Comment:Testing performed by : [facility], [address] [place] [address], [place]., [address] Blood 05/18/2024 5:14 AM TAG WRITER 05/18/2024 5:26 AM TAG WRITER us Debbi Ramirez SURVEYING OR SPATIAL SCIENCE TECHNICIAN LAB BLOOD ORDERABLES Final Result [facility] [address] [facility] Department [place] [address] * XR Chest Pa Lateral 2 Views (05/17/2024 11:32 AM TAG WRITER) Anatomical Region Laterality Modality Body, Chest N/A Computed Radiogr aphy 05/17/2024 1:54 PM TAG WRITER Narrative 05/17/2024 1:56 PM TAG WRITER EXAM DESCRIPTION: XR CHEST PA LATERAL 2 VIEWS REASON FOR STUDY: SOB, pulmonary edema suspected, assess pleural effusion Onset of cough, weakness, SOB 3 weeks ago. Patient states no improvement TECHNIQUE: Frontal and lateral views of the chest. COMPARISON: 05/11/2024 FINDINGS: LUNGS AND PLEURA: Coarse scattered interstitial opacities of uncertain acuity given advanced background emphysema. No visible effusion or pneumothorax. HEART/MEDIASTINUM: Trachea midline. Cardiac silhouette normal in size. Mediastinal contours appear normal. BONES: Unremarkable. CHEST WALL: Unremarkable. UPPER ABDOMEN: Unremarkable. IMPRESSION: Extensive interstitial coarsening is of uncertain acuity given advanced emphysema but suspicious for pneumonia. THIS IS AN ELECTRONICALLY VERIFIED FINAL REPORT 05/17/2024 1:56 PM - Electronically signed by Avel Carrington M.D. AR: M[place] Report ID: [id number] Reading Location: [id number] Procedure Note Avel Carrington MD - 05/17/2024 EXAM DESCRIPTION: XR CHEST PA LATERAL 2 VIEWS REASON FOR STUDY: SOB, pulmonary edema suspected, assess pleural effusion Onset of cough, weakness, SOB 3 weeks ago. Patient states no improvement TECHNIQUE: Frontal and lateral views of the chest. COMPARISON: 05/11/2024 FINDINGS: LUNGS AND PLEURA: Coarse scattered interstitial opacities of uncertain acuity given advanced background emphysema. No visible effusionor pneumothorax. HEART/MEDIASTINUM: Trachea midline. Cardiac silhouette normal in size. Mediastinal contours appear normal. BONES: Unremarkable. CHEST WALL: Unremarkable. UPPER ABDOMEN: Unremarkable. IMPRESSION: Extensive interstitial coarsening is of uncertain acuity given advanced emphysema but suspicious for pneumonia. THIS IS AN ELECTRONICALLY VERIFIED FINAL REPORT 05/17/2024 1:56 PM - Electronically signed by Avel Carrington M.D. AR: [place] Report ID: [id number] Reading Location: [place] [address] us Rodney Funk MD IMG XR CT OCEDURES Final Result * eGFR (05/17/2024 12:36 AM TAG WRITER) eGFR >90 >=60 mL/min/1. 73 m2 Comment: Interpretive Data Reference Interval Normal >/= 90 mL/min/1.73m2 Mildly decreased* 60 - 89 mL/min/1.73m2 Mildly to moderately decreased 45 - 59 mL/min/1.73m2 Moderately to severely decreased 30 - 44 mL/min/1.73m2 Severely decreased 15 - 29 mL/min/1.73m2 Kidney Failure < 15 mL/min/1.73m2 *Relative to young adult level Estimated glomerular filtration rate is determined by the 2020 CKD-EPI equation recommended by the National Kidney Foundation (A Unifying Approach to GFR Estimation: Recommendations of the NKF-ASK Task Force on Reassessing the Inclusion of Race in Diagnosing Kidney Disease, JASN 2020). The CKD-EPI equation should not be used for patients with unstable renal function and has not been validated in children and those over 70. Current interpretive data was last reviewed 2021. Testing performed by: [facility], [address] [place] [address], [place]., [address] Blood 05/17/2024 12:3 6 AM TAG WRITER 05/17/2024 1:11 AM TAG WRITER us Debbi Ramirez SURVEYING OR SPATIAL SCIENCE TECHNICIAN LAB BLOOD ORDERABLES Final Result [facility] [address] [facility] [place] [address] * (ABNORMAL) Differential, auto (05/17/2024 12:36 AM TAG WRITER) Neutrophil abs 10.6(H) 1.5 - 6.5 K/cumm Comment:Testing performed by : [address] [address] Imm gran abs 0.2(H) 0.0 - 0.1 K/cumm [facility] Comment:Testing performed by : [address] [address] Lymphocyte abs 0.8 0.8 - 3.3 K/cumm [facility] Comment:Testing performed by : [address] [address] Monocyte abs 0.5 0.2 - 0.8 K/cumm [facility] Comment:Testing performed by : [address] [address] Eosinophil abs 0.0 0.0 - 0.5 K/cumm [facility] Comment:Testing performed by : [address] [address] Basophil abs 0.0 0.0 - 0.1 K/cumm [facility] Comment:Testing performed by : [address] [address] Neutrophil pct 87.4 % [facility] Comment: Interpretive Data Percent cell count reference ranges are not reported, since discordance with absolute values may lead to misinterpretation of CBC data. Current Interpretive Data was last revised on 2017. Testing performed by: [address] [address] Imm gran pct 1.6 % [facility] Comment: Interpretive Data Percent cell count reference ranges are not reported, since discordance with absolute values may lead to misinterpretation of CBC data. Current Interpretive Data was last revised on 2017. Testing performed by: [address] [address] Lymphocyte pct 6.5 % [facility] Comment: Interpretive Data Percent cell count reference ranges are not reported, since discordance with absolute values may lead to misinterpretation of CBC data. Current Interpretive Data was last revised on 2017. Testing performed by: [address] [address] Monocyte pct 4.2 % [facility] Comment: Interpretive Data Percent cell count reference ranges are not reported, since discordance with absolute values may lead to misinterpretation of CBC data. Current Interpretive Data was last revised on 2017. Testing performed by: [address] [address] Eosinophil pct 0.2 % [facility] Comment: Interpretive Data Percent cell count reference ranges are not reported, since discordance with absolute values may lead to misinterpretation of CBC data. Current Interpretive Data was last revised on 2017. Testing performed by: [address] [address] Basophil pct 0.1 % [facility] Comment: Interpretive Data Percent cell count reference ranges are not reported, since discordance with absolute values may lead to misinterpretation of CBC data. Current Interpretive Data was last revised on 2017. Testing performed by: [address] [address] Blood 05/17/2024 12:3 6 AM TAG WRITER 05/17/2024 1:11 AM TAG WRITER us Debbi Ramirez NP LAB BLOOD ORDERABLES Final Result [facility] [address] [facility] of Laboratories [place], [place] [id number] * (ABNORMAL) CBC with auto differential (05/17/2024 12:36 AM TAG WRITER) WBC 12.2(H) 3.8 - 9.9 K/cumm Comment:Testing performed by : [address] [address] Hgb 12.0(L) 13.0 - 17.5 g/dL [facility] Comment:Testing performed by : [address] [address] Hct 35.6(L) 38.9 - 50.3 % [facility] Comment:Testing performed by : [address], [address] Plt 286 150 - 400 K/cumm [facility] Comment:Testing performed by : [address] [address] MPV 9.4 9.1 - 12.3 fL [facility] Comment:Testing performed by : [address], [address] RBC 3.76(L) 4.30 - 5.80 M/cumm ZION Comment:Testing performed by : [address], [address] MCV 94.7 81.3 - 96.4 fL ZION Comment:Testing performed by : [address], [address] MCH 31.9 27.1 - 33.3 pg ZION Comment:Testing performed by : [address], [address] MCHC 33.7 32.3 - 35.7 g/dL ZOIN Comment:Testing performed by : [address], [address] RDW CV 13.1 11.1 - 14.9 % ZION Comment:Testing performed by : [address], [address] RDW SD 44.7 35.7 - 48.1 fL ZION Comment:Testing performed by : [address], [address] NRBC abs 0.00 0.00 - 0.01 K/cumm ZION Comment:Testing performed by : [address], [address] Blood 05/17/2024 12:3 6 AM TAG WRITER 05/17/2024 1:11 AM TAG WRITER us Debbi Ramirez NP LAB BLOOD ORDERABLES Final Result ZION [address] [facility] Department [place] [address] * (ABNORMAL) Basic metabolic panel (05/17/2024 12:36 AM TAG WRITER) Sodium 133(L) 135 - 145 mmol/L Comment:Testing performed by : [address] [address] Potassium, pl 4.1 3.3 - 4.9 mmol/L ZION Comment:Testing performed by : [address] [address] Chloride 96(L) 97 - 110 mmol/L ZION Comment:Testing performed by : [address] [address] CO2 26 22 - 32 mmol/L ZION Comment:Testing performed by : [address] [address] Anion gap 11 2 - 15 mmol/L ZION Comment:Testing performed by : [address] [address] BUN 18 6 - 25 mg/dL ZION Comment:Testing performed by : [address] [address] Creatinine 0.60(L) 0.80 - 1.30 mg/dL ZION Comment:Testing performed by : [address] [address] Glucose 127 70 - 199 mg/dL IZON Comment: Interpretive Data Fasting glucose >/= 126 mg/dl is diagnostic for diabetes. Fasting is defined as no caloric intake for at least 8 hours. Fasting glucose between 100 mg/dl to 125 mg/dl is diagnostic of prediabetes. In a patient with classic symptoms of hyperglycemia or hyperglycemic crisis, a random glucose >/= 200 mg/dl is diagnostic for diabetes. In the absence of unequivocal hyperglycemia, results should be confirmed by repeat testing. The classification and Diagnosis of Diabetes Diabetes Care 2021; 46: S19-S40. Current interpretive data was last revised 2022. Testing performed by: [address] [address] Calcium 8.8 8.5 - 10.3 mg/dL CERNER Comment:Testing performed by : [facility], [address] [place] [address]., [address] Blood 05/17/2024 12:3 6 AM TAG WRITER 05/17/2024 1:11 AM TAG WRITER Debbi Ramirez SURVEYING OR SPATIAL SCIENCE TECHNICIAN LAB BLOOD ORDERABLES Final Result Performing Organization Address [facility] Co de Phone Number ZION [address] [place] [address] * eGFR (05/16/2024 5:11 AM TAG WRITER) eGFR >90 >=60 mL/min/1. 73 m2 Comment: Interpretive Data Reference Interval Normal >/= 90 mL/min/1.73m2 Mildly decreased* 60 - 89 mL/min/1.73m2 Mildly to moderately decreased 45 - 59 mL/min/1.73m2 Moderately to severely decreased 30 - 44 mL/min/1.73m2 Severely decreased 15 - 29 mL/min/1.73m2 Kidney Failure < 15 mL/min/1.73m2 *Relative to young adult level Estimated glomerular filtration rate is determined by the 2020 CKD-EPI equation recommended by the National Kidney Foundation (A Unifying Approach to GFR Estimation: Recommendations of the NKF-ASK Task Force on Reassessing the Inclusion of Race in Diagnosing Kidney Disease, JASN 2020). The CKD-EPI equation should not be used for patients with unstable renal function and has not been validated in children and those over 70. Current interpretive data was last reviewed 2021. Testing performed by: [facility], [address] [place] [address]., [address] Blood 05/16/2024 5:11 AM TAG WRITER 05/16/2024 5:21 AM TAG WRITER Debbi Ramirez SURVEYING OR SPATIAL SCIENCE TECHNICIAN LAB BLOOD ORDERABLES Final Result Performing Organization Address City/[facility]/ZIP Co de Phone Number ZION [address] [facility] [place] [address] * (ABNORMAL) Differential, auto (05/16/2024 5:11 AM TAG WRITER) Pathologist [facility] Neutrophil abs 9.5(H) 1.5 - 6.5 K/cumm Comment:Testing performed by : [address] [address] Imm gran abs 0.2(H) 0.0 - 0.1 K/cumm ZION Comment:Testing performed by : [address] [address] Lymphocyte abs 2.1 0.8 - 3.3 K/cumm [facility] Comment:Testing performed by : [address] [address] Monocyte abs 0.5 0.2 - 0.8 K/cumm [facility] Comment:Testing performed by : [address] [address] Eosinophil abs 0.1 0.0 - 0.5 K/cumm [facility] Comment:Testing performed by : [address] [address] Basophil abs 0.0 0.0 - 0.1 K/cumm [facility] Comment:Testing performed by : [address] [address] Neutrophil pct 76.1 % [facility] Comment: Interpretive Data Percent cell count reference ranges are not reported, since discordance with absolute values may lead to misinterpretation of CBC data. Current Interpretive Data was last revised on 2017. Testing performed by: [address] [address] Imm gran pct 1.8 % [facility] Comment: Interpretive Data Percent cell count reference ranges are not reported, since discordance with absolute values may lead to misinterpretation of CBC data. Current Interpretive Data was last revised on 2017. Testing performed by: [address] [address] Lymphocyte pct 16.6 % [facility] Comment: Interpretive Data Percent cell count reference ranges are not reported, since discordance with absolute values may lead to misinterpretation of CBC data. Current Interpretive Data was last revised on 2017. Testing performed by: [address] [address] Monocyte pct 4.3 % ZION Comment: Interpretive Data Percent cell count reference ranges are not reported, since discordance with absolute values may lead to misinterpretation of CBC data. Current Interpretive Data was last revised on 2017. Testing performed by: [address] [address] Eosinophil pct 1.0 % ZION Comment: Interpretive Data Percent cell count reference ranges are not reported, since discordance with absolute values may lead to misinterpretation of CBC data. Current Interpretive Data was last revised on 2017. Testing performed by: [address] [address] Basophil pct 0.2 % ZION Comment: Interpretive Data Percent cell count reference ranges are not reported, since discordance with absolute values may lead to misinterpretation of CBC data. Current Interpretive Data was last revised on 2017. Testing performed by: [address] [address] Blood 05/16/2024 5:11 AM TAG WRITER 05/16/2024 5:21 AM TAG WRITER us Debbi Ramirez NP LAB BLOOD ORDERABLES Final Result [facility] [address] [facility] Department [place] [address] * (ABNORMAL) CBC with auto differential (05/16/2024 5:11 AM TAG WRITER) Pathologist [facility] WBC 12.5(H) 3.8 - 9.9 K/cumm Comment:Testing performed by : [address] [address] Hgb 12.9(L) 13.0 - 17.5 g/dL ZION [place] Comment:Testing performed by : [address] [address] Hct 37.4(L) 38.9 - 50.3 % ZION Comment:Testing performed by : [address] [address] Plt 271 150 - 400 K/cumm ZION [place] Comment:Testing performed by : [address] [address] MPV 9.1 9.1 - 12.3 fL ZION [place] Comment:Testing performed by : [address] [address] RBC 3.99(L) 4.30 - 5.80 M/cumm ZION [place] Comment:Testing performed by : [address] [address] MCV 93.7 81.3 - 96.4 fL ZION Comment:Testing performed by : [address] [address] MCH 32.3 27.1 - 33.3 pg ZION [place] Comment:Testing performed by : [address] [address] MCHC 34.5 32.3 - 35.7 g/dL ZION Comment:Testing performed by : [address], [address] RDW CV 13.1 11.1 - 14.9 % ZION Comment:Testing performed by : [address], [address] RDW SD 44.9 35.7 - 48.1 fL ZION [place] Comment:Testing performed by : [address], [address] NRBC abs 0.00 0.00 - 0.01 K/cumm ZION [place] Comment:Testing performed by : [address] [address] Blood 05/16/2024 5:11 AM TAG WRITER 05/16/2024 5:21 AM TAG WRITER us Debbi Ramirez NP LAB BLOOD ORDERABLES Final Result ZION [address] [facility] Department of Laboratories [place], [place] [id number] * (ABNORMAL) Basic metabolic panel (05/16/2024 5:11 AM TAG WRITER) Sodium 136 135 - 145 mmol/L Comment:Testing performed by : [address], [place]., [address] Potassium, pl 3.9 3.3 - 4.9 mmol/L [facility] Comment:Testing performed by : [address], [place]., [address] Chloride 101 97 - 110 mmol/L ZION Comment:Testing performed by : [address], [place]., [address] CO2 26 22 - 32 mmol/L [facility] Comment:Testing performed by : [address], [place]., [address] Anion gap 9 2 - 15 mmol/L [facility] Comment:Testing performed by : [address] [address] BUN 13 6 - 25 mg/dL [facility] Comment:Testing performed by : [address], [place]., [address] Creatinine 0.40(L) 0.80 - 1.30 mg/dL [facility] Comment:Testing performed by : [address], [place]., [address] Glucose 95 70 - 199 mg/dL [facility] Comment: Interpretive Data Fasting glucose >/= 126 mg/dl is diagnostic for diabetes. Fasting is defined as no caloric intake for at least 8 hours. Fasting glucose between 100 mg/dl to 125 mg/dl is diagnostic of prediabetes. In a patient with classic symptoms of hyperglycemia or hyperglycemic crisis, a random glucose >/= 200 mg/dl is diagnostic for diabetes. In the absence of unequivocal hyperglycemia, results should be confirmed by repeat testing. The classification and Diagnosis of Diabetes Diabetes Care 202; 46: S19-S40. Current interpretive data was last revised 2022. Testing performed by: [address] [address] Calcium 9.2 8.5 - 10.3 mg/dL ZION Comment:Testing performed by : [address], [place]., [address] Blood 05/16/2024 5:11 AM TAG WRITER 05/16/2024 5:21 AM TAG WRITER Debbi Ramirez NP LAB BLOOD ORDERABLES Final Result Performing Organization Address City/[facility]/ZIP Co de Phone Number ZION [address] [facility] [place] [address] * Aerobic culture and gram stain Sputum Sputum (05/15/2024 2:20 PM TAG WRITER) Direct Specimen Exam Stain: Abundant squamous epithelial cells seen indicating excessive oropharyngeal contamination. Culture will not be processed further. Please submit another specimen. Smear results called to and read back by: Marly Monson MLT [phone] on 05/15/2024 22:08:43 by: Rajwinder Wiggins MT Comment:Testing performed by : [facility], [address] [facility], [address] Report Final Report: This is the final report. ZION Comment:Testing performed by : [facility], [address] [place] [address], [address] Sputum (Sputum) 05/15/2024 2 :20 PM TAG WRITER 05/15/2024 8:42 PM TAG WRITER Narrative ZION - 05/16/2024 7:29 AM TAG WRITER Testing performed by [facility] ([phone]) Specimens submitted from normally sterile body sites will have all bacterial morphotypes identified. Specimens that contain grossly mixed sb and/or are from body sites that are not normally sterile will be examined for Staphylococcus aureus, Pseudomonas aeruginosa, beta-hemolytic strep, vancomycin-resistant Enterococcus and fungus. If any of these are isolated, the organism will be reported. Current interpretive data was last revised on 2016. us William Hoffman MD LAB MICROBIOLOGY - GENE RAL ORDERABLES Final Result Performing Organization Address City/[facility]/ZIP Co de Phone Number ZION [address] [facility] Department [place] [address] * eGFR (05/15/2024 8:36 AM TAG WRITER) eGFR >90 >=60 mL/min/1. 73 m2 Comment: Interpretive Data Reference Interval Normal >/= 90 mL/min/1.73m2 Mildly decreased* 60 - 89 mL/min/1.73m2 Mildly to moderately decreased 45 - 59 mL/min/1.73m2 Moderately to severely decreased 30 - 44 mL/min/1.73m2 Severely decreased 15 - 29 mL/min/1.73m2 Kidney Failure < 15 mL/min/1.73m2 *Relative to young adult level Estimated glomerular filtration rate is determined by the 2020 CKD-EPI equation recommended by the National Kidney Foundation (A Unifying Approach to GFR Estimation: Recommendations of the NKF-ASK Task Force on Reassessing the Inclusion of Race in Diagnosing Kidney Disease, JASN 2020). The CKD-EPI equation should not be used for patients with unstable renal function and has not been validated in children and those over 70. Current interpretive data was last reviewed 2021. Testing performed by: [address] [address] Blood 05/15/2024 8:36 AM TAG WRITER 05/15/2024 9:11 AM TAG WRITER us Debbi Ramirez SURVEYING OR SPATIAL SCIENCE TECHNICIAN LAB BLOOD ORDERABLES Final Result ZION [address] [facility] Department [place] [address] * (ABNORMAL) Differential, auto (05/15/2024 8:36 AM TAG WRITER) Neutrophil abs 11.2(H) 1.5 - 6.5 K/cumm Comment:Testing performed by : [address] [address] Imm gran abs 0.1 0.0 - 0.1 K/cumm ZION [place] Comment:Testing performed by : [address] [address] Lymphocyte abs 1.8 0.8 - 3.3 K/cumm ZION [place] Comment:Testing performed by : [address] [address] Monocyte abs 0.5 0.2 - 0.8 K/cumm ZION [place] Comment:Testing performed by : [address] [address] Eosinophil abs 0.1 0.0 - 0.5 K/cumm ZION Comment:Testing performed by : [address] [address] Basophil abs 0.0 0.0 - 0.1 K/cumm ZION Comment:Testing performed by : [address] [address] Neutrophil pct 81.5 % [facility] Comment: Interpretive Data Percent cell count reference ranges are not reported, since discordance with absolute values may lead to misinterpretation of CBC data. Current Interpretive Data was last revised on 2017. Testing performed by: [address] [address] Imm gran pct 0.9 % [facility] Comment: Interpretive Data Percent cell count reference ranges are not reported, since discordance with absolute values may lead to misinterpretation of CBC data. Current Interpretive Data was last revised on 2017. Testing performed by: [address] [address] Lymphocyte pct 13.4 % [facility] Comment: Interpretive Data Percent cell count reference ranges are not reported, since discordance with absolute values may lead to misinterpretation of CBC data. Current Interpretive Data was last revised on 2017. Testing performed by: [address] [address] Monocyte pct 3.3 % [facility] Comment: Interpretive Data Percent cell count reference ranges are not reported, since discordance with absolute values may lead to misinterpretation of CBC data. Current Interpretive Data was last revised on 2017. Testing performed by: [address] [address] Eosinophil pct 0.8 % [facility] Comment: Interpretive Data Percent cell count reference ranges are not reported, since discordance with absolute values may lead to misinterpretation of CBC data. Current Interpretive Data was last revised on 2017. Testing performed by: [address] [address] Basophil pct 0.1 % ZION Comment: Interpretive Data Percent cell count reference ranges are not reported, since discordance with absolute values may lead to misinterpretation of CBC data. Current Interpretive Data was last revised on 2017. Testing performed by: [address] [address] Blood 05/15/2024 8:36 AM TAG WRITER 05/15/2024 9:11 AM TAG WRITER Debbi Ramirez NP LAB BLOOD ORDERABLES Final Result ZION [address] [facility] Department [place] [address] * (ABNORMAL) CBC with auto differential (05/15/2024 8:36 AM TAG WRITER) WBC 13.8(H) 3.8 - 9.9 K/cumm Comment:Testing performed by : [address] [address] Hgb 12.8(L) 13.0 - 17.5 g/dL ZION Comment:Testing performed by : [address] [address] Hct 38.4(L) 38.9 - 50.3 % ZION [place] Comment:Testing performed by : [address] [address] Plt 274 150 - 400 K/cumm ZION Comment:Testing performed by : [address] [address] MPV 9.1 9.1 - 12.3 fL ZION Comment:Testing performed by : [address] [address] RBC 4.02(L) 4.30 - 5.80 M/cumm ZION [place] Comment:Testing performed by : [address] [address] MCV 95.5 81.3 - 96.4 fL ZION [place] Comment:Testing performed by : [address] [address] MCH 31.8 27.1 - 33.3 pg ZION [place] Comment:Testing performed by : [address] [address] MCHC 33.3 32.3 - 35.7 g/dL ZION [place] Comment:Testing performed by : [address] [address] RDW CV 13.3 11.1 - 14.9 % ZION [place] Comment:Testing performed by : [address] [address] RDW SD 47.3 35.7 - 48.1 fL ZION [place] Comment:Testing performed by : [address], [place]., [address] NRBC abs 0.00 0.00 - 0.01 K/cumm ZION [place] Comment:Testing performed by : [address] [address] Blood 05/15/2024 8:36 AM TAG WRITER 05/15/2024 9:11 AM TAG WRITER us Debbi Ramirez SURVEYING OR SPATIAL SCIENCE TECHNICIAN LAB BLOOD ORDERABLES Final Result ZION [address] [facility] Department of Laboratories [place], [place] [id number] * (ABNORMAL) Basic metabolic panel (05/15/2024 8:36 AM TAG WRITER) Sodium 136 135 - 145 mmol/L Comment:Testing performed by : [address] [address] Potassium, pl 4.0 3.3 - 4.9 mmol/L ZION [place] Comment:Testing performed by : [address] [address] Chloride 99 97 - 110 mmol/L ZION [place] Comment:Testing performed by : [address] [address] CO2 29 22 - 32 mmol/L ZION [place] Comment:Testing performed by : [address] [address] Anion gap 8 2 - 15 mmol/L ZION [place] Comment:Testing performed by : [address] [address] BUN 14 6 - 25 mg/dL ZION Comment:Testing performed by : [address] [address] Creatinine 0.50(L) 0.80 - 1.30 mg/dL ZION Comment:Testing performed by : [address] [address] Glucose 151 70 - 199 mg/dL ZION Comment: Interpretive Data Fasting glucose >/= 126 mg/dl is diagnostic for diabetes. Fasting is defined as no caloric intake for at least 8 hours. Fasting glucose between 100 mg/dl to 125 mg/dl is diagnostic of prediabetes. In a patient with classic symptoms of hyperglycemia or hyperglycemic crisis, a random glucose >/= 200 mg/dl is diagnostic for diabetes. In the absence of unequivocal hyperglycemia, results should be confirmed by repeat testing. The classification and Diagnosis of Diabetes Diabetes Care 2021; 46: S19-S40. Current interpretive data was last revised 2022. Testing performed by: [address] [address] Calcium 9.4 8.5 - 10.3 mg/dL ZION Comment:Testing performed by : [address] [address] Blood 05/15/2024 8:36 AM TAG WRITER 05/15/2024 9:11 AM TAG WRITER us Debbi Ramirez NP LAB BLOOD ORDERABLES Final Result ZION [address] [facility] Department [place] [address] * eGFR (05/14/2024 6:37 AM TAG WRITER) eGFR >90 >=60 mL/min/1. 73 m2 Comment: Interpretive Data Reference Interval Normal >/= 90 mL/min/1.73m2 Mildly decreased* 60 - 89 mL/min/1.73m2 Mildly to moderately decreased 45 - 59 mL/min/1.73m2 Moderately to severely decreased 30 - 44 mL/min/1.73m2 Severely decreased 15 - 29 mL/min/1.73m2 Kidney Failure < 15 mL/min/1.73m2 *Relative to young adult level Estimated glomerular filtration rate is determined by the 2020 CKD-EPI equation recommended by the National Kidney Foundation (A Unifying Approach to GFR Estimation: Recommendations of the NKF-ASK Task Force on Reassessing the Inclusion of Race in Diagnosing Kidney Disease, JASN 2020). The CKD-EPI equation should not be used for patients with unstable renal function and has not been validated in children and those over 70. Current interpretive data was last reviewed 2021. Testing performed by: [address] [address] Blood 05/14/2024 6:37 AM TAG WRITER 05/14/2024 6:59 AM TAG WRITER us Debbi Ramirez SURVEYING OR SPATIAL SCIENCE TECHNICIAN LAB BLOOD ORDERABLES Final Result [facility]ION [facility] Department [place] [address] * (ABNORMAL) Differential, auto (05/14/2024 6:37 AM TAG WRITER) Neutrophil abs 13.2(H) 1.5 - 6.5 K/cumm Comment:Testing performed by : [address] [address] Imm gran abs 0.1 0.0 - 0.1 K/cumm ZION Comment:Testing performed by : [address] [address] Lymphocyte abs 1.4 0.8 - 3.3 K/cumm ZION Comment:Testing performed by : [address] [address] Monocyte abs 0.7 0.2 - 0.8 K/cumm ZION Comment:Testing performed by : [address] [address] Eosinophil abs 0.0 0.0 - 0.5 K/cumm ZION Comment:Testing performed by : [address] [address] Basophil abs 0.0 0.0 - 0.1 K/cumm ZION Comment:Testing performed by : [address] [address] Neutrophil pct 85.5 % ZION Comment: Interpretive Data Percent cell count reference ranges are not reported, since discordance with absolute values may lead to misinterpretation of CBC data. Current Interpretive Data was last revised on 2017. Testing performed by: [address] [address] Imm gran pct 0.7 % [facility] Comment: Interpretive Data Percent cell count reference ranges are not reported, since discordance with absolute values may lead to misinterpretation of CBC data. Current Interpretive Data was last revised on 2017. Testing performed by: [address] [address] Lymphocyte pct 9.1 % [facility] Comment: Interpretive Data Percent cell count reference ranges are not reported, since discordance with absolute values may lead to misinterpretation of CBC data. Current Interpretive Data was last revised on 2017. Testing performed by: [address] [address] Monocyte pct 4.5 % [facility] Comment: Interpretive Data Percent cell count reference ranges are not reported, since discordance with absolute values may lead to misinterpretation of CBC data. Current Interpretive Data was last revised on 2017. Testing performed by: [address] [address] Eosinophil pct 0.1 % [facility] Comment: Interpretive Data Percent cell count reference ranges are not reported, since discordance with absolute values may lead to misinterpretation of CBC data. Current Interpretive Data was last revised on 2017. Testing performed by: [address] [address] Basophil pct 0.1 % [facility] Comment: Interpretive Data Percent cell count reference ranges are not reported, since discordance with absolute values may lead to misinterpretation of CBC data. Current Interpretive Data was last revised on 2017. Testing performed by: [address] [address] Blood 05/14/2024 6:37 AM TAG WRITER 05/14/2024 6:59 AM TAG WRITER us Debbi Ramirez SURVEYING OR SPATIAL SCIENCE TECHNICIAN LAB BLOOD ORDERABLES Final Result ZION [address] [facility] [place] [address] * (ABNORMAL) CBC with auto differential (05/14/2024 6:37 AM TAG WRITER) WBC 15.5(H) 3.8 - 9.9 K/cumm Comment:Testing performed by : [address] [address] Hgb 12.7(L) 13.0 - 17.5 g/dL ZION Comment:Testing performed by : [address] [address] Hct 37.1(L) 38.9 - 50.3 % ZION Comment:Testing performed by : [address] [address] Plt 276 150 - 400 K/cumm ZION Comment:Testing performed by : [address] [address] MPV 9.0(L) 9.1 - 12.3 fL ZION Comment:Testing performed by : [address] [address] RBC 3.92(L) 4.30 - 5.80 M/cumm ZION Comment:Testing performed by : [address] [address] MCV 94.6 81.3 - 96.4 fL ZION Comment:Testing performed by : [address] [address] MCH 32.4 27.1 - 33.3 pg ZION [place] Comment:Testing performed by : [address] [address] MCHC 34.2 32.3 - 35.7 g/dL ZION [place] Comment:Testing performed by : [address] [address] RDW CV 13.5 11.1 - 14.9 % ZION [place] Comment:Testing performed by : [address] [address] RDW SD 46.5 35.7 - 48.1 fL ZION [place] Comment:Testing performed by : [address] [address] NRBC abs 0.00 0.00 - 0.01 K/cumm ZION [place] Comment:Testing performed by : [address] [address] Blood 05/14/2024 6:37 AM TAG WRITER 05/14/2024 6:59 AM TAG WRITER us Debbi Ramirez SURVEYING OR SPATIAL SCIENCE TECHNICIAN LAB BLOOD ORDERABLES Final Result [facility]ION [facility] [place] [address] * (ABNORMAL) Basic metabolic panel (05/14/2024 6:37 AM TAG WRITER) Sodium 137 135 - 145 mmol/L Comment:Testing performed by : [address] [address] Potassium, pl 3.8 3.3 - 4.9 mmol/L ZION [place] Comment:Testing performed by : [address] [address] Chloride 99 97 - 110 mmol/L ZION Comment:Testing performed by : [address] [address] CO2 29 22 - 32 mmol/L ZION Comment:Testing performed by : [address] [address] Anion gap 9 2 - 15 mmol/L ZION Comment:Testing performed by : [address] [address] BUN 15 6 - 25 mg/dL ZION HENDERSON Comment:Testing performed by : [address] [address] Creatinine 0.60(L) 0.80 - 1.30 mg/dL ZION HENDERSON Comment:Testing performed by : [address] [address] Glucose 87 70 - 199 mg/dL ZION HENDERSON Comment: Interpretive Data Fasting glucose >/= 126 mg/dl is diagnostic for diabetes. Fasting is defined as no caloric intake for at least 8 hours. Fasting glucose between 100 mg/dl to 125 mg/dl is diagnostic of prediabetes. In a patient with classic symptoms of hyperglycemia or hyperglycemic crisis, a random glucose >/= 200 mg/dl is diagnostic for diabetes. In the absence of unequivocal hyperglycemia, results should be confirmed by repeat testing. The classification and Diagnosis of Diabetes Diabetes Care 202; 46: S19-S40. Current interpretive data was last revised 2022. Testing performed by: [address] [address] Calcium 9.3 8.5 - 10.3 mg/dL ZION HENDERSON Comment:Testing performed by : [address] [address] Blood 05/14/2024 6:37 AM TAG WRITER 05/14/2024 6:59 AM TAG WRITER us Debbi Ramirez SURVEYING OR SPATIAL SCIENCE TECHNICIAN LAB BLOOD ORDERABLES Final Result ZION HENDERSON [address] [facility] Department [place] [address] * eGFR (05/13/2024 7:42 AM TAG WRITER) eGFR >90 >=60 mL/min/1. 73 m2 Comment: Interpretive Data Reference Interval Normal >/= 90 mL/min/1.73m2 Mildly decreased* 60 - 89 mL/min/1.73m2 Mildly to moderately decreased 45 - 59 mL/min/1.73m2 Moderately to severely decreased 30 - 44 mL/min/1.73m2 Severely decreased 15 - 29 mL/min/1.73m2 Kidney Failure < 15 mL/min/1.73m2 *Relative to young adult level Estimated glomerular filtration rate is determined by the 2020 CKD-EPI equation recommended by the National Kidney Foundation (A Unifying Approach to GFR Estimation: Recommendations of the NKF-ASK Task Force on Reassessing the Inclusion of Race in Diagnosing Kidney Disease, JASN 2020). The CKD-EPI equation should not be used for patients with unstable renal function and has not been validated in children and those over 70. Current interpretive data was last reviewed 2021. Testing performed by: [address] [address] Blood 05/13/2024 7:42 AM TAG WRITER 05/13/2024 8:44 AM TAG WRITER us Debbi Ramirez NP LAB BLOOD ORDERABLES Final Result ZION [address] [facility] Department [place] [address] * (ABNORMAL) Differential, auto (05/13/2024 7:42 AM TAG WRITER) Neutrophil abs 18.5(H) 1.5 - 6.5 K/cumm Comment:Testing performed by : [address] [address] Imm gran abs 0.2(H) 0.0 - 0.1 K/cumm ZION Comment:Testing performed by : [address] [address] Lymphocyte abs 0.7(L) 0.8 - 3.3 K/cumm ZION Comment:Testing performed by : [address] [address] Monocyte abs 0.6 0.2 - 0.8 K/cumm ZION Comment:Testing performed by : [address] [address] Eosinophil abs 0.0 0.0 - 0.5 K/cumm ZION Comment:Testing performed by : [address] [address] Basophil abs 0.0 0.0 - 0.1 K/cumm ZION Comment:Testing performed by : [address] [address] Neutrophil pct 92.7 % ZION Comment: Interpretive Data Percent cell count reference ranges are not reported, since discordance with absolute values may lead to misinterpretation of CBC data. Current Interpretive Data was last revised on 2017. Testing performed by: [address] [address] Imm gran pct 0.8 % [facility] Comment: Interpretive Data Percent cell count reference ranges are not reported, since discordance with absolute values may lead to misinterpretation of CBC data. Current Interpretive Data was last revised on 2017. Testing performed by: [address] [address] Lymphocyte pct 3.3 % [facility] Comment: Interpretive Data Percent cell count reference ranges are not reported, since discordance with absolute values may lead to misinterpretation of CBC data. Current Interpretive Data was last revised on 2017. Testing performed by: [address] [address] Monocyte pct 3.1 % [facility] Comment: Interpretive Data Percent cell count reference ranges are not reported, since discordance with absolute values may lead to misinterpretation of CBC data. Current Interpretive Data was last revised on 2017. Testing performed by: [address] [address] Eosinophil pct 0.0 % [facility] Comment: Interpretive Data Percent cell count reference ranges are not reported, since discordance with absolute values may lead to misinterpretation of CBC data. Current Interpretive Data was last revised on 2017. Testing performed by: [address] [address] Basophil pct 0.1 % [facility] Comment: Interpretive Data Percent cell count reference ranges are not reported, since discordance with absolute values may lead to misinterpretation of CBC data. Current Interpretive Data was last revised on 2017. Testing performed by: [address] [address] Blood 05/13/2024 7:42 AM TAG WRITER 05/13/2024 8:43 AM TAG WRITER us Debbi Ramirez NP LAB BLOOD ORDERABLES Final Result ZION [address] [facility] Department [place] [address] * (ABNORMAL) CBC with auto differential (05/13/2024 7:42 AM TAG WRITER) [facility] Signature WBC 20.0(H) 3.8 - 9.9 K/cumm Comment:Testing performed by : [address] [address] Hgb 12.6(L) 13.0 - 17.5 g/dL ZION Comment:Testing performed by : [address] [address] Hct 38.3(L) 38.9 - 50.3 % ZION Comment:Testing performed by : [address] [address] Plt 285 150 - 400 K/cumm ZION Comment:Testing performed by : [address] [address] MPV 9.5 9.1 - 12.3 fL ZOIN Comment:Testing performed by : [address] [address] RBC 4.03(L) 4.30 - 5.80 M/cumm ZION Comment:Testing performed by : [address] [address] MCV 95.0 81.3 - 96.4 fL ZION Comment:Testing performed by : [address] [address] MCH 31.3 27.1 - 33.3 pg ZION Comment:Testing performed by : [address] [address] MCHC 32.9 32.3 - 35.7 g/dL ZION Comment:Testing performed by : [address], [address] RDW CV 13.4 11.1 - 14.9 % ZION Comment:Testing performed by : [address], [address] RDW SD 47.1 35.7 - 48.1 fL ZION Comment:Testing performed by : [address] [address] NRBC abs 0.00 0.00 - 0.01 K/cumm ZION Comment:Testing performed by : [address] [address] Blood 05/13/2024 7:42 AM TAG WRITER 05/13/2024 8:43 AM TAG WRITER Debbi Ramirez SURVEYING OR SPATIAL SCIENCE TECHNICIAN LAB BLOOD ORDERABLES Final Result ZION [address] [facility] Department [place] [address] * (ABNORMAL) Basic metabolic panel (05/13/2024 7:42 AM TAG WRITER) Sodium 137 135 - 145 mmol/L Comment:Testing performed by : [address] [address] Potassium, pl 4.1 3.3 - 4.9 mmol/L ZION Comment:Testing performed by : [address] [address] Chloride 99 97 - 110 mmol/L ZION Comment:Testing performed by : [address] [address] CO2 27 22 - 32 mmol/L ZION Comment:Testing performed by : [address] [address] Anion gap 11 2 - 15 mmol/L ZION Comment:Testing performed by : [address] [address] BUN 14 6 - 25 mg/dL ZION Comment:Testing performed by : [address] [address] Creatinine 0.50(L) 0.80 - 1.30 mg/dL ZION Comment:Testing performed by : [address] [address] Glucose 119 70 - 199 mg/dL ZION Comment: Interpretive Data Fasting glucose >/= 126 mg/dl is diagnostic for diabetes. Fasting is defined as no caloric intake for at least 8 hours. Fasting glucose between 100 mg/dl to 125 mg/dl is diagnostic of prediabetes. In a patient with classic symptoms of hyperglycemia or hyperglycemic crisis, a random glucose >/= 200 mg/dl is diagnostic for diabetes. In the absence of unequivocal hyperglycemia, results should be confirmed by repeat testing. The classification and Diagnosis of Diabetes Diabetes Care 2021; 46: S19-S40. Current interpretive data was last revised 2022. Testing performed by: [facility], [address] [place] [address]., [address] Calcium 9.5 8.5 - 10.3 mg/dL ZION HENDERSON Comment:Testing performed by : [address] [address] Blood 05/13/2024 7:42 AM TAG WRITER 05/13/2024 8:44 AM TAG WRITER us Debbi Ramirez SURVEYING OR SPATIAL SCIENCE TECHNICIAN LAB BLOOD ORDERABLES Final Result ZION HENDERSON [address] [facility] Department [place] [address] * Aerobic culture and gram stain Sputum Expectorated (05/12/2024 5:36 AM TAG WRITER) Direct Specimen Exam Stain: Abundant squamous epithelial cells seen indicating excessive oropharyngeal contamination. Culture will not be processed further. Please submit another specimen. Smear results called to and read back by: Yolanda Melendez MLS at on 05/12/2024 09:00:13 by: Chadd Deluna MLT Notification of rejected sputum specimen called to HARSHAL Mendoza / 4MS at 05/12/2024 09:46:23 by Yolanda Melendez MLS [id number]. Comment:Testing performed by : [facility], [address] [facility]., [address] Report Final Report: This is the final report. ZION HENDERSON Comment:Testing performed by : [facility], [address] [facility]., [address] Sputum (Expectorated) 05/12/2024 5:36 AM TAG WRITER 05/12/2024 7:45 AM TAG WRITER Narrative ZION HENDERSON - 05/13/2024 10:21 AM TAG WRITER Testing performed by [facility] ([phone]) Specimens submitted from normally sterile body sites will have all bacterial morphotypes identified. Specimens that contain grossly mixed sb and/or are from body sites that are not normally sterile will be examined for Staphylococcus aureus, Pseudomonas aeruginosa, beta-hemolytic strep, vancomycin-resistant Enterococcus and fungus. If any of these are isolated, the organism will be reported. Current interpretive data was last revised on 2016. us Debbi Ramirez NP LAB MICROBIOLOGY - GENERAL ORDERABLES Final Result ZION HENDERSON [address] [facility] Department [place] [address] * eGFR (05/12/2024 3:30 AM TAG WRITER) eGFR >90 >=60 mL/min/1. 73 m2 Comment: Interpretive Data Reference Interval Normal >/= 90 mL/min/1.73m2 Mildly decreased* 60 - 89 mL/min/1.73m2 Mildly to moderately decreased 45 - 59 mL/min/1.73m2 Moderately to severely decreased 30 - 44 mL/min/1.73m2 Severely decreased 15 - 29 mL/min/1.73m2 Kidney Failure < 15 mL/min/1.73m2 *Relative to young adult level Estimated glomerular filtration rate is determined by the 2020 CKD-EPI equation recommended by the National Kidney Foundation (A Unifying Approach to GFR Estimation: Recommendations of the NKF-ASK Task Force on Reassessing the Inclusion of Race in Diagnosing Kidney Disease, JASN 202). The CKD-EPI equation should not be used for patients with unstable renal function and has not been validated in children and those over 70. Current interpretive data was last reviewed 2021. Testing performed by: [facility], [address] [place] [address]., [address] Blood 05/12/2024 3:30 AM TAG WRITER 05/12/2024 4:49 AM TAG WRITER us Debbi Ramirez SURVEYING OR SPATIAL SCIENCE TECHNICIAN LAB BLOOD ORDERABLES Final Result ZION [address] [facility] Department [place] [address] * (ABNORMAL) Differential, auto (05/12/2024 3:30 AM TAG WRITER) Neutrophil abs 17.5(H) 1.5 - 6.5 K/cumm Comment:Testing performed by : [address] [address] Imm gran abs 0.1 0.0 - 0.1 K/cumm ZION Comment:Testing performed by : [address] [address] Lymphocyte abs 0.5(L) 0.8 - 3.3 K/cumm ZION Comment:Testing performed by : [address] [address] Monocyte abs 0.3 0.2 - 0.8 K/cumm ZION Comment:Testing performed by : [address] [address] Eosinophil abs 0.0 0.0 - 0.5 K/cumm ZION Comment:Testing performed by : [address] [address] Basophil abs 0.0 0.0 - 0.1 K/cumm ZION Comment:Testing performed by : [address] [address] Neutrophil pct 94.9 % ZION Comment: Interpretive Data Percent cell count reference ranges are not reported, since discordance with absolute values may lead to misinterpretation of CBC data. Current Interpretive Data was last revised on 2017. Testing performed by: [address] [address] Imm gran pct 0.5 % ZION Comment: Interpretive Data Percent cell count reference ranges are not reported, since discordance with absolute values may lead to misinterpretation of CBC data. Current Interpretive Data was last revised on 2017. Testing performed by: [address] [address] Lymphocyte pct 2.9 % ZION Comment: Interpretive Data Percent cell count reference ranges are not reported, since discordance with absolute values may lead to misinterpretation of CBC data. Current Interpretive Data was last revised on 2017. Testing performed by: [address] [address] Monocyte pct 1.6 % ZION Comment: Interpretive Data Percent cell count reference ranges are not reported, since discordance with absolute values may lead to misinterpretation of CBC data. Current Interpretive Data was last revised on 2017. Testing performed by: [address] [address] Eosinophil pct 0.0 % ZION Comment: Interpretive Data Percent cell count reference ranges are not reported, since discordance with absolute values may lead to misinterpretation of CBC data. Current Interpretive Data was last revised on 2017. Testing performed by: [address] [address] Basophil pct 0.1 % ZION Comment: Interpretive Data Percent cell count reference ranges are not reported, since discordance with absolute values may lead to misinterpretation of CBC data. Current Interpretive Data was last revised on 2017. Testing performed by: [address] [address] Blood 05/12/2024 3:30 AM TAG WRITER 05/12/2024 4:49 AM TAG WRITER Debbi Ramirez SURVEYING OR SPATIAL SCIENCE TECHNICIAN LAB BLOOD ORDERABLES Final Result ZION [address] [facility] of Laboratories [place], [place] [id number] * (ABNORMAL) CBC with auto differential (05/12/2024 3:30 AM TAG WRITER) WBC 18.4(H) 3.8 - 9.9 K/cumm Comment:Testing performed by : [address] [address] Hgb 11.9(L) 13.0 - 17.5 g/dL ZION HENDERSON Comment:Testing performed by : [address] [address] Hct 34.7(L) 38.9 - 50.3 % ZION Comment:Testing performed by : [address] [address] Plt 236 150 - 400 K/cumm ZION Comment:Testing performed by : [address] [address] MPV 9.7 9.1 - 12.3 fL ZION Comment:Testing performed by : [address] [address] RBC 3.68(L) 4.30 - 5.80 M/cumm ZION Comment:Testing performed by : [address] [address] MCV 94.3 81.3 - 96.4 fL ZION Comment:Testing performed by : [address] [address] MCH 32.3 27.1 - 33.3 pg ZION Comment:Testing performed by : [address] [address] MCHC 34.3 32.3 - 35.7 g/dL ZION Comment:Testing performed by : [address] [address] RDW CV 13.3 11.1 - 14.9 % ZION Comment:Testing performed by : [address] [address] RDW SD 46.2 35.7 - 48.1 fL ZION Comment:Testing performed by : [address] [address] NRBC abs 0.00 0.00 - 0.01 K/cumm ZION Comment:Testing performed by : [address] [address] Blood 05/12/2024 3:30 AM TAG WRITER 05/12/2024 4:49 AM TAG WRITER Debbi Ramirez NP LAB BLOOD ORDERABLES Final Result ZION [address] [facility] Department [place] [address] * (ABNORMAL) Basic metabolic panel (05/12/2024 3:30 AM TAG WRITER) Sodium 139 135 - 145 mmol/L Comment:Testing performed by : [address], [place]., [address] Potassium, pl 4.2 3.3 - 4.9 mmol/L ZION Comment:Testing performed by : [address], [place]., [address] Chloride 102 97 - 110 mmol/L ZION Comment:Testing performed by : [address], [place]., [address] CO2 24 22 - 32 mmol/L ZION Comment:Testing performed by : [address], [place]., [address] Anion gap 13 2 - 15 mmol/L ZINO Comment:Testing performed by : [address] [address] BUN 14 6 - 25 mg/dL ZION Comment:Testing performed by : [address], [place]., [address] Creatinine 0.40(L) 0.80 - 1.30 mg/dL ZION Comment:Testing performed by : [address], [place]., [address] Glucose 158 70 - 199 mg/dL [facility] Comment: Interpretive Data Fasting glucose >/= 126 mg/dl is diagnostic for diabetes. Fasting is defined as no caloric intake for at least 8 hours. Fasting glucose between 100 mg/dl to 125 mg/dl is diagnostic of prediabetes. In a patient with classic symptoms of hyperglycemia or hyperglycemic crisis, a random glucose >/= 200 mg/dl is diagnostic for diabetes. In the absence of unequivocal hyperglycemia, results should be confirmed by repeat testing. The classification and Diagnosis of Diabetes Diabetes Care 202; 46: S19-S40. Current interpretive data was last revised 2022. Testing performed by: [address] [address] Calcium 9.3 8.5 - 10.3 mg/dL [facility] Comment:Testing performed by : [facility], [address] [place] [address]., [address] Blood 05/12/2024 3:30 AM TAG WRITER 05/12/2024 4:49 AM TAG WRITER Result [facility] Debbi Whitesideamparo Ramirez LAB BLOOD ORDERABLES Final Result Performing Organization Address [facility] Phone Number [place] [phone] [place] [address] * Strep pneumoniae antigen, urine Urine (05/11/2024 5:49 PM TAG WRITER) S. pneumoniae Ag Negative Negative Comment: Interpretive Data A positive result is indicative of pneumococcal pneumonia in patients with severe CAP. Cross-reactivity with closely related Streptococcus bacteria may occur. A negative result suggests no current or recent pneumococcal infection but cannot rule out infection with S. pneumoniae. The results of this testing should be used in conjunction with clinical findings and other diagnostic testing, including microbiologic culture. Current Interpretive Data was last revised on 2022 Urine 05/11/2024 5:49 PM TAG WRITER 05/11/2024 8:20 PM TAG WRITER Debbi Ramirez LAB MICROBIOLOGY - GENERAL ORDERABLES Final Result Performing Organization Address [facility] de Phone Number [address] [address] * Legionella antigen Urine (05/11/2024 5:49 PM TAG WRITER) Legionella Ag Negative Negative Comment: Interpretive Data This test detects only Legionella pneumophila serogroup 1 antigen. Testing performed by [facility] ([phone]). Current interpretive data was last revised on 2019. Testing performed by: [facility], [address] [facility]., [address] Urine 05/11/2024 5:49 PM TAG WRITER 05/11/2024 9:12 PM TAG WRITER Debbi Kiersten Ramirez SURVEYING OR SPATIAL SCIENCE TECHNICIAN LAB MICROBIOLOGY - GENERAL ORDERABLES Final Result Performing Organization Address [facility] de Phone Number ZION [address] [place] [address] * MRSA Only (Staphylococcus aureus) PCR Nasal (05/11/2024 4:10 PM TAG WRITER) PCR Scrn, Methicillin resistant Staphylococcus aureus (MRSA) Not Detected Not Detected Comment: Interpretive Data Testing performed using Nucleic Acid Amplification with the [employer] Xpert MRSA NxG Assay. This assay detects target DNA from mecA, mecC and the SCCmec insertion site of Staphylococcus aureus using Real-Time PCR and has been cleared by the FDA. Performance characteristics have been verified by the [facility]. Current Interpretive Data was last revised on 2023 Testing performed by: [facility], [address] [place] [address]., [address] Nasal 05/11/2024 4:10 PM TAG WRITER 05/11/2024 4:23 PM TAG WRITER Debbi Ramirez SURVEYING OR SPATIAL SCIENCE TECHNICIAN LAB MICROBIOLOGY - GENERAL ORDERABLES Final Result Performing Organization Address [facility] Phone Number [address] [place] [address] * US Vein Duplex Lower Extremity Bilateral Complete (05/11/2024 3:58 PM TAG WRITER) Anatomical Region Laterality Modality Vascular Bilateral Ultrasound 05/11/2024 Narrative 05/16/2024 7:25 AM TAG WRITER [employer] Job ID: [id number] [employer] Document ID: [id number] Dictated date/time: [id number] BILATERAL LOWER EXTREMITY VENOUS DUPLEX REASON FOR EXAM Rule out deep vein thrombosis. FINDINGS ON THE RIGHT The right common femoral, femoral, popliteal, posterior tibial, peroneal and greater saphenous demonstrate spontaneous phasic flow that augment and are compressible. FINDINGS ON THE LEFT The left common femoral, femoral, popliteal, posterior tibial, peroneal and greater saphenous demonstrate spontaneous phasic flow that augment and are compressible. INTERPRETATION No evidence of deep or superficial venous thrombosis in bilateral lower extremities. Job ID/Internal Job ID: [id number] us Debbi Ramirez SURVEYING OR SPATIAL SCIENCE TECHNICIAN IMG US PROCEDURES Final Res ult * Troponin T high-sensitivity 6-hour (05/11/2024 9:29 AM TAG WRITER) Trop T hs 9 <=22 ng/L Comment: Interpretive Data For further hscTnT resources including the diagnostic algorithm and an aid in interpretation, copy and paste this link: [email or web address].testcatalog.org/show/[email or web address] Current Interpretive Data last revised 2020. Testing performed by: [address] [address] Trop T hs delta -3 ng/L ZION Comment:Testing performed by : [address] [address] Trop T hs interp Insignificant ZION Comment:Testing performed by : [address] [address] Blood 05/11/2024 9:29 AM TAG WRITER 05/11/2024 9:37 AM TAG WRITER us Amy Wei MD LAB BLOOD ORDERABLES Fin al Result [facility] [address] [facility] [place] [address] * CT Chest PE (CTA) W Contrast (05/11/2024 8:30 AM TAG WRITER) Anatomical Region Laterality Modality Body N/A Computed Tomogra phy 05/11/2024 9:07 AM TAG WRITER Narrative 05/11/2024 9:17 AM TAG WRITER EXAM DESCRIPTION: CT CHEST PE (CTA) W CONTRAST REASON FOR STUDY: Chest pain, PE suspected, low/intermediate prob, positive D-dimer, Rule out PE, evaluate for pna and alternative cause of hypoxia Patient presented in ED via EMS complaining of sudden shortness of breath upon waking up, EMS reports that pt usually on Oxygen 2 Lpm at home, SPO2 went down to 70%, EMS hooked pt on CPAP with SPO2 of 92%. Known case of COPD and pulmonary fibrosis. Diagnosed with RSV+ 10 days ago treated with antibiotic as per pt. He also reports dry cough and fever. TECHNIQUE: CT angiogram of the chest performed with intravenous contrast using helical scanning technique with dynamic intravenous contrast injection. Reconstructed coronal and sagittal MPR images reviewed. All images stored on PACS. 3D MIP images rendered on scanning unit and reviewed at time of interpretation. Automated exposure control was used as a dose optimization technique for this examination. CONTRAST TYPE/DOSE: 100mL of IOVERSOL 350 MG IODINE/ML INTRAVENOUS SYRINGE injected via intravenous COMPARISON: Comparison 05/01/2024. FINDINGS: VASCULATURE: No identified pulmonary emboli. LUNGS: There is severe pulmonary emphysema. There are superimposed areas of pneumonia throughout the bilateral lower lobes, inferior aspect of right upper lobe and throughout the lingula, new from prior. PLEURA: No effusion. No pneumothorax. MEDIASTINUM/JOSE MANUEL: Stable mildly prominent hilar and mediastinal lymph nodes with fatty jose manuel, likely reactive. No identified masses or abnormal nodes. HEART: Severe coronary artery calcification. Heart size is normal. AXILLA: No adenopathy. CHEST WALL: No masses. No subcutaneous air. HARDWARE/LINES/TUBES: None. UPPER ABDOMEN: No significant abnormality. MUSCULOSKELETAL: No significant abnormality. OTHER: No significant abnormality. IMPRESSION: No evidence of pulmonary embolism. Extensive acute bilateral airspace opacities in keeping with bilateral pneumonias, new from prior. Findings are superimposed on previously noted severe pulmonary emphysema. No pleural effusion or other abnormality of the chest. THIS IS AN ELECTRONICALLY VERIFIED FINAL REPORT 05/11/2024 9:17 AM - Electronically signed by Duyen Hendrickson M.D. LC: DONNA Report ID: [id number] Reading Location: [id number] Procedure Note Talita Hendrickson MD - 05/11/2024 EXAM DESCRIPTION: CT CHEST PE (CTA) W CONTRAST REASON FOR STUDY: Chest pain, PE suspected, low/intermediate prob,positive D-dimer, Rule out PE, evaluate for pna and alternative cause of hypoxia Patient presented in ED via EMS complaining of sudden shortness of breathupon waking up, EMS reports that pt usually on Oxygen 2 Lpm at home, SPO2 wentdown to 70%, EMS hooked pt on CPAP with SPO2 of 92%. Known case of COPD and pulmonary fibrosis. Diagnosed with RSV+ 10 days ago treated withantibiotic as per pt. He also reports dry cough and fever. TECHNIQUE: CT angiogram of the chest performed with intravenous contrastusing helical scanning technique with dynamic intravenous contrast injection. Reconstructed coronal and sagittal MPR images reviewed. All images storedon PACS. 3D MIP images rendered on scanning unit and reviewed at time of interpretation. Automated exposure control was used as a doseoptimization technique for this examination. CONTRAST TYPE/DOSE: 100mL of IOVERSOL 350 MG IODINE/ML INTRAVENOUSSYRINGE injected via intravenous COMPARISON: Comparison 05/01/2024. FINDINGS: VASCULATURE: No identified pulmonary emboli. LUNGS: There is severe pulmonary emphysema. There are superimposedareas of pneumonia throughout the bilateral lower lobes, inferior aspect of rightupper lobe and throughout the lingula, new from prior. PLEURA: No effusion. No pneumothorax. MEDIASTINUM/JOSE MANUEL: Stable mildly prominent hilar and mediastinal lymphnodes with fatty jose manuel, likely reactive. No identified masses or abnormal nodes. HEART: Severe coronary artery calcification. Heart size is normal. AXILLA: No adenopathy. CHEST WALL: No masses. No subcutaneous air. HARDWARE/LINES/TUBES: None. UPPER ABDOMEN: No significant abnormality. MUSCULOSKELETAL: No significant abnormality. OTHER: No significant abnormality. IMPRESSION: No evidence of pulmonary embolism. Extensive acute bilateral airspace opacities in keeping with bilateral pneumonias, new from prior. Findings are superimposed on previously noted severe pulmonary emphysema. No pleural effusion or other abnormality of the chest. THIS IS AN ELECTRONICALLY VERIFIED FINAL REPORT 05/11/2024 9:17 AM - Electronically signed by Duyen Hendrickson M.D. LC: DONNA Report ID: [id number] Reading Location: [id number] us Debbi Ramirez SURVEYING OR SPATIAL SCIENCE TECHNICIAN IMG CT PROCEDURES Final Res ult * Troponin T high-sensitivity 4-hour (05/11/2024 7:20 AM TAG WRITER) Trop T hs 12 <=22 ng/L Comment: Interpretive Data For further hscTnT resources including the diagnostic algorithm and an aid in interpretation, copy and paste this link: [email or web address]://[email or web address]/show/[email or web address] Current Interpretive Data last revised 2020. Testing performed by: [facility], [address] [place] [address]., [address] Trop T hs delta 0 ng/L [facility] Comment:Testing performed by : [address] [address] Trop T hs interp Insignificant ZION Comment:Testing performed by : [address] [address] Blood 05/11/2024 7:20 AM TAG WRITER 05/11/2024 7:27 AM TAG WRITER Amy Wei MD LAB BLOOD ORDERABLES Fin al Result [facility] [address] Department [place] [address] * Troponin T high-sensitivity 2-hour (05/11/2024 5:30 AM TAG WRITER) Pathologist [facility] Trop T hs 12 <=22 ng/L Comment: Interpretive Data For further hscTnT resources including the diagnostic algorithm and an aid in interpretation, copy and paste this link: [email or web address]://[email or web address]/show/hsTrop Current Interpretive Data last revised 2020. Testing performed by: [address] [address] Trop T hs delta 0 ng/L [facility] Comment:Testing performed by : [address] [address] Trop T hs interp Insignificant ZION Comment:Testing performed by : [address] [address] Blood 05/11/2024 5:30 AM TAG WRITER 05/11/2024 5:33 AM TAG WRITER us Amy Wei MD LAB BLOOD ORDERABLES Fin al Result [facility] [address] [facility] [place] [address] * (ABNORMAL) Urinalysis reflex to microscopic and culture Urine (05/11/2024 5:30 AM TAG WRITER) Color, ur Yellow Yellow Comment:Testing performed by : [address] [address] Clarity, ur Clear Clear ZION Comment:Testing performed by : [address] [address] Specific gravity, ur 1.026 1.003 - 1.030 ZION Comment:Testing performed by : [address] [address] pH, urine 5.5 ZION Comment: Interpretive Data U rine pH is affected by diet, medications, systemic acid-base disturbances, and renal tubular function. pH may affect urinary stone formation. For example, urine pH below 6.0 may help reduce the tendency for calcium phosphate stones and pH greater than 6.0 may reduce the tendency for uric acid stone formation. Source: [facility] [employer] Current Interpretive Data was last revised on 2017 Testing performed by: [address] [address] Protein, ur ql 1+(A) Negative ZION Comment:Testing performed by : [address] [address] Glucose, ur ql Negative Negative [facility] Comment:Testing performed by : [address] [address] Ketones, ur Negative Negative ZION Comment:Testing performed by : [address] [address] Bilirubin, ur Negative Negative [facility]ION Comment:Testing performed by : [address] [address] Blood, ur Negative Negative [facility]ION Comment:Testing performed by : [address] [address] Urobilinogen, ur 2.0(A) <2.0 mg/dL [facility] Comment:Testing performed by : [address] [address] Nitrite, ur Negative Negative ZION Comment:Testing performed by : [address], [place]., [address] Leukocyte esterase, ur Negative Negative ZION Comment:Testing performed by : [address], [place]., [address] UA reflex comment Reflex to microscopic UA will be performed. [facility] Comment:Testing performed by : [address], [place]., [address] Urine 05/11/2024 5:30 AM TAG WRITER 05/11/2024 5:33 AM TAG WRITER us Amy Wei MD LAB MICROBIOLOGY - GENER AL ORDERABLES Final Result [facility] [address] Department of Laboratories [place], [place] [id number] * (ABNORMAL) Urinalysis, microscopic only (05/11/2024 5:30 AM TAG WRITER) WBC, ur 6-10(A) 0 - 5 /HPF Comment:Testing performed by : [address] [address] RBC, ur 3-5(A) 0 - 2 /HPF [facility]ION Comment:Testing performed by : [address] [address] Epithelial cells, squamous, ur 6-10(A) 0 - 5 /HPF [facility] Comment:Testing performed by : [address], [place]., [address] Mucous, ur Present(A) ZION Comment:Testing performed by : [address] [address] Culture Reflex Comment Reflex conditions for urine culture (WBC >10) not met. [facility]ERSON Comment:Testing performed by : [address], [place]., [address] Urine 05/11/2024 5:30 AM TAG WRITER 05/11/2024 5:33 AM TAG WRITER Amy Wei MD LAB URINE ORDERABLES Fin al Result Performing Organization Address [facility] Co de Phone Number Z[facility] HENDERSON [address] Department [place] [address] * Blood culture Blood Peripheral (05/11/2024 3:49 AM TAG WRITER) Report Final Report: No growth Comment:Testing performed by : [facility], [address] [facility], [place]., [address] Blood (Peripheral) 05/11/2024 3:49 AM TAG WRITER 05/11/2024 8:06 AM TAG WRITER Narrative Z[facility] HENDERSON - 05/15/2024 12:00 PM TAG WRITER From a different site than #1. Draw Blood cultures before administration of Antibiotics Collection->Peripheral 1. Blood cultures are incubated for 4 days on a continuously monitored blood culture system. The first report of a negative culture is issued within 24 hours of receipt of the specimen in the laboratory. 2. Positive culture results are reported as soon as they are detected. 3. The most important factor for detection of microbes in the setting of bloodstream infection is the volume of blood submitted for culture. Failure to collect an optimal blood volume can result in false negative blood cultures. 4. For pediatric patients, the recommended blood volume to collect follows a weight based strategy. See the electronic test catalog for collection instructions. 5. For positive blood cultures, a rapid molecular test may be performed for organism identification using the mariann ePlex blood culture identification panel for gram positive (BCID-GP) and gram negative (BCID-GN) organisms. This nucleic acid amplification test detects microbial DNA in positive blood culture broth. This assay has been cleared by the [place] Food and Drug Administration and its performance characteristics have been verified by the [facility]. For questions about this culture, contact the Microbiology Laboratory at [phone]. Interpretive data was last revised on 24. Amy Wei MD LAB MICROBIOLOGY - GENER AL ORDERABLES Final Result Performing Organization Address [facility]/ZIP Co de Phone Number [facility] [address] Department [place] [address] * (ABNORMAL) Influenza A/B, RSV, and COVID-19 PCR Nasopharyngeal (05/11/2024 3:48 AM TAG WRITER) [facility] COVID-19 RNA Negative Negative Comment:Testing performed by : [address] [address] Influenza A RNA Negative Negative [facility] Comment:Testing performed by : [address] [address] Influenza B RNA Negative Negative [facility] Comment:Testing performed by : [address] [address] RSV RNA Positive(A) Negative [facility] Comment: Interpretive data: Testing performed by [facility]. This test is performed using the [employer] Xpert Xpress CoV-2/Flu/RSV plus assay. This is a multiplex, real-time reverse transcriptase PCR assay intended for the qualitative detection of nucleic acid from SARS-CoV-2, influenza A, influenza B, and respiratory syncytial virus. This assay has been cleared by the [place] Food and Drug administration. The performance characteristics have been verified by the [facility]. Results must be considered in the clinical context, and a negative result does not rule out infection. Interpretive Data last revised 2023 Testing performed by: [address] [address] Nasopharyngeal 05/11/2024 3: 48 AM TAG WRITER 05/11/2024 3:54 AM TAG WRITER Narrative [facility] - 05/11/2024 4:33 AM TAG WRITER Is the Patient experiencing symptoms consistent with COVID?->Unknown us Amy Wei MD LAB MICROBIOLOGY - GENER AL ORDERABLES Final Result Performing Organization Address City/[facility]/ZIP Co de Phone Number [facility] [address] Department [place] [address] * POC Blood Gas and Chemistries, Venous - (05/11/2024 3:47 AM TAG WRITER) pH,pawan POC 7.41 7.32 - 7.43 Comment:Testing performed by : [address] [address] pCO2, pawan POC 44 40 - 50 mmHg ZION Comment:Testing performed by : [address] [address] pO2,pawan POC 39 mmHg ZION Comment: Interpretive Data No reference range established. Current interpretive data was last revised 2019. Testing performed by: [address] [address] HCO3, pawan (Calc) POC 28 20 - 30 mmol/L [facility] Comment:Testing performed by : [address] [address] Base excess, pawan POC 3 mmol/L [facility]ION Comment: Interpretive Data No reference range established. Current interpretive data was last revised 2019. Testing performed by: [address] [address] Glucose, pawan POC 106 70 - 199 mg/dL [facility] Comment:Testing performed by : [address] [address] Lactate, pawan POC 1.3 0.7 - 2.0 mmol/L [facility] Comment:Testing performed by : [address] [address] Blood 05/11/2024 3:47 AM TAG WRITER 05/11/2024 3:47 AM TAG WRITER us Amy Wei MD LAB POCT ORDERABLES - DE VICE Final Result [facility] [address] Department [place] [address] * Blood culture Blood Peripheral (05/11/2024 3:45 AM TAG WRITER) Report Final Report: No growth Comment:Testing performed by : [facility], [address] [facility], [place]., [address] Blood (Peripheral) 05/11/2024 3:45 AM TAG WRITER 05/11/2024 8:06 AM TAG WRITER Narrative [facility] HENDERSON - 05/15/2024 12:00 PM TAG WRITER Draw Blood cultures before administration of Antibiotics Collection->Peripheral 1. Blood cultures are incubated for 4 days on a continuously monitored blood culture system. The first report of a negative culture is issued within 24 hours of receipt of the specimen in the laboratory. 2. Positive culture results are reported as soon as they are detected. 3. The most important factor for detection of microbes in the setting of bloodstream infection is the volume of blood submitted for culture. Failure to collect an optimal blood volume can result in false negative blood cultures. 4. For pediatric patients, the recommended blood volume to collect follows a weight based strategy. See the electronic test catalog for collection instructions. 5. For positive blood cultures, a rapid molecular test may be performed for organism identification using the mariann ePlex blood culture identification panel for gram positive (BCID-GP) and gram negative (BCID-GN) organisms. This nucleic acid amplification test detects microbial DNA in positive blood culture broth. This assay has been cleared by the [place] Food and Drug Administration and its performance characteristics have been verified by the [facility]biology [facility]. For questions about this culture, contact the Microbiology Laboratory at [phone]. Interpretive data was last revised on 24. us Amy Wei MD LAB MICROBIOLOGY - GENER AL ORDERABLES Final Result [facility] [address] Department [place] [address] * POC Blood Gas and Chemistries, Venous - (05/11/2024 3:42 AM TAG WRITER) [facility] pH,pawan POC 7.42 7.32 - 7.43 Comment:Testing performed by : [address] [address] pCO2, pawan POC 44 40 - 50 mmHg [facility]ERSON Comment:Testing performed by : [address] [address] pO2,pawan POC 36 mmHg [facility] HENDERSON Comment: Interpretive Data No reference range established. Current interpretive data was last revised 2019. Testing performed by: [facility], [address] [place] [address]., [address] HCO3, pawan (Calc) POC 28 20 - 30 mmol/L [facility] Comment:Testing performed by : [address] [address] Base excess, pawan POC 3 mmol/L [facility] Comment: Interpretive Data No reference range established. Current interpretive data was last revised 2019. Testing performed by: [address] [address] Blood 05/11/2024 3:42 AM TAG WRITER 05/11/2024 3:42 AM TAG WRITER us Amy Wei MD LAB POCT ORDERABLES - DE VICE Final Result [facility] [address] [facility] [place] [address] * XR Chest 1 Vw Portable (05/11/2024 3:42 AM TAG WRITER) Anatomical Region Laterality Modality Body, Chest N/A Computed Radiogr aphy 05/11/2024 4:13 AM TAG WRITER Narrative 05/11/2024 4:15 AM TAG WRITER EXAM DESCRIPTION: XR CHEST 1 VIEW REASON FOR STUDY: SOB Sob tonight TECHNIQUE: Single radiographic view of the chest. COMPARISON: Chest x-ray of May 01, 2024. FINDINGS: LUNGS/PLEURA: Lungs are hypoventilatory with crowding of the vascular markings and diffusely increased interstitial prominence, unchanged as compared to multiple previous studies. HEART/MEDIASTINUM: Cardiac silhouette is within normal limits. Remaining mediastinal silhouettes are unremarkable. HARDWARE/LINES/TUBES: EKG leads overlie the film. BONES: No acute findings. IMPRESSION: Hypoventilatory chest. Chronic interstitial disease. THIS IS AN ELECTRONICALLY VERIFIED FINAL REPORT 05/11/2024 4:15 AM - Electronically signed by Karlie Ingram M.D. SN: SN Report ID: [id number] Reading Location: [id number] Procedure Note Karlie Ingram MD - 05/11/2024 EXAM DESCRIPTION: XR CHEST 1 VIEW REASON FOR STUDY: SOB Sob tonight TECHNIQUE: Single radiographic view of the chest. COMPARISON: Chest x-ray of May 01, 2024. FINDINGS: LUNGS/PLEURA: Lungs are hypoventilatory with crowding of the vascular markings and diffusely increased interstitial prominence,unchanged as compared to multiple previous studies. HEART/MEDIASTINUM: Cardiac silhouette is within normal limits.Remaining mediastinal silhouettes are unremarkable. HARDWARE/LINES/TUBES: EKG leads overlie the film. BONES: No acute findings. IMPRESSION: Hypoventilatory chest. Chronic interstitial disease. THIS IS AN ELECTRONICALLY VERIFIED FINAL REPORT 05/11/2024 4:15 AM - Electronically signed by Karlie Ingram M.D. SN: SN Report ID: [id number] Reading Location: [id number] us Amy Wei MD IMG XR PROCEDURES Final Result * Troponin T high-sensitivity series (baseline, 2hr, 4hr, 6hr) (05/11/2024 3:36 AM TAG WRITER) Trop T hs 12 <=22 ng/L Comment: Interpretive Data For further hscTnT resources including the diagnostic algorithm and an aid in interpretation, copy and paste this link: https://nrl.testcatalog.org/show/hsTrop Current Interpretive Data last revised 2020. Testing performed by: [facility], [address] [place] [address]., [address] Blood 05/11/2024 3:36 AM TAG WRITER 05/11/2024 3:39 AM TAG WRITER us Amy Wei MD LAB BLOOD ORDERABLES Fin al Result [facility] [address] [facility] [place] [address] * eGFR (05/11/2024 3:36 AM TAG WRITER) Pathologist [facility] eGFR >90 >=60 mL/min/1. 73 m2 Comment: Interpretive Data Reference Interval Normal >/= 90 mL/min/1.73m2 Mildly decreased* 60 - 89 mL/min/1.73m2 Mildly to moderately decreased 45 - 59 mL/min/1.73m2 Moderately to severely decreased 30 - 44 mL/min/1.73m2 Severely decreased 15 - 29 mL/min/1.73m2 Kidney Failure < 15 mL/min/1.73m2 *Relative to young adult level Estimated glomerular filtration rate is determined by the 2020 CKD-EPI equation recommended by the National Kidney Foundation (A Unifying Approach to GFR Estimation: Recommendations of the NKF-ASK Task Force on Reassessing the Inclusion of Race in Diagnosing Kidney Disease, JASN 2020). The CKD-EPI equation should not be used for patients with unstable renal function and has not been validated in children and those over 70. Current interpretive data was last reviewed 2021. Testing performed by: [address] [address] Blood 05/11/2024 3:36 AM TAG WRITER 05/11/2024 3:39 AM TAG WRITER us Amy Wei MD LAB BLOOD ORDERABLES Fin al Result [facility] [address] [place] [address] * (ABNORMAL) Differential, auto (05/11/2024 3:36 AM TAG WRITER) Pathologist [facility] Neutrophil abs 10.4(H) 1.5 - 6.5 K/cumm Comment:Testing performed by : [address] [address] Imm gran abs 0.1 0.0 - 0.1 K/cumm [facility] Comment:Testing performed by : [address] [address] Lymphocyte abs 1.0 0.8 - 3.3 K/cumm [facility] Comment:Testing performed by : [address] [address] Monocyte abs 0.5 0.2 - 0.8 K/cumm [facility] Comment:Testing performed by : [address] [address] Eosinophil abs 0.1 0.0 - 0.5 K/cumm [facility] Comment:Testing performed by : [address] [address] Basophil abs 0.0 0.0 - 0.1 K/cumm [facility] Comment:Testing performed by : [address] [address] Neutrophil pct 85.9 % [facility] Comment: Interpretive Data Percent cell count reference ranges are not reported, since discordance with absolute values may lead to misinterpretation of CBC data. Current Interpretive Data was last revised on 2017. Testing performed by: [address] [address] Imm gran pct 1.2 % [facility] Comment: Interpretive Data Percent cell count reference ranges are not reported, since discordance with absolute values may lead to misinterpretation of CBC data. Current Interpretive Data was last revised on 2017. Testing performed by: [address] [address] Lymphocyte pct 8.0 % [facility] Comment: Interpretive Data Percent cell count reference ranges are not reported, since discordance with absolute values may lead to misinterpretation of CBC data. Current Interpretive Data was last revised on 2017. Testing performed by: [address] [address] Monocyte pct 3.8 % [facility] Comment: Interpretive Data Percent cell count reference ranges are not reported, since discordance with absolute values may lead to misinterpretation of CBC data. Current Interpretive Data was last revised on 2017. Testing performed by: [address] [address] Eosinophil pct 0.9 % [facility] Comment: Interpretive Data Percent cell count reference ranges are not reported, since discordance with absolute values may lead to misinterpretation of CBC data. Current Interpretive Data was last revised on 2017. Testing performed by: [facility], [address] [place] [address]., [address] Basophil pct 0.2 % [facility] Comment: Interpretive Data Percent cell count reference ranges are not reported, since discordance with absolute values may lead to misinterpretation of CBC data. Current Interpretive Data was last revised on 2017. Testing performed by: [facility], [address] [place] [address]., [address] Blood 05/11/2024 3:36 AM TAG WRITER 05/11/2024 3:39 AM TAG WRITER us Amy Wei MD LAB BLOOD ORDERABLES Fin al Result [facility] [address] [place] [address] * Pro B-type natriuretic peptide (05/11/2024 3:36 AM TAG WRITER) NT-proBNP 287 <=300 pg/mL Comment: Interpretive Comments: A. Dyspnea in Acute Care Setting All Ages: < 300 pg/ml, acute heart failure unlikely. < 50 yrs: 300 - 450 pg/ml, further investigation warranted. > 450 pg/ml, acute heart failure likely. 50 - 74 yrs: 300 - 900 pg/ml, further investigation warranted. > 900 pg/ml, acute heart failure likely . > or = 75 yrs: 450 - 1800 pg/ml, further investigation warranted. > 1800 pg/ml, acute heart failure likely. B. Non-acute Setting < 75 yrs < 125 pg/ml, rules out heart failure. > or = 125 pg/ml, further investigation warranted. > or = 75 yrs < 450 pg/ml, rules out heart failure. > or = 450 pg/ml, further investigation warranted. - Knowledge of each individual patient's NT-proBNP range may be more useful than using similar cut-points for every patient. Please note that marked elevations in NT-proBNP levels may be observed in state other than Left Ventricular Congestive Failure, including: acute coronary syndromes, right heart strain/failure (including pulmonary embolism and cor pulmonale), critical illness, renal failure, as well as advanced age. - References: 1. Martha JACOBO et.al. Eur Heart J. 2006:27:330-337. 2. Freddy RW, Ami DE LEON. J. AM Billy Cardiol: Cardiovasc Imag. 2009;2: 216- 225. Interpretive Data Last Revised Date: 2018. Testing performed by: [address] [address] Blood 05/11/2024 3:36 AM TAG WRITER 05/11/2024 3:39 AM TAG WRITER us Amy Wei MD LAB BLOOD ORDERABLES Fin al Result [facility] [address] [facility] [place] [address] * (ABNORMAL) CBC with auto differential (05/11/2024 3:36 AM TAG WRITER) WBC 12.1(H) 3.8 - 9.9 K/cumm Comment:Testing performed by : [address] [address] Hgb 13.7 13.0 - 17.5 g/dL [facility] Comment:Testing performed by : [address] [address] Hct 40.6 38.9 - 50.3 % [facility] Comment:Testing performed by : [address] [address] Plt 257 150 - 400 K/cumm [facility] Comment:Testing performed by : [address] [address] MPV 9.1 9.1 - 12.3 fL [facility] Comment:Testing performed by : [address] [address] RBC 4.32 4.30 - 5.80 M/cumm [facility] Comment:Testing performed by : [address] [address] MCV 94.0 81.3 - 96.4 fL [facility] Comment:Testing performed by : [address] [address] MCH 31.7 27.1 - 33.3 pg [facility] Comment:Testing performed by : [address] [address] MCHC 33.7 32.3 - 35.7 g/dL [facility] Comment:Testing performed by : [address] [address] RDW CV 13.1 11.1 - 14.9 % ZION HENDERSON Comment:Testing performed by : [address] [address] RDW SD 44.9 35.7 - 48.1 fL ZION HENDERSON Comment:Testing performed by : [address] [address] NRBC abs 0.00 0.00 - 0.01 K/cumm ZION HENDERSON Comment:Testing performed by : [address] [address] Blood 05/11/2024 3:36 AM TAG WRITER 05/11/2024 3:39 AM TAG WRITER Amy Wei MD LAB BLOOD ORDERABLES Fin al Result Performing Organization Address City/[facility] de Phone Number [place] [address] [facility] [place] [address] * aPTT (05/11/2024 3:36 AM TAG WRITER) aPTT 28 22 - 37 sec Comment: Interpretive data aPTT test has not been evaluated for monitoring heparin therapy. The anti-Xa is the preferred test. Current interpretive data was last revised on 2019. Testing performed by: [address] [address] Blood 05/11/2024 3:36 AM TAG WRITER 05/11/2024 3:39 AM TAG WRITER Amy Wei MD LAB BLOOD ORDERABLES Fin al Result Performing Organization Address City/[facility] de Phone Number ZION [address] [place] [address] [place] [address] * Protime-INR (05/11/2024 3:36 AM TAG WRITER) PT 13.4 12.0 - 14.6 sec Comment:Testing performed by : [address] [address] INR 1.0 0.9 - 1.2 ZION Comment: Ref Range High Interpretive data Oral anticoagulant therapeutic ranges: Venous thromboembolism prophylaxis or treatment: 2.0-3.0 CARDIOLOGY Standard range: 2.0-3.0 High-intensity range: 2.5-3.5 Refer to indication-specific guidelines for appropriate target ranges for prosthetic heart valve replacement. Current interpretive data was last revised on 2019. Testing performed by: [address] [address] Blood 05/11/2024 3:36 AM TAG WRITER 05/11/2024 3:39 AM TAG WRITER us Amy Wei MD LAB BLOOD ORDERABLES Fin al Result [address] [address] * (ABNORMAL) D-dimer, quantitative (05/11/2024 3:36 AM TAG WRITER) D-Dimer 600(H) <=499 ng/mL FEU Comment: Interpretive data FDA approved the D-dimer, in conjunction with a low or moderate pretest probability score, to exclude venous thromboembolic events (VTE) (PE and DVT) in outpatients when the D-dimer result is < 500 ng/ml FEU. Evidence supports using an age-adjusted D-dimer cut-off for outpatients older than 50 (age x 10) to improve specificity without sacrificing sensitivity. Example: age 68, VTE cut-off 680 ng/ml FEU. References; Milan HT et al. Brit Med J. 2013;346:f2492. Katy et al. Annals Int Med. 2015;163:701-11. Current interpretive data was last revised on 2019. Testing performed by: [address] [address] Blood 05/11/2024 3:36 AM TAG WRITER 05/11/2024 3:39 AM TAG WRITER us Amy Wei MD LAB BLOOD ORDERABLES Fin al Result [facility] [address] [facility] Department [place] [address] * (ABNORMAL) Comprehensive metabolic panel (05/11/2024 3:36 AM TAG WRITER) Sodium 140 135 - 145 mmol/L Comment:Testing performed by : [address] [address] Potassium, pl 3.7 3.3 - 4.9 mmol/L ZION Comment:Testing performed by : [address] [address] Chloride 102 97 - 110 mmol/L ZION Comment:Testing performed by : [address] [address] CO2 27 22 - 32 mmol/L ZION Comment:Testing performed by : [address] [address] Anion gap 11 2 - 15 mmol/L ZION Comment:Testing performed by : [address] [address] BUN 8 6 - 25 mg/dL ZION Comment:Testing performed by : [address] [address] Creatinine 0.60(L) 0.80 - 1.30 mg/dL ZION Comment:Testing performed by : [address] [address] Glucose 124 70 - 199 mg/dL ZION Comment: Interpretive Data Fasting glucose >/= 126 mg/dl is diagnostic for diabetes. Fasting is defined as no caloric intake for at least 8 hours. Fasting glucose between 100 mg/dl to 125 mg/dl is diagnostic of prediabetes. In a patient with classic symptoms of hyperglycemia or hyperglycemic crisis, a random glucose >/= 200 mg/dl is diagnostic for diabetes. In the absence of unequivocal hyperglycemia, results should be confirmed by repeat testing. The classification and Diagnosis of Diabetes Diabetes Care 202; 46: S19-S40. Current interpretive data was last revised 2022. Testing performed by: [address] [address] Calcium 8.9 8.5 - 10.3 mg/dL ZION Comment:Testing performed by : [address] [address] Bilirubin, total 0.8 0.1 - 1.2 mg/dL ZION Comment:Testing performed by : [address] [address] Protein, pl 6.7 6.5 - 8.5 g/dL ZION Comment:Testing performed by : [address] [address] Albumin 3.7 3.5 - 5.0 g/dL ZION Comment:Testing performed by : [address] [address] Alk phos 81 40 - 130 Units/L ZION Comment:Testing performed by : [address] [address] ALT 81(H) 7 - 55 Units/L ZION Comment:Testing performed by : [address] [address] AST 65(H) 10 - 50 Units/L ZION Comment:Testing performed by : [address] [address] Blood 05/11/2024 3:36 AM TAG WRITER 05/11/2024 3:39 AM TAG WRITER us Amy Wei MD LAB BLOOD ORDERABLES Fin al Result [facility]ION [address] [facility] Department [place] [address] * ECG 12 lead (05/11/2024 3:34 AM TAG WRITER) Ventricular Rate EKG/Min 99 BPM [facility] Atrial Rate 99 BPM [facility] CT-Interval (MSEC) 166 ms [facility] QRS-Interval (MSEC) 74 ms [facility] QT-Interval (MSEC) 316 ms [facility] QTc 405 ms [facility] P Clyde 16 degrees [facility] R Clyde 9 degrees [facility] T Clyde 1 degrees [facility] Diagnosis Normal sinus rhythm Normal ECG When compared with ECG of 01-MAY-2024 13:00, Nonspecific T wave abnormality, worse in Lateral leads Confirmed by KWADWO NELSON M.D. ([id number]) on 05/11/2024 10:41:23 AM [facility] 05/11/2024 3:34 AM TAG WRITER 05/11/2024 10:41 AM TAG WRITER us Amy Wei MD ECG ORDERABLES Final Re sult [facility] * CT CRITICAL CARE ILL/INJURED PATIENT INIT 30-74 MIN (05/11/2024 3:26 AM TAG WRITER) Narrative Amy Wei MD - 05/11/2024 3:26 AM TAG WRITER Amy Wei MD 05/11/2024 4:56 AM Critical Care Performed by: Amy Wei MD Authorized by: Amy Wei MD Critical care provider statement: As reflected in the history, physical exam, orders, notes, and/or MDM, I was personally present while the patient was critically ill and provided critical care services for 31 minutes, excluding time involved in separately billable procedures. Critical care was necessary to treat or prevent imminent or life-threatening deterioration of the following condition(s): acute respiratory insufficiency and COPD with acute exacerbation sepsis us Amy Wei MD IN CLINIC/BEDSIDE ORDERA BLES Final Result * Troponin T high-sensitivity 6-hour (05/01/2024 8:00 PM TAG WRITER) Trop T hs 7 <=22 ng/L Comment: Interpretive Data For further hscTnT resources including the diagnostic algorithm and an aid in interpretation, copy and paste this link: [email or web address].[email or web address]/show/[email or web address] Current Interpretive Data last revised 2020. Testing performed by: [address] [address] Trop T hs delta 1 ng/L ZION HENDERSON Comment:Testing performed by : [facility], [address] [place] [address]., [address] Trop T hs interp Insignificant ZION HENDERSON Comment:Testing performed by : [address] [address] Blood 05/01/2024 8:00 PM TAG WRITER 05/01/2024 8:04 PM TAG WRITER us Cheyenne Gutierrez SURVEYING OR SPATIAL SCIENCE TECHNICIAN LAB BLOOD ORDERABLES Fin al Result ZOIN HENDERSON [address] [facility] [place] [address] * CT Chest PE (CTA) W Contrast (05/01/2024 6:40 PM TAG WRITER) Anatomical Region Laterality Modality Body N/A Computed Tomogra phy 05/01/2024 6:51 PM TAG WRITER Narrative 05/01/2024 6:57 PM TAG WRITER EXAM DESCRIPTION: CT CHEST PE (CTA) W CONTRAST REASON FOR STUDY: PE suspected, low pretest prob c/o cough, weakness, and SOB since Wed. States he had temp of 101 today and took ASA [employer]. Pt was seen at his PCP on Wednesday and put on ABX. Pt states feeling worse. Pt sent to r/o PNA. Hx of pulmonary fibrosis. Pt wears O2 with any activity. TECHNIQUE: CT angiogram of the chest performed with intravenous contrast using helical scanning technique with dynamic intravenous contrast injection. Reconstructed coronal and sagittal MPR images reviewed. All images stored on PACS. 3D MIP images rendered on scanning unit and reviewed at time of interpretation. Automated exposure control was used as a dose optimization technique for this examination. CONTRAST TYPE/DOSE: 100mL of IOVERSOL 350 MG IODINE/ML INTRAVENOUS SYRINGE injected via intravenous COMPARISON: 05/01/2024 FINDINGS: VASCULATURE: The exam is significantly suboptimal secondary to timing of contrast bolus, technique, and mild motion artifact. There is no definite evidence of a large central pulmonary embolus. The exam is essentially nondiagnostic for the evaluation of segmental and subsegmental pulmonary emboli. There are atherosclerotic changes of the aorta without definite evidence of acute aortic injury or dissection. There are atherosclerotic changes of the coronary vessels. There is dilatation of main pulmonary artery measuring up to 4.6 cm, which is concerning for pulmonary arterial hypertension. LUNGS: There is mild biapical pleural thickening and scarring. There is no definite evidence of a pneumothorax. The central airways are grossly patent. There are moderate emphysematous changes of lungs with scattered subsegmental atelectasis and scarring. There is scattered interlobular septal thickening with reticulations, mild traction bronchiectasis, and subtle honeycombing, which is most significant in the periphery of the mid to lower bilateral lungs, which is concerning for chronic interstitial changes such as UIP. There is no definite evidence of a pleural effusion. There are subtle patchy ground-glass airspace opacities in the bilateral lower lobes, which may be related to subsegmental atelectasis/scarring, however developing superimposed airspace disease can not be entirely excluded.. MEDIASTINUM/JOSE MANUEL: The heart size is upper limits of normal. There is no definite evidence of pericardial effusion. There are borderline enlarged and prominent subcentimeter mediastinal and bilateral hilar lymph nodes, which are overall grossly similar to prior chest CT dated 2023, and therefore likely benign, and possibly reactive to the chronic interstitial changes. For example, there is a precarinal lymph node measuring 1.1 cm, which previously measured 1.1 cm (axial image 63). There is a subcarinal lymph node measuring 1.1 cm, which previously measured 1.1 cm (axial image 77). There is a right hilar lymph node measuring 1.0 cm (axial image 74). There is a left hilar lymph node measuring 1.0 cm (axial image 79). CHEST WALL: No masses. No subcutaneous air. HARDWARE/LINES/TUBES: None. UPPER ABDOMEN: There is a mild nonspecific patulous appearance of the esophagus. There is a small amount of ingested debris noted in the upper mid esophagus, which is compatible with gastroesophageal reflux. There is small hiatal hernia. The bilateral adrenal glands are grossly stable and unremarkable. There is a stable cyst in the left hepatic lobe measuring 1.0 cm, which does not require follow-up imaging. There is a stable cyst in the upper pole of the right kidney measuring 2.5 cm, which does not require follow-up imaging. MUSCULOSKELETAL: There is mild osteopenia. There is minimal dextroscoliotic curvature of the spine with degenerative changes. OTHER: No significant abnormality. IMPRESSION: Significantly suboptimal exam secondary to timing of contrast bolus, technique, and mild motion artifact. No definite evidence of a large central pulmonary embolus. The exam is essentially nondiagnostic for the evaluation of segmental and subsegmental pulmonary emboli. Subtle patchy ground-glass airspace opacities in the bilateral lower lobes, which may be related to subsegmental atelectasis/scarring, however developing superimposed airspace disease can not be entirely excluded. Moderate emphysematous changes of lungs with scattered subsegmental atelectasis and scarring. Recommend evaluation for annual lung cancer screening enrollment if the patient qualifies based on clinical factors and smoking history. Scattered interlobular septal thickening with reticulations, mild traction bronchiectasis, and subtle honeycombing, which is most significant in the periphery of the mid to lower bilateral lungs, which is concerning for chronic interstitial changes such as UIP. Borderline enlarged and prominent subcentimeter mediastinal and bilateral hilar lymph nodes, which are overall grossly similar to prior chest CT dated 2023, and therefore likely benign, and possibly reactive to the chronic interstitial changes. Small hiatal hernia with a small amount of ingested debris noted in the upper mid esophagus, which is compatible with gastroesophageal reflux. THIS IS AN ELECTRONICALLY VERIFIED FINAL REPORT 05/01/2024 6:57 PM - Electronically signed by Pratik Maldonado D.O. PS: PS Report ID: [id number] Reading Location: [id number] Procedure Note Pratik Maldonado, DO - 05/01/2024 EXAM DESCRIPTION: CT CHEST PE (CTA) W CONTRAST REASON FOR STUDY: PE suspected, low pretest prob c/o cough, weakness, and SOB since Wed. 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 Pt was seen at his PCP on Wednesday and put on ABX. Pt states feeling worse. Pt sent to r/o PNA. Hx of pulmonary fibrosis. Pt wears O2with any activity. TECHNIQUE: CT angiogram of the chest performed with intravenous contrastusing helical scanning technique with dynamic intravenous contrast injection. Reconstructed coronal and sagittal MPR images reviewed. All images storedon PACS. 3D MIP images rendered on scanning unit and reviewed at time of interpretation. Automated exposure control was used as a doseoptimization technique for this examination. CONTRAST TYPE/DOSE: 100mL of IOVERSOL 350 MG IODINE/ML INTRAVENOUSSYRINGE injected via intravenous COMPARISON: 05/01/2024 FINDINGS: VASCULATURE: The exam is significantly suboptimal secondary to timing of contrast bolus, technique, and mild motion artifact. There isno definite evidence of a large central pulmonary embolus. The exam is essentially nondiagnostic for the evaluation of segmental and subsegmental pulmonary emboli. There are atherosclerotic changes of the aorta without definite evidence of acute aortic injury or dissection. There are atherosclerotic changes of the coronary vessels. There is dilatation ofmain pulmonary artery measuring up to 4.6 cm, which is concerning for pulmonary arterial hypertension. LUNGS: There is mild biapical pleural thickening and scarring. There isno definite evidence of a pneumothorax. The central airways are grosslypatent. There are moderate emphysematous changes of lungs with scatteredsubsegmental atelectasis and scarring. There is scattered interlobular septalthickening with reticulations, mild traction bronchiectasis, and subtle honeycombing, which is most significant in the periphery of the mid to lower bilateral lungs, which is concerning for chronic interstitial changes such as UIP. There is no definite evidence of a pleural effusion. There are subtlepatchy ground-glass airspace opacities in the bilateral lower lobes, which may be related to subsegmental atelectasis/scarring, however developingsuperimposed airspace disease can not be entirely excluded.. MEDIASTINUM/JOSE MANUEL: The heart size is upper limits of normal. There is no definite evidence of pericardial effusion. There are borderline enlarged and prominent subcentimeter mediastinal and bilateral hilar lymph nodes, which are overall grossly similar to [place] 20[facility], and therefore likely benign, and possibly reactive tothe chronic interstitial changes. For example, there is a precarinal lymphnode measuring 1.1 cm, which previously measured 1.1 cm (axial image 63).There is a subcarinal lymph node measuring 1.1 cm, which previously measured 1.1 cm (axial image 77). There is a right hilar lymph node measuring 1.0 cm(axial image 74). There is a left hilar lymph node measuring 1.0 cm (axial image 79). CHEST WALL: No masses. No subcutaneous air. HARDWARE/LINES/TUBES: None. UPPER ABDOMEN: There is a mild nonspecific patulous appearance of the esophagus. There is a small amount of ingested debris noted in the uppermid esophagus, which is compatible with gastroesophageal reflux. There issmall hiatal hernia. The bilateral adrenal glands are grossly stable and unremarkable. There is a stable cyst in the left hepatic lobe measuring1.0 cm, which does not require follow-up imaging. There is a stable cyst inthe upper pole of the right kidney measuring 2.5 cm, which does not require follow-up imaging. MUSCULOSKELETAL: There is mild osteopenia. There is minimaldextroscoliotic curvature of the spine with degenerative changes. OTHER: No significant abnormality. IMPRESSION: Significantly suboptimal exam secondary to timing of contrast bolus, technique, and mild motion artifact. No definite evidence of a large central pulmonary embolus. The exam is essentially nondiagnostic for the evaluation of segmental and subsegmental pulmonary emboli. Subtle patchy ground-glass airspace opacities in the bilateral lowerlobes, which may be related to subsegmental atelectasis/scarring, howeverdeveloping superimposed airspace disease can not be entirely excluded. Moderate emphysematous changes of lungs with scattered subsegmental atelectasis and scarring. Recommend evaluation for annual lung cancer screening enrollment if the patient qualifies based on clinical factorsand smoking history. Scattered interlobular septal thickening with reticulations, mildtraction bronchiectasis, and subtle honeycombing, which is most significant in the periphery of the mid to lower bilateral lungs, which is concerning forchronic interstitial changes such as UIP. Borderline enlarged and prominent subcentimeter mediastinal and bilateral hilar lymph nodes, which are overall grossly similar to prior chest CTdated 2023, and therefore likely benign, and possibly reactive to thechronic interstitial changes. Small hiatal hernia with a small amount of ingested debris noted in theupper mid esophagus, which is compatible with gastroesophageal reflux. THIS IS AN ELECTRONICALLY VERIFIED FINAL REPORT 05/01/2024 6:57 PM - Electronically signed by Pratik Maldonado D.O. PS: PS Report ID: [id number] Reading Location: [id number] Cheyenne Gutierrez SURVEYING OR SPATIAL SCIENCE TECHNICIAN IMG CT PROCEDURES Final Result * Troponin T high-sensitivity 4-hour (05/01/2024 5:26 PM TAG WRITER) Trop T hs 6 <=22 ng/L Comment: Interpretive Data For further hscTnT resources including the diagnostic algorithm and an aid in interpretation, copy and paste this link: [email or web address].[email or web address]/show/[email or web address] Current Interpretive Data last revised 2020. Testing performed by: [address] [address] Trop T hs delta 0 ng/L ZION Comment:Testing performed by : [address] [address] Trop T hs interp Insignificant ZION Comment:Testing performed by : [address] [address] Blood 05/01/2024 5:26 PM TAG WRITER 05/01/2024 5:29 PM TAG WRITER Cheyenne Gutierrez SURVEYING OR SPATIAL SCIENCE TECHNICIAN LAB BLOOD ORDERABLES Fin al Result [facility] [address] [facility] Department [place] [address] * XR Chest 1 Vw Portable (if patient condition/safety warrant portable) (05/01/2024 1:06 PM TAG WRITER) Anatomical Region Laterality Modality Body, Chest N/A Computed Radiogr aphy 05/01/2024 1:49 PM TAG WRITER Narrative 05/01/2024 1:57 PM TAG WRITER EXAM DESCRIPTION: XR CHEST 1 VIEW REASON FOR STUDY: Shortness of breath Pt c/o cough, weakness, and SOB since Wed. States he had temp of 101 today; Hx pulmonary fibrosis TECHNIQUE: Single radiographic view(s) of the chest. COMPARISON: 10/30/2023 FINDINGS: LUNGS: Redemonstrated course interstitial opacities in keeping with the patient's known pulmonary fibrosis. Few right lower lobe opacities could reflect superimposed infiltrate or minimal edema. No new focal consolidate or definite pleural effusion. No pneumothorax HEART/MEDIASTINUM: Cardiac silhouette normal in size. Mediastinal and hilar contours appear normal. LINES/TUBES: None. BONES: No acute osseous abnormality. IMPRESSION: Changes of pulmonary fibrosis with few right lower lobe opacities possibly representing superimposed edema or infiltrate. THIS IS AN ELECTRONICALLY VERIFIED FINAL REPORT 05/01/2024 1:57 PM - Electronically signed by Peter Marquis M.D. AG: IRENE Report ID: [id number] Reading Location: [place] [address] Procedure Note Peter Marquis MD - 05/01/2024 EXAM DESCRIPTION: XR CHEST 1 VIEW REASON FOR STUDY: Shortness of breath Pt c/o cough, weakness, and SOB since Wed. States he had temp of 101today; Hx pulmonary fibrosis TECHNIQUE: Single radiographic view(s) of the chest. COMPARISON: 10/30/2023 FINDINGS: LUNGS: Redemonstrated course interstitial opacities in keepingwith the patient's known pulmonary fibrosis. Few right lower lobe opacitiescould reflect superimposed infiltrate or minimal edema. No new focalconsolidate or definite pleural effusion. No pneumothorax HEART/MEDIASTINUM: Cardiac silhouette normal in size. Mediastinal andhilar contours appear normal. LINES/TUBES: None. BONES: No acute osseous abnormality. IMPRESSION: Changes of pulmonary fibrosis with few right lower lobe opacitiespossibly representing superimposed edema or infiltrate. THIS IS AN ELECTRONICALLY VERIFIED FINAL REPORT 05/01/2024 1:57 PM - Electronically signed by Peter Marquis M.D. AG: IRENE Report ID: [id number] Reading Location: [place] [address] Cheyenne Gutierrez SURVEYING OR SPATIAL SCIENCE TECHNICIAN IMG XR PROCEDURES Final Result * Troponin T high-sensitivity series (baseline, 2hr, 4hr, 6hr) (05/01/2024 1:01 PM TAG WRITER) Pathologist [facility] Trop T hs <6 <=22 ng/L Comment: Interpretive Data For further hscTnT resources including the diagnostic algorithm and an aid in interpretation, copy and paste this link: [email or web address].[email or web address]/show/[email or web address] Current Interpretive Data last revised 2020. Testing performed by: [address] [address] Blood 05/01/2024 1:01 PM TAG WRITER 05/01/2024 1:11 PM TAG WRITER Cheyenne Gutierrez SURVEYING OR SPATIAL SCIENCE TECHNICIAN LAB BLOOD ORDERABLES Fin al Result [facility] [address] [facility] Department [place] [address] * (ABNORMAL) Influenza A/B, RSV, and COVID-19 PCR Nasopharyngeal (05/01/2024 1:01 PM TAG WRITER) Pathologist [facility] COVID-19 RNA Negative Negative Comment:Testing performed by : [address] [address] Influenza A RNA Negative Negative ZION Comment:Testing performed by : [address] [address] Influenza B RNA Negative Negative ZION Comment:Testing performed by : [address] [address] RSV RNA Positive(A) Negative ZION Comment: Interpretive data: Testing performed by [facility]. This test is performed using the [employer] Xpert Xpress CoV-2/Flu/RSV plus assay. This is a multiplex, real-time reverse transcriptase PCR assay intended for the qualitative detection of nucleic acid from SARS-CoV-2, influenza A, influenza B, and respiratory syncytial virus. This assay has been cleared by the [place] Food and Drug administration. The performance characteristics have been verified by the [facility]. Results must be considered in the clinical context, and a negative result does not rule out infection. Interpretive Data last revised 2023 Testing performed by: [facility], [address] [place] [address]., [id number] Nasopharyngeal 05/01/2024 1: 01 PM TAG WRITER 05/01/2024 1:11 PM TAG WRITER Narrative ZION - 05/01/2024 1:57 PM TAG WRITER Is the Patient experiencing symptoms consistent with COVID?->Yes us Cheyenne Gutierrez NP LAB MICROBIOLOGY - GENER AL ORDERABLES Final Result Performing Organization Address [facility] [facility] Co de Phone Number [facility] [address] Department [place] [address] * eGFR (05/01/2024 1:01 PM TAG WRITER) eGFR >90 >=60 mL/min/1. 73 m2 Comment: Interpretive Data Reference Interval Normal >/= 90 mL/min/1.73m2 Mildly decreased* 60 - 89 mL/min/1.73m2 Mildly to moderately decreased 45 - 59 mL/min/1.73m2 Moderately to severely decreased 30 - 44 mL/min/1.73m2 Severely decreased 15 - 29 mL/min/1.73m2 Kidney Failure < 15 mL/min/1.73m2 *Relative to young adult level Estimated glomerular filtration rate is determined by the 2020 CKD-EPI equation recommended by the National Kidney Foundation (A Unifying Approach to GFR Estimation: Recommendations of the NKF-ASK Task Force on Reassessing the Inclusion of Race in Diagnosing Kidney Disease, JASN 2020). The CKD-EPI equation should not be used for patients with unstable renal function and has not been validated in children and those over 70. Current interpretive data was last reviewed 2021. Testing performed by: [facility], [address] [place] [address]., [address] Blood 05/01/2024 1:01 PM TAG WRITER 05/01/2024 1:11 PM TAG WRITER Cheyenne Gutierrez NP LAB BLOOD ORDERABLES Fin al Result Performing Organization Address City/[facility] Co de Phone Number [facility] [address] Department [place] [address] * (ABNORMAL) Differential, auto (05/01/2024 1:01 PM TAG WRITER) Neutrophil abs 9.3(H) 1.5 - 6.5 K/cumm Comment:Testing performed by : [address] [address] Imm gran abs 0.0 0.0 - 0.1 K/cumm ZION Comment:Testing performed by : [address] [address] Lymphocyte abs 0.7(L) 0.8 - 3.3 K/cumm ZION Comment:Testing performed by : [address] [address] Monocyte abs 0.7 0.2 - 0.8 K/cumm ZION Comment:Testing performed by : [address] [address] Eosinophil abs 0.1 0.0 - 0.5 K/cumm ZION Comment:Testing performed by : [address] [address] Basophil abs 0.0 0.0 - 0.1 K/cumm ZION Comment:Testing performed by : [address] [address] Neutrophil pct 85.6 % ZION Comment: Interpretive Data Percent cell count reference ranges are not reported, since discordance with absolute values may lead to misinterpretation of CBC data. Current Interpretive Data was last revised on 2017. Testing performed by: [address] [address] Imm gran pct 0.3 % ZION Comment: Interpretive Data Percent cell count reference ranges are not reported, since discordance with absolute values may lead to misinterpretation of CBC data. Current Interpretive Data was last revised on 2017. Testing performed by: [address] [address] Lymphocyte pct 6.9 % ZION Comment: Interpretive Data Percent cell count reference ranges are not reported, since discordance with absolute values may lead to misinterpretation of CBC data. Current Interpretive Data was last revised on 2017. Testing performed by: [address] [address] Monocyte pct 6.2 % ZION Comment: Interpretive Data Percent cell count reference ranges are not reported, since discordance with absolute values may lead to misinterpretation of CBC data. Current Interpretive Data was last revised on 2017. Testing performed by: [address] [address] Eosinophil pct 0.6 % ZION Comment: Interpretive Data Percent cell count reference ranges are not reported, since discordance with absolute values may lead to misinterpretation of CBC data. Current Interpretive Data was last revised on 2017. Testing performed by: [address] [address] Basophil pct 0.4 % ZION Comment: Interpretive Data Percent cell count reference ranges are not reported, since discordance with absolute values may lead to misinterpretation of CBC data. Current Interpretive Data was last revised on 2017. Testing performed by: [address] [address] Blood 05/01/2024 1:01 PM TAG WRITER 05/01/2024 1:11 PM TAG WRITER Cheyenne Gutierrez SURVEYING OR SPATIAL SCIENCE TECHNICIAN LAB BLOOD ORDERABLES Fin al Result [facility] [address] Department of Laboratories [place], [place] [id number] * (ABNORMAL) CBC with auto differential (05/01/2024 1:01 PM TAG WRITER) WBC 10.8(H) 3.8 - 9.9 K/cumm Comment:Testing performed by : [address] [address] Hgb 15.4 13.0 - 17.5 g/dL ZION Comment:Testing performed by : [address] [address] Hct 44.3 38.9 - 50.3 % ZION HENDERSON Comment:Testing performed by : [address] [address] Plt 223 150 - 400 K/cumm ZION Comment:Testing performed by : [address] [address] MPV 9.1 9.1 - 12.3 fL ZION Comment:Testing performed by : [address] [address] RBC 4.77 4.30 - 5.80 M/cumm ZION Comment:Testing performed by : [address] [address] MCV 92.9 81.3 - 96.4 fL ZION Comment:Testing performed by : [address] [address] MCH 32.3 27.1 - 33.3 pg ZION Comment:Testing performed by : [address] [address] MCHC 34.8 32.3 - 35.7 g/dL ZION Comment:Testing performed by : [address] [address] RDW CV 12.6 11.1 - 14.9 % ZION Comment:Testing performed by : [address] [address] RDW SD 42.9 35.7 - 48.1 fL ZION Comment:Testing performed by : [address] [address] NRBC abs 0.00 0.00 - 0.01 K/cumm ZION Comment:Testing performed by : [address] [address] Blood 05/01/2024 1:01 PM TAG WRITER 05/01/2024 1:11 PM TAG WRITER us Cheyenne Gutierrez SURVEYING OR SPATIAL SCIENCE TECHNICIAN LAB BLOOD ORDERABLES Fin al Result [facility] [address] Department [place] [address] * (ABNORMAL) Comprehensive metabolic panel (05/01/2024 1:01 PM TAG WRITER) Sodium 137 135 - 145 mmol/L Comment:Testing performed by : [address] [address] Potassium, pl 3.9 3.3 - 4.9 mmol/L ZION Comment:Testing performed by : [address] [address] Chloride 99 97 - 110 mmol/L ZION Comment:Testing performed by : [address] [address] CO2 25 22 - 32 mmol/L ZION Comment:Testing performed by : [address] [address] Anion gap 13 2 - 15 mmol/L ZION Comment:Testing performed by : [address] [address] BUN 7 6 - 25 mg/dL ZION Comment:Testing performed by : [address] [address] Creatinine 0.50(L) 0.80 - 1.30 mg/dL ZION Comment:Testing performed by : [address] [address] Glucose 103 70 - 199 mg/dL ZION Comment: Interpretive Data Fasting glucose >/= 126 mg/dl is diagnostic for diabetes. Fasting is defined as no caloric intake for at least 8 hours. Fasting glucose between 100 mg/dl to 125 mg/dl is diagnostic of prediabetes. In a patient with classic symptoms of hyperglycemia or hyperglycemic crisis, a random glucose >/= 200 mg/dl is diagnostic for diabetes. In the absence of unequivocal hyperglycemia, results should be confirmed by repeat testing. The classification and Diagnosis of Diabetes Diabetes Care 202; 46: S19-S40. Current interpretive data was last revised 2022. Testing performed by: [address] [address] Calcium 9.7 8.5 - 10.3 mg/dL ZION Comment:Testing performed by : [address] [address] Bilirubin, total 1.7(H) 0.1 - 1.2 mg/dL ZION Comment:Testing performed by : [address], [address] Protein, pl 7.8 6.5 - 8.5 g/dL ZION Comment:Testing performed by : [address], [address] Albumin 4.4 3.5 - 5.0 g/dL ZION Comment:Testing performed by : [address], [address] Alk phos 85 40 - 130 Units/L ZION Comment:Testing performed by : [address], [address] ALT 31 7 - 55 Units/L ZION Comment:Testing performed by : [address], [address] AST 27 10 - 50 Units/L ZION Comment:Testing performed by : [address], [address] Blood 05/01/2024 1:01 PM TAG WRITER 05/01/2024 1:11 PM TAG WRITER Cheyenne Gutierrez SURVEYING OR SPATIAL SCIENCE TECHNICIAN LAB BLOOD ORDERABLES Fin al Result [facility] [address] Department [place] [address] * ECG 12 lead (05/01/2024 1:00 PM TAG WRITER) Ventricular Rate EKG/Min 83 BPM [facility] Atrial Rate 83 BPM [facility] CT-Interval (MSEC) 186 ms [facility] QRS-Interval (MSEC) 86 ms [facility] QT-Interval (MSEC) 388 ms [facility] QTc 455 ms [facility] P Clyde 57 degrees [facility] R Clyde -1 degrees [facility] T Clyde -27 degrees [facility] Diagnosis Normal sinus rhythm Normal ECG When compared with ECG of 30-OCT-2023 12:02, No significant change was found Confirmed by CHELE DERAS M.D. ([id number]) on 05/02/2024 9:27:42 AM [facility] 05/01/2024 1:00 PM TAG WRITER 05/02/2024 9:27 AM TAG WRITER Cheyenne Gutierrez SURVEYING OR SPATIAL SCIENCE TECHNICIAN ECG ORDERABLES Final Re sult [facility] * POC Influenza A/B, COVID-19 antigen (04/28/2024 11:27 AM TAG WRITER) Influenza A Ag, POC Negative Negative [facility] Influenza B Ag, POC Negative Negative [facility] COVID-19 Ag POC Presumptive Negative Presumptive Negative, Invalid [facility] Nasal 04/28/2024 11:2 7 AM TAG WRITER us Merary Zuleta POINT OF CARE TEST ORDER MICHEL Final Result Performing Organization Address [facility] Co de Phone Number [facility] [address] * PSA screen (04/24/2024 9:32 AM TAG WRITER) PSA 2.47 < OR = 4.00 ng/mL [facility] Comment: The total PSA value from this assay system is standardized against the WHO standard. The test result will be approximately 20% lower when compared to the equimolar-standardized total PSA (Jamie Melly). Comparison of serial PSA results should be interpreted with this fact in mind. This test was performed using the Siemens chemiluminescent method. Values obtained from different assay methods cannot be used interchangeably. PSA levels, regardless of value, should not be interpreted as absolute evidence of the presence or absence of disease. Blood 04/24/2024 9:32 AM TAG WRITER 04/24/2024 9:33 AM TAG WRITER us Ck Chacon MD LAB BLOOD ORDERABLES Final Re sult [facility] [address] [address] [address] * CBC with auto differential (04/24/2024 9:32 AM TAG WRITER) WBC 7.0 3.8 - 10.8 Thousand/u L [facility] RBC, POC 4.81 4.20 - 5.80 Million/uL [facility] Hgb 15.4 13.2 - 17.1 g/dL [facility] Hct 47.4 38.5 - 50.0 % [facility] MCV 98.5 80.0 - 100.0 fL [facility] MCH 32.0 27.0 - 33.0 pg [facility] MCHC 32.5 32.0 - 36.0 g/dL [facility] Comment: For adults, a slight decrease in the calculated MCHC value (in the range of 30 to 32 g/dL) is most likely not clinically significant; however, it should be interpreted with caution in correlation with other red cell parameters and the patient's clinical condition. Rdw 12.4 11.0 - 15.0 % [facility] Platelets 252 140 - 400 Thousand/u L [facility] MPV 9.8 7.5 - 12.5 fL [facility] Neutrophils, abs 4,795 1,500 - 7,800 cells/uL [facility] Lymphocytes, abs 1,330 850 - 3,900 cells/uL [facility] Monocyte abs 616 200 - 950 cells/uL [facility] Eosinophils, abs 231 15 - 500 cells/uL [facility] Basophils, abs 28 0 - 200 cells/uL [facility] Neutrophils 68.5 % [facility] Lymphocyte pct 19.0 % [facility] Monocytes 8.8 % [facility] Eosinophils 3.3 % [facility] Basophils 0.4 % [facility] Blood 04/24/2024 9:32 AM TAG WRITER 04/24/2024 9:33 AM TAG WRITER us Ck Chacon MD LAB BLOOD ORDERABLES Final Re sult Performing Organization Address [facility]/ZIP Co de Phone Number [facility] [address] [address] [phone] * Lipid panel (04/24/2024 9:32 AM TAG WRITER) Cholesterol 164 <200 mg/dL [facility] HDL 65 > OR = 40 mg/dL [facility] Triglycerides 90 <150 mg/dL [facility] LDL 82 mg/dL (calc) [facility] Comment: Reference range: <100 Desirable range <100 mg/dL for primary prevention; <70 mg/dL for patients with CHD or diabetic patients with > or = 2 CHD risk factors. LDL-C is now calculated using the Lissy calculation, which is a validated novel method providing better accuracy than the Friedewald equation in the estimation of LDL-C. Benigno SS et al. NANETTE. 2013;310(19): 8501-9579 (http://education.BOND/faq/MMP948) Chol/HDL ratio 2.5 <5.0 (calc) [facility] Non-HDL, (LDL+VLDL) 99 <130 mg/dL (calc) [facility] Comment: For patients with diabetes plus 1 major ASCVD risk factor, treating to a non-HDL-C goal of <100 mg/dL (LDL-C of <70 mg/dL) is considered a therapeutic option. Blood 04/24/2024 9:32 AM TAG WRITER 04/24/2024 9:33 AM TAG WRITER Ck Chacon MD LAB BLOOD ORDERABLES Final Re sult Performing Organization Address [facility]/ZIP Co de Phone Number [facility] [address] [address] [phone] * (ABNORMAL) Comprehensive metabolic panel (04/24/2024 9:32 AM TAG WRITER) Glucose 105(H) 65 - 99 mg/dL [facility] Comment: Fasting reference interval For someone without known diabetes, a glucose value between 100 and 125 mg/dL is consistent with prediabetes and should be confirmed with a follow-up test. BUN 7 7 - 25 mg/dL [facility] Creatinine 0.81 0.70 - 1.28 mg/dL [facility] eGFR 93 > OR = 60 mL/min/1.7 3m2 [facility] BUN/creat ratio SEE NOTE: 6 - 22 (calc) [facility] Comment: Not Reported: BUN and Creatinine are within reference range. Sodium 139 135 - 146 mmol/L [facility] Potassium, pl 3.9 3.5 - 5.3 mmol/L [facility] Chloride 100 98 - 110 mmol/L [facility] CO2 29 20 - 32 mmol/L [facility] Calcium 9.5 8.6 - 10.3 mg/dL [facility] Protein, sr 7.5 6.1 - 8.1 g/dL [facility] Albumin 4.7 3.6 - 5.1 g/dL [facility] GLOBULIN 2.8 1.9 - 3.7 g/dL (calc) [facility] Alb/glob ratio 1.7 1.0 - 2.5 (calc) [facility] Bilirubin, total 1.8(H) 0.2 - 1.2 mg/dL [facility] Alk phos 64 35 - 144 U/L [facility] AST 21 10 - 35 U/L [facility] ALT (SGPT) 27 9 - 46 U/L [facility] Blood 04/24/2024 9:32 AM TAG WRITER 04/24/2024 9:33 AM TAG WRITER us Ck Chacon MD LAB BLOOD ORDERABLES Final Re sult [facility] [address] [address] [place] [address] * CT Abdomen Pelvis WO Contrast (02/02/2024 11:05 AM CDT) Anatomical Region Laterality Modality Body N/A Computed Tomogra phy 02/02/2024 11:3 0 AM CDT Narrative 02/02/2024 11:44 AM CDT EXAM DESCRIPTION: CT ABDOMEN PELVIS WO CONTRAST REASON FOR STUDY: Flank pain, kidney stone suspected c/o flank pain. Pt complains of L sided flank pain that radiates around to his back. Pt rates the pain an 8-9/10 . Pt notes the pain onset at 0830. Pt has no alleviating or aggravating factors concerning this flank pain. Pt describes this pain as sharp/stabby. Pt endorses associated nausea/vomiting. Pt reports the last episode of emesis occurred at home prior to EMS arrival. Pt is on eliquis, Hx of A-fib. Pt denies urinary symptoms, hematemesis, or any other symptoms. Pt has no other acute complaints. TECHNIQUE: CT scan of the abdomen and pelvis performed without intravenous and without oral contrast using helical scanning technique. Reconstructed coronal and sagittal MPR images reviewed. All images stored on PACS. Automated exposure control was used as a dose optimization technique for this examination. COMPARISON: Abdomen pelvis CT 04/06/2023 and abdominal ultrasound 06/10/2023 FINDINGS: The sensitivity for detection of visceral lesions is diminished without the use of intravenous contrast. LOWER CHEST: Emphysema with coarse interstitial and patchy ground-glass opacities in the lung bases compatible with chronic lung disease that has increased compared to 04/06/2023. No consolidative airspace disease identified. No pleural effusion. LIVER: Normal size. Unchanged 1 cm left hepatic hypodensity favoring a cyst. GALLBLADDER: Surgically absent. BILE DUCTS: No intrahepatic or extrahepatic ductal dilatation. SPLEEN: Normal size. No focal lesions. PANCREAS: No identified cystic or solid masses. No significant calcifications. No adjacent inflammation or peripancreatic fluid collections. Pancreatic duct not dilated. ADRENALS: Normal. KIDNEYS/URINARY TRACT: Mild bilateral nonspecific perinephric stranding. Unchanged area of thinning in the left renal cortex. Several right renal cysts are similar to the prior given differences in technique. No right renal calculus or hydronephrosis. There is a 6 mm obstructing calculus in the distal left ureter at the ureterovesicular junction causing mild hydroureter and hydronephrosis. Additional 2 mm nonobstructing left renal calculus. Urinary bladder is thick-walled with surrounding inflammatory stranding. GI: Tiny hiatal hernia. No dilated bowel loops. No obvious wall thickening. Appendix is not readily identified. No significant diverticular disease. PERITONEUM: No ascites or free air. RETROPERITONEUM: No mass or adenopathy. REPRODUCTIVE: No significant abnormality. VASCULATURE: Moderate atherosclerotic calcification of the aorta without aneurysm. MUSCULOSKELETAL: No acute fracture or aggressive osseous lesion. OTHER: No other abnormality. IMPRESSION: 6 mm obstructing calculus in the distal left ureter at the ureterovesicular junction causing mild hydronephrosis. 2 mm nonobstructing left renal calculus. Thick-walled urinary bladder with surrounding inflammatory stranding suggesting reactive or infectious cystitis. THIS IS AN ELECTRONICALLY VERIFIED FINAL REPORT 02/02/2024 11:44 AM - Electronically signed by Peter Marquis M.D. AG: IRENE Report ID: [id number] Reading Location: [id number] Procedure Note Peter Marquis MD - 02/02/2024 EXAM DESCRIPTION: CT ABDOMEN PELVIS WO CONTRAST REASON FOR STUDY: Flank pain, kidney stone suspected c/o flank pain. Pt complains of L sided flank pain that radiates around tohis back. Pt rates the pain an 8-9/10 . Pt notes the pain onset at 0830. Pthas no alleviating or aggravating factors concerning this flank pain. Ptdescribes this pain as sharp/stabby. Pt endorses associated nausea/vomiting. Pt reports the last episode of emesis occurred at home prior to EMS arrival.Pt is on eliquis, Hx of A-fib. Pt denies urinary symptoms, hematemesis, orany other symptoms. Pt has no other acute complaints. TECHNIQUE: CT scan of the abdomen and pelvis performed without intravenousand without oral contrast using helical scanning technique. Reconstructed coronal and sagittal MPR images reviewed. All images stored on PACS.Automated exposure control was used as a dose optimization technique for this examination. COMPARISON: Abdomen pelvis CT 04/06/2023 and abdominal [id number]/25/2024 FINDINGS: The sensitivity for detection of visceral lesions is diminished without the use of intravenous contrast. LOWER CHEST: Emphysema with coarse interstitial and patchy ground-glass opacities in the lung bases compatible with chronic lung disease that has increased compared to 04/06/2023. No consolidative airspace disease identified. No pleural effusion. LIVER: Normal size. Unchanged 1 cm left hepatic hypodensity favoring a cyst. GALLBLADDER: Surgically absent. BILE DUCTS: No intrahepatic or extrahepatic ductal dilatation. SPLEEN: Normal size. No focal lesions. PANCREAS: No identified cystic or solid masses. No significant calcifications. No adjacent inflammation or peripancreatic fluidcollections. Pancreatic duct not dilated. ADRENALS: Normal. KIDNEYS/URINARY TRACT: Mild bilateral nonspecific perinephric stranding. Unchanged area of thinning in the left renal cortex. Several right renal cysts are similar to the prior given differences in technique. No rightrenal calculus or hydronephrosis. There is a 6 mm obstructing calculus in the distal left ureter at the ureterovesicular junction causing mildhydroureter and hydronephrosis. Additional 2 mm nonobstructing left renal calculus. Urinary bladder is thick-walled with surrounding inflammatory stranding. GI: Tiny hiatal hernia. No dilated bowel loops. No obvious wallthickening. Appendix is not readily identified. No significant diverticular disease. PERITONEUM: No ascites or free air. RETROPERITONEUM: No mass or adenopathy. REPRODUCTIVE: No significant abnormality. VASCULATURE: Moderate atherosclerotic calcification of the aorta without aneurysm. MUSCULOSKELETAL: No acute fracture or aggressive osseous lesion. OTHER: No other abnormality. IMPRESSION: 6 mm obstructing calculus in the distal left ureter at theureterovesicular junction causing mild hydronephrosis. 2 mm nonobstructing left renal calculus. Thick-walled urinary bladder with surrounding inflammatory stranding suggesting reactive or infectious cystitis. THIS IS AN ELECTRONICALLY VERIFIED FINAL REPORT 02/02/2024 11:44 AM - Electronically signed by Peter Marquis M.D. AG: IRENE Report ID: [id number] Reading Location: [id number] us Dov Austin MD IMG CT PROCEDURES Final Result * COLONOSCOPY (09/14/2022 8:49 AM CDT) Anatomical Region Laterality Modality Other Narrative Procedure Note Jackelin Barba MD - 09/14/2022 8:49 AM CDT [facility] Patient Name: Ashley Oliver Procedure Date: 09/14/2022 8:49 AM Date of : 1950 Admit Type: Outpatient Age: 72 Gender: Male Attending MD: Jackelin Barba M.D. Room: [facility] ENDOSCOPY ROOM 8 Note Status: Finalized Procedure: Colonoscopy Indications: Abdominal pain, previous colonoscopy 2020 showed colitis with rectal sparing , has F/H/O Coloncancer Referring MD: Alice Patel PA-C Providers: Jackelin Barba M.D., Gume Eller M.D. Medicines: Monitored Anesthesia Care Complications: No immediate complications. Estimated Blood Loss: Estimated blood loss was minimal. Procedure: Pre-Anesthesia Assessment: - Immediately prior to administration ofmedications, the patient was re-assessed for adequacy to receive sedatives. - The risks and benefits of the procedure and the sedation options and risks were discussed with the patient. All questions were answered and informed consent was obtained. The benefits, risks and alternatives of theprocedure and sedation were discussed and informed consentwas obtained. All questions were answered. Please referto the signed informed consent document in the medical record. The scope was passed under direct vision.The PCF [id number] endoscope was introduced through the anus and advanced to the terminal ileum. The colonoscopy was performed without difficulty. The patient tolerated the procedure well. The qualityof the bowel preparation was inadequate. The bowel preparation used was GoLYTELY via split dose instruction. Bowel prep was administered using asplit dose. Findings: The perianal and digital rectal examinations were normal. Diffusely granular mucosa was found in the cecum. Biopsies were taken with a cold forceps for histology. Small area of granularity seen inthe ascending colon s/p biopsies. Rest of the colon mucosa appearednormal, random biopsies were done from transverse colon, descending colon, sigmoid and rectum The terminal ileum appeared normal. Biopsies were taken with a cold forceps for histology. Internal hemorrhoids were found during retroflexion. A single small-mouthed diverticulum was found in the sigmoid colon. Impression: - Preparation of the colon was inadequate. - Granular mucosa in the cecum. Biopsied. - The examined portion of the ileum was normal. Biopsied. - Internal hemorrhoids. - Diverticulosis in the sigmoid colon. Recommendation: - Await pathology results. - Return to referring physician. -Recommend repeat colonoscopy for screeningpurposes as prep was inadequate - please call [phone], 8 am -5 pm if any post procedural concerns/issues, after hours/weekends please call [phone] and ask for GI fellow oncall Attending Participation: I was present and participated during the entire procedure, including non-alberto portions. Electronically signed by Jackelin Barba MD Jackelin Barba M.D. 09/14/2022 9:25:30 AM . 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 04/01/2023 5:56 AM ADVANCE DIRECTIVE 05/28/2020 * Full Code (Latest Code Status on File) Date Activated Date Inactivated Comments 06/05/2024 11:29 PM 06/09/2024 7:51 PM * Full Code Date Activated Date Inactivated Comments 05/11/2024 8:57 AM 05/20/2024 3:54 PM * Full Code Date Activated Date Inactivated Comments 04/07/2023 1:50 AM 04/09/2023 5:01 AM * Full Code Date Activated Date Inactivated Comments 04/01/2023 5:47 PM 04/02/2023 3:13 PM * Full Code Date Activated Date Inactivated Comments 09/14/2022 8:08 AM 09/14/2022 2:37 PM Care Teams Director Of Food And Beverage Services Relationship Specialty Start Date End Date Ck Chacon MD PCP - General 07/04/18 Peter Muller MD Referring Physician Cardiology 03/20/20 [place] [id number] [place] [address] [address] [place] [address] Consulting Physician Cardiology 02/28/24 Shagufta Sal RN [address] [place] [address] [address] [place] [address] Supervisor 05/22/24
--- OUTSIDE RECORDS SUMMARY | 2024-07-09 09:52 | XMS_ITS | Clinical Summary ---
Author Organization [facility] (formerly [facility]) at the [facility] Office Center Address [address] [place] [address] Care Team Providers Care Survey Compiler Name Role Phone Ck Chacon MD Primary Care Provider [phone] Peter Muller MD Unavailable Nick Lamas MD Unavailable Shagufta Sal RN Unavailable [phone] Allergies No known active allergies Medications calcium carbonate (Calcium 600) 1,500 mg (600 mg elemental) tablet Take 1 tablet (1,500 mg total) by mouth daily 30 tablet 3 04/24/20 21 Active magnesium gluconate 200 mg tablet Take 1.25 tablets (250 mg total) by mouth auto radiator specialist before breakfast Active multivitamin capsule Take 1 capsule by mouth every morning MEN'S 50+ Active ascorbic acid (VITAMIN C ORAL) Take 1 tablet by mouth auto radiator specialist before breakfast Active oxygen Administer 2-3 L/min [...] nausea or vomiting 30 tablet 1 05/29/19 25 Active furosemide (LASIX) 20 mg tablet Take 1 tablet (20 mg total) by mouth daily 30 tablet 06/09/19 25 Active Additional Information Patient taking differently: 40 [...] by mouth daily 90 tablet 3 07/07/19 25 Active albuterol HFA (ProAir HFA) 90 mcg/actuation inhaler Inhale 2 puffs every 6 (six) hours as needed for wheezing or shortness of breath 25.5 g 3 07/07/19 25 Active ipratropium-al buteroL (DUO-NEB) 0.5-2.5 mg/3 mL [...] 06/19/2024 Assessment & Plan (06/19/2024 9:01 AM TANK CREWMEMBER): PFO noted on echocardiogram. Not of any clinical significance at this time. We will continue to monitor. Acute on chronic respiratory failure with hypoxi a ([facility]) 06/05/2024 Assessment & Plan (06/13/2024 9:14 AM TANK CREWMEMBER): - Improving, currently still you using supplemental [...] 06/05/2024 Assessment & Plan (06/19/2024 9:08 AM TANK CREWMEMBER): Two admissions for diastolic heart failure and [...] team. Assessment & Plan (06/13/2024 9:15 AM TANK CREWMEMBER): - Symptoms improving, euvolemic on exam today - Continue Lasix 20 mg daily, nifedipine extended release 30 mg daily, metoprolol extended release 50 mg daily - Follow-up with cardiology as scheduled, next appointment currently for June 15 - Reports no refills needed at this time Exercise hypoxemia 02/10/2023 Pulmonary fibrosis (CMS/HCC) 02/10/2023 GUERA (generalized anxiety disorder) 06/19/2022 Assessment & Plan (06/19/2022 7:01 PM TANK CREWMEMBER): Managed by PCP, takes lorazepam 2mg, BID - symptoms currently well controlled Cigarette nicotine dependence in remission 04/29 Multiple pulmonary nodules 01/28/2022 AAA (abdominal aortic aneurysm) 04/29/2021 Assessment & Plan (06/19/2022 6:58 PM TANK CREWMEMBER): 3cm, monitored by PCP, next in 02/06 MIKE on CPAP 04/29/2021 Assessment & Plan (04/01/2023 7:09 PM TANK CREWMEMBER): Uses 2l oxygen at night with cpap , doesn't have cpap here. Primary osteoarthritis of right knee 03/18/2021 Overview (03/18/2021): Added automatically from request for surgery [id number] Pancreatic cyst 12/25/2020 Chronic diarrhea 11/20/2019 Collagenous colitis 11/20/2019 Assessment & Plan (06/19/2022 6:57 PM TANK CREWMEMBER): Symptoms controlled, cont home oral budesonide Benign prostatic hyperplasia with urinary freque ncy 11/20/2019 Assessment & Plan (05/23/2020 9:41 AM TANK CREWMEMBER): - Continue tamsulosin. 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 Assessment & Plan (04/01/2023 7:07 PM TANK CREWMEMBER): S/p Pulm vein isolation and afib ablation Per EP note - resume eliquis tonight, start ppi daily for 30 days , resume toprol xl 50 . Distal neurovasc intact and access sites without bleeding. Monitor on tele Assessment & Plan (06/20/2022 9:12 AM TANK CREWMEMBER): Patient admitted for obs following ablation. Tolerated [...] 04/11/2019 Assessment & Plan (06/19/2024 9:03 AM TANK CREWMEMBER): Continue atorvastatin 20 mg daily. Assessment & Plan (05/23/2020 9:41 AM TANK CREWMEMBER): - Continue atorvastatin. Essential hypertension 04/11/2019 Assessment & Plan (06/19/2024 9:04 AM TANK CREWMEMBER): Above goal today and reports it runs in the 140s over 80 to 90s at home. Continue metoprolol XL 50 mg daily and nifedipine 30 mg daily. Will start spironolactone 25 mg daily for both blood pressure management and HFpEF indication. Assessment & Plan (05/29/2024 12:15 PM TANK CREWMEMBER): - Chronic, slightly increased at today's visit [...] ordered Assessment & Plan (04/01/2023 7:08 PM TANK CREWMEMBER): Continue home metop at lower dose per EP Assessment & Plan (05/23/2020 9:41 AM TANK CREWMEMBER): - Normotensive without anti-hypertensive agents. Starting low dose metoprolol for improved rate control as above. Pulmonary hypertension 08/23/2018 IBS (irritable bowel syndrome) 07/13/2018 COPD exacerbation 03/15/2018 Assessment & Plan (04/01/2023 7:08 PM TANK CREWMEMBER): Continue home inhalors Assessment & Plan (06/19/2022 6:57 PM TANK CREWMEMBER): Cont home inhalers, mostly uses albeterol PRN or duoneb if has his nebulizer History of nicotine dependence 03/15/2018 Anxiety 09/15/2016 Assessment & Plan (04/01/2023 7:08 PM TANK CREWMEMBER): Continue prn ativan Assessment & Plan (05/23/2020 9:41 AM TANK CREWMEMBER): - Continue ativan PRN. Resolved Problems Problem Noted Date Diagnosed Date Resolved Date Acute on chronic heart failure (CMS/[facility]) 05/29/2024 06/05/2024 Assessment & Plan (05/29/2024 12:12 PM TANK CREWMEMBER): - Acute on chronic exacerbation improving though [...] 06/05/2024 Assessment & Plan (05/29/2024 12:13 PM TANK CREWMEMBER): - Chronic, improving with use of Nurtec - Additional sample packs provided to patient in office today - Encouraged avoidance of migraine triggers - Follow-up in 1 month Muscular deconditioning 05/24/202405/18 CAP (community acquired pneumonia) 05/18/2024 06/05/2024 Acute on chronic hypoxic respiratory failure 06/05/2024 Assessment & Plan (05/29/2024 12:10 PM TANK CREWMEMBER): - Acute on chronic exacerbation improving - [...] 02/03/20 24 NSIP (nonspecific interstiti al pneumonia) (CMS/HCC) 11/17/2023 06/05/2024 Simple chronic bronchitis 11/17/2023 Bronchiectasis without acute exacerbation 11/17/2023 06/05/2024 Syncope and collapse 06/11/2023 024 Atrial fibrillation with RVR (CMS/HCC) 04/07/2023 06/23/2023 Acute cystitis without hematuria 04/07/2023 06/23/2023 Elevated troponin 04/07/2023 06/23/2023 Right foot pain 03/01/2023 04/07/2023 Paroxysmal atrial fibrillation (CMS/HCC) 06/19/2022 04/07/2023 Acute gout involving toe 05/28/2022 BMI 30.0-30.9,adult 04/29/2022 09/08/19 23 Acute cough 03/16/2022 09/07/2022 Atrial fibrillation with rap id ventricular response (CMS/HCC) 02/13/2022 10/21/2022 Centrilobular emphysema 01/28/2022 06/0 11/2022 Abdominal pain, epigastric 11/26/2021 0 09/07/2022 Diastasis recti 11/26/2021 10/27/2023 Nail fungus 12/25/2020 09/07/2022 Paroxysmal SVT (supraventricular tachycardia) 05/28/19 21 05/28/2020 Atrial flutter with rapid ve ntricular response 05/22/2020 05/28/2020 Assessment & Plan (05/23/2020 9:40 AM TANK CREWMEMBER): - He presents with pre-syncopal symptoms found [...] Exercise-induced tachycardia 09/20/2019 06/23/2023 Hematochezia in 09/20/2019 0510/2019 Intermittent lightheadedness 09/20/2019 04/07/2023 Sciatica of left side 09/20/20192022 Medicare annual wellness visit, subsequent 09/20/2019 04/07/2023 Palpitations 08/08/2019 09/20/2019 Dyslipidemia 06/02/2019 10/21/2022 Hypotension due to drugs 06/02/2019 Solitary pulmonary nodule 08/18/2018 SOB (shortness of breath) 03/15/2018 Pulmonary air trapping 03/15/201807/12 Encounters Date Type Department Care Team Description 07/07/2024 Telephone [facility] Family Medicine at [address] [place] [phone] Ck Chacon MD Appointment Request (ER follow up) 07/07/[address] [facility] Pulmonary [facility] 8th [place] [address] [place] [address] Palmira Mnocada MD 07/07/[address] [facility] Cardiology [facility] Medical Office Building [address] [place] [phone] Jude Le NP Jardiance PA request 07/07/2024 Telephone [facility] Medicine at [address] [place] [address] Ck Chacon MD Case Management- Primary Care 07/06/2024 2:28 PM TANK CREWMEMBER - 07/06/2024 5:22 PM [facility] Emergency [facility] Emergency Department [address] [place] [address] Peter Montes DO COPD exacerbation (HCC) (Primary Dx) Discharge Disposition: Discharge to home or self care 07/06/2024 Results Follow-Up [facility] Cardiology [address] [place] [address] 8th [place] [address] [place] [phone] Jude Le, PINKY 07/06/[address] 8th [place] [address] [place] [phone] Jude Le, HAIR SPINNER symptoms 07/06/2024 Telephone [facility] Family Medicine at [address] [place] [address] Ck Chacon MD Medical Question/Miscellaneou s 07/05/2024 10:45 AM TANK CREWMEMBER Office Visit [facility] Medicine at [address] [place] [address] Merary Oneal PA Acute cough (Primary Dx); SOB (shortness of breath) 07/05/2024 Nurse Triage [facility] at [address] [place] [address] Ck Chacon MD 06/21/[address] [facility] Pulmonary [address] [place] [address] [place] [address] [place] [address] Palimra Moncada MD 06/20/2024 8:00 AM TANK CREWMEMBER Office Visit [facility] Pulmonary [address] [place] [address] [place] [address] [place] [address] Palmira Moncada MD Pulmonary fibrosis (CMS/HCC) (HCC) (Primary Dx); Hypoxemia; Pulmonary emphysema, unspecified emphysema type (HCC) 06/20/2024 7:08 AM TANK CREWMEMBER - 06/20/2024 11:59 PM TANK CREWMEMBER Hospital Encounter [facility] Pulmonary [facility] [address] [place] [address] Pulmonary fibrosis (CMS/HCC) (HCC) Discharge Disposition: Discharge to home or self care 06/19/2024 8:00 AM TANK CREWMEMBER Office Visit [facility] Cardiology [address] [place] [address] [place] [address] [place] [address] Jude Le NP Chronic diastolic heart failure (HCC) (Primary Dx); Chronic diastolic congestive heart failure (CMS/HCC) (HCC); Essential hypertension; Mixed hyperlipidemia; Paroxysmal atrial fibrillation (CMS/HCC) (HCC); PFO (patent foramen ovale) 06/15/2024 2:44 PM TANK CREWMEMBER - 06/15/2024 11:59 PM TANK CREWMEMBER Hospital Encounter [address] [address] SOB (shortness of breath) Discharge Disposition: Discharge to home or self care 06/15/2024 1:35 PM TANK CREWMEMBER Ancillary Procedure [facility] Cardiology [address] [facility] 8th [place] [address] [place] [address] SOB (shortness of breath) 06/15/2024 1:30 PM TANK CREWMEMBER Lab [facility] Endocrinology Metabolism and Lipid [address] [facility] 8th [place] [address] [place] [address] Painful urging to urinate (Primary Dx) 06/15/2024 12:45 PM TANK CREWMEMBER Office Visit [facility] Cardiology [address] [place] [address] 8th [place] [address] [place] [address] Shagufta Vasquez NP SOB (shortness of breath) (Primary Dx) 06/14/[address] [facility] Cardiology [address] [place] [address] 8th [place] [address] [place] [address] Nick Lamas MD 06/13/2024 8:30 AM TANK CREWMEMBER Office Visit [facility] Family Medicine at [address] [place] [address] Briana Giles NP Acute on chronic diastolic congestive heart failure (CMS/HCC) (HCC) (Primary Dx); Acute on chronic respiratory failure with hypoxia (CMS/HCC) (HCC) 06/09/2024 Telephone [facility] Medical Group Pulmonary [place] [address] [facility] [address] [place] [phone] Bernardino Dillard MD Prior Auth (OFEV) 06/05/2024 7:27 PM TANK CREWMEMBER - 06/09/2024 3:51 PM TANK CREWMEMBER Hospital Encounter [facility] 4 Med Surg [address] [place] [address] Jimbo Jack MD Volkerding, Andrea Marie, MD Mourad, Ibrahim, MD Acute on chronic respiratory failure [...] to home or self care 06/05/2024 Telephone [facility] Family Medicine at [address] [place] [address] Ck Chacon MD Case Management- Primary Care 05/31/[address] [facility] Cardiology [address] [facility] 8th [place] [address] [place] [phone] Peter Muller MD Med Management 05/30/[address] [address] Bernardino Dillard MD 05/29/2024 11:00 AM TANK CREWMEMBER Office Visit [facility] Family Medicine at [address] [place] [address] Briana Giles NP Acute on chronic hypoxic respiratory failure (HCC) (Primary Dx); Acute on chronic heart failure, unspecified heart failure type (HCC); Intractable migraine without aura and without status migrainosus; Essential hypertension 05/24/2024 9:00 AM TANK CREWMEMBER Office Visit [address] [address] Bernardino Dillard MD Pulmonary fibrosis (CMS/HCC) (HCC) (Primary Dx); Simple chronic bronchitis (HCC); MIKE on CPAP; Multiple pulmonary nodules; Cigarette nicotine dependence in remission; Pulmonary hypertension (HCC); Paroxysmal atrial fibrillation (CMS/HCC) (HCC); NSIP (nonspecific interstitial pneumonia) (CMS/HCC) (HCC); Exercise hypoxemia; Bronchiectasis without acute exacerbation (HCC); Muscular deconditioning 05/24/[address] [address] Bernardino Dillard MD 05/11/2024 3:35 AM TANK CREWMEMBER - 05/20/2024 11:49 AM TANK CREWMEMBER Hospital Encounter [facility] [address] [place] [address] Amy Wei MD Sada, Bogdan Tanner MD [facility], MD Dalton Alejo, MD Gume Chou, Rodney Doe MD Acute on chronic hypoxic respiratory failure (HCC) (Primary Dx); Fever in adult; NSIP (nonspecific interstitial pneumonia) (CMS/HCC) (HCC) [J84.89]; Pulmonary fibrosis (CMS/HCC) (HCC) [J84.10]; Simple chronic bronchitis (HCC) [J41.0]; CAP (community acquired pneumonia) [J18.9]; MIKE on CPAP; Multiple pulmonary nodules Discharge Disposition: Discharge to home or self care 05/05/[address] [facility] Pulmonary [address] [facility] 8th [place] [address] [place] [address] Palmira Moncada MD 05/04/2024 Telephone [facility] Medical [facility] Family Medicine at [address] [place] [phone] Ck Chacon MD Medical Question/Miscellaneou s 05/03/2024 9:00 AM TANK CREWMEMBER Telemedicine [facility] Medical [facility] Family Medicine at [address] [place] [address] Ck Chacon MD RSV bronchitis (Primary Dx) 05/02/2024 Telephone [facility] Family Medicine at [address] [place] [address] Ck Chacon MD appoinment 05/01/2024 11:08 PM TANK CREWMEMBER - 05/01/2024 11:50 PM TANK CREWMEMBER Emergency [facility] Emergency Department [address] [place] [address] RSV (acute bronchiolitis due to respiratory syncytial virus) (Primary Dx) Discharge Disposition: Discharge to home or self care 05/01/2024 Nurse Triage [facility] Family Medicine at [address] [place] [address] Ck Chacon MD 05/01/2024 Telephone [facility] at [address] [place] [phone] Ck Chacon MD Symptom Based Call 04/28/2024 11:00 AM TANK CREWMEMBER Office Visit [facility] at [address] [place] [phone] Merary Oneal PA Acute cough (Primary Dx) 04/28/2024 Nurse Triage [facility] at [address] [place] [address] Ck Chacon MD from Last 3 Months Immunizations Immunization Administration Dates Next Due Influenza, [...] PF, IM (Arexvy) 04/14/2023 ZOSTER Recombinant 07/06/2022,03/06/2022 Surgical History Surgery Date Site/Laterality Comments APPENDECTOMY ~ 2000 GALLBLADDER SURGERY 05/17/2006 - 05/16/2007 TONSILECTOMY, ADENOIDECTOMY, BILATERAL MYRINGOTOMY AND TUBES 05/17/1954 - 05/16/1955 KNEE SURGERY JOINT REPLACEMENT 05/17/2020 - 05/16/2021 Right knee ABLATION 06/17/2022 - 07/14/2022 PVI COLONOSCOPY UPPER GASTROINTESTINAL ENDOSCOPY ESOPHAGOSCOPY / EGD 09/14/2022 - 10/14/2022 COLONOSCOPY ABLATION 04/01/2023 heart Medical History Medical History Date Comments Lung nodule 08/18/2018 Inflammatory bowel disease Male hypogonadism Anxiety Hypertension 2020 Atrial fibrillation (CMS/HCC) (HCC) a fib 2019 TIA (transient ischemic attack) 2018 Hard to intubate sts difficulty with intubation and hard to wake up Sleep apnea with cpap Abdominal aneurysm (HCC) 2019 Pneumonia 2016 GERD (gastroesophageal reflu x disease) better for past 3 years, onl y takes meds as needed rarely Full dentures implants that sn ap in place Ocampo's esophagus Obesity HL (hearing loss) Anxiety Covid 2020 has had twice, n o hospitalizations Hyperlipidemia Emphysema of lung (HCC) Ocampo esophagus Anesthesia Sleepy, slow to emerge following GA; denies need for reintubation Pulmonary hypertension (HCC) Pulmonary fibrosis (CMS/HCC) (HCC) COPD (chronic obstructive pu lmonary disease) (HCC) Family History Medical History Relation Name Comments Cancer Brother No Known Problems Daughter 1 1 Crohn's disease Daughter 2 1 Sudden Cardiac Father No Known Problems Maternal Grandfather No Known Problems Maternal Grandmother Cancer Mother Coronary artery disease Mother Diabetes Mother Sudden Cardiac Mother No Known Problems Paternal Grandfather No Known Problems Paternal Grandmother Cancer Sister Heart block Son 1 Anesthesia problems Neg Hx Malig Hypertension Neg Hx Malig Hyperthermia Neg Hx Pseudochol deficiency Neg Hx Relation Name Status Comments Brother agent orange Daughter 1 1 Alive Daughter 2 1 Alive Father Maternal Grandfather Maternal Grandmother Mother breast cancer Paternal Grandfather Paternal Grandmother Sister Alive Son 1 Alive Social History Tobacco Use Types Packs/Day Years Used Date Smoking Tobacco: Former Cigarettes 1.5 19 1 0 - 1988 Passive Smoke Exposure: Past Smokeless Tobacco: Never Tobacco Cessation:Counseling Given: Not Answered Comments:Chews Nicorette gum Alcohol Use Standard Drinks/Week Comments Yes 18 (1 standard drink = 0.6 oz pu re alcohol) a week [facility] Utilities Answer Date Recorded In the past 12 months has e [employer], oil, or water [employer] threatened to shut off services in your [...] often do you attend chur ch or sikh services? Never 06/06/2024 Do you belong to any clubs o r organizations such as confucianism groups, unions, fraternal or athletic groups, or [...] place to sleep or slept in a chcf (including now)? No 06/14/2023 Housing Stability Vital Sign Answer Phuc e Recorded In the last 12 months, was t here a time when you were not able to pay the mortgage or rent on time? No 06/06/2024 In the past 12 months, how m any times have you moved where you were living? 0 06/06/2024 At any time in the past 12 m [facility], were you homeless or living in a chcf (including now)? No 06/06/2024 Personal Safety Answer Date Recorded Have you ever been in or are you currently in a harmful physical or emotional relationship or is someone making you feel afraid or unsafe? Denies 07/06/2024 Sex and Gender Information Value Date Recorded Sex Assigned at Not on file Legal Sex Male 3:45 AM TANK CREWMEMBER Gender Identity Not on file Sexual Orientation Not on file Obstetrics History Last Filed Vital Signs Vital Sign Reading Time Taken Comments Blood Pressure 110/70 07/06/2024 4:30 PM TANK CREWMEMBER Pulse 83 07/06/2024 4:30 PM TANK CREWMEMBER Temperature 36.6 C (97.8 F) 07/06/2024 2:13 PM TANK CREWMEMBER Respiratory Rate 20 07/06/2024 4:30 PM TANK CREWMEMBER Oxygen Saturation 97% 07/06/2024 4:30 PM TANK CREWMEMBER Inhaled Oxygen Concentration - - Weight 99.7 kg (219 lb 12.8 oz) 07/06/2024 2:13 PM TANK CREWMEMBER Height 185.4 cm (6' 1 ) 07/06/2024 2:13 PM TANK CREWMEMBER Body Mass Index 29 07/06/2024 2:13 PM TANK CREWMEMBER Plan of Treatment Health Maintenance Due Date Last Done Comments Hepatitis C Screening 1950 DTaP/Tdap/Td Vaccine (1 - Tdap) 1961 Hepatitis B Screening 02/04/1968 Covid-19 Vaccine (4 - 2023-2 5 season) 2024 12/24/2021, 07/13/2020, 06/21/2020 Well Visit 65+ 04/21/2024 04/21/2023, 06/17, 05/28/2020 Fall Risk Assessment 06/09/2025 06/09/2024, 06/11/2023, 04/21/2023, Additional history exists Depression Screening 07/05/2025 07/05/2024, 04/28/2024, 06/11/2023, Additional history exists Colon Cancer Screening-Colonoscopy 09/15/2027 09/14/2022, 11/01/2019, 09/23/2017 Zoster Vaccine Completed 07/06/2022, 03/06/2022 Colon Cancer Screening-CT Colonography Discontinued 09/14/2022, 11/01/2019, 09/23/2017 Colon Cancer Screening-DNA Stool Discontinued 09/14/2022, 11/01/2019, 09/23/2017 Colon Cancer Screening-FIT Discontinued 09/14, 11/01/2019, 09/23/2017, Additional history exists Colon Cancer Screening-Sigmoidoscopy Discontinued 09/14/2022, 11/01/2019, 09/23/2017 Pneumococcal vaccine 65+ Completed 04/21/2023, 06/18 Abdominal Aortic Aneurysm (A AA) Screen Completed 02/02/2024, 04/06/2023, 04/29/2022, Additional history exists Influenza Vaccine Completed 02/16/2024, , 02/15/2023, Additional history exists Prostate Cancer Screening-PSA Discontinued , 04/08/2023, 10/28/2022, Additional history exists Goals Goal Patient Goal Type Associated Problems Recent Progress Patient-Stated? Author [facility] General Goal - Patient schedules and keeps appointments with all recommended providers [facility] Care Management Shagufta Thomas, RN Note: Problem: Potential for medical complications [...] of self-care management ACO Care Management Shagufta Thomas, RN Note: Problem: Heart Failure Interventions: - [...] educational materials. Medical Devices Implanted Type Area Faculty Dean Device Identifier Shelf Expiration Date Model / Serial / Lot [employer] 5517-F-702 Triathlon Cruciate Retain Bead Knee Right 7 Component Femoral Pa - Sna - [id number] Implanted:Qty: 1 on 05/05/2021 by Jaret Patel MD at [facility] Other - see comments Right: Knee [employer] [id number] 12/30/2025 5517-F-7 02 / NA / [id number] Description:Implant pause pe rformed [employer] 5536-B-700 Triathlon Tritanium Knee 7 Baseplate Tibial - Sna - [id number] Implanted:Qty: 1 on 05/05/2021 by Jaret Patel MD at [facility] Other - see comments Right: Knee [employer] [id number] 12/31/2025 5536-B-7 00 / NA / [id number] Description:Implant pause pe rformed [employer] [id number] Insert Tibial Triathlon 7 H9mm Knee Bearing Condylar Stabilize Sterile - Sna - [id number] Implanted:Qty: 1 on 05/05/2021 by Jaret Patel MD at [facility] Other - see comments Right: Knee [employer] [id number] 12/18/2025 5531-G-7 09-E / NA / [id number] Description:Implant pause pe rformed [employer] Vascade Mvp 6-12fr Venous Closure [id number] - [id number] Implanted:Qty: 1 on 06/19/2022 by Frandy Jackson MD at [facility] Other - see comments [employer] 03/23/2024 [id number] / / [id number] Description:Vascade closure device [employer] Vascade Mvp 6-12fr Venous Closure [id number] - [id number] Implanted:Qty: 1 on 06/19/2022 by Frandy Jackson MD at [facility] Other - see comments [employer] 03/23/2024 800-612C -10U / / [id number] Description:Vascade closure device [employer] Vascade Mvp 6-12fr Venous Closure [id number] - [id number] Implanted:Qty: 1 on 06/19/2022 by Frandy Jackson MD at [facility] Other - see comments [employer] 01/16/2024 800-612C -10U / / [id number] Description:Vascade closure device [employer] Vascade Mvp 6-12fr Venous Closure [id number] - [id number] Implanted:Qty: 1 on 04/01/2023 by Nick Lamas MD at [facility] Other - see comments [employer] 12/16/2024 800-612C -10U / / [id number] Description:Vascade closure devce [employer] Vascade Mvp 6-12fr Venous Closure [id number] - [id number] Implanted:Qty: 1 on 04/01/2023 by Nick Lamas MD at [facility] Other - see comments [employer] 12/16/2024 800-612C -10U / / [id number] Description:Vascade closure device [employer] Vascade Mvp 6-12fr Venous Closure [id number] - [id number] Implanted:Qty: 1 on 04/01/2023 by Nick Lamas MD at [facility] Other - see comments [employer] 12/16/2024 800-612C -10U / / [id number] Description:Vascade closure device Procedures Procedure Name Priority Date/Time Associated Diagnosis Comments TROPONIN T HIGH-SENSITIVITY 2-HOUR Timed 07/06/2024 4:12 PM [employer] XR CHEST 1 VIEW ED 07/06/2024 2:29 PM [employer] EGFR STAT 07/06/2024 2:22 PM [employer] DIFFERENTIAL AUTO STAT 07/06/2024 2:2 2 PM [employer] PRO B-TYPE NATRIURETIC PEPTIDE STAT 07/06/2024 2:22 PM [employer] TROPONIN T HIGH-SENSITIVITY SERIES (BASELINE, 2HR, 4HR, 6HR) STAT 07/06/2024 2:22 PM [employer] CBC WITH AUTO DIFFERENTIAL STAT 07/06/2024 2:22 PM [employer] COMPREHENSIVE METABOLIC PANEL STAT 07/06/2024 2:22 PM [employer] INFLUENZA A/B, RSV, AND COVID-19 PCR STAT 07/06/2024 2:22 PM [employer] ECG 12-LEAD STAT 07/06/2024 2:18 PM [employer] POC INFLUENZA A/B, COVID-19 ANTIGEN Routine 07/05/2024 11:20 AM [employer] Acute cough SOB (shortness of breath) PRO B-TYPE NATRIURETIC PEPTIDE Routine 07/05/2024 9:07 AM [employer] BASIC METABOLIC PANEL Routine 07/05/2024 9:06 AM [employer] Chronic diastolic heart failure (HCC) PULMONARY FUNCTION TEST (PFT) Routine 06/20/2024 7:47 AM [employer] Pulmonary fibrosis (CMS/HCC) (HCC) EXTENDED/[facility] HOLTER PATCH (>48 HOURS UP TO 7 DAYS) Routine 06/15/2024 2:25 PM [employer] SOB (shortness of breath) PRO B-TYPE NATRIURETIC PEPTIDE Routine 06/15/2024 1:34 PM [employer]BER SOB (shortness of breath) HOME O2 EVAL (DESATURATION SCREEN) Routine 06/09/2024 12:45 PM [employer] XR CHEST 1 VIEW IP Routine 06/09/2024 8:31 AM [employer] EGFR Routine 06/09/2024 3:29 AM [employer] DIFFERENTIAL AUTO Routine 06/09/2024 3:2 9 AM [employer] CBC WITH AUTO DIFFERENTIAL Routine 06/09/2024 3:29 AM [employer] COMPREHENSIVE METABOLIC PANEL Routine 06/09/2024 3:29 AM [employer] EGFR Routine 06/08/2024 4:18 AM [employer] DIFFERENTIAL AUTO Routine 06/08/2024 4:1 8 AM [employer] COMPREHENSIVE METABOLIC PANEL Routine 06/08/2024 4:18 AM [employer] CBC WITH AUTO DIFFERENTIAL Routine 06/08/2024 4:18 AM [employer]BER TRANSTHORACIC ECHO (TTE) COMPLETE W DOPPLER/CF W CONTRAST Routine 06/07/2024 11:10 AM [employer] ERYTHROCYTE SEDIMENTATION RATE Routine 06/07/2024 4:44 AM [employer] CRP (ACUTE PHASE) Routine 06/07/2024 4:4 4 AM [employer] PRO B-TYPE NATRIURETIC PEPTIDE Routine 06/07/2024 4:44 AM [employer] ECG 12-LEAD Routine 06/06/2024 8:21 AM [employer] EGFR Routine 06/06/2024 3:47 AM [employer]BER CBC WITHOUT DIFFERENTIAL Routine 06/06/2024 3:47 AM [employer] BASIC METABOLIC PANEL Routine 06/06/2024 3:47 AM [employer] MAGNESIUM Routine 06/06/2024 3:47 AM [employer]BER INFLUENZA A/B, RSV, AND COVID-19 PCR Routine 06/05/2024 8:[address] CHEST PE W CONTRAST ED 06/05/2024 8:18 PM [employer] TROPONIN T HIGH-SENSITIVITY 2-HOUR Timed 06/05/2024 7:11 PM [employer] XR CHEST 1 VIEW ED 06/05/2024 5:39 PM [employer] ECG 12-LEAD STAT 06/05/2024 5:36 PM [employer] EGFR STAT 06/05/2024 5:29 PM [employer] DIFFERENTIAL AUTO STAT 06/05/2024 5:2 9 PM [employer] SEPSIS LACTATE WITH REFLEX STAT 06/05/2024 5:29 PM [employer] APTT STAT 06/05/2024 5:29 PM [employer] PROTIME-INR STAT 06/05/2024 5:29 PM [employer]BER PRO B-TYPE NATRIURETIC PEPTIDE STAT 06/05/2024 5:29 PM [employer]BER TROPONIN T HIGH-SENSITIVITY SERIES (BASELINE, 2HR, 4HR, 6HR) STAT 06/05/2024 5:29 PM [employer] CBC WITH AUTO DIFFERENTIAL STAT 06/05/2024 5:29 PM [employer]BER COMPREHENSIVE METABOLIC PANEL STAT 06/05/2024 5:29 PM [employer]BER HOME O2 EVAL (DESATURATION SCREEN) Routine 05/19/2024 12:57 PM [employer] XR CHEST 1 VIEW IP Routine 05/19/2024 8:20 AM [employer] EGFR Routine 05/19/2024 5:34 AM [employer] DIFFERENTIAL AUTO Routine 05/19/2024 5:3 4 AM [employer] COMPREHENSIVE METABOLIC PANEL Routine 05/19/2024 5:34 AM [employer]BER PRO B-TYPE NATRIURETIC PEPTIDE Routine 05/19/2024 5:34 AM [employer]BER CBC WITH AUTO DIFFERENTIAL Routine 05/19/2024 5:34 AM [employer] EGFR Routine 05/18/2024 5:14 AM [employer] DIFFERENTIAL AUTO Routine 05/18/2024 5:1 4 AM [employer] BASIC METABOLIC PANEL Routine 05/18/2024 5:14 AM [employer] CBC WITH AUTO DIFFERENTIAL Routine 05/18/2024 5:14 AM [employer] XR CHEST PA LATERAL 2 VIEWS IP Routine 05/17/2024 11:32 AM [employer] EGFR Routine 05/17/2024 12:36 AM [employer] DIFFERENTIAL AUTO Routine 05/17/2024 12: 36 AM [employer]BER BASIC METABOLIC PANEL Routine 05/17/2024 12:36 AM [employer] CBC WITH AUTO DIFFERENTIAL Routine 05/17/2024 12:36 AM [employer] EGFR Routine 05/16/2024 5:11 AM [employer]BER DIFFERENTIAL AUTO Routine 05/16/2024 5:1 1 AM [employer] BASIC METABOLIC PANEL Routine 05/16/2024 5:11 AM [employer] CBC WITH AUTO DIFFERENTIAL Routine 05/16/2024 5:11 AM [employer]BER AEROBIC CULTURE AND GRAM STAIN Routine 05/15/2024 2:20 PM [employer] EGFR Routine 05/15/2024 8:36 AM [employer] DIFFERENTIAL AUTO Routine 05/15/2024 8:3 6 AM [employer]BER BASIC METABOLIC PANEL Routine 05/15/2024 8:36 AM [employer]BER CBC WITH AUTO DIFFERENTIAL Routine 05/15/2024 8:36 AM [employer] EGFR Routine 05/14/2024 6:37 AM [employer]BER DIFFERENTIAL AUTO Routine 05/14/2024 6:3 7 AM [employer]BER BASIC METABOLIC PANEL Routine 05/14/2024 6:37 AM [employer]BER CBC WITH AUTO DIFFERENTIAL Routine 05/14/2024 6:37 AM [employer] EGFR Routine 05/13/2024 7:42 AM [employer]BER DIFFERENTIAL AUTO Routine 05/13/2024 7:4 2 AM [employer]BER BASIC METABOLIC PANEL Routine 05/13/2024 7:42 AM [employer]BER CBC WITH AUTO DIFFERENTIAL Routine 05/13/2024 7:42 AM [employer]BER AEROBIC CULTURE AND GRAM STAIN Routine 05/12/2024 5:36 AM [employer]BER EGFR Routine 05/12/2024 3:30 AM [employer]BER DIFFERENTIAL AUTO Routine 05/12/2024 3:3 0 AM [employer]BER BASIC METABOLIC PANEL Routine 05/12/2024 3:30 AM [employer] CBC WITH AUTO DIFFERENTIAL Routine 05/12/2024 3:30 AM [employer]BER LEGIONELLA ANTIGEN, URINE Routine 05/11/2024 5:49 PM [employer] STREP PNEUMONIAE AG, URINE Routine 05/11/2024 5:49 PM [employer]BER MRSA ONLY (STAPHYLOCOCCUS AUREUS) PCR Routine 05/11/2024 4:10 PM [employer]BER US VEIN DUPLEX LOWER EXTREMITY BILATERAL COMPLETE IP Routine 05/11/2024 3:58 PM [employer]BER TROPONIN T HIGH-SENSITIVITY 6-HOUR Timed 05/11/2024 9:[address] CHEST PE W CONTRAST IP Routine 05/11/2024 8:30 AM [employer]BER TROPONIN T HIGH-SENSITIVITY 4-HR Timed 05/11/2024 7:20 AM [employer]BER URINALYSIS, MICROSCOPIC ONLY STAT 05/11/2024 5:30 AM [employer]BER TROPONIN T HIGH-SENSITIVITY 2-HOUR Timed 05/11/2024 5:30 AM [employer]BER URINALYSIS AND REFLEX TO MICROSCOPIC AND CULTURE STAT 05/11/2024 5:30 AM [employer]BER BLOOD CULTURE STAT 05/11/2024 3:49 AM [employer]BER INFLUENZA A/B, RSV, AND COVID-19 PCR Routine 05/11/2024 3:48 AM [employer]BER POC BLOOD GAS AND CHEMISTRIES, VENOUS Routine 05/11/2024 3:47 AM [employer]BER BLOOD CULTURE STAT 05/11/2024 3:45 AM [employer]BER POC BLOOD GAS AND CHEMISTRIES, VENOUS Routine 05/11/2024 3:42 AM [employer]BER XR CHEST 1 VIEW ED 05/11/2024 3:42 AM [employer] EGFR STAT 05/11/2024 3:36 AM [employer]BER DIFFERENTIAL AUTO STAT 05/11/2024 3:3 6 AM [employer]BER APTT STAT 05/11/2024 3:36 AM [employer]BER PROTIME-INR STAT 05/11/2024 3:36 AM [employer]BER D-DIMER, QUANTITATIVE STAT 05/11/2024 3:36 AM [employer]BER TROPONIN T HIGH-SENSITIVITY SERIES (BASELINE, 2HR, 4HR, 6HR) STAT 05/11/2024 3:36 AM [employer]BER COMPREHENSIVE METABOLIC PANEL STAT 05/11/2024 3:36 AM [employer]BER CBC WITH AUTO DIFFERENTIAL STAT 05/11/2024 3:36 AM [employer]BER PRO B-TYPE NATRIURETIC PEPTIDE STAT 05/11/2024 3:36 AM [employer]BER ECG 12-LEAD STAT 05/11/2024 3:34 AM [employer]BER [place] [facility] ILL/INJURED PATIENT INIT 30-74 MIN Routine 05/11/2024 3:26 AM [employer]BER TROPONIN T HIGH-SENSITIVITY 6-HOUR Timed 05/01/2024 8:[address] CHEST PE W CONTRAST ED 05/01/2024 6:40 PM [employer]BER TROPONIN T HIGH-SENSITIVITY 4-HR Timed 05/01/2024 5:26 PM [employer] XR CHEST 1 VIEW ED 05/01/2024 1:06 PM [employer] EGFR STAT 05/01/2024 1:01 PM [employer]BER DIFFERENTIAL AUTO STAT 05/01/2024 1:0 1 PM [employer]BER TROPONIN T HIGH-SENSITIVITY SERIES (BASELINE, 2HR, 4HR, 6HR) STAT 05/01/2024 1:01 PM [employer]BER CBC WITH AUTO DIFFERENTIAL STAT 05/01/2024 1:01 PM [employer]BER COMPREHENSIVE METABOLIC PANEL STAT 05/01/2024 1:01 PM [employer]BER INFLUENZA A/B, RSV, AND COVID-19 PCR Routine 05/01/2024 1:01 PM [employer]BER ECG 12-LEAD STAT 05/01/2024 1:00 PM [employer]BER POC INFLUENZA A/B, COVID-19 ANTIGEN Routine 04/28/2024 11:27 AM [employer]BER Acute cough PSA SCREEN Routine 04/24/2024 9:32 AM [employer]BER Prostate cancer screening LIPID PANEL Routine 04/24/2024 9:32 AM [employer] Essential hypertension COMPREHENSIVE METABOLIC PANEL Routine 04/24/2024 9:32 AM [employer] Essential hypertension CBC WITH AUTO DIFFERENTIAL Routine 04/24/2024 9:32 AM [employer] Essential hypertension CT ABDOMEN PELVIS WO CONTRAST ED 02/02/2024 11:05 AM CDT COLONOSCOPY 09/14/2022 8:49 AM CDT from Last 3 Months or Most Recently Relevant to Health Maintenance Results * Troponin T high-sensitivity 2-hour (07/06/2024 4:12 PM [employer]BER) Trop T hs 8 <=22 ng/L Comment: Interpretive Data For further hscTnT resources including the diagnostic algorithm and an aid in interpretation, copy and paste this link: https://nrl.testcatalog.org/show/hsTrop Current Interpretive Data last revised 2020. Testing performed by: [facility], [address] [place] [address]., [id number] Trop T hs delta 1 ng/L ZION HENDERSON Comment:Testing performed by : [facility], [address] [place] [address]., [id number] Trop T hs interp Insignificant ZION HENDERSON Comment:Testing performed by : [facility], [address] [place] [address]., [address] Blood 07/06/2024 4:12 PM [employer]BER 07/06/2024 4:20 PM [employer]BER Peter Montes DO LAB BLOOD ORDERABLES Final Result Performing Organization Address City/State/[facility] Co de Phone Number ZION [address] [facility] Department [place] [address] * XR Chest 1 Vw Portable (if patient condition/safety warrant portable) (07/06/2024 2:29 PM T[employer] CRE[employer]MEMBER) Anatomical Region Laterality Modality Body, Chest N/A Computed Radiogr aphy 07/06/2024 3:17 PM [employer]BER Narrative 07/06/2024 3:17 PM [employer]BER EXAM DESCRIPTION: XR CHEST 1 VIEW REASON [...] by Sid Rollins M.D. JR: Report ID: [id number] Reading Location: [id number] Procedure Note Sid Rollins MD - 07/06/2024 [...] by Sid Rollins M.D. JR: Report ID: [id number] Reading Location: [id number] us Peter Montes DO IMG XR PROCEDURES Final Res ult * Troponin T high-sensitivity series (baseline, 2hr, 4hr, 6hr) (07/06/2024 2:22 PM T[employer] CRE[employer]MEMBER) Pathologist [facility] Trop T hs 7 <=22 ng/L Comment: Interpretive Data For further hscTnT resources including the diagnostic algorithm and an aid in interpretation, copy and paste this link: https://nrl.testcatalog.org/show/hsTrop Current Interpretive Data last revised 2020. Testing performed by: [facility], [address] [place] [address]., [address] Blood 07/06/2024 2:22 PM [employer]BER 07/06/2024 2:28 PM [employer]BER us Peter Montes DO LAB BLOOD ORDERABLES Final Result ZION [address] [facility] Department [place] [address] * Influenza A/B, RSV, and COVID-19 PCR Nasopharyngeal (07/06/2024 2:22 PM T[employer] CRE[employer]MEMBER) Pathologist [facility] COVID-19 RNA Negative Negative Comment:Testing performed by : [address] [address] Influenza A RNA Negative Negative ZION Comment:Testing performed by : [address] [address] Influenza B RNA Negative Negative ZION Comment:Testing performed by : [address] [address] RSV RNA Negative Negative ZION Comment: Interpretive data: Testing performed by [facility]. This test is performed using the [employer] Xpert Xpress CoV-2/Flu/RSV plus assay. This is a multiplex, real-time reverse transcriptase PCR assay intended for the qualitative detection of nucleic acid from SARS-CoV-2, influenza A, influenza B, and respiratory syncytial virus. This assay has been cleared by the [place] Food and Drug administration. The performance characteristics have been verified by the [facility]. Results must be considered in the clinical context, and a negative result does not rule out infection. Interpretive Data last revised 2023 Testing performed by: [address] [address] Nasopharyngeal 07/06/2024 2: 22 PM [employer]BER 07/06/2024 2:29 PM [employer] CRE[employer]BER Narrative ZION - 07/06/2024 3:09 PM [employer]BER Is the Patient experiencing symptoms consistent with COVID?->Yes Peter Montes DO LAB MICROBIOLOGY - GENERAL ORDERABLES Final Result ZION [address] [facility] Department of Laboratories [place], [place] [id number] * eGFR (07/06/2024 2:22 PM T[employer] CRE[employer]MEMBER) eGFR >90 >=60 mL/min/1. 73 m2 Comment: [...] was last reviewed 2021. Testing performed by: [address] [address] Blood 07/06/2024 2:22 PM [employer]BER 07/06/2024 2:28 PM [employer]BER us Peter Montes DO LAB BLOOD ORDERABLES Final Result ZION [facility] Department [place] [address] * (ABNORMAL) Differential, auto (07/06/2024 2:22 PM T[employer]MEMBER) Neutrophil abs 6.7(H) 1.5 - 6.5 K/cumm Comment:Testing performed by : [address] [address] Imm gran abs 0.0 0.0 - 0.1 K/cumm ZION Comment:Testing performed by : [address] [address] Lymphocyte abs 1.2 0.8 - 3.3 K/cumm ZION Comment:Testing performed by : [address] [address] Monocyte abs 0.7 0.2 - 0.8 K/cumm ZION Comment:Testing performed by : [address] [address] Eosinophil abs 0.1 0.0 - 0.5 K/cumm ZION Comment:Testing performed by : [address] [address] Basophil abs 0.0 0.0 - 0.1 K/cumm ZION Comment:Testing performed by : [address] [address] Neutrophil pct 75.9 % ZION Comment: Interpretive Data Percent cell count reference ranges are not reported, since discordance with absolute values may lead to misinterpretation of CBC data. Current Interpretive Data was last revised on 2017. Testing performed by: [address] [address] Imm gran pct 0.3 % [facility] Comment: Interpretive Data Percent cell count reference ranges are not reported, since discordance with absolute values may lead to misinterpretation of CBC data. Current Interpretive Data was last revised on 2017. Testing performed by: [address] [address] Lymphocyte pct 13.5 % [facility] Comment: Interpretive Data Percent cell count reference ranges are not reported, since discordance with absolute values may lead to misinterpretation of CBC data. Current Interpretive Data was last revised on 2017. Testing performed by: [address] [address] Monocyte pct 8.3 % [facility] Comment: Interpretive Data Percent cell count reference ranges are not reported, since discordance with absolute values may lead to misinterpretation of CBC data. Current Interpretive Data was last revised on 2017. Testing performed by: [address] [address] Eosinophil pct 1.6 % [facility] Comment: Interpretive Data Percent cell count reference ranges are not reported, since discordance with absolute values may lead to misinterpretation of CBC data. Current Interpretive Data was last revised on 2017. Testing performed by: [address] [address] Basophil pct 0.4 % [facility] Comment: Interpretive Data Percent cell count reference ranges are not reported, since discordance with absolute values may lead to misinterpretation of CBC data. Current Interpretive Data was last revised on 2017. Testing performed by: [address] [address] Blood 07/06/2024 2:22 PM T[employer] CRE[employer]BER 07/06/2024 2:28 PM T[employer] CRE[employer]BER us Peter Montes DO LAB BLOOD ORDERABLES Final Result ZION MH [address] [facility] Department [place] [address] * Pro B-type natriuretic peptide (07/06/2024 2:22 PM T[employer] CRE[employer]MEMBER) NT-proBNP 37 <=300 pg/mL Comment: Interpretive Comments: [...] Heart J. 2006:27:330-337. 2. Freddy RW, Ami AM. J. AM Billy Cardiol: Cardiovasc Imag. 2009;2: 216- 225. Interpretive Data Last Revised Date: 2018. Testing performed by: [facility], [address] [place] [address]., [address] Blood 07/06/2024 2:22 PM [employer]BER 07/06/2024 2:28 PM [employer]BER us Peter Montes DO LAB BLOOD ORDERABLES Final Result ZION [address] [facility] Department of Laboratories [place], [place] [id number] * (ABNORMAL) CBC with auto differential (07/06/2024 2:22 PM T[employer] CRE[employer]MEMBER) WBC 8.9 3.8 - 9.9 K/cumm Comment:Testing performed by : [address] [address] Hgb 14.0 13.0 - 17.5 g/dL ZION Comment:Testing performed by : [address], [address] Hct 41.3 38.9 - 50.3 % ZION Comment:Testing performed by : [address] [address] Plt 289 150 - 400 K/cumm ZION Comment:Testing performed by : [address] [address] MPV 9.2 9.1 - 12.3 fL ZION Comment:Testing performed by : [address] [address] RBC 4.24(L) 4.30 - 5.80 M/cumm ZION Comment:Testing performed by : [address] [address] MCV 97.4(H) 81.3 - 96.4 fL ZION Comment:Testing performed by : [address] [address] MCH 33.0 27.1 - 33.3 pg ZION Comment:Testing performed by : [address] [address] MCHC 33.9 32.3 - 35.7 g/dL ZION Comment:Testing performed by : [address], [address] RDW CV 13.5 11.1 - 14.9 % ZION Comment:Testing performed by : [address], [address] RDW SD 48.4(H) 35.7 - 48.1 fL ZION HENDERSON Comment:Testing performed by : [address] [address] NRBC abs 0.00 0.00 - 0.01 K/cumm ZION HENDERSON Comment:Testing performed by : [address] [address] Blood 07/06/2024 2:22 PM [employer]BER 07/06/2024 2:28 PM [employer]BER us Peter Montes DO LAB BLOOD ORDERABLES Final Result ZION HENDERSON [address] [facility] Department [place] [address] * (ABNORMAL) Comprehensive metabolic panel (07/06/2024 2:22 PM T[employer]MEMBER) Sodium 134(L) 135 - 145 mmol/L Comment:Testing performed by : [address] [address] Potassium, pl 4.1 3.3 - 4.9 mmol/L ZION HENDERSON Comment:Testing performed by : [address] [address] Chloride 95(L) 97 - 110 mmol/L ZION HENDERSON Comment:Testing performed by : [address] [address] CO2 26 22 - 32 mmol/L ZION Comment:Testing performed by : [address] [address] Anion gap 13 2 - 15 mmol/L ZION Comment:Testing performed by : [address] [address] BUN 6 6 - 25 mg/dL ZION HENDERSON Comment:Testing performed by : [address] [address] Creatinine 0.72(L) 0.80 - 1.30 mg/dL ZION HENDERSON Comment:Testing performed by : [address] [address] Glucose 109 70 - 199 mg/dL ZION [...] was last revised 2022. Testing performed by: [address] [address] Calcium 9.7 8.5 - 10.3 mg/dL ZION Comment:Testing performed by : [address] [address] Bilirubin, total 1.0 0.1 - 1.2 mg/dL ZION Comment:Testing performed by : [address] [address] Protein, pl 7.9 6.5 - 8.5 g/dL ZION Comment:Testing performed by : [address] [address] Albumin 4.5 3.5 - 5.0 g/dL ZION Comment:Testing performed by : [address] [address] Alk phos 97 40 - 130 Units/L ZION Comment:Testing performed by : [address] [address] ALT 35 7 - 55 Units/L ZION Comment:Testing performed by : [address] [address] AST 29 10 - 50 Units/L ZION Comment:Testing performed by : [address] [address] Blood 07/06/2024 2:22 PM [employer]BER 07/06/2024 2:28 PM [employer]BER Peter Montes DO LAB BLOOD ORDERABLES Final Result ZION [address] [facility] Department [place] [address] * ECG 12 lead (07/06/2024 2:18 PM TANK CREWMEMBER) [facility] Ventricular Rate EKG/Min 72 BPM [facility] Atrial Rate 72 BPM [facility] [place]-Interval (MSEC) 176 ms [facility] QRS-Interval (MSEC) 88 ms [facility] QT-Interval (MSEC) 406 ms [facility] QTc 444 ms [facility] P Broadus 31 degrees [facility] R Broadus 1 degrees [facility] T Broadus -8 degrees [facility] Diagnosis Normal sinus rhythm Normal ECG When compared with ECG of 06-JUN-2024 08:21, No significant change was found Confirmed by LELA SCHULER M.D. ([id number]) on 07/06/2024 2:35:28 PM [facility] 07/06/2024 2:18 PM [employer]BER 07/06/2024 2:35 PM T[employer]BER us Peter Montes DO ECG ORDERABLES Final Resul t Performing Organization Address [facility]/ZIP Co de Phone Number [facility] * POC Influenza A/B, COVID-19 antigen (07/05/2024 11:20 AM TANK CREWMEMBER) [facility] Influenza A Ag, POC Negative Negative [facility] Influenza B Ag, POC Negative Negative [facility] COVID-19 Ag POC Presumptive Negative Presumptive Negative, Invalid [facility] Nasal 07/05/2024 11:2 0 AM T[employer] CRE[employer]MEMBER us Merary Zuleta POINT OF CARE TEST ORDER MICHEL Final Result Performing Organization Address City/[facility]/ZIP Co de Phone Number [facility] [address] * Pro B-type natriuretic peptide (07/05/2024 9:07 AM T[employer] CRE[employer]MEMBER) [facility] NT PROBNP 69 <125 pg/mL [facility] 07/05/2024 9:07 AM [employer] CRE[employer]BER 07/05/2024 9:08 AM T[employer] CRE[employer]MEMBER Shagufta Hannah Christina [employer] LAB BLOOD ORDERABLES Fin al Result Performing Organization Address [facility] Co de Phone Number [facility] [address] [place] [address] * (ABNORMAL) Basic metabolic panel (07/05/2024 9:06 AM TANK CREWMEMBER) [facility] Glucose 113(H) 65 - 99 mg/dL [facility] [...] [facility] Blood 07/05/2024 9:06 AM T[employer] CRE[employer]BER 07/05/2024 9:07 AM T[employer] CRE[employer]MEMBER Jude Le [employer] LAB BLOOD ORDERABLES Fin al Result Performing Organization Address [facility] Co de Phone Number [facility] [address] [place] [address] * Pulmonary Function Test - (06/20/2024 7:47 AM TANK CREWMEMBER) FVC PRE 3.40 L [facility] FVC %PRE PRED 76 % [facility] FEV1 PRE 2.68 L [facility] FEV1 %PRE PRED 82 % [facility] FEV1/FVC PRE 79.0 % [facility] Anatomical Region Laterality Modality PFT 06/20/2024 7:19 AM TANK CREWMEMBER Narrative 06/20/2024 7:20 PM TANK CREWMEMBER Table formatting from the original result was not included. [facility] Division of Pulmonary & Critical Care Medicine [address] [place] [address]; [place] [address]; [place] [address]; [phone] Pulmonary Function Laboratory Pulmonary Stress Test Simple/Oxygen [...] Work [distance (m) x body wt (kg)]: 15713 kg.m (normal >60,000kg.m) Oxygen required to maintain [...] with the written final report. PFT performed at:->[facility] Adult PFT Lab- CAM-8D Procedure:->Oxygen Assessment Titration [...] and %HbO2 is age dependent. However, the [facility] Pulmonary Function Laboratory defines hypoxemia as a PaO2 <56 mm Hg or a %HbO2 <89%. Starting on May of [address] [facility] Pulmonary Function Laboratory utilizes race neutral GLI Global normative equations. us Palmira Moncada MD PFT ORDERABLES Final Res ult * Extended/Prison Holter Patch (>48 hours up to 7 days) (06/15/2024 2:25 PM TANK CREWMEMBER) Anatomical Region Laterality Modality Electrocardiogra phy 06/15/2024 1:58 PM TANK CREWMEMBER Narrative 06/29/2024 3:48 PM TANK CREWMEMBER [facility] Cardiac [place] [address] HOLTER MONITOR Patient Name: ASHLEY OLIVER L : 1950 (74y 4m) Gender: M Study Date: 06/15/2024 01:58:12 PM Ht(Inch): Wt(Lb): BSA: Tech: Location: [facility] Order Provider: SHAGUFTA VASQUEZ BMI: Ref Provider: SHAGUFTA VASQUEZ PROCEDURES: Holter Report: EXTENDED/[facility] HOLTER PATCH (>48 HOURS UP TO 7 DAYS) [[id number]]. Enrollment Period: 06/15/2024-06/18/2024. Monitor Number: [id number]. Location: [facility]. INDICATIONS: R06.02 Shortness of breath. FINDINGS: Holter Data: Min Rate: 57 BPM Min Rate Timestamp: 2024-06-17 16:45:16 Max Rate: 179 BPM Max Rate Timestamp: 2024-06-18 06:33:44 Mean Rate: 76 BPM Singlets (PACs): 395 events Couplets (PACs): 25 events Total (SVE): 507 events Singlets (PVCs): 350 events Couplets (PVCs): 2 events Total (VE): 354 events Total beats: 204826 Protocol: Recording Duration (Actual): 354562.22 Total QRS: 139938 SUMMARY: *The predominant rhythm was Sinus. *The [...] PDF report can be found in the [facility] patient chart. Electronically Signed By: Jerry To Jr., M.D. 06/29/2024 3:19:13 PM TANK CREWMEMBER Electronically Signed By: Jerry To Jr., M.D. 06/29/2024 3:19:13 PM TANK CREWMEMBER Procedure Note Jerry To MD PhD - 06/29/2024 [facility] [place] [address] HOLTER MONITOR Patient Name: ASHLEY OLIVER L : 1950 (74y 4m) Gender: M Study Date: 06/15/2024 01:58:12 PM Ht(Inch): Wt(Lb): BSA: Tech: Location: [facility] Order Provider: SHAGUFTA VASQUEZ BMI: Ref Provider: SHAGUFTA VASQUEZ PROCEDURES: Holter Report: EXTENDED/[facility] HOLTER PATCH (>48 HOURS UP TO 7 DAYS)[[id number]]. Enrollment Period: 06/15/2024-06/18/2024. Monitor Number: [id number]. Location: [facility]. INDICATIONS: R06.02 Shortness of breath. FINDINGS: Holter Data: Min Rate: 57 BPM Min Rate Timestamp: 2024-06-17 16:45:16 Max Rate: 179 BPM Max Rate Timestamp: 2024-06-18 06:33:44 Mean Rate: 76 BPM Singlets (PACs): 395 events Couplets (PACs): 25 events Total (SVE): 507 events Singlets (PVCs): 350 events Couplets (PVCs): 2 events Total (VE): 354 events Total beats: 468027 Protocol: Recording Duration (Actual): 538307.22 Total QRS: 866365 SUMMARY: *The predominant rhythm was Sinus. *The [...] PDF report can be found in the [facility] patient chart. Electronically Signed By: Jerry To Jr., M.D. 06/29/2024 3:19:13 PM TANK CREWMEMBER Electronically Signed By: Jerry To Jr., M.D. 06/29/2024 3:19:13 PM TANK CREWMEMBER us Shagufta Vasquez NP CV CARDIAC SERVICES PROC EDURES Final Result * Pro B-type natriuretic peptide (06/15/2024 1:34 PM TANK CREWMEMBER) NT-proBNP 117 <=300 pg/mL Comment: Interpretive Comments: [...] as advanced age. - References: 1. Martha JL et.al. Eur Heart J. 2006:27:330-337. 2. Frdedy RW, Ami AM. J. AM Billy Cardiol: Cardiovasc Imag. 2009;2: 216- 225. Interpretive Data Last Revised Date: 2018. Blood 06/15/2024 1:34 PM TANK CREWMEMBER 06/15/2024 2:54 PM TANK CREWMEMBER us Shagufta Vasquez [employer]NER LAB BLOOD ORDERABLES Fin al Result ZION [facility] One [facility] Department [place] [address] * XR Chest 1 View (06/09/2024 8:31 AM TANK CREWMEMBER) Anatomical Region Laterality Modality Body, Chest N/A Computed Radiogr aphy 06/09/2024 8:39 AM TANK CREWMEMBER Narrative 06/09/2024 8:41 AM TANK CREWMEMBER EXAM DESCRIPTION: XR CHEST 1 VIEW REASON [...] Pratik Maldonado D.O. PS: PS Report ID: [id number] Reading Location: [id number] Procedure Note Pratik Maldonado, DO - 06/09/2024 [...] 06/09/2024 8:41 AM - Electronically signed by rPatik Maldonado D.O. PS: PS Report ID: [id number] Reading Location: [id number] Elidia Resendez MD IMG XR PROCEDURES Neema l Result * eGFR (06/09/2024 3:29 AM TANK CREWMEMBER) eGFR >90 >=60 mL/min/1. 73 m2 Comment: [...] was last reviewed 2021. Testing performed by: [address] [address] Blood 06/09/2024 3:29 AM TANK CREWMEMBER 06/09/2024 3:51 AM TANK CREWMEMBER Elidia Resendez MD LAB BLOOD ORDERABLES F inal Result ZION [address] [facility] Department [place] [address] * (ABNORMAL) Differential, auto (06/09/2024 3:29 AM TANK CREWMEMBER) Pathologist [facility] Neutrophil abs 9.6(H) 1.5 - 6.5 K/cumm Comment:Testing performed by : [address] [address] Imm gran abs 0.1 0.0 - 0.1 K/cumm [facility] Comment:Testing performed by : [address] [address] Lymphocyte abs 0.8 0.8 - 3.3 K/cumm [facility] Comment:Testing performed by : [address] [address] Monocyte abs 0.5 0.2 - 0.8 K/cumm [facility] Comment:Testing performed by : [address], [place]., [address] Eosinophil abs 0.0 0.0 - 0.5 K/cumm [facility] Comment:Testing performed by : [address], [place]., [address] Basophil abs 0.0 0.0 - 0.1 K/cumm [facility] Comment:Testing performed by : [address] [address] Neutrophil pct 86.9 % [facility] Comment: Interpretive Data Percent cell count reference ranges are not reported, since discordance with absolute values may lead to misinterpretation of CBC data. Current Interpretive Data was last revised on 2017. Testing performed by: [address] [address] Imm gran pct 1.0 % [facility] Comment: Interpretive Data Percent cell count reference ranges are not reported, since discordance with absolute values may lead to misinterpretation of CBC data. Current Interpretive Data was last revised on 2017. Testing performed by: [address] [address] Lymphocyte pct 7.6 % [facility] Comment: Interpretive Data Percent cell count reference ranges are not reported, since discordance with absolute values may lead to misinterpretation of CBC data. Current Interpretive Data was last revised on 2017. Testing performed by: [address] [address] Monocyte pct 4.3 % [facility] Comment: Interpretive Data Percent cell count reference ranges are not reported, since discordance with absolute values may lead to misinterpretation of CBC data. Current Interpretive Data was last revised on 2017. Testing performed by: [address] [address] Eosinophil pct 0.0 % [facility] Comment: Interpretive Data Percent cell count reference ranges are not reported, since discordance with absolute values may lead to misinterpretation of CBC data. Current Interpretive Data was last revised on 2017. Testing performed by: [address] [address] Basophil pct 0.2 % [facility] Comment: Interpretive Data Percent cell count reference ranges are not reported, since discordance with absolute values may lead to misinterpretation of CBC data. Current Interpretive Data was last revised on 2017. Testing performed by: [address] [address] Blood 06/09/2024 3:29 AM TANK CREWMEMBER 06/09/2024 3:51 AM TANK CREWMEMBER Elidia Resendez MD LAB BLOOD ORDERABLES F inal Result [facility] Department [place] [address] * (ABNORMAL) CBC with auto differential (06/09/2024 3:29 AM TANK CREWMEMBER) WBC 11.0(H) 3.8 - 9.9 K/cumm Comment:Testing performed by : [address] [address] Hgb 12.9(L) 13.0 - 17.5 g/dL [facility] Comment:Testing performed by : [address] [address] Hct 37.9(L) 38.9 - 50.3 % ZION Comment:Testing performed by : [address] [address] Plt 267 150 - 400 K/cumm [facility] Comment:Testing performed by : [address] [address] MPV 8.9(L) 9.1 - 12.3 fL [facility] Comment:Testing performed by : [address] [address] RBC 3.94(L) 4.30 - 5.80 M/cumm [facility] Comment:Testing performed by : [address] [address] MCV 96.2 81.3 - 96.4 fL [facility] Comment:Testing performed by : [address] [address] MCH 32.7 27.1 - 33.3 pg [facility] Comment:Testing performed by : [address] [address] MCHC 34.0 32.3 - 35.7 g/dL [facility] Comment:Testing performed by : [address] [address] RDW CV 14.2 11.1 - 14.9 % [facility] Comment:Testing performed by : [address] [address] RDW SD 49.9(H) 35.7 - 48.1 fL [facility] Comment:Testing performed by : [address] [address] NRBC abs 0.00 0.00 - 0.01 K/cumm [facility] Comment:Testing performed by : [address] [address] Blood 06/09/2024 3:29 AM TANK CREWMEMBER 06/09/2024 3:51 AM TANK CREWMEMBER Elidia Resendze MD LAB BLOOD ORDERABLES F inal Result [facility]ION [address] [facility] Department of Laboratories [place], [place] [address] * (ABNORMAL) Comprehensive metabolic panel (06/09/2024 3:29 AM TANK CREWMEMBER) Sodium 136 135 - 145 mmol/L Comment:Testing performed by : [address] [address] Potassium, pl 3.9 3.3 - 4.9 mmol/L [facility] Comment:Testing performed by : [address] [address] Chloride 100 97 - 110 mmol/L [facility] Comment:Testing performed by : [facility], [address] [place] [address]., [address] CO2 25 22 - 32 mmol/L ZION Comment:Testing performed by : [address] [address] Anion gap 11 2 - 15 mmol/L ZION Comment:Testing performed by : [address] [address] BUN 16 6 - 25 mg/dL ZION Comment:Testing performed by : [address] [address] Creatinine 0.63(L) 0.80 - 1.30 mg/dL ZION Comment:Testing performed by : [address] [address] Glucose 144 70 - 199 mg/dL ZION [...] was last revised 2022. Testing performed by: [address] [address] Calcium 9.9 8.5 - 10.3 mg/dL ZION Comment:Testing performed by : [address] [address] Bilirubin, total 0.5 0.1 - 1.2 mg/dL ZION Comment:Testing performed by : [address] [address] Protein, pl 6.7 6.5 - 8.5 g/dL ZION Comment:Testing performed by : [address] [address] Albumin 3.7 3.5 - 5.0 g/dL ZION Comment:Testing performed by : [address] [place]., [address] Alk phos 75 40 - 130 Units/L ZION Comment:Testing performed by : [address] [address] ALT 23 7 - 55 Units/L ZION Comment:Testing performed by : [address] [address] AST 17 10 - 50 Units/L ZION Comment:Testing performed by : [address] [address] Blood 06/09/2024 3:29 AM TANK CREWMEMBER 06/09/2024 3:51 AM TANK CREWMEMBER Elidia Resendez MD LAB BLOOD ORDERABLES F inal Result [facility]ION [address] [facility] Department [place] [address] * eGFR (06/08/2024 4:18 AM TANK CREWMEMBER) eGFR >90 >=60 mL/min/1. 73 m2 Comment: [...] was last reviewed 2021. Testing performed by: [address] [address] Blood 06/08/2024 4:18 AM TANK CREWMEMBER 06/08/2024 5:10 AM TANK CREWMEMBER us Elidia Resendez MD LAB BLOOD ORDERABLES F inal Result ZION [address] [facility] Department [place] [address] * (ABNORMAL) Differential, auto (06/08/2024 4:18 AM TANK CREWMEMBER) Neutrophil abs 10.7(H) 1.5 - 6.5 K/cumm Comment:Testing performed by : [address] [address] Imm gran abs 0.1 0.0 - 0.1 K/cumm ZION Comment:Testing performed by : [address] [address] Lymphocyte abs 0.6(L) 0.8 - 3.3 K/cumm Z[facility] Comment:Testing performed by : [address] [address] Monocyte abs 0.4 0.2 - 0.8 K/cumm ZION Comment:Testing performed by : [address] [address] Eosinophil abs 0.0 0.0 - 0.5 K/cumm ZION Comment:Testing performed by : [address] [address] Basophil abs 0.0 0.0 - 0.1 K/cumm ZION Comment:Testing performed by : [address] [address] Neutrophil pct 90.3 % ZION Comment: Interpretive Data Percent cell count reference ranges are not reported, since discordance with absolute values may lead to misinterpretation of CBC data. Current Interpretive Data was last revised on 2017. Testing performed by: [address] [address] Imm gran pct 0.9 % [facility] Comment: Interpretive Data Percent cell count reference ranges are not reported, since discordance with absolute values may lead to misinterpretation of CBC data. Current Interpretive Data was last revised on 2017. Testing performed by: [address] [address] Lymphocyte pct 5.2 % [facility] Comment: Interpretive Data Percent cell count reference ranges are not reported, since discordance with absolute values may lead to misinterpretation of CBC data. Current Interpretive Data was last revised on 2017. Testing performed by: [address] [address] Monocyte pct 3.5 % [facility] Comment: Interpretive Data Percent cell count reference ranges are not reported, since discordance with absolute values may lead to misinterpretation of CBC data. Current Interpretive Data was last revised on 2017. Testing performed by: [address] [address] Eosinophil pct 0.0 % [facility] Comment: Interpretive Data Percent cell count reference ranges are not reported, since discordance with absolute values may lead to misinterpretation of CBC data. Current Interpretive Data was last revised on 2017. Testing performed by: [address] [address] Basophil pct 0.1 % [facility] Comment: Interpretive Data Percent cell count reference ranges are not reported, since discordance with absolute values may lead to misinterpretation of CBC data. Current Interpretive Data was last revised on 2017. Testing performed by: [address] [address] Blood 06/08/2024 4:18 AM TANK CREWMEMBER 06/08/2024 5:11 AM TANK CREWMEMBER us Elidia Resendez MD LAB BLOOD ORDERABLES F inal Result [facility] [address] [facility] Department [place] [address] * (ABNORMAL) CBC with auto differential (06/08/2024 4:18 AM TANK CREWMEMBER) WBC 11.9(H) 3.8 - 9.9 K/cumm Comment:Testing performed by : [address] [address] Hgb 12.6(L) 13.0 - 17.5 g/dL ZION Comment:Testing performed by : [address] [address] Hct 36.8(L) 38.9 - 50.3 % ZION Comment:Testing performed by : [address] [address] Plt 266 150 - 400 K/cumm Z[facility] Comment:Testing performed by : [address] [address] MPV 9.2 9.1 - 12.3 fL [facility] Comment:Testing performed by : [address] [address] RBC 3.87(L) 4.30 - 5.80 M/cumm [facility] Comment:Testing performed by : [address] [address] MCV 95.1 81.3 - 96.4 fL [facility] Comment:Testing performed by : [address] [address] MCH 32.6 27.1 - 33.3 pg [facility] Comment:Testing performed by : [address] [address] MCHC 34.2 32.3 - 35.7 g/dL ZION Comment:Testing performed by : [address], [address] RDW CV 14.5 11.1 - 14.9 % ZION Comment:Testing performed by : [address] [address] RDW SD 49.1(H) 35.7 - 48.1 fL ZION Comment:Testing performed by : [address] [address] NRBC abs 0.00 0.00 - 0.01 K/cumm Z[facility] Comment:Testing performed by : [address] [address] Blood 06/08/2024 4:18 AM TANK CREWMEMBER 06/08/2024 5:11 AM TANK CREWMEMBER us Elidia Resendez MD LAB BLOOD ORDERABLES F inal Result [facility]ION [address] [facility] Department [place] [address] * (ABNORMAL) Comprehensive metabolic panel (06/08/2024 4:18 AM TANK CREWMEMBER) Sodium 138 135 - 145 mmol/L Comment:Testing performed by : [address] [address] Potassium, pl 3.9 3.3 - 4.9 mmol/L ZION Comment:Testing performed by : [address] [address] Chloride 100 97 - 110 mmol/L ZION Comment:Testing performed by : [address] [address] CO2 26 22 - 32 mmol/L ZION Comment:Testing performed by : [address] [address] Anion gap 12 2 - 15 mmol/L ZION Comment:Testing performed by : [address] [address] BUN 15 6 - 25 mg/dL ZION Comment:Testing performed by : [address] [address] Creatinine 0.63(L) 0.80 - 1.30 mg/dL ZION Comment:Testing performed by : [address] [address] Glucose 143 70 - 199 mg/dL ZION [...] was last revised 2022. Testing performed by: [address] [address] Calcium 10.0 8.5 - 10.3 mg/dL ZION Comment:Testing performed by : [address] [address] Bilirubin, total 0.5 0.1 - 1.2 mg/dL ZION Comment:Testing performed by : [address] [address] Protein, pl 7.0 6.5 - 8.5 g/dL ZION Comment:Testing performed by : [address] [address] Albumin 4.0 3.5 - 5.0 g/dL ZION Comment:Testing performed by : [address] [address] Alk phos 76 40 - 130 Units/L [facility] Comment:Testing performed by : [address] [address] ALT 27 7 - 55 Units/L [facility] Comment:Testing performed by : [address] [address] AST 19 10 - 50 Units/L [facility] Comment:Testing performed by : [address] [address] Blood 06/08/2024 4:18 AM TANK CREWMEMBER 06/08/2024 5:10 AM TANK CREWMEMBER us Elidia Resendez MD LAB BLOOD ORDERABLES F inal Result [facility] [address] [facility] Department [place] [address] * TRANSTHORACIC ECHO (TTE) COMPLETE W DOPPLER/CF W CONTRAST (06/07/2024 11:10 AM TANK CREWMEMBER) Anatomical Region Laterality Modality Ultrasound 06/07/2024 10:1 5 AM TANK CREWMEMBER Narrative 06/07/2024 1:36 PM TANK CREWMEMBER Adult Echocardiogram + ----- + :Name: ASHLEY OLIVER Study Date: 06/07/2024 Status: [facility] : : Patient Location: [address]^[id number]^MHeight: 73 in : : Weight: 219 lbBP: [...] V1 VTI: 17.3 cm RAKAN(I,D): 2.7 cm2 RKAAN(V,D): 3.2 cm2 SV(LVOT): 78.3 ml PA V2 max: RV V1 max: 126.0 cm/sec 113.0 cm/sec PA max P.4 mmHg Electronically signed by: Buck Eisenberg MD 06/07/2024 01:36 PM Procedure Note Buck Eisenberg MD - 06/07/2024 Adult Echocardiogram + ----- + :Name: ASHLEY OLIVER Study Date: 06/07/2024Status: BRUCE : : Patient Location: [address]^[id number]^MHeight: 73 in : : : 219 lbBP: 137/76 mmHg: :: 1950 Gender: MaleBSA: 2.2 m2 : :Reason For Study: Dyspnea: :Ordering Physician:: :DISHA^ELIDIA^DAVID: :: :Performed By: Shahla: :DANDRE Fregoso: + [...] by: Buck Eisenberg MD 06/07/2024 01:36 PM Result [facility] Elidia Resendez MD CV ECHO PROCEDURES Fin al Result * Pro B-type natriuretic peptide (06/07/2024 4:44 AM TANK CREWMEMBER) NT-proBNP 294 <=300 pg/mL Comment: Interpretive Comments: [...] Last Revised Date: 2018. Testing performed by: [address] [address] Blood 06/07/2024 4:44 AM TANK CREWMEMBER 06/07/2024 5:24 AM TANK CREWMEMBER Elidia Resendez MD LAB BLOOD ORDERABLES F inal Result Performing Organization Address [facility] de Phone Number [address] [place] [employer] [place] [address] * (ABNORMAL) Erythrocyte sedimentation rate (06/07/2024 4:44 AM TANK CREWMEMBER) Erythrocyte sedimentation rate 30(H) 1 - 20 mm/hr Comment:Testing performed by : [address] [address] Blood 06/07/2024 4:44 AM TANK CREWMEMBER 06/07/2024 5:25 AM TANK CREWMEMBER Elidia Resendez MD LAB BLOOD ORDERABLES F inal Result Performing Organization Address [facility] Co de Phone Number [address] [address] * (ABNORMAL) CRP (acute phase) (06/07/2024 4:44 AM TANK CREWMEMBER) CRP 12.6(H) <=10.0 mg/L Comment:Testing performed by : [address] [address] Blood 06/07/2024 4:44 AM TANK CREWMEMBER 06/07/2024 5:24 AM TANK CREWMEMBER us Elidia Resendez MD LAB BLOOD ORDERABLES F inal Result Performing Organization Address City/[facility]/ZIP Co de Phone Number [facility] [address] [facility] Department [place] [address] * ECG 12 lead (06/06/2024 8:21 AM TANK CREWMEMBER) Pathologist [facility] Ventricular Rate EKG/Min 88 BPM [facility] Atrial Rate 88 BPM [facility] [place]-Interval (MSEC) 196 ms [facility] QRS-Interval (MSEC) 88 ms [facility] QT-Interval (MSEC) 382 ms [facility] QTc 462 ms [facility] P Broadus 57 degrees [facility] R [place] 8 degrees [facility] T Broadus -14 degrees [facility] Diagnosis Normal sinus rhythm Normal ECG When compared with ECG of 05-JUN-2024 17:36, ST no longer depressed in Inferior leads Confirmed by YARELY COLINDRES M.D. ([id number]) on 06/07/2024 9:08:14 PM [facility] 06/06/2024 8:21 AM TANK CREWMEMBER 06/07/2024 9:08 PM TANK CREWMEMBER us Marco Pro MD ECG ORDERABLES Final Result Performing Organization Address [facility] Co de Phone Number [facility] * eGFR (06/06/2024 3:47 AM TANK CREWMEMBER) Pathologist [facility] eGFR >90 >=60 mL/min/1. 73 m2 Comment: [...] was last reviewed 2021. Testing performed by: [address] [address] Blood 06/06/2024 3:47 AM TANK CREWMEMBER 06/06/2024 3:58 AM TANK CREWMEMBER us Marco Pro MD LAB BLOOD ORDERABLES Final Result [facility] Department [place] [address] * (ABNORMAL) CBC without differential (06/06/2024 3:47 AM TANK CREWMEMBER) WBC 7.0 3.8 - 9.9 K/cumm Comment:Testing performed by : [address] [address] Hgb 12.2(L) 13.0 - 17.5 g/dL [facility] Comment:Testing performed by : [address] [address] Hct 36.6(L) 38.9 - 50.3 % [facility] Comment:Testing performed by : [address] [address] Plt 209 150 - 400 K/cumm [facility] Comment:Testing performed by : [address] [address] MPV 9.2 9.1 - 12.3 fL [facility] Comment:Testing performed by : [address] [address] RBC 3.86(L) 4.30 - 5.80 M/cumm [facility] Comment:Testing performed by : [address] [address] MCV 94.8 81.3 - 96.4 fL [facility] Comment:Testing performed by : [address] [address] MCH 31.6 27.1 - 33.3 pg [facility] Comment:Testing performed by : [address] [address] MCHC 33.3 32.3 - 35.7 g/dL [facility] Comment:Testing performed by : [address] [address] RDW CV 14.0 11.1 - 14.9 % [facility] Comment:Testing performed by : [address] [address] RDW SD 47.7 35.7 - 48.1 fL [facility] Comment:Testing performed by : [address] [address] NRBC abs 0.00 0.00 - 0.01 K/cumm ZION Comment:Testing performed by : [address], [address] Blood 06/06/2024 3:47 AM TANK CREWMEMBER 06/06/2024 3:58 AM TANK CREWMEMBER Marco Pro MD LAB BLOOD ORDERABLES Final Result Performing Organization Address [facility] Co de Phone Number [address] [place] [employer] [place] [address] * Magnesium (06/06/2024 3:47 AM TANK CREWMEMBER) Pathologist [facility] Magnesium 2.3 1.4 - 2.5 mg/dL Comment:Testing performed by : [address] [address] Blood 06/06/2024 3:47 AM TANK CREWMEMBER 06/06/2024 3:58 AM TANK CREWMEMBER Marco Pro MD LAB BLOOD ORDERABLES Final Result Performing Organization Address City/[facility] de Phone Number [address] [address] * (ABNORMAL) Basic metabolic panel (06/06/2024 3:47 AM TANK CREWMEMBER) Sodium 136 135 - 145 mmol/L Comment:Testing performed by : [address] [address] Potassium, pl 3.8 3.3 - 4.9 mmol/L [facility] Comment:Testing performed by : [address] [address] Chloride 99 97 - 110 mmol/L [facility] Comment:Testing performed by : [address] [address] CO2 19(L) 22 - 32 mmol/L ZION Comment:Testing performed by : [address] [address] Anion gap 18(H) 2 - 15 mmol/L ZION Comment:Testing performed by : [address] [address] BUN 10 6 - 25 mg/dL ZION Comment:Testing performed by : [address] [address] Creatinine 0.60(L) 0.80 - 1.30 mg/dL ZION Comment:Testing performed by : [address] [address] Glucose 225(H) 70 - 199 mg/dL ZION [...] was last revised 2022. Testing performed by: [address] [address] Calcium 9.3 8.5 - 10.3 mg/dL ZION Comment:Testing performed by : [address] [address] Blood 06/06/2024 3:47 AM T[employer] CRE[employer]BER 06/06/2024 3:58 AM [employer] CRE[employer]BER Marco Pro MD LAB BLOOD ORDERABLES Final Result [facility] [address] [facility] Department [place] [address] * Influenza A/B, RSV, and COVID-19 PCR Nasopharyngeal (06/05/2024 8:52 PM TANK CREWMEMBER) COVID-19 RNA Negative Negative Comment:Testing performed by : [address] [address] Influenza A RNA Negative Negative [facility] Comment:Testing performed by : [address] [address] Influenza B RNA Negative Negative [facility] Comment:Testing performed by : [address], [address] RSV RNA Negative Negative [facility] Comment: Interpretive data: Testing performed by [facility]. This test is performed using the Orteq Xpert Xpress CoV-2/Flu/RSV plus assay. This is a multiplex, real-time reverse transcriptase PCR assay intended for the qualitative detection of nucleic acid from SARS-CoV-2, influenza A, influenza B, and respiratory syncytial virus. This assay has been cleared by the [place] Food and Drug administration. The performance characteristics have been verified by the [facility]. Results must be considered in the clinical context, and a negative result does not rule out infection. Interpretive Data last revised 2023 Testing performed by: [address] [address] Nasopharyngeal 06/05/2024 8: 52 PM [employer] CRE[employer]MEMBER 06/05/2024 8:55 PM [employer] CRE[employer]MEMBER Narrative ZION - 06/05/2024 9:43 PM T[employer] CREWMEMBER Is the Patient experiencing symptoms consistent with COVID?->Yes Jimbo Jack MD LAB MICROBIOLOGY - GENE RAL ORDERABLES Final Result [facility]ION [address] [facility] [place] [address] * CT Chest PE (CTA) W Contrast (06/05/2024 8:18 PM T[employer] CREWMEMBER) Anatomical Region Laterality Modality Body N/A Computed Tomogra phy 06/05/2024 9:35 PM [employer] CRE[employer]MEMBER Narrative 06/05/2024 9:47 PM TANK CREWMEMBER EXAM DESCRIPTION: CT CHEST PE (CTA) W [...] Electronically signed by Noah Kumari M.D. LL: KELVIN Report ID: [id number] Reading Location: [id number] Procedure Note Noah Kumari MD - 06/05/2024 [...] Electronically signed by Noah Kumari M.D. LL: KELVIN Report ID: [id number] Reading Location: [id number] us Jimbo Jack MD IMG CT PROCEDURES Final Result * Troponin T high-sensitivity 2-hour (06/05/2024 7:11 PM T[employer] CRE[employer]MEMBER) Trop T hs 7 <=22 ng/L Comment: Interpretive Data For further hscTnT resources including the diagnostic algorithm and an aid in interpretation, copy and paste this link: https://nrl.testcatalog.org/show/hsTrop Current Interpretive Data last revised 2020. Testing performed by: [address] [address] Trop T hs delta 0 ng/L ZION HENDERSON Comment:Testing performed by : [address] [address] Trop T hs interp Insignificant ZION HENDERSON Comment:Testing performed by : [address] [address] Blood 06/05/2024 7:11 PM T[employer] CRE[employer]MEMBER 06/05/2024 7:14 PM T[employer] CRE[employer]MEMBER us Giovanny Fletcher NP LAB BLOOD ORDERABLES Final Resul t [facility] [address] [facility] Department [place] [address] * XR Chest 1 Vw Portable (if patient condition/safety warrant portable) (06/05/2024 5:39 PM T[employer] CRE[employer]MEMBER) Anatomical Region Laterality Modality Body, Chest N/A Computed Radiogr aphy 06/05/2024 6:56 PM T[employer] CREWMEMBER Narrative 06/05/2024 6:57 PM T[employer] CREWMEMBER EXAM DESCRIPTION: XR CHEST 1 VIEW REASON [...] Mack Mills M.D. MF: TADEO Report ID: [id number] Reading Location: [place] [address] Procedure Note Mack Mills, DO - 06/05/2024 [...] Mack Mills M.D. MF: TADEO Report ID: [id number] Reading Location: [place] [address] us Giovanny Fletcher NP IMG XR PROCEDURES Final Result * ECG 12 lead (06/05/2024 5:36 PM T[employer] CRE[employer]MEMBER) Ventricular Rate EKG/Min 77 BPM [facility] Atrial Rate 77 BPM [facility] [place]-Interval (MSEC) 184 ms [facility] QRS-Interval (MSEC) 86 ms [facility] QT-Interval (MSEC) 402 ms [facility] QTc 454 ms [facility] P Broadus 62 degrees [facility] R [place] 0 degrees [facility] T Broadus -29 degrees [facility] Diagnosis Normal sinus rhythm Nonspecific ST abnormality Abnormal ECG When compared with ECG of 11-MAY-2024 03:34, No significant change Confirmed by YARELY COLINDRES M.D. ([id number]) on 06/06/2024 12:16:47 PM [facility] 06/05/2024 5:36 PM [employer] CRE[employer]MEMBER 06/06/2024 12:16 PM T[employer] CREWMEMBER Giovanny Fletcher NP ECG ORDERABLES Final Result Performing Organization Address City/[facility]/ZIP Co de Phone Number [facility] * Troponin T high-sensitivity series (baseline, 2hr, 4hr, 6hr) (06/05/2024 5:29 PM T[employer] CREWMEMBER) Pathologist [facility] Trop T hs 7 <=22 ng/L Comment: Interpretive Data For further hscTnT resources including the diagnostic algorithm and an aid in interpretation, copy and paste this link: https://nrl.testcatalog.org/show/hsTrop Current Interpretive Data last revised 2020. Testing performed by: [facility], [address] [place] [address]., [address] Blood 06/05/2024 5:29 PM T[employer] CRE[employer]BER 06/05/2024 5:41 PM T[employer] CRE[employer]BER Giovanny Fletcher NP LAB BLOOD ORDERABLES Final Resul t ZION [address] [facility] Department [place] [address] * Sepsis Lactate w/ Reflex (06/05/2024 5:29 PM T[employer] CRE[employer]MEMBER) Sepsis Lactate 1.5 0.7 - 2.0 mmol/L Comment:Testing performed by : [facility], [address] [place] [address]., [address] Blood 06/05/2024 5:29 PM T[employer] CRE[employer]MEMBER 06/05/2024 5:41 PM T[employer] CRE[employer]MEMBER Giovanny Fletcher [employer]NER LAB BLOOD ORDERABLES Final Resul t [address] [place] [address] * eGFR (06/05/2024 5:29 PM TANK CREWMEMBER) Pathologist [facility] eGFR >90 >=60 mL/min/1. 73 m2 Comment: [...] was last reviewed 2021. Testing performed by: [address] [address] Blood 06/05/2024 5:29 PM T[employer] CRE[employer]BER 06/05/2024 5:41 PM T[employer] CRE[employer]MEMBER Giovanny Fletcher NP LAB BLOOD ORDERABLES Final Resul t [facility] [place] [address] * Differential, auto (06/05/2024 5:29 PM T[employer] CRE[employer]MEMBER) Neutrophil abs 5.2 1.5 - 6.5 K/cumm Comment:Testing performed by : [address] [address] Imm gran abs 0.0 0.0 - 0.1 K/cumm ZION Comment:Testing performed by : [address] [address] Lymphocyte abs 1.1 0.8 - 3.3 K/cumm ZION Comment:Testing performed by : [address] [address] Monocyte abs 0.5 0.2 - 0.8 K/cumm ZION Comment:Testing performed by : [address] [address] Eosinophil abs 0.2 0.0 - 0.5 K/cumm ZION Comment:Testing performed by : [address] [address] Basophil abs 0.0 0.0 - 0.1 K/cumm ZION Comment:Testing performed by : [address] [address] Neutrophil pct 73.7 % ZION Comment: Interpretive Data Percent cell count reference ranges are not reported, since discordance with absolute values may lead to misinterpretation of CBC data. Current Interpretive Data was last revised on 2017. Testing performed by: [address] [address] Imm gran pct 0.4 % ZION Comment: Interpretive Data Percent cell count reference ranges are not reported, since discordance with absolute values may lead to misinterpretation of CBC data. Current Interpretive Data was last revised on 2017. Testing performed by: [address] [address] Lymphocyte pct 15.2 % ZION Comment: Interpretive Data Percent cell count reference ranges are not reported, since discordance with absolute values may lead to misinterpretation of CBC data. Current Interpretive Data was last revised on 2017. Testing performed by: [address] [address] Monocyte pct 7.6 % [facility] Comment: Interpretive Data Percent cell count reference ranges are not reported, since discordance with absolute values may lead to misinterpretation of CBC data. Current Interpretive Data was last revised on 2017. Testing performed by: [address] [address] Eosinophil pct 2.5 % [facility] Comment: Interpretive Data Percent cell count reference ranges are not reported, since discordance with absolute values may lead to misinterpretation of CBC data. Current Interpretive Data was last revised on 2017. Testing performed by: [address] [address] Basophil pct 0.6 % [facility] Comment: Interpretive Data Percent cell count reference ranges are not reported, since discordance with absolute values may lead to misinterpretation of CBC data. Current Interpretive Data was last revised on 2017. Testing performed by: [address] [address] Blood 06/05/2024 5:29 PM T[employer] CRE[employer]MEMBER 06/05/2024 5:41 PM T[employer] CRE[employer]MEMBER us Giovanny Fletcehr NP LAB BLOOD ORDERABLES Final Resul t [facility] [address] [facility] Department [place] [address] * Pro B-type natriuretic peptide (06/05/2024 5:29 PM T[employer] CRE[employer]MEMBER) NT-proBNP 167 <=300 pg/mL Comment: Interpretive Comments: [...] Last Revised Date: 2018. Testing performed by: [address] [address] Blood 06/05/2024 5:29 PM T[employer] CRE[employer]MEMBER 06/05/2024 5:41 PM T[employer] CRE[employer]MEMBER Giovanny Fletcher NP LAB BLOOD ORDERABLES Final Resul t [facility]ION HENDERSON [facility] [facility] Department [place] [address] * (ABNORMAL) CBC with auto differential (06/05/2024 5:29 PM TANK CREWMEMBER) WBC 7.1 3.8 - 9.9 K/cumm Comment:Testing performed by : [address] [address] Hgb 13.6 13.0 - 17.5 g/dL ZION HENDERSON Comment:Testing performed by : [address] [address] Hct 40.1 38.9 - 50.3 % [facility] [place]ERSON Comment:Testing performed by : [address] [address] Plt 221 150 - 400 K/cumm ZION H[place]ERSON Comment:Testing performed by : [address] [address] MPV 8.8(L) 9.1 - 12.3 fL [facility]ION H[place]ERSON Comment:Testing performed by : [address] [address] RBC 4.23(L) 4.30 - 5.80 M/cumm ZION HENDERSON Comment:Testing performed by : [address] [address] MCV 94.8 81.3 - 96.4 fL ZION Comment:Testing performed by : [address] [address] MCH 32.2 27.1 - 33.3 pg ZION Comment:Testing performed by : [address] [address] MCHC 33.9 32.3 - 35.7 g/dL ZION Comment:Testing performed by : [address] [address] RDW CV 13.9 11.1 - 14.9 % ZION Comment:Testing performed by : [address], [address] RDW SD 47.5 35.7 - 48.1 fL ZION Comment:Testing performed by : [address] [address] NRBC abs 0.00 0.00 - 0.01 K/cumm ZION Comment:Testing performed by : [address] [address] Blood 06/05/2024 5:29 PM T[employer] CRE[employer]MEMBER 06/05/2024 5:41 PM TANK CREWMEMBER us Giovanny Fletcher NP LAB BLOOD ORDERABLES Final Resul t [facility] [place] [address] [facility] Department [place] [address] * aPTT (06/05/2024 5:29 PM TANK CREWMEMBER) aPTT 33 22 - 37 sec Comment: Interpretive data aPTT test has not been evaluated for monitoring heparin therapy. The anti-Xa is the preferred test. Current interpretive data was last revised on 2019. Testing performed by: [address] [address] Blood 06/05/2024 5:29 PM TANK CRE[employer]MEMBER 06/05/2024 5:41 PM T[employer] CRE[employer]MEMBER Giovanny Fletcher LAB BLOOD ORDERABLES Final Resul t Performing Organization Address [facility] Co de Phone Number ZION [address] [facility] [place] [address] * Protime-INR (06/05/2024 5:29 PM TANK CREWMEMBER) Pathologist [facility] PT 13.7 12.0 - 14.6 sec Comment:Testing performed by : [address] [address] INR 1.1 0.9 - 1.2 ZION Comment: Ref Range High Interpretive data Oral anticoagulant therapeutic ranges: Venous thromboembolism prophylaxis or treatment: 2.0-3.0 CARDIOLOGY Standard range: 2.0-3.0 High-intensity range: 2.5-3.5 Refer to indication-specific guidelines for appropriate target ranges for prosthetic heart valve replacement. Current interpretive data was last revised on 2019. Testing performed by: [address] [address] Blood 06/05/2024 5:29 PM TANK CRE[employer]MEMBER 06/05/2024 5:41 PM T[employer] CREWMEMBER Giovanny Fletcher LAB BLOOD ORDERABLES Final Resul t Performing Organization Address [facility] de Phone Number [facility] [address] [facility] [place] [address] * (ABNORMAL) Comprehensive metabolic panel (06/05/2024 5:29 PM TANK CREWMEMBER) Pathologist [facility] Sodium 135 135 - 145 mmol/L Comment:Testing performed by : [address] [place]., [address] Potassium, pl 4.0 3.3 - 4.9 mmol/L ZION Comment:Testing performed by : [address] [address] Chloride 97 97 - 110 mmol/L ZION Comment:Testing performed by : [address], [place]., [address] CO2 26 22 - 32 mmol/L ZION Comment:Testing performed by : [address] [address] Anion gap 12 2 - 15 mmol/L ZION Comment:Testing performed by : [address] [address] BUN 7 6 - 25 mg/dL ZION Comment:Testing performed by : [address], [place]., [address] Creatinine 0.50(L) 0.80 - 1.30 mg/dL ZION Comment:Testing performed by : [address] [address] Glucose 98 70 - 199 mg/dL [facility] Comment: Interpretive Data Fasting glucose >/= 126 [...] was last revised 2022. Testing performed by: [address] [address] Calcium 9.4 8.5 - 10.3 mg/dL ZION Comment:Testing performed by : [address] [address] Bilirubin, total 1.2 0.1 - 1.2 mg/dL ZION Comment:Testing performed by : [address] [address] Protein, pl 7.9 6.5 - 8.5 g/dL ZION Comment:Testing performed by : [address] [address] Albumin 4.3 3.5 - 5.0 g/dL ZION Comment:Testing performed by : [address] [address] Alk phos 91 40 - 130 Units/L ZION Comment:Testing performed by : [address] [address] ALT 28 7 - 55 Units/L ZION Comment:Testing performed by : [address] [address] AST 23 10 - 50 Units/L ZION Comment:Testing performed by : [address] [address] Blood 06/05/2024 5:29 PM TANK CREWMEMBER 06/05/2024 5:41 PM TANK CREWMEMBER Giovanny Fletcher [employer]NER LAB BLOOD ORDERABLES Final Resul t ZION [address] [facility] Department [place] [address] * XR Chest 1 View (05/19/2024 8:20 AM TANK CREWMEMBER) Anatomical Region Laterality Modality Body, Chest N/A Computed Radiogr aphy 05/19/2024 10:3 1 AM TANK CREWMEMBER Narrative 05/19/2024 10:32 AM TANK CREWMEMBER EXAM DESCRIPTION: XR CHEST 1 VIEW REASON [...] Pratik Maldonado D.O. PS: PS Report ID: [id number] Reading Location: [id number] Procedure Note Pratik Maldonado, DO - 05/19/2024 EXAM DESCRIPTION: XR CHEST 1 [...] Pratik Maldonado D.O. PS: PS Report ID: [id number] Reading Location: [place] [address] Elidia Resendez MD IMG XR PROCEDURES Neema l Result * eGFR (05/19/2024 5:34 AM TANK CREWMEMBER) eGFR >90 >=60 mL/min/1. 73 m2 Comment: [...] was last reviewed 2021. Testing performed by: [address] [address] Blood 05/19/2024 5:34 AM TANK CREWMEMBER 05/19/2024 6:04 AM TANK CREWMEMBER us Elidia Resendez MD LAB BLOOD ORDERABLES F inal Result [facility] [address] [facility] Department [place] [address] * (ABNORMAL) Differential, auto (05/19/2024 5:34 AM TANK CREWMEMBER) Neutrophil abs 8.4(H) 1.5 - 6.5 K/cumm Comment:Testing performed by : [address] [address] Imm gran abs 0.1 0.0 - 0.1 K/cumm ZION Comment:Testing performed by : [address] [address] Lymphocyte abs 1.4 0.8 - 3.3 K/cumm ZION Comment:Testing performed by : [address] [address] Monocyte abs 0.5 0.2 - 0.8 K/cumm ZION Comment:Testing performed by : [address] [address] Eosinophil abs 0.0 0.0 - 0.5 K/cumm ZION Comment:Testing performed by : [address] [address] Basophil abs 0.0 0.0 - 0.1 K/cumm ZION Comment:Testing performed by : [address] [address] Neutrophil pct 80.1 % [facility] Comment: Interpretive Data Percent cell count reference ranges are not reported, since discordance with absolute values may lead to misinterpretation of CBC data. Current Interpretive Data was last revised on 2017. Testing performed by: [address] [address] Imm gran pct 1.2 % [facility] Comment: Interpretive Data Percent cell count reference ranges are not reported, since discordance with absolute values may lead to misinterpretation of CBC data. Current Interpretive Data was last revised on 2017. Testing performed by: [address] [address] Lymphocyte pct 13.2 % [facility] Comment: Interpretive Data Percent cell count reference ranges are not reported, since discordance with absolute values may lead to misinterpretation of CBC data. Current Interpretive Data was last revised on 2017. Testing performed by: [address] [address] Monocyte pct 5.0 % [facility] Comment: Interpretive Data Percent cell count reference ranges are not reported, since discordance with absolute values may lead to misinterpretation of CBC data. Current Interpretive Data was last revised on 2017. Testing performed by: [address] [address] Eosinophil pct 0.4 % [facility] Comment: Interpretive Data Percent cell count reference ranges are not reported, since discordance with absolute values may lead to misinterpretation of CBC data. Current Interpretive Data was last revised on 2017. Testing performed by: [address] [address] Basophil pct 0.1 % [facility] Comment: Interpretive Data Percent cell count reference ranges are not reported, since discordance with absolute values may lead to misinterpretation of CBC data. Current Interpretive Data was last revised on 2017. Testing performed by: [address] [address] Blood 05/19/2024 5:34 AM TANK CREWMEMBER 05/19/2024 6:04 AM TANK CREWMEMBER Debbi Ramirez NP LAB BLOOD ORDERABLES Final Result [facility] [address] [facility] Department [place] [address] * Pro B-type natriuretic peptide (05/19/2024 5:34 AM TANK CREWMEMBER) NT-proBNP 77 <=300 pg/mL Comment: Interpretive Comments: [...] Heart J. 2006:27:330-337. 2. Freddy RW, Ami AM. J. AM Billy Cardiol: Cardiovasc Imag. 2009;2: 216- 225. Interpretive Data Last Revised Date: 2018. Testing performed by: [facility], [address] [place] [address]., [address] Blood 05/19/2024 5:34 AM TANK CRE[employer]MEMBER 05/19/2024 6:04 AM TANK CREWMEMBER us Elidia Resendez MD LAB BLOOD ORDERABLES F inal Result [facility] [address] [facility] Department [place] [address] * (ABNORMAL) CBC with auto differential (05/19/2024 5:34 AM TANK CREWMEMBER) WBC 10.5(H) 3.8 - 9.9 K/cumm Comment:Testing performed by : [address] [address] Hgb 12.9(L) 13.0 - 17.5 g/dL ZION Comment:Testing performed by : [address] [address] Hct 38.3(L) 38.9 - 50.3 % ZION Comment:Testing performed by : [address] [address] Plt 311 150 - 400 K/cumm ZION Comment:Testing performed by : [address] [address] MPV 9.2 9.1 - 12.3 fL ZION Comment:Testing performed by : [address] [address] RBC 4.04(L) 4.30 - 5.80 M/cumm ZION Comment:Testing performed by : [address] [address] MCV 94.8 81.3 - 96.4 fL ZION Comment:Testing performed by : [address] [address] MCH 31.9 27.1 - 33.3 pg ZION [place] Comment:Testing performed by : [address] [address] MCHC 33.7 32.3 - 35.7 g/dL ZION Comment:Testing performed by : [address] [address] RDW CV 13.1 11.1 - 14.9 % [facility] [place] Comment:Testing performed by : [address] [address] RDW SD 45.3 35.7 - 48.1 fL ZION [place] Comment:Testing performed by : [address] [address] NRBC abs 0.00 0.00 - 0.01 K/cumm ZION [place] Comment:Testing performed by : [address] [address] Blood 05/19/2024 5:34 AM TANK CRE[employer]MEMBER 05/19/2024 6:04 AM TANK CRE[employer]MEMBER us Debbi Ramirez NP LAB BLOOD ORDERABLES Final Result [facility] [place] [address] [facility] Department [place] [address] * (ABNORMAL) Comprehensive metabolic panel (05/19/2024 5:34 AM TANK CREWMEMBER) Sodium 137 135 - 145 mmol/L Comment:Testing performed by : [address] [address] Potassium, pl 3.8 3.3 - 4.9 mmol/L Z[facility] [place] Comment:Testing performed by : [address] [address] Chloride 99 97 - 110 mmol/L Z[facility] [place] Comment:Testing performed by : [address] [address] CO2 30 22 - 32 mmol/L Z[facility] [place] Comment:Testing performed by : [address] [address] Anion gap 8 2 - 15 mmol/L Z[facility] [place] Comment:Testing performed by : [address] [address] BUN 11 6 - 25 mg/dL [facility] [place] Comment:Testing performed by : [address] [address] Creatinine 0.50(L) 0.80 - 1.30 mg/dL [facility] [place] Comment:Testing performed by : [address] [place]., [address] Glucose 109 70 - 199 mg/dL ZION [...] was last revised 2022. Testing performed by: [address] [address] Calcium 9.2 8.5 - 10.3 mg/dL ZION Comment:Testing performed by : [address] [address] Bilirubin, total 0.8 0.1 - 1.2 mg/dL ZION Comment:Testing performed by : [address] [address] Protein, pl 6.8 6.5 - 8.5 g/dL ZION Comment:Testing performed by : [address] [address] Albumin 3.5 3.5 - 5.0 g/dL ZION Comment:Testing performed by : [address] [address] Alk phos 68 40 - 130 Units/L IZON Comment:Testing performed by : [address] [address] ALT 33 7 - 55 Units/L ZION Comment:Testing performed by : [address] [address] AST 14 10 - 50 Units/L ZION Comment:Testing performed by : [address] [address] Blood 05/19/2024 5:34 AM TANK CRE[employer]MEMBER 05/19/2024 6:04 AM TANK CREWMEMBER us Elidia Resendez MD LAB BLOOD ORDERABLES F inal Result ZION [facility] [employer] [place] [address] * eGFR (05/18/2024 5:14 AM TANK CREWMEMBER) eGFR >90 >=60 mL/min/1. 73 m2 Comment: [...] was last reviewed 2021. Testing performed by: [address] [address] Blood 05/18/2024 5:14 AM TANK CREWMEMBER 05/18/2024 5:26 AM TANK CREWMEMBER us Debbi Ramirez [employer] LAB BLOOD ORDERABLES Final Result ZION [address] [facility] Department [place] [address] * (ABNORMAL) Differential, auto (05/18/2024 5:14 AM TANK CREWMEMBER) Neutrophil abs 9.3(H) 1.5 - 6.5 K/cumm Comment:Testing performed by : [address] [address] Imm gran abs 0.2(H) 0.0 - 0.1 K/cumm ZION Comment:Testing performed by : [address] [address] Lymphocyte abs 1.7 0.8 - 3.3 K/cumm ZION Comment:Testing performed by : [address] [address] Monocyte abs 0.5 0.2 - 0.8 K/cumm [facility] Comment:Testing performed by : [address] [address] Eosinophil abs 0.1 0.0 - 0.5 K/cumm [facility] Comment:Testing performed by : [address] [address] Basophil abs 0.0 0.0 - 0.1 K/cumm [facility] Comment:Testing performed by : [address] [address] Neutrophil pct 78.5 % [facility] Comment: Interpretive Data Percent cell count reference ranges are not reported, since discordance with absolute values may lead to misinterpretation of CBC data. Current Interpretive Data was last revised on 2017. Testing performed by: [address] [address] Imm gran pct 1.4 % [facility] Comment: Interpretive Data Percent cell count reference ranges are not reported, since discordance with absolute values may lead to misinterpretation of CBC data. Current Interpretive Data was last revised on 2017. Testing performed by: [address] [address] Lymphocyte pct 14.7 % [facility] Comment: Interpretive Data Percent cell count reference ranges are not reported, since discordance with absolute values may lead to misinterpretation of CBC data. Current Interpretive Data was last revised on 2017. Testing performed by: [address] [address] Monocyte pct 4.6 % [facility] Comment: Interpretive Data Percent cell count reference ranges are not reported, since discordance with absolute values may lead to misinterpretation of CBC data. Current Interpretive Data was last revised on 2017. Testing performed by: [address] [place] [address] Eosinophil pct 0.7 % [facility] Comment: Interpretive Data Percent cell count reference ranges are not reported, since discordance with absolute values may lead to misinterpretation of CBC data. Current Interpretive Data was last revised on 2017. Testing performed by: [address] [address] Basophil pct 0.1 % [facility] Comment: Interpretive Data Percent cell count reference ranges are not reported, since discordance with absolute values may lead to misinterpretation of CBC data. Current Interpretive Data was last revised on 2017. Testing performed by: [address] [address] Blood 05/18/2024 5:14 AM TANK CREWMEMBER 05/18/2024 5:26 AM TANK CREWMEMBER us Debbi Ramirez HAIR SPINNER LAB BLOOD ORDERABLES Final Result Performing Organization Address City/State/[facility] Co de Phone Number [facility]ION [facility] Department [place] [address] * (ABNORMAL) CBC with auto differential (05/18/2024 5:14 AM TANK CREWMEMBER) WBC 11.8(H) 3.8 - 9.9 K/cumm Comment:Testing performed by : [address] [address] Hgb 12.7(L) 13.0 - 17.5 g/dL [facility] Comment:Testing performed by : [address] [address] Hct 38.0(L) 38.9 - 50.3 % [facility] Comment:Testing performed by : [address] [address] Plt 298 150 - 400 K/cumm [facility] Comment:Testing performed by : [address] [address] MPV 8.9(L) 9.1 - 12.3 fL [facility] Comment:Testing performed by : [address] [address] RBC 4.01(L) 4.30 - 5.80 M/cumm [facility] Comment:Testing performed by : [address] [address] MCV 94.8 81.3 - 96.4 fL [facility] Comment:Testing performed by : [address] [address] MCH 31.7 27.1 - 33.3 pg [facility] Comment:Testing performed by : [address] [address] MCHC 33.4 32.3 - 35.7 g/dL ZION Comment:Testing performed by : [address], [address] RDW CV 12.9 11.1 - 14.9 % [facility]ION Comment:Testing performed by : [address] [address] RDW SD 44.5 35.7 - 48.1 fL ZION Comment:Testing performed by : [address] [address] NRBC abs 0.00 0.00 - 0.01 K/cumm ZION Comment:Testing performed by : [address] [address] Blood 05/18/2024 5:14 AM TANK CREWMEMBER 05/18/2024 5:26 AM TANK CREWMEMBER Debbi Ramirez HAIR SPINNER LAB BLOOD ORDERABLES Final Result [facility] 3859 [facility] Department of Laboratories [place], [place] [id number] * (ABNORMAL) Basic metabolic panel (05/18/2024 5:14 AM TANK CREWMEMBER) Sodium 136 135 - 145 mmol/L Comment:Testing performed by : [address] [address] Potassium, pl 4.2 3.3 - 4.9 mmol/L [facility] Comment:Testing performed by : [address], [address] Chloride 100 97 - 110 mmol/L ZION Comment:Testing performed by : [address] [address] CO2 28 22 - 32 mmol/L ZION Comment:Testing performed by : [address] [address] Anion gap 8 2 - 15 mmol/L ZION Comment:Testing performed by : [address] [address] BUN 12 6 - 25 mg/dL ZION Comment:Testing performed by : [address], [place]., [address] Creatinine 0.50(L) 0.80 - 1.30 mg/dL ZION Comment:Testing performed by : [address] [address] Glucose 96 70 - 199 mg/dL ZION [...] was last revised 2022. Testing performed by: [address] [address] Calcium 8.9 8.5 - 10.3 mg/dL [facility] Comment:Testing performed by : [address] [address] Blood 05/18/2024 5:14 AM TANK CREWMEMBER 05/18/2024 5:26 AM TANK CREWMEMBER us Debbi Ramirez NP LAB BLOOD ORDERABLES Final Result [facility] 5438 [facility] Department [place] [address] * XR Chest Pa Lateral 2 Views (05/17/2024 11:32 AM TANK CREWMEMBER) Anatomical Region Laterality Modality Body, Chest N/A Computed Radiogr aphy 05/17/2024 1:54 PM TANK CREWMEMBER Narrative 05/17/2024 1:56 PM TANK CREWMEMBER EXAM DESCRIPTION: XR CHEST PA LATERAL 2 [...] Avel Carrington M.D. [place]: [place] Report ID: [id number] Reading Location: [place] [address] Procedure Note Avel Carrington MD - 05/17/2024 [...] Avel Carrington M.D. [place] Report ID: [id number] Reading Location: [id number] us Rodney Funk MD IMG XR [place] OCEDURES Final Result * eGFR (05/17/2024 12:36 AM TANK CREWMEMBER) eGFR >90 >=60 mL/min/1. 73 m2 Comment: [...] was last reviewed 2021. Testing performed by: [address] [address] Blood 05/17/2024 12:3 6 AM TANK CREWMEMBER 05/17/2024 1:11 AM TANK CREWMEMBER us Debbi Ramirez HAIR SPINNER LAB BLOOD ORDERABLES Final Result [facility] [facility] [address] [facility] Department [place] [address] * (ABNORMAL) Differential, auto (05/17/2024 12:36 AM TANK CREWMEMBER) Neutrophil abs 10.6(H) 1.5 - 6.5 K/cumm Comment:Testing performed by : [address] [address] Imm gran abs 0.2(H) 0.0 - 0.1 K/cumm ZION Comment:Testing performed by : [address] [address] Lymphocyte abs 0.8 0.8 - 3.3 K/cumm ZION Comment:Testing performed by : [address] [address] Monocyte abs 0.5 0.2 - 0.8 K/cumm ZION Comment:Testing performed by : [address] [address] Eosinophil abs 0.0 0.0 - 0.5 K/cumm [facility] Comment:Testing performed by : [address] [address] Basophil abs 0.0 0.0 - 0.1 K/cumm [facility] Comment:Testing performed by : [address] [address] Neutrophil pct 87.4 % ZION Comment: Interpretive Data Percent cell count reference ranges are not reported, since discordance with absolute values may lead to misinterpretation of CBC data. Current Interpretive Data was last revised on 2017. Testing performed by: [address] [address] Imm gran pct 1.6 % [facility] Comment: Interpretive Data Percent cell count reference ranges are not reported, since discordance with absolute values may lead to misinterpretation of CBC data. Current Interpretive Data was last revised on 2017. Testing performed by: [address] [address] Lymphocyte pct 6.5 % [facility] Comment: Interpretive Data Percent cell count reference ranges are not reported, since discordance with absolute values may lead to misinterpretation of CBC data. Current Interpretive Data was last revised on 2017. Testing performed by: [address] [address] Monocyte pct 4.2 % [facility] Comment: Interpretive Data Percent cell count reference ranges are not reported, since discordance with absolute values may lead to misinterpretation of CBC data. Current Interpretive Data was last revised on 2017. Testing performed by: [address] [place] [address] Eosinophil pct 0.2 % [facility] Comment: Interpretive Data Percent cell count reference ranges are not reported, since discordance with absolute values may lead to misinterpretation of CBC data. Current Interpretive Data was last revised on 2017. Testing performed by: [address] [address] Basophil pct 0.1 % [facility] Comment: Interpretive Data Percent cell count reference ranges are not reported, since discordance with absolute values may lead to misinterpretation of CBC data. Current Interpretive Data was last revised on 2017. Testing performed by: [address] [address] Blood 05/17/2024 12:3 6 AM TANK CREWMEMBER 05/17/2024 1:11 AM TANK CREWMEMBER us Debbi Ramirez HAIR SPINNER LAB BLOOD ORDERABLES Final Result Performing Organization Address City/State/[facility] Co de Phone Number [facility]ION 6163 [facility] Department [place] [address] * (ABNORMAL) CBC with auto differential (05/17/2024 12:36 AM TANK CREWMEMBER) WBC 12.2(H) 3.8 - 9.9 K/cumm Comment:Testing performed by : [address] [address] Hgb 12.0(L) 13.0 - 17.5 g/dL [facility] Comment:Testing performed by : [address] [address] Hct 35.6(L) 38.9 - 50.3 % [facility] Comment:Testing performed by : [address] [address] Plt 286 150 - 400 K/cumm [facility] Comment:Testing performed by : [address] [address] MPV 9.4 9.1 - 12.3 fL [facility] Comment:Testing performed by : [address] [address] RBC 3.76(L) 4.30 - 5.80 M/cumm [facility] Comment:Testing performed by : [address] [address] MCV 94.7 81.3 - 96.4 fL [facility] Comment:Testing performed by : [address] [address] MCH 31.9 27.1 - 33.3 pg [facility] Comment:Testing performed by : [address] [address] MCHC 33.7 32.3 - 35.7 g/dL [facility] Comment:Testing performed by : [address], [address] RDW CV 13.1 11.1 - 14.9 % [facility] Comment:Testing performed by : [address] [address] RDW SD 44.7 35.7 - 48.1 fL [facility] Comment:Testing performed by : [address] [address] NRBC abs 0.00 0.00 - 0.01 K/cumm [facility] Comment:Testing performed by : [address] [address] Blood 05/17/2024 12:3 6 AM TANK CREWMEMBER 05/17/2024 1:11 AM TANK CREWMEMBER Debbi Ramirez HAIR SPINNER LAB BLOOD ORDERABLES Final Result [facility] 0557 [facility] Department of Laboratories [place], [place] [id number] * (ABNORMAL) Basic metabolic panel (05/17/2024 12:36 AM TANK CREWMEMBER) Sodium 133(L) 135 - 145 mmol/L Comment:Testing performed by : [address] [address] Potassium, pl 4.1 3.3 - 4.9 mmol/L ZION Comment:Testing performed by : [address] [address] Chloride 96(L) 97 - 110 mmol/L [facility] Comment:Testing performed by : [address] [address] CO2 26 22 - 32 mmol/L [facility] Comment:Testing performed by : [address] [address] Anion gap 11 2 - 15 mmol/L [facility] Comment:Testing performed by : [address] [address] BUN 18 6 - 25 mg/dL [facility] Comment:Testing performed by : [address] [address] Creatinine 0.60(L) 0.80 - 1.30 mg/dL [facility] Comment:Testing performed by : [address] [address] Glucose 127 70 - 199 mg/dL [facility] Comment: Interpretive [...] was last revised 2022. Testing performed by: [address] [address] Calcium 8.8 8.5 - 10.3 mg/dL [facility] Comment:Testing performed by : [address] [address] Blood 05/17/2024 12:3 6 AM TANK CREWMEMBER 05/17/2024 1:11 AM TANK CREWMEMBER us Debbi Ramirez NP LAB BLOOD ORDERABLES Final Result [facility] 3347 [facility] Department [place] [address] * eGFR (05/16/2024 5:11 AM TANK CREWMEMBER) eGFR >90 >=60 mL/min/1. 73 m2 Comment: [...] was last reviewed 2021. Testing performed by: [address] [address] Blood 05/16/2024 5:11 AM TANK CREWMEMBER 05/16/2024 5:21 AM TANK CREWMEMBER us Debbi Ramirez NP LAB BLOOD ORDERABLES Final Result [facility] 7724 [facility] Department [place] [address] * (ABNORMAL) Differential, auto (05/16/2024 5:11 AM TANK CREWMEMBER) Pathologist [facility] Neutrophil abs 9.5(H) 1.5 - 6.5 K/cumm Comment:Testing performed by : [address] [address] Imm gran abs 0.2(H) 0.0 - 0.1 K/cumm [facility] Comment:Testing performed by : [address] [address] Lymphocyte abs 2.1 0.8 - 3.3 K/cumm [facility] Comment:Testing performed by : [address] [address] Monocyte abs 0.5 0.2 - 0.8 K/cumm [facility] Comment:Testing performed by : [address] [address] Eosinophil abs 0.1 0.0 - 0.5 K/cumm [facility] Comment:Testing performed by : [address] [address] Basophil abs 0.0 0.0 - 0.1 K/cumm [facility] Comment:Testing performed by : [address] [address] Neutrophil pct 76.1 % [facility] Comment: Interpretive Data Percent cell count reference ranges are not reported, since discordance with absolute values may lead to misinterpretation of CBC data. Current Interpretive Data was last revised on 2017. Testing performed by: [address] [address] Imm gran pct 1.8 % [facility] Comment: Interpretive Data Percent cell count reference ranges are not reported, since discordance with absolute values may lead to misinterpretation of CBC data. Current Interpretive Data was last revised on 2017. Testing performed by: [address] [address] Lymphocyte pct 16.6 % [facility] Comment: Interpretive Data Percent cell count reference ranges are not reported, since discordance with absolute values may lead to misinterpretation of CBC data. Current Interpretive Data was last revised on 2017. Testing performed by: [address] [address] Monocyte pct 4.3 % [facility] Comment: Interpretive Data Percent cell count reference ranges are not reported, since discordance with absolute values may lead to misinterpretation of CBC data. Current Interpretive Data was last revised on 2017. Testing performed by: [address] [address] Eosinophil pct 1.0 % [facility] Comment: Interpretive Data Percent cell count reference ranges are not reported, since discordance with absolute values may lead to misinterpretation of CBC data. Current Interpretive Data was last revised on 2017. Testing performed by: [address] [address] Basophil pct 0.2 % [facility] Comment: Interpretive Data Percent cell count reference ranges are not reported, since discordance with absolute values may lead to misinterpretation of CBC data. Current Interpretive Data was last revised on 2017. Testing performed by: [address] [address] Blood 05/16/2024 5:11 AM TANK CREWMEMBER 05/16/2024 5:21 AM TANK CREWMEMBER us Debbi Ramirez HAIR SPINNER LAB BLOOD ORDERABLES Final Result [facility] Department [place] [address] * (ABNORMAL) CBC with auto differential (05/16/2024 5:11 AM TANK CREWMEMBER) WBC 12.5(H) 3.8 - 9.9 K/cumm Comment:Testing performed by : [address] [address] Hgb 12.9(L) 13.0 - 17.5 g/dL [facility] Comment:Testing performed by : [address] [address] Hct 37.4(L) 38.9 - 50.3 % [facility] Comment:Testing performed by : [address] [address] Plt 271 150 - 400 K/cumm [facility] Comment:Testing performed by : [address] [address] MPV 9.1 9.1 - 12.3 fL [facility] Comment:Testing performed by : [address] [address] RBC 3.99(L) 4.30 - 5.80 M/cumm [facility] Comment:Testing performed by : [address] [address] MCV 93.7 81.3 - 96.4 fL [facility] Comment:Testing performed by : [address] [address] MCH 32.3 27.1 - 33.3 pg [facility] Comment:Testing performed by : [address] [address] MCHC 34.5 32.3 - 35.7 g/dL [facility] Comment:Testing performed by : [address] [address] RDW CV 13.1 11.1 - 14.9 % [facility] Comment:Testing performed by : [address] [address] RDW SD 44.9 35.7 - 48.1 fL [facility] Comment:Testing performed by : [address] [address] NRBC abs 0.00 0.00 - 0.01 K/cumm [facility] Comment:Testing performed by : [address] [address] Blood 05/16/2024 5:11 AM TANK CREWMEMBER 05/16/2024 5:21 AM TANK CREWMEMBER Debbi Ramirez NP LAB BLOOD ORDERABLES Final Result [facility] 8037 [facility] Department [place] [address] * (ABNORMAL) Basic metabolic panel (05/16/2024 5:11 AM TANK CREWMEMBER) Sodium 136 135 - 145 mmol/L Comment:Testing performed by : [address] [address] Potassium, pl 3.9 3.3 - 4.9 mmol/L [facility] Comment:Testing performed by : [address] [address] Chloride 101 97 - 110 mmol/L [facility] Comment:Testing performed by : [address] [address] CO2 26 22 - 32 mmol/L [facility] Comment:Testing performed by : [address] [address] Anion gap 9 2 - 15 mmol/L [facility] Comment:Testing performed by : [address] [address] BUN 13 6 - 25 mg/dL [facility] Comment:Testing performed by : [address] [address] Creatinine 0.40(L) 0.80 - 1.30 mg/dL [facility] Comment:Testing performed by : [address] [address] Glucose 95 70 - 199 mg/dL [facility] Comment: Interpretive [...] was last revised 2022. Testing performed by: [address] [address] Calcium 9.2 8.5 - 10.3 mg/dL [facility] Comment:Testing performed by : [address] [address] Blood 05/16/2024 5:11 AM TANK CREWMEMBER 05/16/2024 5:21 AM TANK CREWMEMBER us Debbi Ramirez HAIR SPINNER LAB BLOOD ORDERABLES Final Result [facility] 8405 [facility] Department [place] [address] * Aerobic culture and gram stain Sputum Sputum (05/15/2024 2:20 PM TANK CREWMEMBER) Direct Specimen Exam Stain: Abundant squamous epithelial cells seen indicating excessive oropharyngeal contamination. Culture will not be processed further. Please submit another specimen. Smear results called to and read back by: Marly Monson MLT [phone] on 05/15/2024 22:08:43 by: Rajwinder Wiggins MT Comment:Testing performed by : [facility], [address] [place] [address] Report Final Report: This is the final report. [facility] Comment:Testing performed by : [facility], [address] [place] [address] Sputum (Sputum) 05/15/2024 2 :20 PM TANK CREWMEMBER 05/15/2024 8:42 PM TANK CREWMEMBER Narrative [facility] - 05/16/2024 7:29 AM TANK CREWMEMBER Testing performed by [facility] Microbiology Laboratory ([phone]) Specimens submitted from normally sterile body sites [...] - GENE RAL ORDERABLES Final Result [facility] 2158 [facility] Department of Laboratories [place], [place] [id number] * eGFR (05/15/2024 8:36 AM TANK CREWMEMBER) eGFR >90 >=60 mL/min/1. 73 m2 Comment: [...] was last reviewed 2021. Testing performed by: [address] [address] Blood 05/15/2024 8:36 AM TANK CREWMEMBER 05/15/2024 9:11 AM TANK CREWMEMBER us Debbi Ramirez HAIR SPINNER LAB BLOOD ORDERABLES Final Result [facility] 4500 [facility] Department [place] [address] * (ABNORMAL) Differential, auto (05/15/2024 8:36 AM TANK CREWMEMBER) Neutrophil abs 11.2(H) 1.5 - 6.5 K/cumm Comment:Testing performed by : [address] [address] Imm gran abs 0.1 0.0 - 0.1 K/cumm [facility] Comment:Testing performed by : [address] [address] Lymphocyte abs 1.8 0.8 - 3.3 K/cumm [facility] Comment:Testing performed by : [address] [address] Monocyte abs 0.5 0.2 - 0.8 K/cumm [facility] Comment:Testing performed by : [address] [address] Eosinophil abs 0.1 0.0 - 0.5 K/cumm [facility] Comment:Testing performed by : [address] [address] Basophil abs 0.0 0.0 - 0.1 K/cumm [facility] Comment:Testing performed by : [address] [address] Neutrophil pct 81.5 % [facility] Comment: Interpretive Data Percent cell count reference ranges are not reported, since discordance with absolute values may lead to misinterpretation of CBC data. Current Interpretive Data was last revised on 2017. Testing performed by: [address] [address] Imm gran pct 0.9 % [facility] Comment: Interpretive Data Percent cell count reference ranges are not reported, since discordance with absolute values may lead to misinterpretation of CBC data. Current Interpretive Data was last revised on 2017. Testing performed by: [address] [address] Lymphocyte pct 13.4 % [facility] Comment: Interpretive Data Percent cell count reference ranges are not reported, since discordance with absolute values may lead to misinterpretation of CBC data. Current Interpretive Data was last revised on 2017. Testing performed by: [address] [address] Monocyte pct 3.3 % [facility] Comment: Interpretive Data Percent cell count reference ranges are not reported, since discordance with absolute values may lead to misinterpretation of CBC data. Current Interpretive Data was last revised on 2017. Testing performed by: [address] [address] Eosinophil pct 0.8 % [facility] Comment: Interpretive Data Percent cell count reference ranges are not reported, since discordance with absolute values may lead to misinterpretation of CBC data. Current Interpretive Data was last revised on 2017. Testing performed by: [address] [address] Basophil pct 0.1 % [facility] Comment: Interpretive Data Percent cell count reference ranges are not reported, since discordance with absolute values may lead to misinterpretation of CBC data. Current Interpretive Data was last revised on 2017. Testing performed by: [address] [address] Blood 05/15/2024 8:36 AM TANK CREWMEMBER 05/15/2024 9:11 AM TANK CREWMEMBER us Debbi Ramirez HAIR SPINNER LAB BLOOD ORDERABLES Final Result [facility] 6[address] [facility] Department [place] [address] * (ABNORMAL) CBC with auto differential (05/15/2024 8:36 AM TANK CREWMEMBER) [facility] Signature WBC 13.8(H) 3.8 - 9.9 K/cumm Comment:Testing performed by : [address] [address] Hgb 12.8(L) 13.0 - 17.5 g/dL [facility] Comment:Testing performed by : [address] [address] Hct 38.4(L) 38.9 - 50.3 % [facility] Comment:Testing performed by : [address] [address] Plt 274 150 - 400 K/cumm [facility] Comment:Testing performed by : [address] [address] MPV 9.1 9.1 - 12.3 fL [facility] Comment:Testing performed by : [address] [address] RBC 4.02(L) 4.30 - 5.80 M/cumm [facility] Comment:Testing performed by : [address] [address] MCV 95.5 81.3 - 96.4 fL [facility] Comment:Testing performed by : [address] [address] MCH 31.8 27.1 - 33.3 pg [facility] Comment:Testing performed by : [address] [address] MCHC 33.3 32.3 - 35.7 g/dL [facility] Comment:Testing performed by : [address], [address] RDW CV 13.3 11.1 - 14.9 % [facility] Comment:Testing performed by : [address] [address] RDW SD 47.3 35.7 - 48.1 fL [facility] Comment:Testing performed by : [address] [address] NRBC abs 0.00 0.00 - 0.01 K/cumm [facility] Comment:Testing performed by : [address] [address] Blood 05/15/2024 8:36 AM TANK CREWMEMBER 05/15/2024 9:11 AM TANK CREWMEMBER Debib Ramirez HAIR SPINNER LAB BLOOD ORDERABLES Final Result [facility] 4500 [facility] Department [place] [address] * (ABNORMAL) Basic metabolic panel (05/15/2024 8:36 AM TANK CREWMEMBER) Sodium 136 135 - 145 mmol/L Comment:Testing performed by : [address] [address] Potassium, pl 4.0 3.3 - 4.9 mmol/L ZION Comment:Testing performed by : [address] [address] Chloride 99 97 - 110 mmol/L [facility] Comment:Testing performed by : [address] [address] CO2 29 22 - 32 mmol/L ZION Comment:Testing performed by : [address] [address] Anion gap 8 2 - 15 mmol/L ZION Comment:Testing performed by : [address] [address] BUN 14 6 - 25 mg/dL [facility] Comment:Testing performed by : [address] [address] Creatinine 0.50(L) 0.80 - 1.30 mg/dL [facility] Comment:Testing performed by : [address] [address] Glucose 151 70 - 199 mg/dL ZION [...] was last revised 2022. Testing performed by: [address] [address] Calcium 9.4 8.5 - 10.3 mg/dL [facility] Comment:Testing performed by : [address] [address] Blood 05/15/2024 8:36 AM TANK CREWMEMBER 05/15/2024 9:11 AM TANK CREWMEMBER us Debbi Ramirez HAIR SPINNER LAB BLOOD ORDERABLES Final Result Performing Organization Address City/State/[facility] Co de Phone Number [facility] [address] [facility] Department [place] [address] * eGFR (05/14/2024 6:37 AM TANK CREWMEMBER) eGFR >90 >=60 mL/min/1. 73 m2 Comment: [...] was last reviewed 2021. Testing performed by: [address] [address] Blood 05/14/2024 6:37 AM TANK CREWMEMBER 05/14/2024 6:59 AM TANK CREWMEMBER us Debbi Kiersten James [facility] LAB BLOOD ORDERABLES Final Result [facility] 6578 [facility] Department [place] [address] * (ABNORMAL) Differential, auto (05/14/2024 6:37 AM TANK CREWMEMBER) Neutrophil abs 13.2(H) 1.5 - 6.5 K/cumm Comment:Testing performed by : [address] [address] Imm gran abs 0.1 0.0 - 0.1 K/cumm [facility]ION Comment:Testing performed by : [address] [address] Lymphocyte abs 1.4 0.8 - 3.3 K/cumm [facility] Comment:Testing performed by : [address] [address] Monocyte abs 0.7 0.2 - 0.8 K/cumm [facility]ION Comment:Testing performed by : [address] [address] Eosinophil abs 0.0 0.0 - 0.5 K/cumm [facility]ION Comment:Testing performed by : [address] [address] Basophil abs 0.0 0.0 - 0.1 K/cumm [facility] Comment:Testing performed by : [address] [address] Neutrophil pct 85.5 % [facility] Comment: Interpretive Data Percent cell count reference ranges are not reported, since discordance with absolute values may lead to misinterpretation of CBC data. Current Interpretive Data was last revised on 2017. Testing performed by: [address] [address] Imm gran pct 0.7 % [facility] Comment: Interpretive Data Percent cell count reference ranges are not reported, since discordance with absolute values may lead to misinterpretation of CBC data. Current Interpretive Data was last revised on 2017. Testing performed by: [address] [address] Lymphocyte pct 9.1 % [facility] Comment: Interpretive Data Percent cell count reference ranges are not reported, since discordance with absolute values may lead to misinterpretation of CBC data. Current Interpretive Data was last revised on 2017. Testing performed by: [address] [address] Monocyte pct 4.5 % [facility] Comment: Interpretive Data Percent cell count reference ranges are not reported, since discordance with absolute values may lead to misinterpretation of CBC data. Current Interpretive Data was last revised on 2017. Testing performed by: [address] [address] Eosinophil pct 0.1 % [facility] Comment: Interpretive Data Percent cell count reference ranges are not reported, since discordance with absolute values may lead to misinterpretation of CBC data. Current Interpretive Data was last revised on 2017. Testing performed by: [address] [address] Basophil pct 0.1 % [facility] Comment: Interpretive Data Percent cell count reference ranges are not reported, since discordance with absolute values may lead to misinterpretation of CBC data. Current Interpretive Data was last revised on 2017. Testing performed by: [address] [address] Blood 05/14/2024 6:37 AM TANK CREWMEMBER 05/14/2024 6:59 AM TANK CREWMEMBER us Debbi Ramirez HAIR SPINNER LAB BLOOD ORDERABLES Final Result [facility] HENDERSON [address] [facility] Department of Laboratories [place], [place] [id number] * (ABNORMAL) CBC with auto differential (05/14/2024 6:37 AM TANK CREWMEMBER) WBC 15.5(H) 3.8 - 9.9 K/cumm Comment:Testing performed by : [address] [address] Hgb 12.7(L) 13.0 - 17.5 g/dL CERNER Comment:Testing performed by : [address] [address] Hct 37.1(L) 38.9 - 50.3 % CERNER MH Comment:Testing performed by : [address] [address] Plt 276 150 - 400 K/cumm CERNER MH Comment:Testing performed by : [address] [address] MPV 9.0(L) 9.1 - 12.3 fL CERFORTINO Comment:Testing performed by : [address] [address] RBC 3.92(L) 4.30 - 5.80 M/cumm CERFORTINO Comment:Testing performed by : [address] [address] MCV 94.6 81.3 - 96.4 fL CERNER Comment:Testing performed by : [address] [address] MCH 32.4 27.1 - 33.3 pg CERNER Comment:Testing performed by : [address] [address] MCHC 34.2 32.3 - 35.7 g/dL CERNER Comment:Testing performed by : [address] [address] RDW CV 13.5 11.1 - 14.9 % CERNER Comment:Testing performed by : [address] [address] RDW SD 46.5 35.7 - 48.1 fL CERFORTINO Comment:Testing performed by : [address] [address] NRBC abs 0.00 0.00 - 0.01 K/cumm CERFORTINO MH Comment:Testing performed by : [address], [address] Blood 05/14/2024 6:37 AM TANK CREWMEMBER 05/14/2024 6:59 AM TANK CREWMEMBER us Debbi Ramirez NP LAB BLOOD ORDERABLES Final Result [facility] [address] [facility] Department [place] [address] * (ABNORMAL) Basic metabolic panel (05/14/2024 6:37 AM TANK CREWMEMBER) Sodium 137 135 - 145 mmol/L Comment:Testing performed by : [address] [address] Potassium, pl 3.8 3.3 - 4.9 mmol/L ZION Comment:Testing performed by : [address] [address] Chloride 99 97 - 110 mmol/L ZION Comment:Testing performed by : [address] [address] CO2 29 22 - 32 mmol/L ZION Comment:Testing performed by : [address] [address] Anion gap 9 2 - 15 mmol/L ZION Comment:Testing performed by : [address] [address] BUN 15 6 - 25 mg/dL ZION Comment:Testing performed by : [address] [address] Creatinine 0.60(L) 0.80 - 1.30 mg/dL ZION Comment:Testing performed by : [address] [address] Glucose 87 70 - 199 mg/dL ZION Comment: Interpretive [...] was last revised 2022. Testing performed by: [address] [address] Calcium 9.3 8.5 - 10.3 mg/dL ZION HENDERSON Comment:Testing performed by : [address] [address] Blood 05/14/2024 6:37 AM TANK CREWMEMBER 05/14/2024 6:59 AM TANK CREWMEMBER Debbi Ramirez HAIR SPINNER LAB BLOOD ORDERABLES Final Result ZION HENDERSON [address] [facility] Department [place] [address] * eGFR (05/13/2024 7:42 AM TANK CREWMEMBER) eGFR >90 >=60 mL/min/1. 73 m2 Comment: [...] was last reviewed 2021. Testing performed by: [address] [address] Blood 05/13/2024 7:42 AM TANK CREWMEMBER 05/13/2024 8:44 AM TANK CREWMEMBER us Debbi Ramirez HAIR SPINNER LAB BLOOD ORDERABLES Final Result [facility] [address] [facility] Department [place] [address] * (ABNORMAL) Differential, auto (05/13/2024 7:42 AM TANK CREWMEMBER) Neutrophil abs 18.5(H) 1.5 - 6.5 K/cumm Comment:Testing performed by : [address] [address] Imm gran abs 0.2(H) 0.0 - 0.1 K/cumm ZION Comment:Testing performed by : [address] [address] Lymphocyte abs 0.7(L) 0.8 - 3.3 K/cumm ZION Comment:Testing performed by : [address] [address] Monocyte abs 0.6 0.2 - 0.8 K/cumm ZION Comment:Testing performed by : [address] [address] Eosinophil abs 0.0 0.0 - 0.5 K/cumm ZION Comment:Testing performed by : [address] [address] Basophil abs 0.0 0.0 - 0.1 K/cumm ZION Comment:Testing performed by : [address] [address] Neutrophil pct 92.7 % ZION Comment: Interpretive Data Percent cell count reference ranges are not reported, since discordance with absolute values may lead to misinterpretation of CBC data. Current Interpretive Data was last revised on 2017. Testing performed by: [address] [address] Imm gran pct 0.8 % ZION Comment: Interpretive Data Percent cell count reference ranges are not reported, since discordance with absolute values may lead to misinterpretation of CBC data. Current Interpretive Data was last revised on 2017. Testing performed by: [address] [address] Lymphocyte pct 3.3 % [facility] Comment: Interpretive Data Percent cell count reference ranges are not reported, since discordance with absolute values may lead to misinterpretation of CBC data. Current Interpretive Data was last revised on 2017. Testing performed by: [address] [address] Monocyte pct 3.1 % [facility]ION Comment: Interpretive Data Percent cell count reference ranges are not reported, since discordance with absolute values may lead to misinterpretation of CBC data. Current Interpretive Data was last revised on 2017. Testing performed by: [address] [address] Eosinophil pct 0.0 % [facility]ION Comment: Interpretive Data Percent cell count reference ranges are not reported, since discordance with absolute values may lead to misinterpretation of CBC data. Current Interpretive Data was last revised on 2017. Testing performed by: [address] [address] Basophil pct 0.1 % [facility] Comment: Interpretive Data Percent cell count reference ranges are not reported, since discordance with absolute values may lead to misinterpretation of CBC data. Current Interpretive Data was last revised on 2017. Testing performed by: [address] [address] Blood 05/13/2024 7:42 AM TANK CREWMEMBER 05/13/2024 8:43 AM TANK CREWMEMBER Debbi Ramirez HAIR SPINNER LAB BLOOD ORDERABLES Final Result [facility] [address] [facility] Department [place] [address] * (ABNORMAL) CBC with auto differential (05/13/2024 7:42 AM TANK CREWMEMBER) WBC 20.0(H) 3.8 - 9.9 K/cumm Comment:Testing performed by : [address] [address] Hgb 12.6(L) 13.0 - 17.5 g/dL ZION Comment:Testing performed by : [address] [address] Hct 38.3(L) 38.9 - 50.3 % ZION Comment:Testing performed by : [address] [address] Plt 285 150 - 400 K/cumm ZION Comment:Testing performed by : [address] [address] MPV 9.5 9.1 - 12.3 fL ZION Comment:Testing performed by : [address], [address] RBC 4.03(L) 4.30 - 5.80 M/cumm ZION Comment:Testing performed by : [address], [address] MCV 95.0 81.3 - 96.4 fL ZION Comment:Testing performed by : [address], [address] MCH 31.3 27.1 - 33.3 pg ZION Comment:Testing performed by : [address], [address] MCHC 32.9 32.3 - 35.7 g/dL ZION Comment:Testing performed by : [address], [address] RDW CV 13.4 11.1 - 14.9 % ZION Comment:Testing performed by : [address], [address] RDW SD 47.1 35.7 - 48.1 fL ZION Comment:Testing performed by : [address], [address] NRBC abs 0.00 0.00 - 0.01 K/cumm ZION Comment:Testing performed by : [address], [address] Blood 05/13/2024 7:42 AM TANK CREWMEMBER 05/13/2024 8:43 AM TANK CREWMEMBER us Debbi Ramirez HAIR SPINNER LAB BLOOD ORDERABLES Final Result ZION [address] [facility] Department [place] [address] * (ABNORMAL) Basic metabolic panel (05/13/2024 7:42 AM TANK CREWMEMBER) Sodium 137 135 - 145 mmol/L Comment:Testing performed by : [facility], [address] [place] [address], [place]., [address] Potassium, pl 4.1 3.3 - 4.9 mmol/L ZION Comment:Testing performed by : [address], [place]., [address] Chloride 99 97 - 110 mmol/L ZION Comment:Testing performed by : [address], [place]., [address] CO2 27 22 - 32 mmol/L ZION Comment:Testing performed by : [address], [place]., [address] Anion gap 11 2 - 15 mmol/L ZION Comment:Testing performed by : [address] [address] BUN 14 6 - 25 mg/dL ZION Comment:Testing performed by : [address], [place]., [address] Creatinine 0.50(L) 0.80 - 1.30 mg/dL ZION Comment:Testing performed by : [address] [address] Glucose 119 70 - 199 mg/dL ZION [...] was last revised 2022. Testing performed by: [address], [place]., [address] Calcium 9.5 8.5 - 10.3 mg/dL CERNER MH Comment:Testing performed by : [facility], [address] [place] [address], [place]., [address] Blood 05/13/2024 7:42 AM TANK CREWMEMBER 05/13/2024 8:44 AM TANK CREWMEMBER Debbi Ramirez HAIR SPINNER LAB BLOOD ORDERABLES Final Result ZION HENDERSON [address] [facility] Department [place] [address] * Aerobic culture and gram stain Sputum Expectorated (05/12/2024 5:36 AM TANK CREWMEMBER) Direct Specimen Exam Stain: Abundant squamous epithelial cells seen indicating excessive oropharyngeal contamination. Culture will not be processed further. Please submit another specimen. Smear results called to and read back by: Yolanda Melendez MLS at on 05/12/2024 09:00:13 by: Chadd Deluna MLT Notification of rejected sputum specimen called to HARSHAL Mendoza / AranzaMS at 05/12/2024 09:46:23 by Yolanda Melendez MLS [id number]. Comment:Testing performed by : [facility], [address] [place]., [address] Report Final Report: This is the final report. ZION HENDERSON Comment:Testing performed by : [facility], [address] [place]., [address] Sputum (Expectorated) 05/12/2024 5:36 AM TANK CREWMEMBER 05/12/2024 7:45 AM TANK CREWMEMBER Narrative ZION HENDERSON - 05/13/2024 10:21 AM TANK CREWMEMBER Testing performed by [facility] Microbiology Laboratory ([phone]) Specimens submitted from normally sterile body sites will have all bacterial morphotypes identified. Specimens that contain grossly mixed sb and/or are from body sites that are not normally sterile will be examined for Staphylococcus aureus, Pseudomonas aeruginosa, beta-hemolytic strep, vancomycin-resistant Enterococcus and fungus. If any of these are isolated, the organism will be reported. Current interpretive data was last revised on 2016. Debbi Ramirez HAIR SPINNER LAB MICROBIOLOGY - GENERAL ORDERABLES Final Result Performing Organization Address [facility] Co de Phone Number ZION [address] [facility] [employer] [place] [address] * eGFR (05/12/2024 3:30 AM TANK CREWMEMBER) eGFR >90 >=60 mL/min/1. 73 m2 Comment: [...] was last reviewed 2021. Testing performed by: [address] [address] Blood 05/12/2024 3:30 AM TANK CREWMEMBER 05/12/2024 4:49 AM TANK CREWMEMBER Debbi Ramirez HAIR SPINNER LAB BLOOD ORDERABLES Final Result Performing Organization Address City/[facility]/ZIP Co de Phone Number ZION [facility] Department [place] [address] * (ABNORMAL) Differential, auto (05/12/2024 3:30 AM TANK CREWMEMBER) Neutrophil abs 17.5(H) 1.5 - 6.5 K/cumm Comment:Testing performed by : [address] [address] Imm gran abs 0.1 0.0 - 0.1 K/cumm [facility] Comment:Testing performed by : [address] [address] Lymphocyte abs 0.5(L) 0.8 - 3.3 K/cumm [facility] Comment:Testing performed by : [address] [address] Monocyte abs 0.3 0.2 - 0.8 K/cumm [facility] Comment:Testing performed by : [address], [place]., [address] Eosinophil abs 0.0 0.0 - 0.5 K/cumm [facility] Comment:Testing performed by : [address] [address] Basophil abs 0.0 0.0 - 0.1 K/cumm [facility] Comment:Testing performed by : [address] [address] Neutrophil pct 94.9 % [facility] Comment: Interpretive Data Percent cell count reference ranges are not reported, since discordance with absolute values may lead to misinterpretation of CBC data. Current Interpretive Data was last revised on 2017. Testing performed by: [address] [address] Imm gran pct 0.5 % [facility] Comment: Interpretive Data Percent cell count reference ranges are not reported, since discordance with absolute values may lead to misinterpretation of CBC data. Current Interpretive Data was last revised on 2017. Testing performed by: [address] [address] Lymphocyte pct 2.9 % [facility] Comment: Interpretive Data Percent cell count reference ranges are not reported, since discordance with absolute values may lead to misinterpretation of CBC data. Current Interpretive Data was last revised on 2017. Testing performed by: [address] [address] Monocyte pct 1.6 % CERNER Comment: Interpretive Data Percent cell count reference ranges are not reported, since discordance with absolute values may lead to misinterpretation of CBC data. Current Interpretive Data was last revised on 2017. Testing performed by: [address] [address] Eosinophil pct 0.0 % ZION HENDERSON Comment: Interpretive Data Percent cell count reference ranges are not reported, since discordance with absolute values may lead to misinterpretation of CBC data. Current Interpretive Data was last revised on 2017. Testing performed by: [address] [address] Basophil pct 0.1 % [facility] HENDERSON Comment: Interpretive Data Percent cell count reference ranges are not reported, since discordance with absolute values may lead to misinterpretation of CBC data. Current Interpretive Data was last revised on 2017. Testing performed by: [address] [address] Blood 05/12/2024 3:30 AM TANK CREWMEMBER 05/12/2024 4:49 AM TANK CREWMEMBER Debbi Ramirez HAIR SPINNER LAB BLOOD ORDERABLES Final Result ZION [facility] Department [place] [address] * (ABNORMAL) CBC with auto differential (05/12/2024 3:30 AM TANK CREWMEMBER) WBC 18.4(H) 3.8 - 9.9 K/cumm Comment:Testing performed by : [address] [address] Hgb 11.9(L) 13.0 - 17.5 g/dL ZION HENDERSON Comment:Testing performed by : [address] [address] Hct 34.7(L) 38.9 - 50.3 % ZION HENDERSON Comment:Testing performed by : [address] [address] Plt 236 150 - 400 K/cumm ZION HENDERSON Comment:Testing performed by : [address] [address] MPV 9.7 9.1 - 12.3 fL ZION HENDERSON Comment:Testing performed by : [address] [place] [address] RBC 3.68(L) 4.30 - 5.80 M/cumm ZION HENDERSON Comment:Testing performed by : [address] [address] MCV 94.3 81.3 - 96.4 fL ZION HENDERSON Comment:Testing performed by : [address] [address] MCH 32.3 27.1 - 33.3 pg ZION HENDERSON Comment:Testing performed by : [address] [address] MCHC 34.3 32.3 - 35.7 g/dL ZION HENDERSON Comment:Testing performed by : [address], [address] RDW CV 13.3 11.1 - 14.9 % ZION HENDERSON Comment:Testing performed by : [address], [address] RDW SD 46.2 35.7 - 48.1 fL ZION HENDERSON Comment:Testing performed by : [address] [address] NRBC abs 0.00 0.00 - 0.01 K/cumm ZION HENDERSON Comment:Testing performed by : [address] [address] Blood 05/12/2024 3:30 AM TANK CREWMEMBER 05/12/2024 4:49 AM TANK CREWMEMBER Debbi Ramirez HAIR SPINNER LAB BLOOD ORDERABLES Final Result ZION HENDERSON [address] [facility] Department of Laboratories [place], [place] [id number] * (ABNORMAL) Basic metabolic panel (05/12/2024 3:30 AM TANK CREWMEMBER) Sodium 139 135 - 145 mmol/L Comment:Testing performed by : [address], [address] Potassium, pl 4.2 3.3 - 4.9 mmol/L ZION HENDERSON Comment:Testing performed by : [address] [address] Chloride 102 97 - 110 mmol/L ZION Comment:Testing performed by : [address] [address] CO2 24 22 - 32 mmol/L ZION Comment:Testing performed by : [address] [address] Anion gap 13 2 - 15 mmol/L ZION Comment:Testing performed by : [address] [address] BUN 14 6 - 25 mg/dL ZION Comment:Testing performed by : [address] [address] Creatinine 0.40(L) 0.80 - 1.30 mg/dL ZION Comment:Testing performed by : [address] [address] Glucose 158 70 - 199 mg/dL ZION Comment: Interpretive [...] was last revised 2022. Testing performed by: [address] [address] Calcium 9.3 8.5 - 10.3 mg/dL ZION Comment:Testing performed by : [address] [address] Blood 05/12/2024 3:30 AM TANK CREWMEMBER 05/12/2024 4:49 AM TANK CREWMEMBER us Debbi Ramirez HAIR SPINNER LAB BLOOD ORDERABLES Final Result ZION [address] [facility] Department [place] [address] * Strep pneumoniae antigen, urine Urine (05/11/2024 5:49 PM TANK CREWMEMBER) S. pneumoniae Ag Negative Negative Comment: Interpretive [...] revised on 2022 Urine 05/11/2024 5:49 PM TANK CREWMEMBER 05/11/2024 8:20 PM TANK CREWMEMBER Debbi Ramirez LAB MICROBIOLOGY - GENERAL ORDERABLES Final Result Performing Organization Address [facility] Co de Phone Number SALO[address] [place] [employer] [address] * Legionella antigen Urine (05/11/2024 5:49 PM TANK CREWMEMBER) Legionella Ag Negative Negative Comment: Interpretive Data This test detects only Legionella pneumophila serogroup 1 antigen. Testing performed by [facility] ([phone]). Current interpretive data was last revised on 2019. Testing performed by: [facility], [address] [place]., [address] Urine 05/11/2024 5:49 PM TANK CREWMEMBER 05/11/2024 9:12 PM TANK CREWMEMBER Debbi Ramirez HAIR SPINNER LAB MICROBIOLOGY - GENERAL ORDERABLES Final Result Performing Organization Address City/[facility] Co de Phone Number [address] [place] [address] * MRSA Only (Staphylococcus aureus) PCR Nasal (05/11/2024 4:10 PM TANK CREWMEMBER) Pathologist [facility] PCR Scrn, Methicillin resistant Staphylococcus aureus (MRSA) Not Detected Not Detected Comment: Interpretive Data Testing performed using Nucleic Acid Amplification with the Orteq Xpert MRSA NxG Assay. This assay detects target DNA from mecA, mecC and the SCCmec insertion site of Staphylococcus aureus using Real-Time PCR and has been cleared by the FDA. Performance characteristics have been verified by the [facility]. Current Interpretive Data was last revised on 2023 Testing performed by: [facility], [address] [place] [address]., [address] Nasal 05/11/2024 4:10 PM TANK CREWMEMBER 05/11/2024 4:23 PM TANK CREWMEMBER Debbi Ramirez NP LAB MICROBIOLOGY - GENERAL ORDERABLES Final Result ZION [address] [facility] Department [place] [address] * US Vein Duplex Lower Extremity Bilateral Complete (05/11/2024 3:58 PM TANK CREWMEMBER) Anatomical Region Laterality Modality Vascular Bilateral Ultrasound 05/11/2024 Narrative 05/16/2024 7:25 AM TANK CREWMEMBER [employer] Job ID: [id number] [employer] Document ID: [id number] Dictated date/time: [id number] BILATERAL LOWER EXTREMITY VENOUS DUPLEX REASON FOR [...] bilateral lower extremities. Job ID/Internal Job ID: [id number] Debbi Ramirez NP IMG US PROCEDURES Final Res ult * Troponin T high-sensitivity 6-hour (05/11/2024 9:29 AM TANK CREWMEMBER) Trop T hs 9 <=22 ng/L Comment: Interpretive Data For further hscTnT resources including the diagnostic algorithm and an aid in interpretation, copy and paste this link: https://nrl.testcatalog.org/show/hsTrop Current Interpretive Data last revised 2020. Testing performed by: [facility], [address] [place] [address]., [address] Trop T hs delta -3 ng/L ZION HENDERSON Comment:Testing performed by : [facility], [address] [place] [address]., [address] Trop T hs interp Insignificant ZION HENDERSON Comment:Testing performed by : [address] [address] Blood 05/11/2024 9:29 AM TANK CREWMEMBER 05/11/2024 9:37 AM TANK CREWMEMBER us Amy Wei MD LAB BLOOD ORDERABLES Fin al Result [facility]ION HENDERSON [address] [facility] Department [place] [address] * CT Chest PE (CTA) W Contrast (05/11/2024 8:30 AM TANK CREWMEMBER) Anatomical Region Laterality Modality Body N/A Computed Tomogra phy 05/11/2024 9:07 AM TANK CREWMEMBER Narrative 05/11/2024 9:17 AM TANK CREWMEMBER EXAM DESCRIPTION: CT CHEST PE (CTA) W [...] Duyen Hendrickson M.D. LC: DONNA Report ID: [id number] Reading Location: [id number] Procedure Note Talita Hendrickson MD - 05/11/2024 [...] Duyen Hendrickson M.D. LC: DONNA Report ID: [id number] Reading Location: [place] [address] Debbi Ramirez HAIR SPINNER IMG CT PROCEDURES Final Res ult * Troponin T high-sensitivity 4-hour (05/11/2024 7:20 AM TANK CREWMEMBER) Trop T hs 12 <=22 ng/L Comment: Interpretive Data For further hscTnT resources including the diagnostic algorithm and an aid in interpretation, copy and paste this link: https://nrl.testcatalog.org/show/hsTrop Current Interpretive Data last revised 2020. Testing performed by: [address] [address] Trop T hs delta 0 ng/L ZION HENDERSON Comment:Testing performed by : [address] [address] Trop T hs interp Insignificant ZION Comment:Testing performed by : [address] [address] Blood 05/11/2024 7:20 AM TANK CREWMEMBER 05/11/2024 7:27 AM TANK CREWMEMBER Amy Wei MD LAB BLOOD ORDERABLES Fin al Result Performing Organization Address [facility] Co de Phone Number ZION [address] [place] [address] * Troponin T high-sensitivity 2-hour (05/11/2024 5:30 AM TANK CREWMEMBER) Trop T hs 12 <=22 ng/L Comment: Interpretive Data For further hscTnT resources including the diagnostic algorithm and an aid in interpretation, copy and paste this link: https://nrl.testcatalog.org/show/hsTrop Current Interpretive Data last revised 2020. Testing performed by: [address] [address] Trop T hs delta 0 ng/L ZION Comment:Testing performed by : [address] [address] Trop T hs interp Insignificant [facility] Comment:Testing performed by : [address] [address] Blood 05/11/2024 5:30 AM TANK CREWMEMBER 05/11/2024 5:33 AM TANK CREWMEMBER Amy Wei MD LAB BLOOD ORDERABLES Fin al Result Performing Organization Address [facility] de Phone Number ZION [address] [facility] [place] [address] * (ABNORMAL) Urinalysis reflex to microscopic and culture Urine (05/11/2024 5:30 AM TANK CREWMEMBER) Color, ur Yellow Yellow Comment:Testing performed by : [address] [address] Clarity, ur Clear Clear ZION Comment:Testing performed by : [address], [place]., [address] Specific gravity, ur 1.026 1.003 - 1.030 ZION Comment:Testing performed by : [address], [place]., [address] pH, urine 5.5 ZION Comment: Interpretive Data U rine pH is affected by diet, medications, systemic acid-base disturbances, and renal tubular function. pH may affect urinary stone formation. For example, urine pH below 6.0 may help reduce the tendency for calcium phosphate stones and pH greater than 6.0 may reduce the tendency for uric acid stone formation. Source: [facility] [employer] Current Interpretive Data was last revised on 2017 Testing performed by: [address] [address] Protein, ur ql 1+(A) Negative ZION Comment:Testing performed by : [address] [address] Glucose, ur ql Negative Negative ZION Comment:Testing performed by : [address] [address] Ketones, ur Negative Negative ZION Comment:Testing performed by : [address] [address] Bilirubin, ur Negative Negative ZION Comment:Testing performed by : [address] [address] Blood, ur Negative Negative ZION Comment:Testing performed by : [address] [address] Urobilinogen, ur 2.0(A) <2.0 mg/dL ZION Comment:Testing performed by : [address] [address] Nitrite, ur Negative Negative ZION Comment:Testing performed by : [address] [address] Leukocyte esterase, ur Negative Negative ZION Comment:Testing performed by : [address] [address] UA reflex comment Reflex to microscopic UA will be performed. ZION HENDERSON Comment:Testing performed by : [address] [address] Urine 05/11/2024 5:30 AM TANK CREWMEMBER 05/11/2024 5:33 AM TANK CREWMEMBER Amy Wei MD LAB MICROBIOLOGY - GENER AL ORDERABLES Final Result Performing Organization Address [facility] Co de Phone Number ZION [address] [facility] [place] [address] * (ABNORMAL) Urinalysis, microscopic only (05/11/2024 5:30 AM TANK CREWMEMBER) WBC, ur 6-10(A) 0 - 5 /HPF Comment:Testing performed by : [address] [address] RBC, ur 3-5(A) 0 - 2 /HPF ZION Comment:Testing performed by : [address] [address] Epithelial cells, squamous, ur 6-10(A) 0 - 5 /HPF ZOIN Comment:Testing performed by : [address] [address] Mucous, ur Present(A) ZION Comment:Testing performed by : [address] [address] Culture Reflex Comment Reflex conditions for urine culture (WBC >10) not met. ZION Comment:Testing performed by : [address] [address] Urine 05/11/2024 5:30 AM TANK CREWMEMBER 05/11/2024 5:33 AM TANK CREWMEMBER Amy Wei MD LAB URINE ORDERABLES Fin al Result Performing Organization Address City/[facility]/ZIP Co de Phone Number ZION [address] [facility] [place] [address] * Blood culture Blood Peripheral (05/11/2024 3:49 AM TANK CREWMEMBER) Report Final Report: No growth Comment:Testing performed by : [facility], [address] [facility], [place]., [address] Blood (Peripheral) 05/11/2024 3:49 AM TANK CREWMEMBER 05/11/2024 8:06 AM TANK CREWMEMBER Narrative ZION HENDERSON - 05/15/2024 12:00 PM TANK CREWMEMBER From a different site than #1. Draw [...] performance characteristics have been verified by the [facility] Microbiology Laboratory. For questions about this culture, contact the Microbiology Laboratory at [phone]. Interpretive data was last revised on 24. Amy Wei MD LAB MICROBIOLOGY - [facility] ORDERABLES Final Result ZION [address] [facility] Department [place] [address] * (ABNORMAL) Influenza A/B, RSV, and COVID-19 PCR Nasopharyngeal (05/11/2024 3:48 AM TANK CREWMEMBER) [facility] COVID-19 RNA Negative Negative Comment:Testing performed by : [address] [address] Influenza A RNA Negative Negative ZION HENDERSON Comment:Testing performed by : [address] [address] Influenza B RNA Negative Negative ZION Comment:Testing performed by : [address] [address] RSV RNA Positive(A) Negative ZION HENDERSON Comment: Interpretive data: Testing performed by [facility]. This test is performed using the [employer] Xpert Xpress CoV-2/Flu/RSV plus assay. This is a multiplex, real-time reverse transcriptase PCR assay intended for the qualitative detection of nucleic acid from SARS-CoV-2, influenza A, influenza B, and respiratory syncytial virus. This assay has been cleared by the [place] Food and Drug administration. The performance characteristics have been verified by the [facility]. Results must be considered in the clinical context, and a negative result does not rule out infection. Interpretive Data last revised 2023 Testing performed by: [address] [address] Nasopharyngeal 05/11/2024 3: 48 AM TANK CREWMEMBER 05/11/2024 3:54 AM TANK CREWMEMBER Narrative ZION - 05/11/2024 4:33 AM TANK CREWMEMBER Is the Patient experiencing symptoms consistent with COVID?->Unknown us Amy Wei MD LAB MICROBIOLOGY - GENER AL ORDERABLES Final Result ZION [address] [facility] Department of Laboratories [place], [place] [id number] * POC Blood Gas and Chemistries, Venous - (05/11/2024 3:47 AM TANK CREWMEMBER) pH,pawan POC 7.41 7.32 - 7.43 Comment:Testing performed by : [address] [address] pCO2, pawan POC 44 40 - 50 mmHg ZION HENDERSON Comment:Testing performed by : [address] [address] pO2,pawan POC 39 mmHg ZION HENDERSON Comment: Interpretive Data No reference range established. Current interpretive data was last revised 2019. Testing performed by: [address] [address] HCO3, pawan (Calc) POC 28 20 - 30 mmol/L ZION Comment:Testing performed by : [address], [place]., [address] Base excess, pawan POC 3 mmol/L ZION Comment: Interpretive Data No reference range established. Current interpretive data was last revised 2019. Testing performed by: [address] [address] Glucose, pawan POC 106 70 - 199 mg/dL ZION Comment:Testing performed by : [address], [place]., [address] Lactate, pawan POC 1.3 0.7 - 2.0 mmol/L ZION Comment:Testing performed by : [address], [place]., [address] Blood 05/11/2024 3:47 AM TANK CREWMEMBER 05/11/2024 3:47 AM TANK CREWMEMBER Amy Wei MD LAB POCT ORDERABLES - DE VICE Final Result [facility] [address] [facility] Department [place] [address] * Blood culture Blood Peripheral (05/11/2024 3:45 AM TANK CREWMEMBER) Report Final Report: No growth Comment:Testing performed by : [facility], [address] [facility] [address] Blood (Peripheral) 05/11/2024 3:45 AM TANK CREWMEMBER 05/11/2024 8:06 AM TANK CREWMEMBER Narrative ZION - 05/15/2024 12:00 PM TANK CREWMEMBER Draw Blood cultures before administration of Antibiotics [...] performance characteristics have been verified by the [facility]biology [facility]. For questions about this culture, contact the Microbiology Laboratory at [phone]. Interpretive data was last revised on 24. us Amy Wei MD LAB MICROBIOLOGY - [facility] AL ORDERABLES Final Result ZION [address] [facility] Department of Laboratories [place], [place] [id number] * POC Blood Gas and Chemistries, Venous - (05/11/2024 3:42 AM TANK CREWMEMBER) pH,pawan POC 7.42 7.32 - 7.43 Comment:Testing performed by : [address] [address] pCO2, pawan POC 44 40 - 50 mmHg ZION Comment:Testing performed by : [address] [address] pO2,pawan POC 36 mmHg ZION Comment: Interpretive Data No reference range established. Current interpretive data was last revised 2019. Testing performed by: [address] [address] HCO3, pawan (Calc) POC 28 20 - 30 mmol/L ZION Comment:Testing performed by : [address] [address] Base excess, pawan POC 3 mmol/L ZION Comment: Interpretive Data No reference range established. Current interpretive data was last revised 2019. Testing performed by: [address] [address] Blood 05/11/2024 3:42 AM TANK CREWMEMBER 05/11/2024 3:42 AM TANK CREWMEMBER us Amy Wei MD LAB POCT ORDERABLES - DE VICE Final Result ZION [address] [facility] Department [place] [address] * XR Chest 1 Vw Portable (05/11/2024 3:42 AM TANK CREWMEMBER) Anatomical Region Laterality Modality Body, Chest N/A Computed Radiogr aphy 05/11/2024 4:13 AM TANK CREWMEMBER Narrative 05/11/2024 4:15 AM TANK CREWMEMBER EXAM DESCRIPTION: XR CHEST 1 VIEW REASON [...] Karlie Ingram M.D. SN: SN Report ID: [id number] Reading Location: [id number] Procedure Note Karlie Ingram MD - 05/11/2024 [...] Karlie Ingram M.D. SN: SN Report ID: [id number] Reading Location: [id number] us Amy Wei MD IMG XR PROCEDURES Final Result * Troponin T high-sensitivity series (baseline, 2hr, 4hr, 6hr) (05/11/2024 3:36 AM TANK CREWMEMBER) Trop T hs 12 <=22 ng/L Comment: Interpretive Data For further hscTnT resources including the diagnostic algorithm and an aid in interpretation, copy and paste this link: https://nrl.testcatalog.org/show/hsTrop Current Interpretive Data last revised 2020. Testing performed by: [facility], [address] [place] [address]., [address] Blood 05/11/2024 3:36 AM TANK CREWMEMBER 05/11/2024 3:39 AM TANK CREWMEMBER Amy Wei MD LAB BLOOD ORDERABLES Fin al Result [facility] [address] [facility] Department [place] [address] * eGFR (05/11/2024 3:36 AM TANK CREWMEMBER) eGFR >90 >=60 mL/min/1. 73 m2 Comment: [...] was last reviewed 2021. Testing performed by: [address] [address] Blood 05/11/2024 3:36 AM TANK CREWMEMBER 05/11/2024 3:39 AM TANK CREWMEMBER us Amy Wei MD LAB BLOOD ORDERABLES Fin al Result ZION [address] [facility] Department [place] [address] * (ABNORMAL) Differential, auto (05/11/2024 3:36 AM TANK CREWMEMBER) Neutrophil abs 10.4(H) 1.5 - 6.5 K/cumm Comment:Testing performed by : [address] [address] Imm gran abs 0.1 0.0 - 0.1 K/cumm ZION Comment:Testing performed by : [address] [address] Lymphocyte abs 1.0 0.8 - 3.3 K/cumm ZION Comment:Testing performed by : [address] [address] Monocyte abs 0.5 0.2 - 0.8 K/cumm ZION Comment:Testing performed by : [address] [address] Eosinophil abs 0.1 0.0 - 0.5 K/cumm ZION Comment:Testing performed by : [address] [address] Basophil abs 0.0 0.0 - 0.1 K/cumm ZION Comment:Testing performed by : [address] [address] Neutrophil pct 85.9 % ZION Comment: Interpretive Data Percent cell count reference ranges are not reported, since discordance with absolute values may lead to misinterpretation of CBC data. Current Interpretive Data was last revised on 2017. Testing performed by: [address] [address] Imm gran pct 1.2 % [facility] Comment: Interpretive Data Percent cell count reference ranges are not reported, since discordance with absolute values may lead to misinterpretation of CBC data. Current Interpretive Data was last revised on 2017. Testing performed by: [address] [address] Lymphocyte pct 8.0 % [facility] Comment: Interpretive Data Percent cell count reference ranges are not reported, since discordance with absolute values may lead to misinterpretation of CBC data. Current Interpretive Data was last revised on 2017. Testing performed by: [address] [address] Monocyte pct 3.8 % [facility] Comment: Interpretive Data Percent cell count reference ranges are not reported, since discordance with absolute values may lead to misinterpretation of CBC data. Current Interpretive Data was last revised on 2017. Testing performed by: [address] [address] Eosinophil pct 0.9 % [facility] Comment: Interpretive Data Percent cell count reference ranges are not reported, since discordance with absolute values may lead to misinterpretation of CBC data. Current Interpretive Data was last revised on 2017. Testing performed by: [address] [address] Basophil pct 0.2 % [facility] Comment: Interpretive Data Percent cell count reference ranges are not reported, since discordance with absolute values may lead to misinterpretation of CBC data. Current Interpretive Data was last revised on 2017. Testing performed by: [address] [address] Blood 05/11/2024 3:36 AM TANK CREWMEMBER 05/11/2024 3:39 AM TANK CREWMEMBER us Amy Wei MD LAB BLOOD ORDERABLES Fin al Result ZION MH [address] [facility] Department [place] [address] * Pro B-type natriuretic peptide (05/11/2024 3:36 AM TANK CREWMEMBER) NT-proBNP 287 <=300 pg/mL Comment: Interpretive Comments: [...] Heart J. 2006:27:330-337. 2. Freddy RW, Ami AM. J. AM Billy Cardiol: Cardiovasc Imag. 2009;2: 216- 225. Interpretive Data Last Revised Date: 2018. Testing performed by: [facility], [address] [place] [address]., [address] Blood 05/11/2024 3:36 AM TANK CREWMEMBER 05/11/2024 3:39 AM TANK CREWMEMBER us Amy Wei MD LAB BLOOD ORDERABLES Fin al Result ZION [address] [facility] Department [place] [address] * (ABNORMAL) CBC with auto differential (05/11/2024 3:36 AM TANK CREWMEMBER) WBC 12.1(H) 3.8 - 9.9 K/cumm Comment:Testing performed by : [address] [address] Hgb 13.7 13.0 - 17.5 g/dL ZION Comment:Testing performed by : [address], [address] Hct 40.6 38.9 - 50.3 % ZION Comment:Testing performed by : [address] [address] Plt 257 150 - 400 K/cumm ZION Comment:Testing performed by : [address], [address] MPV 9.1 9.1 - 12.3 fL ZION Comment:Testing performed by : [address] [address] RBC 4.32 4.30 - 5.80 M/cumm ZION Comment:Testing performed by : [address] [address] MCV 94.0 81.3 - 96.4 fL ZION Comment:Testing performed by : [address] [address] MCH 31.7 27.1 - 33.3 pg ZION Comment:Testing performed by : [address] [address] MCHC 33.7 32.3 - 35.7 g/dL ZION Comment:Testing performed by : [address] [address] RDW CV 13.1 11.1 - 14.9 % ZION Comment:Testing performed by : [address], [address] RDW SD 44.9 35.7 - 48.1 fL ZION HENDERSON Comment:Testing performed by : [address] [address] NRBC abs 0.00 0.00 - 0.01 K/cumm ZION HENDERSON Comment:Testing performed by : [address] [address] Blood 05/11/2024 3:36 AM TANK CREWMEMBER 05/11/2024 3:39 AM TANK CREWMEMBER Amy Wei MD LAB BLOOD ORDERABLES Fin al Result Performing Organization Address [facility] de Phone Number [address] [place] [address] * aPTT (05/11/2024 3:36 AM TANK CREWMEMBER) aPTT 28 22 - 37 sec Comment: Interpretive data aPTT test has not been evaluated for monitoring heparin therapy. The anti-Xa is the preferred test. Current interpretive data was last revised on 2019. Testing performed by: [address] [address] Blood 05/11/2024 3:36 AM TANK CREWMEMBER 05/11/2024 3:39 AM TANK CREWMEMBER Amy Wei MD LAB BLOOD ORDERABLES Fin al Result Performing Organization Address [facility] de Phone Number [place] [address] [facility] [place] [address] * Protime-INR (05/11/2024 3:36 AM TANK CREWMEMBER) PT 13.4 12.0 - 14.6 sec Comment:Testing performed by : [address] [address] INR 1.0 0.9 - 1.2 ZION HENDERSON Comment: Ref Range High Interpretive data Oral anticoagulant therapeutic ranges: Venous thromboembolism prophylaxis or treatment: 2.0-3.0 CARDIOLOGY Standard range: 2.0-3.0 High-intensity range: 2.5-3.5 Refer to indication-specific guidelines for appropriate target ranges for prosthetic heart valve replacement. Current interpretive data was last revised on 2019. Testing performed by: [address] [address] Blood 05/11/2024 3:36 AM TANK CREWMEMBER 05/11/2024 3:39 AM TANK CREWMEMBER Amy Wei MD LAB BLOOD ORDERABLES Fin al Result Performing Organization Address [facility] de Phone Number [facility] [address] [facility] [place] [address] * (ABNORMAL) D-dimer, quantitative (05/11/2024 3:36 AM TANK CREWMEMBER) D-Dimer 600(H) <=499 ng/mL FEU Comment: Interpretive [...] 68, VTE cut-off 680 ng/ml FEU. References; Schouttammie HT et al. Brit Med J. 2013;346:f2492. Katy et al. Annals Int Med. 2015;163:701-11. Current interpretive data was last revised on 2019. Testing performed by: [address] [address] Blood 05/11/2024 3:36 AM TANK CREWMEMBER 05/11/2024 3:39 AM TANK CREWMEMBER Amy Wei MD LAB BLOOD ORDERABLES Fin al Result Performing Organization Address [facility] Co de Phone Number [facility] [address] [facility] [place] [address] * (ABNORMAL) Comprehensive metabolic panel (05/11/2024 3:36 AM TANK CREWMEMBER) Sodium 140 135 - 145 mmol/L Comment:Testing performed by : [address] [address] Potassium, pl 3.7 3.3 - 4.9 mmol/L ZION Comment:Testing performed by : [address] [address] Chloride 102 97 - 110 mmol/L [facility] Comment:Testing performed by : [address], [place]., [address] CO2 27 22 - 32 mmol/L [facility] Comment:Testing performed by : [address] [address] Anion gap 11 2 - 15 mmol/L [facility] Comment:Testing performed by : [address], [place]., [address] BUN 8 6 - 25 mg/dL [facility] Comment:Testing performed by : [address] [address] Creatinine 0.60(L) 0.80 - 1.30 mg/dL [facility] Comment:Testing performed by : [address] [address] Glucose 124 70 - 199 mg/dL [facility] Comment: Interpretive Data Fasting glucose >/= 126 [...] was last revised 2022. Testing performed by: [address] [address] Calcium 8.9 8.5 - 10.3 mg/dL [facility] Comment:Testing performed by : [address] [address] Bilirubin, total 0.8 0.1 - 1.2 mg/dL ZION Comment:Testing performed by : [address] [address] Protein, pl 6.7 6.5 - 8.5 g/dL ZION Comment:Testing performed by : [address] [address] Albumin 3.7 3.5 - 5.0 g/dL ZION Comment:Testing performed by : [address] [address] Alk phos 81 40 - 130 Units/L ZION Comment:Testing performed by : [address] [address] ALT 81(H) 7 - 55 Units/L ZION Comment:Testing performed by : [address] [address] AST 65(H) 10 - 50 Units/L ZION Comment:Testing performed by : [address] [address] Blood 05/11/2024 3:36 AM TANK CREWMEMBER 05/11/2024 3:39 AM TANK CREWMEMBER us Amy Wei MD LAB BLOOD ORDERABLES Fin al Result ZION [address] [facility] Department [place] [address] * ECG 12 lead (05/11/2024 3:34 AM TANK CREWMEMBER) Ventricular Rate EKG/Min 99 BPM [facility] Atrial Rate 99 BPM [facility] [place]-Interval (MSEC) 166 ms [facility] QRS-Interval (MSEC) 74 ms [facility] QT-Interval (MSEC) 316 ms [facility] QTc 405 ms [facility] P Broadus 16 degrees [facility] R Broadus 9 degrees [facility] T Broadus 1 degrees [facility] Diagnosis Normal sinus rhythm Normal ECG When compared with ECG of 01-MAY-2024 13:00, Nonspecific T wave abnormality, worse in Lateral leads Confirmed by KWADWO NELSON M.D. ([id number]) on 05/11/2024 10:41:23 AM [facility] 05/11/2024 3:34 AM TANK CREWMEMBER 05/11/2024 10:41 AM TANK CREWMEMBER us Amy Wei MD ECG ORDERABLES Final Re sult [facility] * [place] [facility] ILL/INJURED PATIENT INIT 30-74 MIN (05/11/2024 3:26 AM TANK CREWMEMBER) Narrative Amy Wei MD - 05/11/2024 3:26 AM TANK CREWMEMBER Amy Wei MD 05/11/2024 4:56 AM Critical [...] Troponin T high-sensitivity 6-hour (05/01/2024 8:00 PM TANK CREWMEMBER) Trop T hs 7 <=22 ng/L Comment: Interpretive Data For further hscTnT resources including the diagnostic algorithm and an aid in interpretation, copy and paste this link: https://nrl.testcatalog.org/show/hsTrop Current Interpretive Data last revised 2020. Testing performed by: [address] [address] Trop T hs delta 1 ng/L ZION HENDERSON Comment:Testing performed by : [address] [address] Trop T hs interp Insignificant ZION HENDERSON Comment:Testing performed by : [address] [address] Blood 05/01/2024 8:00 PM TANK CREWMEMBER 05/01/2024 8:04 PM TANK CREWMEMBER us Cheyenne Ashleigh Gutierrez NP LAB BLOOD ORDERABLES Sagar celaya Result ZION MH [address] [facility] Department [place] [address] * CT Chest PE (CTA) W Contrast (05/01/2024 6:40 PM TANK CREWMEMBER) Anatomical Region Laterality Modality Body N/A Computed Tomogra phy 05/01/2024 6:51 PM TANK CREWMEMBER Narrative 05/01/2024 6:57 PM TANK CREWMEMBER EXAM DESCRIPTION: CT CHEST PE (CTA) W CONTRAST REASON FOR STUDY: PE suspected, low pretest prob c/o cough, weakness, and SOB since Wed. States he had temp of 101 today and took [employer]. Pt was seen at his PCP on [...] Pratik Maldonado D.O. PS: PS Report ID: [id number] Reading Location: [place] [address] Procedure Note Pratik Maldonado, DO - 05/01/2024 EXAM DESCRIPTION: CT CHEST PE (CTA) W CONTRAST REASON FOR STUDY: PE suspected, low pretest prob c/o cough, weakness, and SOB since Wed. States he had temp of 101 todayand took [employer]CHIT[employer]. Pt was seen at his PCP on [...] nodes, which [facility], and therefore likely benign, [...] Pratik Maldonado D.O. PS: PS Report ID: [id number] Reading Location: [place] [address] Cheyenne Gutierrez HAIR SPINNER IMG CT PROCEDURES Final Result * Troponin T high-sensitivity 4-hour (05/01/2024 5:26 PM TANK CREWMEMBER) Trop T hs 6 <=22 ng/L Comment: Interpretive Data For further hscTnT resources including the diagnostic algorithm and an aid in interpretation, copy and paste this link: https://nrl.testcatalog.org/show/hsTrop Current Interpretive Data last revised 2020. Testing performed by: [address] [address] Trop T hs delta 0 ng/L ZION HENDERSON Comment:Testing performed by : [address] [address] Trop T hs interp Insignificant ZION HENDERSON Comment:Testing performed by : [facility], [address] [place] [address]., [address] Blood 05/01/2024 5:26 PM TANK CREWMEMBER 05/01/2024 5:29 PM TANK CREWMEMBER us Cheyenne Gutierrez HAIR SPINNER LAB BLOOD ORDERABLES Fin al Result ZION HENDERSON [address] [facility] Department [place] [address] * XR Chest 1 Vw Portable (if patient condition/safety warrant portable) (05/01/2024 1:06 PM TANK CREWMEMBER) Anatomical Region Laterality Modality Body, Chest N/A Computed Radiogr aphy 05/01/2024 1:49 PM TANK CREWMEMBER Narrative 05/01/2024 1:57 PM TANK CREWMEMBER EXAM DESCRIPTION: XR CHEST 1 VIEW REASON [...] Peter Marquis M.D. AG: IRENE Report ID: [id number] Reading Location: [id number] Procedure Note Peter Marquis MD - 05/01/2024 [...] Peter Marquis M.D. AG: IRENE Report ID: [id number] Reading Location: [place] [address] Cheyenne Gutierrez HAIR SPINNER IMG XR PROCEDURES Final Result * Troponin T high-sensitivity series (baseline, 2hr, 4hr, 6hr) (05/01/2024 1:01 PM TANK CREWMEMBER) Trop T hs <6 <=22 ng/L Comment: Interpretive Data For further hscTnT resources including the diagnostic algorithm and an aid in interpretation, copy and paste this link: https://nrl.testcatalog.org/show/hsTrop Current Interpretive Data last revised 2020. Testing performed by: [facility], [address] [place] [address]., [address] Blood 05/01/2024 1:01 PM TANK CREWMEMBER 05/01/2024 1:11 PM TANK CREWMEMBER Cheyenne Gutierrez HAIR SPINNER LAB BLOOD ORDERABLES Fin al Result [facility] [address] [facility] Department of Laboratories [place], [place] [id number] * (ABNORMAL) Influenza A/B, RSV, and COVID-19 PCR Nasopharyngeal (05/01/2024 1:01 PM TANK CREWMEMBER) COVID-19 RNA Negative Negative Comment:Testing performed by : [address] [address] Influenza A RNA Negative Negative [facility] Comment:Testing performed by : [address] [address] Influenza B RNA Negative Negative [facility] Comment:Testing performed by : [address] [address] RSV RNA Positive(A) Negative [facility] Comment: Interpretive data: Testing performed by [facility]. This test is performed using the Orteq Xpert Xpress CoV-2/Flu/RSV plus assay. This is a multiplex, real-time reverse transcriptase PCR assay intended for the qualitative detection of nucleic acid from SARS-CoV-2, influenza A, influenza B, and respiratory syncytial virus. This assay has been cleared by the [place] Food and Drug administration. The performance characteristics have been verified by the [facility]. Results must be considered in the clinical context, and a negative result does not rule out infection. Interpretive Data last revised 2023 Testing performed by: [address] [address] Nasopharyngeal 05/01/2024 1: 01 PM TANK CREWMEMBER 05/01/2024 1:11 PM TANK CREWMEMBER Narrative ZION - 05/01/2024 1:57 PM TANK CREWMEMBER Is the Patient experiencing symptoms consistent with COVID?->Yes Cheyenne Gutierrez HAIR SPINNER LAB MICROBIOLOGY - GENER AL ORDERABLES Final Result Performing Organization Address [facility] de Phone Number SALO[address] Department [place] [address] * eGFR (05/01/2024 1:01 PM TANK CREWMEMBER) eGFR >90 >=60 mL/min/1. 73 m2 Comment: [...] was last reviewed 2021. Testing performed by: [address] [address] Blood 05/01/2024 1:01 PM TANK CREWMEMBER 05/01/2024 1:11 PM TANK CREWMEMBER Cheyenne Gutierrez HAIR SPINNER LAB BLOOD ORDERABLES Fin al Result Performing Organization Address [facility] Co de Phone Number [place] [address] [facility] Department [place] [address] * (ABNORMAL) Differential, auto (05/01/2024 1:01 PM TANK CREWMEMBER) Pathologist [facility] Neutrophil abs 9.3(H) 1.5 - 6.5 K/cumm Comment:Testing performed by : [address] [address] Imm gran abs 0.0 0.0 - 0.1 K/cumm ZION Comment:Testing performed by : [address] [address] Lymphocyte abs 0.7(L) 0.8 - 3.3 K/cumm CER[facility]ORT[facility] Comment:Testing performed by : [address] [address] Monocyte abs 0.7 0.2 - 0.8 K/cumm [facility] Comment:Testing performed by : [address] [address] Eosinophil abs 0.1 0.0 - 0.5 K/cumm [facility] Comment:Testing performed by : [address], [place]., [address] Basophil abs 0.0 0.0 - 0.1 K/cumm [facility] Comment:Testing performed by : [address] [address] Neutrophil pct 85.6 % [facility] Comment: Interpretive Data Percent cell count reference ranges are not reported, since discordance with absolute values may lead to misinterpretation of CBC data. Current Interpretive Data was last revised on 2017. Testing performed by: [address] [address] Imm gran pct 0.3 % [facility] Comment: Interpretive Data Percent cell count reference ranges are not reported, since discordance with absolute values may lead to misinterpretation of CBC data. Current Interpretive Data was last revised on 2017. Testing performed by: [address] [address] Lymphocyte pct 6.9 % [facility] Comment: Interpretive Data Percent cell count reference ranges are not reported, since discordance with absolute values may lead to misinterpretation of CBC data. Current Interpretive Data was last revised on 2017. Testing performed by: [address] [address] Monocyte pct 6.2 % [facility] Comment: Interpretive Data Percent cell count reference ranges are not reported, since discordance with absolute values may lead to misinterpretation of CBC data. Current Interpretive Data was last revised on 2017. Testing performed by: [address] [address] Eosinophil pct 0.6 % ZION [place] Comment: Interpretive Data Percent cell count reference ranges are not reported, since discordance with absolute values may lead to misinterpretation of CBC data. Current Interpretive Data was last revised on 2017. Testing performed by: [address] [address] Basophil pct 0.4 % [facility] [place] Comment: Interpretive Data Percent cell count reference ranges are not reported, since discordance with absolute values may lead to misinterpretation of CBC data. Current Interpretive Data was last revised on 2017. Testing performed by: [address] [address] Blood 05/01/2024 1:01 PM TANK CREWMEMBER 05/01/2024 1:11 PM TANK CREWMEMBER us Cheyenne Gutierrez HAIR SPINNER LAB BLOOD ORDERABLES Fin al Result ZION [facility] Department [place] [address] * (ABNORMAL) CBC with auto differential (05/01/2024 1:01 PM TANK CREWMEMBER) WBC 10.8(H) 3.8 - 9.9 K/cumm Comment:Testing performed by : [address] [address] Hgb 15.4 13.0 - 17.5 g/dL [facility] [place] Comment:Testing performed by : [address] [address] Hct 44.3 38.9 - 50.3 % [facility] [place] Comment:Testing performed by : [address] [address] Plt 223 150 - 400 K/cumm [facility] [place] Comment:Testing performed by : [address] [address] MPV 9.1 9.1 - 12.3 fL [facility] [place] Comment:Testing performed by : [address] [address] RBC 4.77 4.30 - 5.80 M/cumm [facility] [place] Comment:Testing performed by : [address] [address] MCV 92.9 81.3 - 96.4 fL [facility] [place] Comment:Testing performed by : [address] [address] MCH 32.3 27.1 - 33.3 pg [facility] [place] Comment:Testing performed by : [address] [address] MCHC 34.8 32.3 - 35.7 g/dL Z[facility] [place] Comment:Testing performed by : [address] [address] RDW CV 12.6 11.1 - 14.9 % [facility] [place] Comment:Testing performed by : [address] [address] RDW SD 42.9 35.7 - 48.1 fL [facility] [place] Comment:Testing performed by : [address] [address] NRBC abs 0.00 0.00 - 0.01 K/cumm [facility] [place] Comment:Testing performed by : [address] [address] Blood 05/01/2024 1:01 PM TANK CREWMEMBER 05/01/2024 1:11 PM TANK CREWMEMBER Cheyenne Gutierrez HAIR SPINNER LAB BLOOD ORDERABLES Fin al Result ZION [address] [facility] Department of Laboratories [place], [place] [id number] * (ABNORMAL) Comprehensive metabolic panel (05/01/2024 1:01 PM TANK CREWMEMBER) Sodium 137 135 - 145 mmol/L Comment:Testing performed by : [address] [address] Potassium, pl 3.9 3.3 - 4.9 mmol/L ZION [place] Comment:Testing performed by : [address] [address] Chloride 99 97 - 110 mmol/L [facility] [place] Comment:Testing performed by : [address] [address] CO2 25 22 - 32 mmol/L ZION Comment:Testing performed by : [address] [address] Anion gap 13 2 - 15 mmol/L ZION Comment:Testing performed by : [address], [place]., [address] BUN 7 6 - 25 mg/dL ZION Comment:Testing performed by : [address], [place]., [address] Creatinine 0.50(L) 0.80 - 1.30 mg/dL ZION Comment:Testing performed by : [address] [address] Glucose 103 70 - 199 mg/dL ZION [...] was last revised 2022. Testing performed by: [address] [address] Calcium 9.7 8.5 - 10.3 mg/dL ZION Comment:Testing performed by : [address] [address] Bilirubin, total 1.7(H) 0.1 - 1.2 mg/dL ZION Comment:Testing performed by : [address] [address] Protein, pl 7.8 6.5 - 8.5 g/dL ZION Comment:Testing performed by : [address] [address] Albumin 4.4 3.5 - 5.0 g/dL ZION Comment:Testing performed by : [address] [place] [address] Alk phos 85 40 - 130 Units/L ZION Comment:Testing performed by : [address] [address] ALT 31 7 - 55 Units/L ZION Comment:Testing performed by : [address] [address] AST 27 10 - 50 Units/L ZION Comment:Testing performed by : [address], [address] Blood 05/01/2024 1:01 PM TANK CREWMEMBER 05/01/2024 1:11 PM TANK CREWMEMBER Cheyenne Gutierrez HAIR SPINNER LAB BLOOD ORDERABLES Fin al Result Performing Organization Address City/[facility]/ZIP Co de Phone Number ZION [address] [facility] Department [place] [address] * ECG 12 lead (05/01/2024 1:00 PM TANK CREWMEMBER) Ventricular Rate EKG/Min 83 BPM [facility] Atrial Rate 83 BPM [facility] [place]-Interval (MSEC) 186 ms [facility] QRS-Interval (MSEC) 86 ms [facility] QT-Interval (MSEC) 388 ms [facility] QTc 455 ms [facility] P Broadus 57 degrees [facility] R Broadus -1 degrees [facility] T Broadus -27 degrees [facility] Diagnosis Normal sinus rhythm Normal ECG When compared with ECG of 30-OCT-2023 12:02, No significant change was found Confirmed by CHELE DERAS M.D. ([id number]) on 05/02/2024 9:27:42 AM [facility] 05/01/2024 1:00 PM TANK CREWMEMBER 05/02/2024 9:27 AM TANK CREWMEMBER us Cheyenne Gutierrez HAIR SPINNER ECG ORDERABLES Final Re sult Performing Organization Address City/[facility]/ZIP Co de Phone Number [facility] * POC Influenza A/B, COVID-19 antigen (04/28/2024 11:27 AM TANK CREWMEMBER) Pathologist [facility] Influenza A Ag, POC Negative Negative [facility] Influenza B Ag, POC Negative Negative [facility] COVID-19 Ag POC Presumptive Negative Presumptive Negative, Invalid [facility] [address] Nasal 04/28/2024 11:2 7 AM TANK CREWMEMBER Merary Zuleta POINT OF CARE TEST ORDER MICHEL Final Result Performing Organization Address City/[facility]/ZIP Co de Phone Number [facility] [address] [facility] [address] Manjit JOY [address] * PSA screen (04/24/2024 9:32 AM TANK CREWMEMBER) [facility] PSA 2.47 < OR = 4.00 ng/mL [facility] Comment: The total PSA value from this assay system is standardized against the WHO standard. The test result will be approximately 20% lower when compared to the equimolar-standardized total PSA (Jamie [place]). Comparison of serial PSA results should be interpreted with this fact in mind. This test was performed using the Siemens chemiluminescent method. Values obtained from different assay methods cannot be used interchangeably. PSA levels, regardless of value, should not be interpreted as absolute evidence of the presence or absence of disease. Blood 04/24/2024 9:32 AM TANK CREWMEMBER 04/24/2024 9:33 AM TANK CREWMEMBER Ck Chacon MD LAB BLOOD ORDERABLES Final Re sult [facility] [address] [place] [address] * CBC with auto differential (04/24/2024 9:32 AM TANK CREWMEMBER) [facility] WBC 7.0 3.8 - 10.8 Thousand/u L [...] [facility] Blood 04/24/2024 9:32 AM TANK CREWMEMBER 04/24/2024 9:33 AM TANK CREWMEMBER us Ck Chacon MD LAB BLOOD ORDERABLES Final Re sult [facility] [address] [place] [address] * Lipid panel (04/24/2024 9:32 AM TANK CREWMEMBER) Cholesterol 164 <200 mg/dL [facility] [...] factors. LDL-C is now calculated using the Benigno-Shaikh calculation, which is a validated novel method providing better accuracy than the Friedewald equation in the estimation of LDL-C. Benigno SS et al. NANETTE. 2013;310(19): 2611-8551 (http://education.BlogHer/faq/HGB153) Chol/HDL ratio 2.5 <5.0 (calc) [facility] Non-HDL, (LDL+VLDL) 99 <130 mg/dL (calc) [facility] Comment: For patients with diabetes plus 1 major ASCVD risk factor, treating to a non-HDL-C goal of <100 mg/dL (LDL-C of <70 mg/dL) is considered a therapeutic option. Blood 04/24/2024 9:32 AM TANK CREWMEMBER 04/24/2024 9:33 AM TANK CREWMEMBER us Ck Chacon MD LAB BLOOD ORDERABLES Final Re sult [facility]UC[facility] [employer] [facility] [address] [place] [address] * (ABNORMAL) Comprehensive metabolic panel (04/24/2024 9:32 AM TANK CREWMEMBER) Glucose 105(H) 65 - 99 mg/dL [facility] [...] [facility] Blood 04/24/2024 9:32 AM TANK CREWMEMBER 04/24/2024 9:33 AM TANK CREWMEMBER Ck Chacon MD LAB BLOOD ORDERABLES Final Re sult [facility] [address] [place] [address] * CT Abdomen Pelvis WO Contrast (02/02/2024 [...] Peter Marquis M.D. AG: IRENE Report ID: [id number] Reading Location: [place] [address] Procedure Note Peter Marquis MD - 02/02/2024 [...] COMPARISON: Abdomen pelvis CT 04/06/2023 and abdominal mbrsmsjbby82/25/2024 FINDINGS: The sensitivity for detection of visceral [...] Peter Marquis M.D. AG: IRENE Report ID: [id number] Reading Location: [id number] us Dov Austin MD IMG CT PROCEDURES Final Result * COLONOSCOPY (09/14/2022 8:49 AM CDT) Anatomical Region Laterality Modality Other Narrative Procedure Note Jackelin Barba MD - 09/14/2022 8:49 AM CDT [facility] Patient Name: Ashley Oliver Procedure Date: 09/14/2022 8:49 AM Date of : 1950 Admit Type: Outpatient Age: 72 Gender: Male Attending MD: Jackelin Barba M.D. Room: [facility] ENDOSCOPY ROOM 8 Note Status: Finalized Procedure: [...] was passed under direct vision.The PCF [id number] endoscope was introduced through the anus and [...] as prep was inadequate - please call [phone], 8 am -5 pm if any post procedural concerns/issues, after hours/weekends please call [phone] and ask for GI fellow oncall Attending Participation: I was present and participated during the entire procedure, including non-alberto portions. Electronically signed by Jackelin Barba MD Jackelin Barba M.D. 09/14/2022 9:25:30 AM . Number of Addenda: 0 Note Initiated On: 09/14/2022 8:49 AM Recognized by the [place] [employer] for promoting quality in endoscopy Jackelin Barba MD ENDOSCOPY PROCEDURES Final Res ult from Last 3 Months or Most Recently Relevant to Health Maintenance Insurance AETNA MEDICARE GOLD AETNA MEDICARE GOLD Advance Directives For more information, please contact: [phone] Documents on File Type Date Recorded Patient Steam Table Worker Expl anation Power of Assistant Chief Engineer 04/01/2023 5:56 AM ADVANCE DIRECTIVE 05/28/2020 * [...] 8:08 AM 09/14/2022 2:37 PM Care Teams Survey Compiler Relationship Specialty Start Date End Date Ck Chacon MD PCP - General 07/04/18 Peter Muller MD Referring Physician Cardiology 03/20/20 Nick Lamas MD [address] [facility] [address] [place] [address] Consulting Physician Cardiology 02/28/24 Shagufta Sal, RN [address] [place] [address] [address] [place] [address] Profiler Operator 05/22/24
--- OUTSIDE RECORDS SUMMARY | 2024-07-09 09:53 | XMS_ITS | Encounter Summary ---
Author Organization [facility] Healthcare Address [address] [place] [address] Care Team Providers Care Box Blank Machine Feeder Name Role Phone Ck Chacon MD Primary Care Provider [phone] Peter Muller MD Unavailable Nick Lamas MD Unavailable [phone] Shagufta Sal RN Unavailable Reason for Visit * Reason Onset Date Comments Appointment Request 07/07/2024 ER follow up Encounter Details Date Type Department Care Team (Late st Contact Info) Description 07/07/2024 Telephone [facility] Family Medicine at [address] [place] [address] Ck Chacon MD [address] [place] [address] Appointment Request (ER follow up) Social History Tobacco Use Types Packs/Day Years Used Date Smoking Tobacco: Former Cigarettes 1.5 19 1 0 - 1988 Passive Smoke Exposure: Past Smokeless Tobacco: Never Comments:Chews Nicorette gum Alcohol Use Standard Drinks/Week Comments Yes 18 (1 standard drink = 0.6 oz pu re alcohol) a week [facility] Utilities Answer Date Recorded In the past 12 months has [employer], gas, oil, or water company threatened to [...] often do you attend chur ch or orthodox services? Never 06/06/2024 Do you belong to any clubs o r organizations such as mosque groups, unions, fraternal or athletic groups, or [...] place to sleep or slept in a snf (including now)? No 06/14/2023 Housing Stability Vital Sign Answer Phuc e Recorded In the last 12 months, was t here a time when you were not able to pay the mortgage or rent on time? No 06/06/2024 In the past 12 months, how m any times have you moved where you were living? 0 06/06/2024 At any time in the past 12 m [facility], were you homeless or living in a snf (including now)? No 06/06/2024 Personal Safety Answer Date Recorded Have you ever been in or are you currently in a harmful physical or emotional relationship or is someone making you feel afraid or unsafe? 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 CM isunable to find any openings on provider's scheduled within 7 day timeframe. Please contact patient and assist in setting up on or before 07/13. Thanks! Shagufta Sal RN BSN ACO Care Management RACTOR BUYER documented in this encounter Plan of Treatment Not on file documented as of this encounter Goals Goal Patient Goal Type Associated Problems Recent Progress Patient-Stated? Author LANA General Goal - Patient schedules and keeps appointments with all recommended providers ACO Care Management Shagufta Thoams RN Note: Problem: Potential for medical complications [...] documented as of this encounter Visit Diagnoses Not on filedocumented in this encounter Care Teams Box Blank Machine Feeder Relationship Specialty Start Date End Date Ck Chacon MD PCP - General 07/04/18 Peter Muller MD Referring Physician Cardiology 03/20/20 Nick Lamas MD [address] [address] Consulting Physician Cardiology 02/28/24 Shagufta Sal, RN [address] [place] [address] [address] [place] [address] Mri Manager 05/22/24 documented as of this encounter
--- OUTSIDE RECORDS SUMMARY | 2024-07-09 09:53 | XMS_ITS | Patient Health Summary ---
Author Organization [facility] Address [address] [place] [address] Care Team Providers Care Sales Recruitment Specialist Name Role Phone Unavailable Primary Care Provider Unavailabl e Note from [facility],non-owned Affiliates and Associated Physician Practices is amultiple site organization consisting of ambulatory clinics and hospital sitesin [place], [place], [place] and [place]. This disclosure is being madepursuant to the Care Everywhere program and may not contain all information available regarding this patient. Last updated 18.[facility] Social History Tobacco Use Types Packs/Day Years Used Date Smoking Tobacco: Never Assessed Sex and Gender Information Value Date Recorded Sex Assigned at Not on file Gender Identity Not on file Sexual Orientation Not on file Procedures * DERMATOPATHOLOGY(Performed 02/08/2018) Results * DERMATOPATHOLOGY (02/08/2018 12:00 AM CDT) Case Report Dermatopathology Report Case: [id number] Authorizing Provider: Kem Farmer MD Collected: 02/08/2018 12:00 AM Pathologist: Ani Wilkins MD Received: 02/09/2018 10:03 AM Specimen: Skin, right lower abdomen 8 6:25 PM CDT DERMATOPATHOLOGY LABORATORY Final Diagnosis Specimen A. SKIN, right lower abdomen: VACUOLAR INTERFACE DERMATITIS (L30.8) (see microscopic description and comment) 8 6:25 PM CDT DERMATOPATHOLOGY LABORATORY Clinical History N/S pusutlar papular & urticarial eruption. 8 6:25 PM T DERMATOPATHOLOGY LABORATORY Gross Description Specimen A: Received is one formalin filled container labeled with the patient's name and designated right lower abdomen. The specimen consists of a punch biopsy measuring [id number]. Jar 0. 6:25 PM T DERMATOPATHOLOGY LABORATORY Microscopic Description Specimen A. SKIN, right lower abdomen: There are scattered dyskeratotic keratinocytes and focal vacuolar alteration along the basal cell layer. A mild, perivascular lymphocytic infiltrate is observed in the superficial dermis. Grocott's methenamine silver (GMS) stain fails to highlight fungal elements in the available sections. A CD117 stain highlights sparse scattered mast cells in the dermis. A CD1a stain highlights collections of Langerhans cells in the epidermis. A CD3 stain highlights T-cells in the superficial dermis. COMMENT: The differential diagnosis for these histologic findings includes a drug eruption despite the absence of eosinophils in the sections examined, and connective tissue disease. Clinicopathologic correlation is recommended. 6:25 PM T DERMATOPATHOLOGY LABORATORY Disclaimer An external and internal positive and negative controls are appropriate for the histochemical, immunohistochemical and immunofluorescence stain(s) in this case (if any), except where stated explicitly. The performance characteristics of the stain(s) cited in this report were developed and its performance characteristic determined by the Dermatopathology Laboratory at [facility]. These tests need not be, and therefore are not, approved by the [place] Food and Drug Administration. The tests are used for clinical purposes. Billing Codes Specimen Charges Stain Charges 20155 1 97131 21693 68449 92443 1 1 1 1 8 6:25 PM CDT DERMATOPATHOLOGY LABORATORY Embedded Images 8 6:25 PM CDT DERMATOPATHOLOGY LABORATORY Pathology/Cytolog y TISSUE SPECIMEN FROM SKIN / Unknown 02/08/2018 02/09/2018 10:03 AM CDT Kem Farmer MD LAB - PATHOLOGY/CYTO LOGY ORDERABLES DERMATOPATHOLOGY LABORATORY [facility] - Department of Dermatology [address] [place] [address] 5th Floor [facility] [address] [phone]
--- OUTSIDE RECORDS SUMMARY | 2024-07-09 09:53 | XMS_ITS | Encounter Summary ---
Author Organization [facility] Address [address] [facility] [place] [address] Care Team Providers Care Wood Caulker Name Role Phone Unavailable Primary Care Provider Unavailabl e Encounter Details Date Type Department Care Team (Late st Contact Info) Description 02/09/2018 Lab Requisition [facility] Care DermPath Lab [address] [place] [id number] Kem Farmer MD [address] [place] [address] Social History Tobacco Use Types Packs/Day Years Used Date Smoking Tobacco: Never Assessed Sex and Gender Information Value Date Recorded Sex Assigned at Not on file Gender Identity Not on file Sexual Orientation Not on file documented as of this encounter Plan of Treatment Not on file documented as of this encounter Procedures Procedure Name Priority Date/Time Associated Diagnosis Comments DERMATOPATHOLOGY Routine 02/08/2018 12:0 0 AM CDT documented in this encounter Results * DERMATOPATHOLOGY (02/08/2018 12:00 AM CDT) Case Report Dermatopathology Report Case: [id number] Authorizing Provider: Kem Farmer MD Collected: 02/08/2018 12:00 AM Pathologist: Ani Wilkins MD Received: 02/09/2018 10:03 AM Specimen: Skin, right lower abdomen 8 6:25 PM CDT DERMATOPATHOLOGY LABORATORY Final Diagnosis Specimen A. SKIN, right lower abdomen: VACUOLAR INTERFACE DERMATITIS (L30.8) (see microscopic description and comment) 8 6:25 PM T DERMATOPATHOLOGY LABORATORY Clinical History N/S pusutlar papular & urticarial eruption. 6:25 PM CDT DERMATOPATHOLOGY LABORATORY Gross Description Specimen A: Received is one formalin filled container labeled with the patient's name and designated right lower abdomen. The specimen consists of a punch biopsy measuring [id number]. Jar 0. 6:25 PM T DERMATOPATHOLOGY LABORATORY [...] characteristic determined by the Dermatopathology Laboratory at [facility]. These tests need not be, and therefore are not, approved by the [place] Food and Drug Administration. The tests are used for clinical purposes. Billing Codes Specimen Charges Stain Charges 87573 1 24820 [id number] 47741 1 1 1 1 8 6:25 PM CDT DERMATOPATHOLOGY LABORATORY Embedded Images 6:25 PM CDT DERMATOPATHOLOGY LABORATORY Pathology/Cytolog y TISSUE SPECIMEN FROM SKIN / Unknown 02/08/2018 02/09/2018 10:03 AM CDT Kem Farmer MD LAB - PATHOLOGY/CYTO LOGY ORDERABLES DERMATOPATHOLOGY LABORATORY [facility] - Department of Dermatology [facility] [facility], 5th Floor Lab [address] [phone] documented in this encounter Visit Diagnoses Not on filedocumented in this encounter
--- OUTSIDE RECORDS SUMMARY | 2024-07-09 09:53 | XMS_ITS | Encounter Summary ---
Author Organization [facility] Address [address] [place] [address] Care Team Providers Care Head Baker Name Role Phone Ck Chacon MD Primary Care Provider [phone] Encounter Details Date Type Department Care Team (Late st Contact Info) Description 10/30/2019 Prep for Procedure [facility] [place], [place] [id number] Reg Cruz MD [address] [facility] [address] [place] [phone] Social History Tobacco Use Types Packs/Day Years Used Date Smoking Tobacco: Former Cigarettes Q uit: 10/29/1994 Smokeless Tobacco: Never Comments:occasional nicoret gum Alcohol Use Standard Drinks/Week Comments Yes 5 (1 standard drink = 0.6 oz pur e alcohol) Sex and Gender Information Value Date Recorded Sex Assigned at Not on file Legal Sex Male 8:30 PM CDT Gender Identity Not on file Sexual Orientation Not on file COVID-19 Exposure Response Date Recorded In the last month, have you been in contact with someone who was confirmed or suspected to have Coronavirus / COVID-19? No / Unsure 11/01/2019 11:53 AM CDT documented as of this encounter Plan of Treatment Not on file documented as of this encounter Visit Diagnoses Diagnosis Anemia- Primary Anemia, unspecified documented in this encounter Additional Health Concerns Infection Onset Date Last Indicated Resolved Time COVID-19 Rule Out 10/30/2019 10/30/2019 10/31/2019 10:13 AM CDT COVID-19 Rule Out 09/01/2020 09/01/2020 09/02/2020 10:47 AM CDT COVID-19 Rule Out 02/13/2023 02/13/2023 02/13/2023 8:31 AM CDT documented as of this encounter Care Teams Head Baker Relationship Specialty Start Date End Date Ck Chacon MD PCP - General 02/02/13 documented as of this encounter
--- OUTSIDE RECORDS SUMMARY | 2024-07-09 09:53 | XMS_ITS | Encounter Summary ---
Author Organization [facility] Address [address] [place] [address] Phone Care Team Providers Care Special Effects Technician Name Role Phone Ck Chacon MD Primary Care Provider [phone] Peter Muller MD Unavailable Nick Lamas MD Unavailable Shagufta Sal RN Unavailable Encounter Details Date Type Department Care Team (Late st Contact Info) Description 06/14/2024 Telephone [facility] Cardiology [address] [facility] Advanced Medicine 8th [place] [address] [place] [address] Nick Lamas MD [address] [facility] [address] [place], [place] [id number] Social History Tobacco Use Types Packs/Day Years Used Date Smoking Tobacco: Former Cigarettes 1.5 19 1 0 - 1988 Passive Smoke Exposure: Past Smokeless Tobacco: Never Comments:Chews Nicorette gum Alcohol Use Standard Drinks/Week Comments Yes 18 (1 standard drink = 0.6 oz pu re alcohol) a week [facility] Utilities Answer Date Recorded In the past 12 months has [employer], gas, oil, or water [employer] threatened to shut off services in your [...] often do you attend chur ch or yarsanism services? Never 06/06/2024 Do you belong to any clubs o r organizations such as mu-ism groups, unions, fraternal or athletic groups, or school groups? No 06/06/2024 How often do you attend meet ings of the clubs or organizations you belong to? Never 06/06/2024 Are you , , di vorced, , never , or living with a partner? 06/06/2024 AUDIT-C Answer Date Recorded Q1: How often do you have a drink containing alcohol? 2-3 times a week 06/13/2024 Q2: How many drinks containi ng alcohol do you have on a typical day when you are drinking? Patient does not drink Q3: How often do you have si x or more drinks on one occasion? Never 06/13/2024 Overall Financial Resource Strain (CARDIA) Answe r Date Recorded How hard is it for you to pa y for the very basics like food, housing, medical care, and heating? Not hard at all 06/06/2024 PHQ-2 Answer Date Recorded PHQ-2 Total Score (If total score is 3 or more points, staff should administer the PHQ-9) 0 04/28/2024 Hunger Vital Sign Answer Date Recorded Within [...] any time in the past 12 m onths, were you homeless or living in a chcf (including now)? No 06/06/2024 Personal Safety Answer Date Recorded Have you ever been in or are you currently in a harmful physical or emotional relationship or is someone making you feel afraid or unsafe? 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 He can be reached at [phone]. L PATTERN MAKER documented in this encounter Plan of Treatment [...] Diagnoses Not on filedocumented in this encounter Additional Health Concerns Infection Onset Date Last Indicated Resolved Time COVID: Suspected 07/05/2024 07/05/2024 07/05/2024 11:33 AM METAL PATTERN MAKER COVID: Suspected 07/06/2024 07/06/2024 07/06/2024 3:10 PM METAL PATTERN MAKER documented as of this encounter Care Teams Special Effects Technician Relationship Specialty Start Date End Date Ck Chacon MD PCP - General 07/04/18 Peter Muller MD Referring Physician Cardiology 03/20/20 Nick Lamas MD [address] [facility] [address] [place] [address] Consulting Physician Cardiology 02/28/24 Shagufta Sal, RN [address] [place] [address] [address] [place] [address] Residential Care Facility Manager 05/22/24 documented as of this encounter
--- OUTSIDE RECORDS SUMMARY | 2024-07-09 09:53 | XMS_ITS | Encounter Summary ---
Author Organization [facility] Address [address] [place] [address] Care Team Providers Care Epic Specialist Name Role Phone Ck Chacon MD Primary Care Provider [phone] Peter Muller MD Unavailable [phone] Nick Lamas MD Unavailable Shagufta Sal RN Unavailable Reason for Visit * Reason Onset Date Comments Symptom Based Call 05/01/2024 Encounter Details Date Type Department Care Team (Late st Contact Info) Description 05/01/2024 Telephone [facility] Family Medicine at [address] [place] [address] Ck Chacon MD [address] [place] [id number] Symptom Based Call Social History Tobacco Use Types Packs/Day Years Used Date Smoking Tobacco: Former Cigarettes 1.5 19 1 0 - 1988 Passive Smoke Exposure: Past Smokeless Tobacco: Never Comments:Chews Nicorette gum Alcohol Use Standard Drinks/Week Comments Yes 18 (1 standard drink = 0.6 oz pu re alcohol) a week [facility] Utilities Answer Date Recorded In the past 12 months has [employer] gas, oil, or water company threatened to shut off services in your home? No 06/14/2023 Social Connection and Isolat ion Panel [NHANES] Answer Date Recorded In a typical week, how many times do you talk on the phone with family, friends, or neighbors? More than three times a week 06/14/2023 How often do you get togethe r with friends or relatives? More than three times a week 06/14/2023 How often do you attend chur ch or anabaptism services? Patient declined 06/14/2023 Do you belong to any clubs o r organizations such as confucianist groups, unions, fraternal or athletic groups, or school groups? Patient declined 06/14/2023 How often do you attend meet ings of the clubs or organizations you belong to? Patient declined 06/14/2023 Are you , , di vorced, , never , or living with a partner? 06/14/2023 AUDIT-C Answer Date Recorded Q1: How often do you have a drink containing alc ohol? 2-3 times a week 02/28/2024 Q2: How many drinks containi ng alcohol do you have on a typical day when you are drinking? 1 or 2 02/28/2024 Q3: How often do you have si x or more drinks on one occasion? Never 02/28/2024 Overall Financial Resource Strain (CARDIA) Answe r Date Recorded How hard is it for you to pa y for the very basics like food, housing, medical care, and heating? Not hard at all 06/14/2023 PHQ-2 Answer Date Recorded PHQ-2 Total Score (If total score is 3 or more points, staff should administer the PHQ-9) 0 04/28/2024 Hunger Vital Sign Answer Date Recorded Within the past 12 months, y ou worried that your food would run out before you got the money to buy more. Never true 06/14/19 24 Within the past 12 months, t he food you bought just didn't last and you didn't have money to get more. Never true 06/14/2023 PRAPARE - Transportation Answer Date Re corded In the past 12 months, has l ack of transportation kept you from medical appointments or from getting medications? No 05/18 In the past 12 months, has l ack of transportation kept you from meetings, work, or from getting things needed for daily living? No 06/14/2023 Housing Stability Vital Sign Answer [...] place to sleep or slept in a intermediate (including now)? No 06/14/2023 Personal Safety Answer Date Recorded Have you ever been in or are you currently in a harmful physical or emotional relationship or is someone making you feel afraid or unsafe? Denies 05/01/2024 Sex and Gender Information Value Date Recorded Sex Assigned at Not on file Legal Sex Male 3:45 AM EARLY CHILDHOOD EDUCATOR AIDE Gender Identity Not on file Sexual Orientation Not on file documented as of this encounter Plan of Treatment Not on file documented as of this encounter Visit Diagnoses Not on filedocumented in this encounter Additional Health Concerns Infection Onset Date Last Indicated Resolved Time COVID: Suspected 05/01/2024 05/01/2024 05/01/2024 1:58 PM EARLY CHILDHOOD EDUCATOR AIDE RSV, droplet 05/01/2024 05/01/2024 05/08/2024 3:05 AM EARLY CHILDHOOD EDUCATOR AIDE COVID: Suspected 05/11/2024 05/11/2024 05/11/2024 4:34 AM EARLY CHILDHOOD EDUCATOR AIDE RSV, droplet 05/11/2024 05/11/2024 05/25/2024 3:05 AM EARLY CHILDHOOD EDUCATOR AIDE COVID: Suspected 06/05/2024 06/05/2024 06/05/2024 9:44 PM EARLY CHILDHOOD EDUCATOR AIDE COVID: Suspected 07/05/2024 07/05/2024 07/05/2024 11:33 AM EARLY CHILDHOOD EDUCATOR AIDE COVID: Suspected 07/06/2024 07/06/2024 07/06/2024 3:10 PM EARLY CHILDHOOD EDUCATOR AIDE documented as of this encounter Care Teams Epic Specialist Relationship Specialty Start Date End Date Ck Chacon MD PCP - General 07/04/18 Peter Muller MD Referring Physician Cardiology 03/20/20 [place] [address] [place] [address] [address] [place] [address] Consulting Physician Cardiology 02/28/24 Shagufta Sal RN [address] [place] [address] [address] [place] [address] Convalescent Sitter 05/22/24 documented as of this encounter
--- OUTSIDE RECORDS SUMMARY | 2024-07-09 09:53 | XMS_ITS | Referral Summary ---
Author Organization [facility] Address [address] [place] [address] Care Team Providers Care Vegetable I Farmworker Name Role Phone Unavailable Primary Care Provider Unavailabl e Source Comments [facility],non-owned Affiliates and Associated Physician Practices is amultiple site organization consisting of ambulatory clinics and hospital sitesin [place], [place], [place] and [place]. This disclosure is being madepursuant to the Care Everywhere program and may not contain all information available regarding this patient. Last updated 18.[facility] Social History Tobacco Use Types Packs/Day Years Used Date Smoking Tobacco: Never Assessed Sex and Gender Information Value Date Recorded Sex Assigned at Not on file Gender Identity Not on file Sexual Orientation Not on file Plan of Treatment Not on file
--- OUTSIDE RECORDS SUMMARY | 2024-07-09 09:53 | XMS_ITS | Encounter Summary ---
Author Organization [facility] Care Team Providers Care Instructor Decorating Name Role Phone Ck Chacon MD Primary Care Provider [phone] Betty Curry LPN Unavailable Peter Muller MD Unavailable Nick Lamas MD Unavailable [phone] Shagufta Sal RN Unavailable Encounter Details Date Type Department Care Team (Latest Contact Info) Description 07/01/2017 Orders Only [facility]INCONV Provider, MD Jimenez [address] [place] [address] Social History Tobacco Use Types Packs/Day Years Used Date Smoking Tobacco: Never Assessed Sex and Gender Information Value Date Recorded Sex Assigned at Not on file Legal Sex Male 3:45 AM CAN FILLING AND CLOSING MACHINE TENDER Gender Identity Not on file Sexual Orientation Not on file documented as of this encounter Plan of Treatment Not on file documented as of this encounter Procedures Procedure Name Priority Date/Time Associated Diagnosis Comments SCAN - LABS 07/01/2017 12:00 AM CAN FILLING AND CLOSING MACHINE TENDER documented in this encounter Results * SCAN - LABS (07/01/2017 12:00 AM CAN FILLING AND CLOSING MACHINE TENDER) Narrative 07/01/2017 12:00 AM CAN FILLING AND CLOSING MACHINE TENDER Ordered by an unspecified provider. us Historical Provider Final Res ult documented in this encounter Visit Diagnoses Not on filedocumented in this encounter Additional Health Concerns Infection Onset Date Last Indicated Resolved Time COVID: Suspected Comment:IP Review- Patient classified as Low Risk for COVID-19 and has one negative COVID-19 test. Patient meets criteria for COVID-19 isolation discontinuation 05/22/20 10:03 PM Alice Silva 05/22/2020 05/22/2020 10:03 PM CAN FILLING AND CLOSING MACHINE TENDER COVID: Suspected 04/06/2023 04/06/2023 04/06/2023 9:18 PM CAN FILLING AND CLOSING MACHINE TENDER COVID: Suspected 06/11/2023 06/11/2023 06/11/2023 4:59 PM CAN FILLING AND CLOSING MACHINE TENDER COVID: Suspected 06/15/2023 06/15/2023 06/15/2023 3:50 PM CAN FILLING AND CLOSING MACHINE TENDER COVID: Suspected 10/30/2023 10/30/2023 10/30/2023 12:43 PM CDT COVID19 10/30/2023 10/30/2023 11/09/2023 3:05 AM CDT COVID: Recovered Comment:Added based on recent COVID infection. 11/09/2023 11/09/2023 02/07/2024 3:05 AM C DT COVID: Suspected 04/28/2024 04/28/2024 04/28/2024 11:28 AM CAN FILLING AND CLOSING MACHINE TENDER COVID: Suspected 05/01/2024 05/01/2024 05/01/2024 1:58 PM CAN FILLING AND CLOSING MACHINE TENDER RSV, droplet 05/01/2024 05/01/2024 05/08/2024 3:05 AM CAN FILLING AND CLOSING MACHINE TENDER COVID: Suspected 05/11/2024 05/11/2024 05/11/2024 4:34 AM CAN FILLING AND CLOSING MACHINE TENDER RSV, droplet 05/11/2024 05/11/2024 05/25/2024 3:05 AM CAN FILLING AND CLOSING MACHINE TENDER COVID: Suspected 06/05/2024 06/05/2024 06/05/2024 9:44 PM CAN FILLING AND CLOSING MACHINE TENDER COVID: Suspected 07/05/2024 07/05/2024 07/05/2024 11:33 AM CAN FILLING AND CLOSING MACHINE TENDER COVID: Suspected 07/06/2024 07/06/2024 07/06/2024 3:10 PM CAN FILLING AND CLOSING MACHINE TENDER documented as of this encounter Care Teams Instructor Decorating Relationship Specialty Start Date End Date Ck Chacon MD PCP - General 07/04/18 Betty Curry LPN Video Production Engineer 11/15/19 11/15/19 Peter Muller MD Referring Physician Cardiology 03/20/20 [place] [address] [place] [address] Consulting Physician Cardiology 02/28/24 Shagufta Sal RN [address] [place] [address] [address] [place] [address] Video Production Engineer 05/22/24 documented as of this encounter
--- OUTSIDE RECORDS SUMMARY | 2024-07-09 09:53 | XMS_ITS | Clinical Summary ---
Author Organization [facility] Address [address] [place] [address] Care Team Providers Care Tar And Ammonia Pump Operator Name Role Phone Ck Chacon MD Primary Care Provider [phone] Allergies No known active allergies Medications apixaban 5 MG tabletIndicati ons:d/t mini stroke in Mar 2019; patient elects to stop on 10/30/2019 for pre-colonoscop y Take 1 tablet (5 mg total) by mouth 2 (two) times daily. Indications: d/t mini stroke in Mar 2019; patient elects to stop on 10/30/2019 for pre-colonoscopy Active atorvastatin 20 MG tablet Take 1 tablet (20 mg total) by mouth daily. 0 Active propafenone HCl 225 MG Tab 3 (three) times daily. Heart palpitations 0 Active vitamin D3 (CHOLECALCIFER OL) 125 mcg Tab 1 tablet (5,000 Units total). 0 Active Flaxseed Oil (LINSEED OIL) Oil 1,300 mg daily. Acti ve LORazepam 0.5 MG tablet 1 tablet (0.5 mg total). Active Multiple Vitamin (MULTIVITAMIN) capsule Take 1 capsule by mouth daily. Active nicotine polacrilex 2 MG gum 1 each (2 mg total). Active metoprolol succinate ER 25 MG 24 hr tablet 1 Active sildenafil 100 MG tablet Take 1 tablet (100 mg total) by mouth. Active tamsulosin 0.4 MG Cap 1 capsule (0.4 mg total). Active triamcinolone 0.1 % cream BELLA EXT AA 1 TO 2 XD NEEDED. AVOID FACE AND GROIN 0 Active TRELEGY ELLIPTA 100-62.5-25 MCG/ACT AEROSOL POWDER, BREATH ACTIVATED Inhale 1 puff into the lungs daily. 3 Active ipratropium-al buterol (DUONEB) 0.5-2.5 (3) MG/3ML Solution Simple chronic bronchitis ( J41.0), Centrilobular emphysema (J43.2) 2 Active Active Problems No known active problems Family History Medical History Relation Comments Heart Disease Father Heart Disease Mother Relation Status Comments Father Mother Social History Tobacco Use Types Packs/Day Years Used Date Smoking Tobacco: Former Cigarettes Q uit: 10/29/1994 Smokeless Tobacco: Never Tobacco Cessation:Counseling Given: Not Answered Comments:occasional nicoret gum Alcohol Use Standard Drinks/Week Comments Yes 5 (1 standard drink = 0.6 oz pur e alcohol) Sex and Gender Information Value Date Recorded Sex Assigned at Not on file Legal Sex Male 8:30 PM CDT Gender Identity Not on file Sexual Orientation Not on file Last Filed Vital Signs Vital Sign Reading Time Taken Comments Blood Pressure 143/118 02/13/2023 7:53 AM CDT Pulse 120 02/13/2023 7:53 AM CDT Temperature 37 C (98.6 F) 02/13/2023 7:53 AM CDT Respiratory Rate 16 02/13/2023 7:53 AM CDT Oxygen Saturation 100% 02/13/2023 7:53 AM CDT Inhaled Oxygen Concentration - - Weight 98.9 kg (218 lb) 02/13/2023 7:53 AM CDT Height 185.4 cm (6' 1 ) 02/13/2023 7:53 AM CDT Body Mass Index 28.76 02/13/2023 7:53 AM CDT Plan of Treatment Health Maintenance Due Date Last Done Comments Hepatitis C 02/04/1968 DTaP, Tdap and Td Vaccines (1 - Tdap) 1969 Annual Medicare Wellness Visit 2015 Pneumococcal Vaccine: 65+ Years (2 of 2 - PPSV23 or PCV20) 07/13/2019 07/13/2018 COVID-19 Vaccine (3 - season) 2024 07/13/2020, 06/21/2020 Influenza Adult (#1) 2024 03/18/2021, 03/16/2020, 02/26/2019, Additional history exists RSV Immunization or 60+ Years (1 - 1-dose 75+ series) 2025 Colorectal Cancer Screening Colonoscopy (10 Years) 09/04/2030 09/04/2020, 09/04/2020, 11/01/2019, Additional history exists Zoster Vaccines Completed 07/06/2022, 03/06/2022 Meningococcal B Vaccine Aged Out No l onger eligible based on patient's age to complete this topic Meningococcal Vaccine Aged Out No santiago elton eligible based on patient's age to complete this topic RSV Immunizations Under 20 Months Aged Out No longer eligible based on patient's age to complete this topic Procedures Procedure Name Priority Date/Time Associated Diagnosis Comments COLONOSCOPY Routine 09/04/2020 11:12 AM CDT from Last 3 Months or Most Recently Relevant to Health Maintenance Results * Colonoscopy (09/04/2020 11:12 AM CDT) Reg Perez MD - 09/04/2020 11:12 AM CDT Reg Pa MD 09/04/2020 1:13 PM REG PA MD, FACG, FACP COLONOSCOPY INDICATION: Colitis; family history of colon cancer. POST-OP: Normal. SEDATION: Per anesthesia. PREP: Good. With the patient in the left lateral decubitus position, the Olympus [id number] colonoscope was introduced into the rectum and advanced easily to the Terminal Ileum. Careful inspection of the mucosa was made upon insertion and withdrawal of the endoscope. FINDINGS: Terminal ileum: distal 5 cm normal. Cecum, Ascending colon, Transverse colon, Descending colon, Sigmoid colon and Rectum including retroflexion normal. No masses, polyps, AVMs, colitis or diverticulosis seen. No complications, blood loss or implants. ASSESSMENT AND PLAN: A. Screening for colon cancer/Family history of colon cancer: - Unremarkable colonoscopy - I will place in our recall for repeat screening colonoscopy in five years. B. Abnormal imaging-pancreas and liver: will follow-up on recent imaging and labs. C. Colitis: - Colonoscopy with pancolitis and biopsies with nonspecific focal active colitis - Patient is asymptomatic on sulfasalazine 500 mg TID - Colonoscopy 09/04/2020 normal Thank you for allowing me to care for your patient. He will follow-up with my office in one month. Reg Pa M.D. us Reg Pa MD GI PROCEDURE ORDERABLES Fin al Result from Last 3 Months or Most Recently Relevant to Health Maintenance Insurance MEDICARE [facility] Care Teams Tar And Ammonia Pump Operator Relationship Specialty Start Date End Date Ck Chacon MD PCP - General 02/02/13
--- OUTSIDE RECORDS SUMMARY | 2024-07-09 09:53 | XMS_ITS | Clinical Summary ---
Author Organization [facility] Address [address] [place] [address] Care Team Providers Care Global Logistics Manager Name Role Phone Unavailable Primary Care Provider Unavailabl e Source Comments [facility],non-owned Affiliates and Associated Physician Practices is amultiple site organization consisting of ambulatory clinics and hospital sitesin [place], [place], [place] and [place]. This disclosure is being madepursuant to the Care Everywhere program and may not contain all information available regarding this patient. Last updated 18.[facility] [employer] Social History Tobacco Use Types Packs/Day Years Used Date Smoking Tobacco: Never Assessed Sex and Gender Information Value Date Recorded Sex Assigned at Not on file Gender Identity Not on file Sexual Orientation Not on file Plan of Treatment Health Maintenance Due Date Last Done Comments COLOGUARD (AGES 45-75) - COL ON CA SCREENING 1950 COLON MONITORING 1950 COLONOSCOPY - COLON CA SCREENING 1950 CT COLONOGRAPHY - COLON CA SCREENING 1950 Colorectal Cancer Screening 1950 FIT - COLON CA SCREENING 1950 FLEX SIG - COLON CA SCREENING 1950 LIPID TESTING 1950 MEDICARE AWV 12 MONTHS 1950 HEPATITIS C SCREENING 01/30/1968 DTAP/TDAP/TD VACCINES (1 - Tdap) 1969 PNEUMOCOCCAL VACCINE 50+ (1 of 1 - PCV) 02/04/2000 ZOSTER VACCINE (1 of 2) 02/04/2000 COVID-19 VACCINE (1 - 2023-2 5 season) 2024 INFLUENZA VACCINE (#1) 2024 DEPRESSION SCREENING 05/17/2024 Respiratory Syncytial Virus (RSV) Vaccine Pt: or over 60 yrs (1 - 1-dose 75+ series) 2025 HEPATITIS B VACCINE Aged Out No longe r eligible based on patient's age to complete this topic HIB VACCINE Aged Out No longer eligi ble based on patient's age to complete this topic HPV VACCINE Aged Out No longer eligi ble based on patient's age to complete this topic MENINGOCOCCAL (Group B) VACCINE Aged Out No longer eligible based on patient's age to complete this topic MENINGOCOCCAL VACCINE Aged Out No santiago elton eligible based on patient's age to complete this topic
--- OUTSIDE RECORDS SUMMARY | 2024-07-09 09:53 | XMS_ITS | Encounter Summary ---
Author Organization [facility] Address [address] [place] [address] Phone Care Team Providers Care User Experience Researcher Name Role Phone Ck Chacon MD Primary Care Provider Peter Muller MD Unavailable Nick Lamas MD Unavailable Shagufta Sal RN Unavailable [phone] Encounter Details Date Type Department Care Team (Late st Contact Info) Description 01/07/2021 Orders Only [facility] Scanning, Provider Social History Tobacco Use Types Packs/Day Years Used Date Smoking Tobacco: Former Cigarettes 1.5 19 1 970 - 1988 Smokeless Tobacco: Never Alcohol Use Standard Drinks/Week Comments Yes 18 (1 standard drink = 0.6 oz pu re alcohol) a week AUDIT-C Answer Date Recorded Q1: How often do you have a drink containing alcohol? 4 or more times a week 01/08/2021 Q2: How many drinks containi ng alcohol do you have on a typical day when you are drinking? 1 or 2 Q3: How often do you have si x or more drinks on one occasion? Never 01/08/2021 PHQ-2 Answer Date Recorded PHQ-2 Total Score (If total score is 3 or more points, staff should administer the PHQ-9) 0 05/28/2020 Sex and Gender Information Value Date Recorded Sex Assigned at Not on file Legal Sex Male 3:45 AM CHAIRMAN & CO FOUNDER Gender Identity Not on file Sexual Orientation Not on file documented as of this encounter Functional Status documented as of this encounter Plan of Treatment Not on file documented as of this encounter Procedures Procedure Name Priority Date/Time Associated Diagnosis Comments SCAN - LABS 01/07/2021 documented in this encounter Results * SCAN - LABS (01/07/2021) us Provider Scanning Final Result documented in this encounter Visit Diagnoses Not on filedocumented in this encounter Additional Health Concerns Infection Onset Date Last Indicated Resolved Time COVID: Suspected 04/06/2023 04/06/2023 04/06/2023 9:18 PM CHAIRMAN & CO FOUNDER COVID: Suspected 06/11/2023 06/11/2023 06/11/2023 4:59 PM CHAIRMAN & CO FOUNDER COVID: Suspected 06/15/2023 06/15/2023 06/15/2023 3:50 PM CHAIRMAN & CO FOUNDER COVID: Suspected 10/30/2023 10/30/2023 10/30/2023 12:43 PM CDT COVID19 10/30/2023 10/30/2023 11/09/2023 3:05 AM CDT COVID: Recovered Comment:Added based on recent COVID infection. 11/09/2023 11/09/2023 02/07/2024 3:05 AM C DT COVID: Suspected 04/28/2024 04/28/2024 04/28/2024 11:28 AM CHAIRMAN & CO FOUNDER COVID: Suspected 05/01/2024 05/01/2024 05/01/2024 1:58 PM CHAIRMAN & CO FOUNDER RSV, droplet 05/01/2024 05/01/2024 05/08/2024 3:05 AM CHAIRMAN & CO FOUNDER COVID: Suspected 05/11/2024 05/11/2024 05/11/2024 4:34 AM CHAIRMAN & CO FOUNDER RSV, droplet 05/11/2024 05/11/2024 05/25/2024 3:05 AM CHAIRMAN & CO FOUNDER COVID: Suspected 06/05/2024 06/05/2024 06/05/2024 9:44 PM CHAIRMAN & CO FOUNDER COVID: Suspected 07/05/2024 07/05/2024 07/05/2024 11:33 AM CHAIRMAN & CO FOUNDER COVID: Suspected 07/06/2024 07/06/2024 07/06/2024 3:10 PM CHAIRMAN & CO FOUNDER documented as of this encounter Care Teams User Experience Researcher Relationship Specialty Start Date End Date Ck Chacon MD PCP - General 07/04/18 Peter Muller MD Referring Physician Cardiology 03/20/20 [place] [address] [place] [address] [address] [place] [address] Consulting Physician Cardiology 02/28/24 Shagufta Sal RN [address] [place] [address] [address] [place] [address] Boring Machine Feeder 05/22/24 documented as of this encounter
--- OUTSIDE RECORDS SUMMARY | 2024-07-09 09:53 | XMS_ITS | Encounter Summary ---
Author Organization [facility] Address [facility] [place] [address] Care Team Providers Care Social Media Community Manager Name Role Phone Ck Chacon MD Primary Care Provider [phone] Encounter Details Date Type Department Care Team (Late st Contact Info) Description 08/30/2020 Prep for Procedure [facility] [place], [place] [id number] Reg Cruz MD [address] [facility] [address]ru [address] [place] [id number] Social History Tobacco Use Types Packs/Day Years [...] on file documented as of this encounter Results * PRE-SURGICAL/PRE-PROCEDURE CORONAVIRUS (COVID 19) (09/01/2020 11:30 AM CDT) CORONAVIRUS SARS COV 2 PCR (RESP) NOT DETECTED NOT DETECTED 09/02/2020 10:[address] [facility] Comment: A Not Detected (negative) test result for this test means that SARS- CoV-2 RNA was not present in the specimen above the limit of detection. A negative result does not rule out the possibility of COVID-19 and should not be used as the sole basis for treatment or patient management decisions. If COVID-19 is still suspected, based on exposure history together with other clinical findings, re-testing should be considered in consultation with public health authorities. Laboratory test results should always be considered in the context of clinical observations and epidemiological data in making a final diagnosis and patient management decisions. Please review the Fact Sheets and FDA authorized labeling available for health care providers and patients using the following websites: https://www.[employer]/home/Covid-19/HCP/[facility]/fact- sheet.html https://www.[employer]/home/Covid-19/Patients/ [facility]/fact-sheet.html This test has been authorized by the FDA under an Emergency Use Authorization (EUA) for use by authorized laboratories. Due to the current public health emergency, [facility] is receiving a high volume of samples from a wide variety of swabs and media for COVID-19 testing. In order to serve patients during this public health crisis, samples from appropriate clinical sources are being tested. Negative test results derived from specimens received in non-commercially manufactured viral collection and transport media, or in media and sample collection kits not yet authorized by FDA for COVID-19 testing should be cautiously evaluated and the patient potentially subjected to extra precautions such as additional clinical monitoring, including collection of an additional specimen. Methodology: Nucleic Acid Amplification Test (NAAT) includes RT-PCR or TMA Additional information about COVID-19 can be found at the [facility] website: www.[facility]/Covid19. Test performed at [facility] [address] [address] Director: CAROL CHAVEZ DO,MPH FIRST TEST NO 09/01/2020 12:21 PM CDT [facility] EMPLOYED IN HEALTHCARE UNKNOWN 09/01/2020 12:21 PM CDT [facility] SYMPTOMATIC DEFINED BY CDC NO 09/01/2020 12:21 PM CDT [facility] DATE OF SYMPTOM ONSET UNKNOWN 09/01/2020 12:47 PM CDT [facility] HOSPITALIZATION STATUS NO 09/01/2020 12:21 PM CDT [facility] PATIENT IN ICU NO 09/01/2020 12:21 PM CDT [facility] RESIDENT OF CONGREGATE CARE UNKNOWN 09/01/2020 12:21 PM CDT [facility] UNKNOWN 09/01/2020 12:47 PM CDT [facility] PATIENT'S RACE WHITE OR 09/01/2020 12:21 PM CDT [facility] ETHNICITY NONHISPANIC 09/01/2020 12:21 PM CDT [facility] SOURCE (QST) NASOPHARYNGEAL SWAB 09/01/2020 12:21 PM CDT [facility] NASOPHARYNGEAL SWAB / Unknown 09/01/2020 11:30 AM CDT us Reg Cruz MD MICROBIOLOGY - GENERAL [place] SAPNN Final Result [facility] [address] [place] [address], [facility] [address] documented in this encounter Visit Diagnoses Diagnosis Family history of colon cancer- Primary Family history of malignant neoplasm of gastrointestinal tract documented in this encounter Additional Health Concerns Infection Onset Date Last Indicated Resolved Time COVID-19 Rule Out 09/01/2020 09/01/2020 09/02/2020 10:47 AM CDT COVID-19 Rule Out 02/13/2023 02/13/2023 02/13/2023 8:31 AM CDT documented as of this encounter Care Teams Social Media Community Manager Relationship Specialty Start Date End Date Ck Chacon MD PCP - General 02/02/13 documented as of this encounter
--- OUTSIDE RECORDS SUMMARY | 2024-07-09 09:53 | XMS_ITS | Encounter Summary ---
Author Organization [facility] Address [address] [place] [address] Phone Care Team Providers Care Crawler Dragline Operator Name Role Phone Ck Chacon MD Primary Care Provider [phone] Peter Muller MD Unavailable Nick Lamas MD Unavailable Shagufta Sal RN Unavailable Encounter Details Date Type Department Care Team (Late st Contact Info) Description 09/01/2020 Orders Only [facility] Scanning, Provider Social History Tobacco Use Types Packs/Day Years Used Date Smoking Tobacco: Former Cigarettes 1.5 19 1 970 - 1988 Smokeless Tobacco: Never Alcohol Use Standard Drinks/Week Comments Yes 18 (1 standard drink = 0.6 oz pu re alcohol) a week AUDIT-C Answer Date Recorded Frequency of Alcohol Consumption Monthly or less 08/23/2018 Average Number of Drinks 10 or more 019 Frequency of Binge Drinking Weekly 01/2019 PHQ-2 Answer Date Recorded PHQ-2 Total Score (If total score is 3 or more points, staff should administer the PHQ-9) 0 05/28/2020 Sex and Gender Information Value Date Recorded Sex Assigned at Not on file Legal Sex Male 3:45 AM SLEEVE MACHINE TENDER Gender Identity Not on file Sexual Orientation Not on file documented as of this encounter Plan of Treatment Not on file documented as of this encounter Procedures Procedure Name Priority Date/Time Associated Diagnosis Comments SCAN - LABS 09/01/2020 documented in this encounter Results * SCAN - LABS (09/01/2020) us Provider Scanning Final Result documented in this encounter Visit Diagnoses Not on filedocumented in this encounter Additional Health Concerns Infection Onset Date Last Indicated Resolved Time COVID: Suspected 04/06/2023 04/06/2023 04/06/2023 9:18 PM SLEEVE MACHINE TENDER COVID: Suspected 06/11/2023 06/11/2023 06/11/2023 4:59 PM SLEEVE MACHINE TENDER COVID: Suspected 06/15/2023 06/15/2023 06/15/2023 3:50 PM SLEEVE MACHINE TENDER COVID: Suspected 10/30/2023 10/30/2023 10/30/2023 12:43 PM CDT COVID19 10/30/2023 10/30/2023 11/09/2023 3:05 AM CDT COVID: Recovered Comment:Added based on recent COVID infection. 11/09/2023 11/09/2023 02/07/2024 3:05 AM C DT COVID: Suspected 04/28/2024 04/28/2024 04/28/2024 11:28 AM SLEEVE MACHINE TENDER COVID: Suspected 05/01/2024 05/01/2024 05/01/2024 1:58 PM SLEEVE MACHINE TENDER RSV, droplet 05/01/2024 05/01/2024 05/08/2024 3:05 AM SLEEVE MACHINE TENDER COVID: Suspected 05/11/2024 05/11/2024 05/11/2024 4:34 AM SLEEVE MACHINE TENDER RSV, droplet 05/11/2024 05/11/2024 05/25/2024 3:05 AM SLEEVE MACHINE TENDER COVID: Suspected 06/05/2024 06/05/2024 06/05/2024 9:44 PM SLEEVE MACHINE TENDER COVID: Suspected 07/05/2024 07/05/2024 07/05/2024 11:33 AM SLEEVE MACHINE TENDER COVID: Suspected 07/06/2024 07/06/2024 07/06/2024 3:10 PM SLEEVE MACHINE TENDER documented as of this encounter Care Teams Crawler Dragline Operator Relationship Specialty Start Date End Date Ck Chacon MD PCP - General 07/04/18 Peter Muller MD Referring Physician Cardiology 03/20/20 Nick Lamas MD [address] [facility] [address] [place] [address] Consulting Physician Cardiology 02/28/24 Shagufta Sal, RN [address] [place] [address] [address] [place] [address] Solution Maker 05/22/24 documented as of this encounter
--- OUTSIDE RECORDS SUMMARY | 2024-07-09 09:53 | XMS_ITS | Encounter Summary ---
Author Organization [facility] Address [address] [place] [address] Care Team Providers Care Population Geneticist Name Role Phone Ck Chacon MD Primary Care Provider Peter Muller MD Unavailable Nick Lamas MD Unavailable Shagufta Sal RN Unavailable Reason for Visit * Reason Onset Date Comments Medical Question/Miscellaneous 07/06/2024 Encounter Details Date Type Department Care Team (Late st Contact Info) Description 07/06/[address] [facility] Family Medicine at [address] [place] [address] Ck Chacon MD [address] [place] [id number] Medical Question/Miscellaneous Social History Tobacco Use Types Packs/Day Years Used Date Smoking Tobacco: Former Cigarettes 1.5 19 1 970 - 1988 Passive Smoke Exposure: Past Smokeless Tobacco: Never Comments:Chews Nicorette gum Alcohol Use Standard Drinks/Week Comments Yes 18 (1 standard drink = 0.6 oz pu re alcohol) a week [facility] Utilities Answer Date Recorded In the past 12 months has [employer], gas, oil, or water company threatened to [...] often do you attend chur ch or voodoo services? Never 06/06/2024 Do you belong to any clubs o r organizations such as zoroastrianism groups, unions, fraternal or athletic groups, or [...] place to sleep or slept in a fpc (including now)? No 06/14/2023 Housing Stability Vital Sign Answer Phuc e Recorded In the last 12 months, was t here a time when you were not able to pay the mortgage or rent on time? No 06/06/2024 In the past 12 months, how m any times have you moved where you were living? 0 06/06/2024 At any time in the past 12 m [facility], were you homeless or living in a fpc (including now)? No 06/06/2024 Personal Safety Answer Date Recorded Have you ever been in or are you currently in a harmful physical or emotional relationship or is someone making you feel afraid or unsafe? Denies 07/06/2024 Sex and Gender Information Value Date Recorded Sex Assigned at Not on file Legal Sex Male 3:45 AM FILM RECORDIST Gender Identity Not on file Sexual Orientation Not on file documented as of this encounter Miscellaneous Notes * Telephone Encounter - Merary Oneal PA - 07/06/2024 2:37 PM FILM RECORDIST Noted. RECORDIST * Telephone Encounter - Merary Oneal PA - 07/06/2024 12:45 PM FILM RECORDIST He was supposed to tell me what labs he had drawn from another provider that AM RECORDIST * Telephone Encounter - Brisa Rich - 07/06/2024 11:18 AM CST Medical Question/Miscellaneous Caller???s Concern: Patient was evaluated in office yesterday and states they discussed ordering blood work to test for any infection. Patient requests a call to discuss. Does message need to be routed? Yes-Action Needed RECORDIST documented in this encounter Plan of Treatment [...] COVID: Suspected 07/06/2024 07/06/2024 07/06/2024 3:10 PM FILM RECORDIST documented as of this encounter Care Teams Population Geneticist Relationship Specialty Start Date End Date Ck Chacon MD PCP - General 07/04/18 Peter Muller MD Referring Physician Cardiology 03/20/20 Nick Lamas MD [address] [facility] [address] [place] [address] Consulting Physician Cardiology 02/28/24 Shagufta Sal RN [address] [place] [address] [address] [place] [address] Integrated Circuit Layout Designer 05/22/24 documented as of this encounter
--- OUTSIDE RECORDS SUMMARY | 2024-07-09 09:53 | XMS_ITS | Encounter Summary ---
Author Organization [facility] Facility Care Team Providers Care Merchandise Handler Name Role Phone Ck Chacon MD Primary Care Provider [phone] Betty Curry LPN Unavailable Peter Muller MD Unavailable Nick Lamas MD Unavailable [phone] Shagufta Sal RN Unavailable Encounter Details Date Type Department Care Team (Latest Contact Info) Description 09/28/2017 Orders Only [facility] CLINCON[facility] ProviderJimenez MD [address] [place] [address] Social History Tobacco Use Types Packs/Day Years Used Date Smoking Tobacco: Never Assessed Sex and Gender Information Value Date Recorded Sex Assigned at Not on file Legal Sex Male 3:45 AM FISHING ROD MARKER Gender Identity Not on file Sexual Orientation Not on file documented as of this encounter Plan of Treatment Not on file documented as of this encounter Procedures Procedure Name Priority Date/Time Associated Diagnosis Comments COLONOSCOPY - SCAN 09/28/2017 12 :00 AM CDT documented in this encounter Results * COLONOSCOPY - SCAN (09/28/2017 12:00 AM CDT) Narrative 09/28/2017 12:00 AM CDT Ordered by an unspecified provider. us Historical [...] PM Alice Silva 05/22/2020 05/22/2020 10:03 PM FISHING ROD MARKER COVID: Suspected 04/06/2023 04/06/2023 04/06/2023 9:18 PM FISHING ROD MARKER COVID: Suspected 06/11/2023 06/11/2023 06/11/2023 4:59 PM FISHING ROD MARKER COVID: Suspected 06/15/2023 06/15/2023 06/15/2023 3:50 PM FISHING ROD MARKER COVID: Suspected 10/30/2023 10/30/2023 10/30/2023 12:43 PM CDT COVID19 10/30/2023 10/30/2023 11/09/2023 3:05 AM CDT COVID: Recovered Comment:Added based on recent COVID infection. 11/09/2023 11/09/2023 02/07/2024 3:05 AM C DT COVID: Suspected 04/28/2024 04/28/2024 04/28/2024 11:28 AM FISHING ROD MARKER COVID: Suspected 05/01/2024 05/01/2024 05/01/2024 1:58 PM FISHING ROD MARKER RSV, droplet 05/01/2024 05/01/2024 05/08/2024 3:05 AM FISHING ROD MARKER COVID: Suspected 05/11/2024 05/11/2024 05/11/2024 4:34 AM FISHING ROD MARKER RSV, droplet 05/11/2024 05/11/2024 05/25/2024 3:05 AM FISHING ROD MARKER COVID: Suspected 06/05/2024 06/05/2024 06/05/2024 9:44 PM FISHING ROD MARKER COVID: Suspected 07/05/2024 07/05/2024 07/05/2024 11:33 AM FISHING ROD MARKER COVID: Suspected 07/06/2024 07/06/2024 07/06/2024 3:10 PM FISHING ROD MARKER documented as of this encounter Care Teams Merchandise Handler Relationship Specialty Start Date End Date Ck Chacon MD PCP - General 07/04/18 Betty Curry, SOCIAL SCIENCES INSTRUCTOR Process Improvement Specialist 11/15/19 11/15/19 Peter Muller MD Referring Physician Cardiology 03/20/20 [place] [address] [place] [address] [address] [place] [address] Consulting Physician Cardiology 02/28/24 Shagufta Sal, RN [address] [place] [address] [address] [place] [address] Process Improvement Specialist 05/22/24 documented as of this encounter
--- OUTSIDE RECORDS SUMMARY | 2024-07-09 09:53 | XMS_ITS | Encounter Summary ---
Author Organization [facility] Facility Care Team Providers Care Mangle Tender Cloth Name Role Phone Ck Chacon MD Primary Care Provider Betty Curry LPN Unavailable Peter Muller MD Unavailable Nick Lamas MD Unavailable [phone] Shagufta Sal RN Unavailable Encounter Details Date Type Department Care Team (Latest Contact Info) Description 09/23/2017 Orders Only [facility] CLINCONV Provider, MD Jimenez [address] [place] [address] Social History Tobacco Use Types Packs/Day Years Used Date Smoking Tobacco: Never Assessed Sex and Gender Information Value Date Recorded Sex Assigned at Not on file Legal Sex Male 3:45 AM RETAIL STORE CLERK Gender Identity Not on file Sexual Orientation Not on file documented as of this encounter Plan of Treatment Not on file documented as of this encounter Procedures Procedure Name Priority Date/Time Associated Diagnosis Comments SCAN - PATHOLOGY 10/05/2017 12:0 0 AM CDT documented in this encounter Results * SCAN - PATHOLOGY (10/05/2017 12:00 AM CDT) Narrative 10/05/2017 12:00 AM CDT Ordered by an unspecified [...] PM Alice Silva 05/22/2020 05/22/2020 10:03 PM RETAIL STORE CLERK COVID: Suspected 04/06/2023 04/06/2023 04/06/2023 9:18 PM RETAIL STORE CLERK COVID: Suspected 06/11/2023 06/11/2023 06/11/2023 4:59 PM RETAIL STORE CLERK COVID: Suspected 06/15/2023 06/15/2023 06/15/2023 3:50 PM RETAIL STORE CLERK COVID: Suspected 10/30/2023 10/30/2023 10/30/2023 12:43 PM CDT COVID19 10/30/2023 10/30/2023 11/09/2023 3:05 AM CDT COVID: Recovered Comment:Added based on recent COVID infection. 11/09/2023 11/09/2023 02/07/2024 3:05 AM C DT COVID: Suspected 04/28/2024 04/28/2024 04/28/2024 11:28 AM RETAIL STORE CLERK COVID: Suspected 05/01/2024 05/01/2024 05/01/2024 1:58 PM RETAIL STORE CLERK RSV, droplet 05/01/2024 05/01/2024 05/08/2024 3:05 AM RETAIL STORE CLERK COVID: Suspected 05/11/2024 05/11/2024 05/11/2024 4:34 AM RETAIL STORE CLERK RSV, droplet 05/11/2024 05/11/2024 05/25/2024 3:05 AM RETAIL STORE CLERK COVID: Suspected 06/05/2024 06/05/2024 06/05/2024 9:44 PM RETAIL STORE CLERK COVID: Suspected 07/05/2024 07/05/2024 07/05/2024 11:33 AM RETAIL STORE CLERK COVID: Suspected 07/06/2024 07/06/2024 07/06/2024 3:10 PM RETAIL STORE CLERK documented as of this encounter Care Teams Mangle Tender Cloth Relationship Specialty Start Date End Date Ck Chacon MD PCP - General 07/04/18 Betty Curry, DISPOSAL WORKER Noxious Weeds And Pest Inspector 11/15/19 11/15/19 Peter Muller MD Referring Physician Cardiology 03/20/20 Nick Lamas MD [address] [facility] [address] [place] [address] Consulting Physician Cardiology 02/28/24 Shagufta Sal, RN [address] [place] [address] [address] [place] [address] Noxious Weeds And Pest Inspector 05/22/24 documented as of this encounter
--- OUTSIDE RECORDS SUMMARY | 2024-07-09 09:53 | XMS_ITS | CONTINUITY OF CARE DOCUMENT ---
Author Name rajendra drew Address Unknown Organization [facility] Address [address] [place] [address] [address] [place] [address] Phone [phone] Care Team Providers Care Manager Of Supply Chain Name Role Phone Sahil MAN, Francisco Unavailable [phone] RADHA ESCALANTE MD Unavailable RADHA ESCALANTE MD Unavailable [phone] INSURANCE PROVIDERS Payer name Policy type / Coverage type Esmer red democrat ID [employer] [id number] [place] MEDICARE Medicare [id number]
--- OUTSIDE RECORDS SUMMARY | 2024-07-09 09:54 | XMS_ITS | CONTINUITY OF CARE DOCUMENT ---
Author Name rajendra drew Address Unknown Organization [facility] Address [address] [place] [address] [address] [place] [address] Phone [phone] Care Team Providers Care Atm Manager Name Role Phone Sahil MAN, Francisco Unavailable RADHA ESCALANTE MD Unavailable [phone] RADHA ESCALANTE MD Unavailable [phone] INSURANCE PROVIDERS Payer name Policy type / Coverage type Esmer red alliance party ID [id number] [id number] [place] MEDIC[place] Medicare [id number]
[2024-07-09 10:06] VITALS: BP 86/50; PULSE 76; RESP 18; TEMP 36.6; O2SAT 97
--- NOTE | 2024-07-09 10:17 | ED.URI ---
HPI - URI/Sore Throat General Chief Complaint: Upper Respiratory Infection Stated Complaint: sinus infection Time Seen by Provider: 07/09/24 10:17 Source: patient Mode of arrival: ambulatory Limitations: no limitations History of Present Illness HPI Narrative: 74 y/o male with hx afib and pulmonary fibrosis presented for c/o cough, sob, fatigue, nasal congestion. Symptoms are worsening over the past 3 days since he was seen in ER for these symptoms. Pt says he needs treated for sinus infection. Pt wears O2 3-4L with activity. States the cxr and labs in ER 3 days ago were normal, declines retesting for viral illness. Denies abdominal pain, n/v/d/f/c. Related Data Home Medications ?Medication ?Instructions ?Recorded ?Confirmed ?Last Taken ?Type atorvastatin 10 mg tablet 10 mg PO DAILY 04/05/19 07/22/22 08/26/21 History budesonide 3 mg 3 mg PO DAILY PRN Diarrhea 04/05/19 07/22/22 Unknown History capsule,delayed,extended release lorazepam 0.5 mg tablet 0.5 mg PO DAILY PRN Anxiety 04/05/19 07/22/22 Unknown History pantoprazole 40 mg granules 40 mg PO PRN PRN Indigestion 04/05/19 07/22/22 Unknown History delayed-release for susp in packet (Protonix) amlodipine 2.5 mg tablet 2.5 mg PO QAM 08/13/21 07/22/22 08/27/21 08:00 History apixaban 5 mg tablet (Eliquis) 5 mg PO BID 08/13/21 07/22/22 08/24/21 History cholecalciferol (vitamin D3) 125 125 mcg PO DAILY 08/13/21 07/22/22 08/20/21 History mcg (5,000 unit) capsule magnesium 200 mg tablet 200 mg PO DAILY 08/13/21 07/22/22 08/20/21 History multivitamin 1 tablet PO DAILY 08/13/21 07/22/22 08/20/21 History propafenone 225 mg tablet 225 mg PO TID 08/13/21 07/22/22 08/27/21 08:00 History Allergies Allergy/AdvReac Type Severity Reaction Status Date / Time No Known Allergies Allergy Verified 07/09/24 10:05 Review of Systems Review of Systems: per HPI All systems reviewed & are unremarkable except as noted in HPI and below [facility] Past Medical History Medical History [place] esophagus Collapsed lung History of Crohn's disease HTN (hypertension) Hyperlipidemia Peyronie disease Surgical History Surgical History History of appendectomy History of cardiac catheterization History of cholecystectomy Family History Family History (Updated 06/27/24 @ 08:40 by Ele Oliver RN) Mother Diabetes mellitus Heart disease Heart attack Breast cancer Cerebrovascular accident High cholesterol Father COPD (chronic obstructive pulmonary disease) Sibling Heart disease Sibling Heart disease Social History Social History Smoking packs per day: 1.5 Smoking cigarettes per day: 30.0 Years smoked: 30 Smoking pack-years: 45.00 Smoking status: Former smoker Tobacco type: cigarettes Smoking end date: 11/14/94 Alcohol intake: current Drinks per week: 21 Substance use: never Living arrangements: with family Additional living arrangements comments: SPOUSE Gender identity (if verbalized by the patient): Male Spiritual care concerns: No Comments At time of signature, I have reviewed and agree with nursing past medical, surgical, social and family history unless otherwise noted. Please see nursing chart for further information. There is no relevant family history pertinent to the presenting complaint Exam Narrative: GENERAL: mildly ill-appearing, in no acute distress. EYES: EOMI. No redness or drainage. Conjunctivae normal. ENT: Mucous membranes pink and moist. No rhinorrhea. TMs normal bilaterally. Throat normal. Uvula midline. CHEST: No respiratory distress. crackles scattered to all vasquez. HEART: Irregular rate and rhythm. ABDOMEN: Soft, nontender, nondistended, normal active bowel sounds. EXTREMITIES: Normal range of motion. No edema. SKIN: Warm, dry, no rash. Capillary refill normal. Normal skin turgor. NEURO: Alert and oriented x3. Gait steady. PSYCH: Normal affect. Course Course Emergency Course: Patient is aware of diagnosis, understands and agrees to treatment plan. Anticipatory guidance given. Patient agrees to follow-up as directed and is aware of reasons to seek care at the emergency department. Portions of this record may have been created with voice recognition software Level of Care: Express Care Visit Vital Signs Vital signs: Vital Signs Temperature 97.8 F 07/09/24 10:06 Pulse Rate 76 07/09/24 10:06 Respiratory Rate 18 07/09/24 10:06 Blood Pressure 86/50 L 07/09/24 10:06 Pulse Oximetry 97 07/09/24 10:06 Oxygen Delivery Room Air 07/09/24 10:06 Temperature 97.8 F 07/09/24 10:06 Pulse Rate 76 07/09/24 10:06 Respiratory Rate 18 07/09/24 10:06 Blood Pressure 130/70 07/09/24 10:30 Pulse Oximetry 97 07/09/24 10:06 Oxygen Delivery Room Air 07/09/24 10:06 MDM - URI/Sore Throat MDM Narrative Medical decision making narrative: CXR reviewed with pt. Pt is overall well appearing, oxygen at baseline. Discussed physical exam findings. Advised supportive measures and signs/symptoms to go to the ER at length. Pt is appropriate for outpt treatment and f/u. Differential Diagnosis Differential diagnosis: Likely upper respiratory infection, sinusitis, viral infection, bronchitis and other Imaging Data Radiologist's impression: Patient: Jarod Oliver : 1950 MR#: [id number] Age: 74 Acct:[id number] Loc: [facility] ADM Date: 07/09/24Attending Dr: Ordering Physician: Alice Camp APRN Date of Service: 07/09/24 Procedure(s): XR chest 2V Accession Number(s): [id number] cc: Alice Camp APRN; Oswaldo, Ck Regan MD~ EXAMINATION: XR chest 2V DATE: 07/09/2024 10:47 INDICATION: Cough and shortness of breath. TECHNIQUE: Frontal and lateral views of the chest were obtained on 3 radiographs. COMPARISON: Chest single view 04/05/2019, CT abdomen 07/23/2007 FINDINGS: The lung volumes are normal. There is a diffuse interstitial pattern in the lungs. No pleural effusion or pneumothorax. The heart size is normal. IMPRESSION: 1. Diffuse lung disease, worsened from 04/05/2019, likely chronic lung disease. Discharge Plan Discharge Clinical Impression: Bronchitis Patient Disposition: Home, Self-Care Condition: Stable Instructions: Antibiotic Form, Acute Bronchitis (ED) Additional Instructions: Acute bronchitis can be contagious because it is usually caused by infection with a virus or bacteria. It is usually for a few days but you can be contagious for up to one week. Take medication as directed Use your inhalers and steroids as previously prescribed Recommend Flonase spray and Zyrtec (or Claritin/Anny) over the counter Cough syrup may cause drowsiness; avoid driving or take it at night time. Coricidin HBP if you have hypertension or any heart conditions. Tylenol 1000mg every 8 hours as needed for pain rest, fluids, and increase humidity of the air at home. Follow up with your primary care provider, call tomorrow to schedule appointment Go to the ER for worsening symptoms or concerns Patient Language: Sami Prescriptions: New azithromycin [Zithromax Z-Elan] 250 mg tablet See Rx Instructions .ROUTE .COMPLEX Qty: 6 0RF Rx Instructions: For 250 mg dose pack: take 500 mg today (day 1), then 250 mg for 4 days (days 2-5) No Action cephalexin 500 mg capsule 500 mg PO Q8H Qty: 21 0RF mupirocin 2 % ointment 1 applic topical BID Qty: 22 0RF Rx Instructions: apply to left middle finger atorvastatin 10 mg Tablet 10 mg PO DAILY lorazepam 0.5 mg Tablet 0.5 mg PO DAILY PRN (Reason: Anxiety) budesonide 3 mg Capsule,Delayed,Extend.Release 3 mg PO DAILY PRN (Reason: Diarrhea) pantoprazole [Protonix] [address] For Susp In Packet 40 mg PO PRN PRN (Reason: Indigestion) propafenone 225 mg tablet 225 mg PO TID Eliquis 5 mg tablet 5 mg PO BID multivitamin Tablet 1 tablet PO DAILY cholecalciferol (vitamin D3) 125 mcg (5,000 unit) Capsule 125 mcg PO DAILY magnesium 200 mg Tablet 200 mg PO DAILY amlodipine 2.5 mg Tablet 2.5 mg PO QAM Follow-up/Referrals: Oswaldo,Ck Mehta MD [Primary Care Provider] - Time of Disposition: 11:09
[2024-07-09 10:30] VITALS: BP 130/70
== END 2024-07-09 11:08 | disposition home or self-care (01) ==
PROVIDERS: Emergency Provider Nurse Practitioner Family; PCP Family Medicine
DX: J40 Bronchitis, not specified as acute or chronic (principal); Z87.891 Personal history of nicotine dependence; I10 Essential (primary) hypertension; E78.5 Hyperlipidemia, unspecified; K50.90 Crohn's disease, unspecified, without complications; K22.70 Barrett's esophagus without dysplasia; Z79.01 Long term (current) use of anticoagulants
CPT/HCPCS: 71046; 99213; G0463

== ENCOUNTER 2024-08-24 10:00 | Outpatient (RCR) | payer MEDICARE, SELFPAY | END 2024-09-13 10:37 | disposition home or self-care (01) | LOC: ANHCPREHAB 10:00 | PROVIDERS: PCP Family Medicine; Visit Provider Internal Medicine Pulmonary Disease | DX: J44.9 Chronic obstructive pulmonary disease, unspecified (principal); J84.10 Pulmonary fibrosis, unspecified | CPT/HCPCS: 94625 ==